=== PATIENT | female | born 1960 | race Caucasian/White ===

== ENCOUNTER → 2017-10-26 15:55 | Outpatient (CLI) | payer OTHER, SELFPAY ==
--- NOTE | 2017-10-26 15:58 | BI_ITS ---
MAMMOGRAPHY - BILATERAL SCREENING REASON FOR EXAM: Female, 57 years old. Routine annual screening examination. PERTINENT HISTORY: Sister with breast cancer. Aunt with breast cancer. TECHNIQUE: Digital bilateral breast jovanny (3D mammographic acquisition) in the CC and MLO projections. 2-D mediolateral oblique (MLO) and craniocaudad (CC) views of both breasts were obtained. CAD: Full Field Digital Mammography with Computer Added Detection was performed. COMPARISON: Comparison is made with prior study dated September 27, 2016 and September 19, 2016. FINDINGS: Breast Composition: There are scattered areas of fibroglandular density. There are no dominant masses or suspicious calcifications. No other significant abnormalities are identified. There has been no significant change since the prior study. BI/SCREENING MAMM (CAD), BILAT IMPRESSION: Stable bilateral screening mammogram. Yearly follow-up mammogram recommended. (A) ASSESSMENT CATEGORY: BIRADS Category 1: Negative. A letter regarding these results will be sent to the patient by the facility within 30 days. Approximately 10% of breast cancers are not detected by mammography. A normal mammogram should not delay biopsy of a clinically suspicious abnormality. [id number] Electronically Signed: Elliot Lopez MD at 8:44 EDT Tel [phone], Service support ,
== END ==
PROVIDERS: Family Provider Family Medicine; PCP Family Medicine; Visit Provider Obstetrics & Gynecology
DX: Z12.31 Encounter for screening mammogram for malignant neoplasm of breast (principal)
CPT/HCPCS: 77063; 77067

== ENCOUNTER 2018-08-23 08:43 | Day surgery (SDC) | payer OTHER, SELFPAY ==
[2018-08-13 07:30] VITALS: BMI 35.5
[2018-08-23] VITALS (9 sets, daily range): BP systolic 101–129; BP diastolic 68–86; PULSE 61–76; RESP 14–18; TEMP 36–37.3; O2SAT 96–100; BMI 35.4
[2018-08-23 09:23] LABS: Hematocrit 43.2 % (37-47); Hemoglobin 14.3 g/dl (12.0-15.0); Mean Corp Hgb Conc 33.1 g/gl (32-36); Mean Corpuscular Hgb 29.5 pg (27.0-32.0); Mean Corpuscular Volume 89.1 fL (81-99); Mean Platelet Vol. 9.6 fl (6.2-12.0); Platelet Count 216 K/mm3 (150-450); RBC Distribution Width CV 12.8 % (11.6-14.6); RBC Distribution Width SD 41.7 fl (35.1-43.9); Red Blood Count 4.85 M/mm3 (4.2-5.4); White Blood Count 5.1 K/mm3 (4.4-11.0)
[2018-08-23 09:24] LABS: Scan Indicated on CBC? Y/N NO
--- NOTE | 2018-08-23 09:29 | EKG12_ITS ---
Test Reason : PRE-OP Blood Pressure : / mmHG Vent. Rate : 075 BPM Atrial Rate : 075 BPM P-R Int : 134 ms QRS Dur : 088 ms QT Int : 368 ms P-R-T Axes : 053 041 042 degrees QTc Int : 410 ms Normal sinus rhythm Normal ECG When compared with ECG of 15-SEP-2010 03:27, No significant change was found Confirmed by LILI CEE, RADHA ([id number]), news copy editor MINI ONEILL ([id number]) on 08/29/2018 1:13:32 PM Referred By: Todd Garcia Confirmed By:RADHA PEARSON MD
[2018-08-23 09:31] LABS: Prothrombin Time (Protime)PT. 13.3 SECONDS (11.7-14.9)
[2018-08-23 09:32] LABS: Partial Thromboplast Time 27.5 Seconds (24.1-36.2)
[2018-08-23] MEDS: Cefazolin 2 GM in 0.9% Normal Saline 100 ML IV (10:31)
--- NOTE | 2018-08-23 11:00 | GALL_PTH ---
PATIENT: MANOJ TOMPKINS LOC: [facility] [place] U#:[id number] AGE/SX: 58/F ROOM: RE08/23/[address]: Dr. Todd Garcia MD : 1960 BED: DIS: 08/23/2018 SPEC #: [id number] RECD: 08/23/18 12:44 STATUS: ELINOR DAMARIS #: [id number] MELIA: 08/23/18 11:[address]: Todd Garcia DEPT: SURGICAL PATHOLOGY RECD BY: Darrin Borrego ENTERED: 08/23/18 13:17 SP TYPE: MIGUEL ANGEL HARRIS DR: Dr. Rohan North III, MD Tissues: Gallbladder, NOS Procedures: Surgery Specimen Level III HEADER OPERATION: Laparoscopic cholecystectomy PRE-OP DIAGNOSIS: Calculus of gallbladder with chronic cholecystitis without obstruction TISSUE SUBMITTED: Gallbladder MICROSCOPIC DIAGNOSIS Gallbladder, cholecystectomy: Moderate chronic follicular cholecystitis and cholelithiasis. A pericystic lymph node with reactive changes. SJ:estelle 08/26/18 MICROSCOPIC DESCRIPTION Slides are reviewed. GROSS DESCRIPTION Received is one container labeled with the patient's name and designated gallbladder. The specimen consists of a gallbladder measuring 8.5 cm in length and up to 3 cm in diameter. The external surface is pink-rai, smooth and glistening for the most part. Focally it is granular, hemorrhagic and contains cautery artifact. The gallbladder contains green-yellow mucoid bile and multiple multifaceted, brownish-black stones measuring in aggregate 3 x 3 x 1 cm and 0.7 to 1.5 cm in greatest dimension. The mucosa is bile-stained and without any mass lesions. The gallbladder wall measures up to 0.2 cm in thickness. Also present close to cystic duct is an ovoid piece of rai soft tissue, a possible lymph node, 0.6 cm in greatest dimension. Area Director Of [employer] sections from the gallbladder and the cystic duct are submitted in one cassette including entire possible lymph node. / KATHE:estelle 08/23/18 TC:3 CPT: 18126
[2018-08-23] MEDS: Bupivacaine 0.5% PF 10 ML VIAL (11:27)
--- NOTE | 2018-08-23 11:59 | NURSING ---
SLEEPING NOT AWAKENED.
--- NOTE | 2018-08-23 12:03 | DCINST_ITS ---
Discharge Diet: Light diet - advance as tolerated Discharge Activity: May Not Drive - for 2-3 days or while taking narcotic pain medications., - - Do not drive, work heavy equipment or sign legal documents for 24 hours. May shower in (days): 1 - with the bandage in place. Additional Activity Instructions:: Pain medication may cause nausea. You should typically eat light foods as you take your pain medications. Pain medication may also cause constipation. If this is a problem for you, please discuss with your doctor. Call your doctor if your incision/area has: Continuous Slow Oozing, Sudden Increased Bleeding, Increased Pain/ Swelling, Increased Redness, Foul Smelling Discharge Call your doctor if you observe: Fever of 101 or Higher Suture Line Care: Avoid Pulling/Pushing, Avoid Pinching/Bending Additional Dressing/Incision Instructions:: Leave operative bandaids on for 2 days. When you remove dressing, leave Steri-Strips on until your follow-up appointment, or until the Steri-Strips fall off on their own. Allergies/Adverse Reactions: Allergies codeine Adverse Reaction (Verified 08/16/18 15:17) Upset Stomach Medications to take at Discharge B-complex with vitamin C capsule 1 cap PO DAILY 08/13/18 calcium carbonate 600 mg calcium (1,500 mg) tablet 600 mg PO BID tab 08/13/18 copper gluconate 2 mg tablet 2 mg PO DAILY 08/13/18 fluticasone 50 mcg/actuation nasal spray,suspension 2 spray INTRANASAL DAILY PRN 08/13/18 magnesium 250 mg tablet 135 mg PO DAILY 08/13/18 melatonin 5 mg capsule 3 mg PO QHS cap 08/13/18 omega-3 fatty acids 1,250 mg capsule 1,250 mg PO DAILY PRN 08/13/18 omeprazole 40 mg capsule,delayed release 20 mg PO DAILY PRN 08/13/18 zinc 50 mg tablet 30 mg PO DAILY 08/13/18 Cholecalciferol (Vitamin D3) [Vitamin D3] 4,000 unit PO DAILY 08/16/18 Cranberry Fruit Extract [Cranberry] 168 mg PO DAILY 08/16/18 Ferrous Fumarate 60 mg PO DAILY 08/16/18 Loratadine [Claritin] 10 mg PO DAILY PRN 08/16/18 Multivitamin [Multiple Vitamins] 1 each PO BID 08/16/18 Polyethylene Glycol 3350 [Miralax] 17 gm PO DAILY PRN 08/16/18 Oxycodone HCl 5 mg PO 4X/DAY PRN PRN 7 Days #150 ml 08/23/18 The following prescriptions were given: Oxycodone HCl 5 mg PO 4X/DAY PRN PRN 7 Days #150 ml PRN Reason: Pain Primary Care Physician: Rohan North III, MD [Primary Care Provider] - Test Results: Test results from this visit will be discussed in further detail at your follow- up appointment, if applicable. Please Follow Up With: Todd Garcia MD - Please call [phone] to schedule an appointment. When: 7 days after your surgery.
--- NOTE | 2018-08-23 12:05 | PCM.OPRPT ---
Problem List (1) Calculus of gallbladder with chronic cholecystitis without obstruction Status: Chronic Report of Operation Date of Procedure: 08/23/18 Pre-Operative Diagnosis: Chronic cholecystitis with cholelithiasis Post-Operative Diagnosis: Same Surgery/Procedure Performed:: Laparoscopic cholecystectomy Type of Anesthesia:: General Anesthesiologist: Maurice Holman Estimated Blood Loss (mL): < 25 cc Description of Procedure: Patient was brought into the operating room. Placed in the supine position. Under excellent general endotracheal intubation the abdomen was sterilely prepped and draped in usual fashion. Local was injected infraumbilically. Dissection was carried down to the fascia. The fracture was grasped with a [place]. Varies needle was placed inside the abdomen. The abdomen was insufflated to 15 torr. A 10/12 trocar was placed without difficulty. Patient was placed in the head up and rotated to the left position. A subxiphoid #5 trocar was placed, inferior to this another #5 trocar was placed, laterally a #5 trocar was placed. All of these under direct visualization without injury to underlying structures. Fundus of the gallbladder was grasped retracted in a cephalad direction. Infundibulum was grasped retracted laterally I dissected out the cystic duct. I placed hemoclips proximally distally and ligated the duct. Identified the cystic artery. Place hemoclips proximally distally and ligated the artery. Deliver the gallbladder from the gallbladder bed with the use of electrocautery. I had some spillage of bile but no spillage of stones. Placed a specimen specimen bag and delivered through the umbilical port without difficulty. I irrigated the right upper quadrant retrieved all the bile that was lost. I used electrocautery on the liver bed to achieve good hemostasis. I removed the trochars under direct visualization. Good hemostasis was noted. Close the fascia the umbilical port with [id number] stitch of 0 Vicryl. Skin incisions were closed with septicum stitches of 4-0 Monocryl. Steri-Strips are applied sterile dressings were applied and the patient tolerated the procedure well.
== END 2018-08-23 16:46 | disposition home or self-care (01) ==
LOC: SDC 08:46 → AC 08:46
PROVIDERS: Anesthesiology; Family Provider Family Medicine; PCP Family Medicine; Referring Provider Surgery; Visit Provider Surgery
PROC: (CPT 47562; principal; 2018-08-23 10:40)
DX: K80.10 Calculus of gallbladder with chronic cholecystitis without obstruction (principal); K21.9 Gastro-esophageal reflux disease without esophagitis; M19.90 Unspecified osteoarthritis, unspecified site; D64.9 Anemia, unspecified; Z87.891 Personal history of nicotine dependence; Z98.84 Bariatric surgery status; Z79.899 Other long term (current) drug therapy
CPT/HCPCS: 00790; 47562; 36415; 85027; 85610; 85730; 88304; 93005; J7120; J2405

== ENCOUNTER → 2019-03-04 | Outpatient (CLI) | payer OTHER, SELFPAY ==
[2018-08-23 09:46] VITALS: BMI 35.4
--- NOTE | 2019-03-04 16:55 | BI_ITS ---
MAMMOGRAPHY - BILATERAL SCREENING 3-D TOMOSYNTHESIS REASON FOR EXAM: Female, 59 years old. Bilateral Screening 3-D tomosynthesis PERTINENT HISTORY: Sister and paternal aunt with breast cancer.. TECHNIQUE: 2-D mammograms and 3-D Tomosynthesis of the breast (s) were performed. CAD was performed. COMPARISON: 10/26/2017, 05/03/2017, 09/27/2016 FINDINGS: The breast composition is composed of scattered fibroglandular density. Scattered benign calcifications are seen. No dense spiculated masses or suspicious microcalcifications are identified. No architectural distortion is identified. There is no skin thickening or retraction. There has been no significant change since the prior study. BI/SCREEN MAMM (CAD) W/JACK BILAT IMPRESSION: No mammographic signs of malignancy. Routine yearly mammograms recommended. ASSESSMENT CATEGORY: BIRADS Category 2: Benign. A letter regarding these results will be sent to the patient by the facility within 30 days. FOLLOW UP RECOMMENDATION: Yearly follow up mammogram recommended. (A) Approximately 10% of breast cancers are not detected by mammography. A normal mammogram should not delay biopsy of a clinically suspicious abnormality. Electronically Signed: Elliot Roberto MD at 15:48 EDT Tel [phone], Service support ,
== END | disposition home or self-care (01) ==
PROVIDERS: Family Provider Family Medicine; PCP Family Medicine; Referring Provider Obstetrics & Gynecology; Visit Provider Obstetrics & Gynecology
DX: Z12.31 Encounter for screening mammogram for malignant neoplasm of breast (principal)
CPT/HCPCS: 77063; 77067

== ENCOUNTER → 2020-04-28 | Outpatient (CLI) | payer OTHER, SELFPAY ==
[2018-08-23 09:46] VITALS: BMI 35.4
--- NOTE | 2020-04-28 15:15 | BI_ITS ---
MAMMOGRAPHY - BILATERAL SCREENING REASON FOR EXAM: Female, 60 years old. Routine annual screening examination. PERTINENT HISTORY: Sister with breast cancer. Aunt with breast cancer. TECHNIQUE: Digital bilateral breast jack (3D mammographic acquisition) in the CC and MLO projections. 2-D mediolateral oblique (MLO) and craniocaudad (CC) views of both breasts were obtained. CAD: Full Field Digital Mammography with Computer Added Detection was performed. COMPARISON: Comparison is made with prior study date 03/04/2019 and 10/26/2017. FINDINGS: Breast Composition: There are scattered areas of fibroglandular density. There are no dominant masses or suspicious calcifications. No other significant abnormalities are identified. There has been no significant change since the prior study. BI/SCREEN MAMM (CAD) W/JACK BILAT IMPRESSION: Stable bilateral screening mammogram. Yearly follow-up mammogram recommended. (A) ASSESSMENT CATEGORY: BIRADS Category 1: Negative. A letter regarding these results will be sent to the patient by the facility within 30 days. Approximately 10% of breast cancers are not detected by mammography. A normal mammogram should not delay biopsy of a clinically suspicious abnormality. [id number] Electronically Signed: Elliot Lopez, at 8:06 EDT , Service support ,
== END | disposition home or self-care (01) ==
PROVIDERS: PCP Family Medicine; Referring Provider Student in an Organized Health Care Education/Training Program; Visit Provider Student in an Organized Health Care Education/Training Program
DX: Z12.31 Encounter for screening mammogram for malignant neoplasm of breast (principal)
CPT/HCPCS: 77063; 77067

== ENCOUNTER → 2021-04-29 07:35 | Outpatient (CLI) | payer OTHER, SELFPAY ==
--- NOTE | 2021-04-29 07:38 | BI_ITS ---
MAMMOGRAPHY - BILATERAL SCREENING REASON FOR EXAM: Female, 61 years old. Routine annual screening examination. PERTINENT HISTORY: Sister with breast cancer. Aunt with breast cancer. TECHNIQUE: Digital bilateral breast jack (3D mammographic acquisition) in the CC and MLO projections. 2-D mediolateral oblique (MLO) and craniocaudad (CC) views of both breasts were obtained. CAD: Full Field Digital Mammography with Computer Added Detection was performed. COMPARISON: Comparison is made with prior examination dated 04/28/2020 and 03/04/2019. FINDINGS: Breast Composition: There are scattered areas of fibroglandular density. There are no dominant masses or suspicious calcifications. No other significant abnormalities are identified. There has been no significant change since the prior study. BI/SCRN MAMM (CAD)W/JACK BILAT IMPRESSION: Stable bilateral screening mammogram. Yearly follow-up mammogram recommended. (A) ASSESSMENT CATEGORY: BIRADS Category 1: Negative. A letter regarding these results will be sent to the patient by the facility within 30 days. Approximately 10% of breast cancers are not detected by mammography. A normal mammogram should not delay biopsy of a clinically suspicious abnormality. [id number] Electronically Signed: Elliot Lopez MD at 8:49 EDT , Service support ,
== END ==
PROVIDERS: PCP Nurse Practitioner Primary Care; Referring Provider Student in an Organized Health Care Education/Training Program; Visit Provider Student in an Organized Health Care Education/Training Program
DX: Z12.31 Encounter for screening mammogram for malignant neoplasm of breast (principal)
CPT/HCPCS: 77063; 77067

== ENCOUNTER → 2022-05-01 | Outpatient (CLI) | payer OTHER, SELFPAY ==
--- NOTE | 2022-05-01 07:16 | BI_ITS ---
MAMMOGRAPHY - BILATERAL SCREENING REASON FOR EXAM: Female, 62 years old. Routine annual screening examination. PERTINENT HISTORY: Sister with breast cancer. Aunt with breast cancer. TECHNIQUE: Digital bilateral breast jack (3D mammographic acquisition) in the CC and MLO projections. 2-D mediolateral oblique (MLO) and craniocaudad (CC) views of both breasts were obtained. CAD: Full Field Digital Mammography with Computer Added Detection was performed. COMPARISON: Comparison is made with prior study dated 04/29/2021 and 04/28/2020. FINDINGS: Breast Composition: The breasts are almost entirely fatty. There are no dominant masses or suspicious calcifications. No other significant abnormalities are identified. There has been no significant change since the prior study. BI/SCRN MAMM (CAD)W/JACK BILAT IMPRESSION: Stable bilateral screening mammogram. Yearly follow-up mammogram recommended. (A) ASSESSMENT CATEGORY: BIRADS Category 1: Negative. A letter regarding these results will be sent to the patient by the facility within 30 days. Approximately 10% of breast cancers are not detected by mammography. A normal mammogram should not delay biopsy of a clinically suspicious abnormality. [id number] Electronically Signed: Elliot Lopez MD at 8:58 EDT ,
== END | disposition home or self-care (01) ==
LOC: OPBI 07:13
PROVIDERS: PCP Nurse Practitioner Primary Care; Visit Provider Student in an Organized Health Care Education/Training Program
DX: Z12.31 Encounter for screening mammogram for malignant neoplasm of breast (principal); Z80.3 Family history of malignant neoplasm of breast
CPT/HCPCS: 77063; 77067

== ENCOUNTER → 2022-08-07 | Outpatient (CLI) | payer OTHER, SELFPAY ==
[2022-08-07 12:13] LABS: Absolute Lymphocyte Count 1.27 X10^3/uL (0.83-4.51); Basophil# 0.02 X10^3/uL; Basophil% 0.4 % (0-1); Eosinophil# 0.07 X10^3/uL; Eosinophils% 1.5 % (0-5); Hematocrit 44.8 % (37-47); Hemoglobin 14.7 g/dL (12.0-15.0); Lymphocyte # 1.27 X10^3/ul (0.83-4.51); Lymphocyte % 26.3 % (19-41); Mean Corp Hgb Conc 32.8 g/dL (32-36); Mean Corpuscular Hgb 29.2 pg (27.0-32.0); Mean Corpuscular Volume 88.9 fL (81-99); Mean Platelet Vol. 10.2 fl (6.2-12.0); Monocyte% 8.3 % (0-10); NRBC Flagged by Analyzer 0 % (0-5); Neutrophil # 3.04 X10^3/uL (2.7-7.7); Neutrophil % 63.1 % (47-70); Platelet Count 249 K/mm3 (150-450); RBC Distribution Width CV 12.4 % (11.6-14.6); RBC Distribution Width SD 40.6 fl (35.1-43.9); Red Blood Count 5.04 M/mm3 (4.2-5.4); White Blood Count 4.8 K/mm3 (4.4-11.0)
[2022-08-07 12:40] LABS: AST(SGOT) 24 U/L (15-37); Alanine Aminotransfer ALT/SGPT 40 U/L (13-56); Albumin, Serum 3.8 g/dL (3.2-5.0); Alkaline Phosphatase 73 U/L (45-117); Anion Gap 6 (5-15); BUN 14 mg/dL (7-18); BUN/Creat Ratio 16.7 RATIO (10-20); Calcium,Total 9.7 mg/dL (8.5-10.1); Chloride 106 mmol/L (98-107); Cholesterol 196 mg/dL (200); Creatinine, Serum 0.84 mg/dL (0.55-1.02); EST Glomerular Filtration Rate 74 mL/min (>60); Est Glom Filt Rate - Afr Amer 89 mL/min (>60); Globulin 3.9 g/dL (2.2-4.2); Glucose 112 mg/dL (74-106); High Density Lipoprotein 72 mg/dL; Protein, Total 7.7 g/dL (6.4-8.2); Sodium Level 139 mmol/L (136-145); Triglycerides 155 mg/dL; Very Low Density Lipoprotein 31 mg/dL (5-40)
[2022-08-07 13:02] LABS: Hemoglobin A1c 5.7 % (3.8-5.6)
[2022-08-07 13:05] LABS: Vitamin B12 1087 pg/mL (211-911); Vitamin D,25 Hydroxy 43.1 ng/mL
== END | disposition home or self-care (01) ==
LOC: BIMLAB 08:46
PROVIDERS: PCP Internal Medicine; Referring Provider Internal Medicine; Visit Provider Internal Medicine
DX: Z00.00 Encounter for general adult medical examination without abnormal findings (principal); K91.2 Postsurgical malabsorption, not elsewhere classified
CPT/HCPCS: 36415; 80053; 80061; 82306; 82607; 83036; 85025

== ENCOUNTER → 2023-01-19 | Outpatient (CLI) | payer OTHER, SELFPAY ==
--- NOTE | 2023-01-19 09:04 | RAD_ITS ---
STUDY: X-RAY - CERVICAL SPINE REASON FOR EXAM: Female, 62 years old. Radiculopathy TECHNIQUE: 3 view(s) of the cervical spine were obtained. COMPARISON: None FINDINGS: Normal anterior atlantoaxial articulation. Normal odontoid process. Normal cervical lordosis. Normal vertebral bodies and endplates. Normal disc space heights. The soft tissue structures are unremarkable. There is no demonstrated fracture of the cervical spine. RAD/Cerv Spine 2 or 3 Views IMPRESSION: Normal x-ray examination of the visualized cervical spine. Electronically Signed: Darshan Bearden MD at 19:58 EDT ,
[2023-01-19 12:29] LABS: Absolute Lymphocyte Count 1.18 X10^3/uL (0.83-4.51); Absolute Neutrophil Count 5.3 X10^3/uL (2.0-7.7); Basophil# 0.03 X10^3/uL; Basophil% 0.4 % (0-1); Eosinophil# 0.04 X10^3/uL; Eosinophils% 0.6 % (0-5); Hematocrit 45.5 % (37-47); Hemoglobin 14.9 g/dL (12.0-15.0); Lymphocyte # 1.18 X10^3/ul (0.83-4.51); Lymphocyte % 16.7 % (19-41); Mean Corp Hgb Conc 32.7 g/dL (32-36); Mean Corpuscular Hgb 29.6 pg (27.0-32.0); Mean Corpuscular Volume 90.5 fL (81-99); Mean Platelet Vol. 10.3 fl (6.2-12.0); Monocyte# 0.47 X10^3/uL; Monocyte% 6.7 % (0-10); NRBC Flagged by Analyzer 0 % (0-5); Neutrophil # 5.31 X10^3/uL (2.7-7.7); Neutrophil % 75.2 % (47-70); Platelet Count 268 K/mm3 (150-450); RBC Distribution Width CV 12.5 % (11.6-14.6); RBC Distribution Width SD 41.2 fl (35.1-43.9); Red Blood Count 5.03 M/mm3 (4.2-5.4); White Blood Count 7.1 K/mm3 (4.4-11.0)
[2023-01-19 13:01] LABS: ALB/GLOB Ratio 1.1 RATIO (0.9-2.4); AST(SGOT) 17 U/L (15-37); Alanine Aminotransfer ALT/SGPT 28 U/L (13-56); Alkaline Phosphatase 67 U/L (45-117); Anion Gap 4 (5-15); BUN 20 mg/dL (7-18); BUN/Creat Ratio 26.7 RATIO (10-20); Calcium,Total 9.8 mg/dL (8.5-10.1); Chloride 105 mmol/L (98-107); Creatinine, Serum 0.75 mg/dL (0.55-1.02); EST Glomerular Filtration Rate 83 mL/min (>60); Est Glom Filt Rate - Afr Amer 101 mL/min (>60); Globulin 3.7 g/dL (2.2-4.2); Glucose 111 mg/dL (74-106); Potassium 4.4 mmol/L (3.5-5.1); Protein, Total 7.7 g/dL (6.4-8.2); Sodium Level 136 mmol/L (136-145); T4 Free Direct 1.06 ng/dL (0.76-1.46)
== END | disposition home or self-care (01) ==
PROVIDERS: PCP Internal Medicine; Referring Provider Internal Medicine; Visit Provider Internal Medicine
DX: R73.03 Prediabetes (principal); Z13.29 Encounter for screening for other suspected endocrine disorder; M54.10 Radiculopathy, site unspecified
CPT/HCPCS: 36415; 72040; 80053; 84439; 84443; 85025

== ENCOUNTER → 2023-03-29 | Outpatient (CLI) | payer OTHER, SELFPAY ==
--- NOTE | 2023-03-29 16:49 | RAD_ITS ---
STUDY: X-RAY - RIGHT SHOULDER REASON FOR EXAM: Female, 63 years old. Right Shoulder Pain TECHNIQUE: 4 view(s) of the shoulder. COMPARISON: None. FINDINGS: Mildly narrowed glenohumeral articulation. Normal acromioclavicular joint. Normal acromion. Normal humeral head and visualized proximal humerus. The soft tissue structures are unremarkable. Normal visualized pulmonary apex. RAD/Shoulder min 2 Views IMPRESSION: Mild degenerative change. No acute fracture or other significant bony pathology. Electronically Signed: David Poon MD at 17:58 EDT ,
== END | disposition home or self-care (01) ==
LOC: RAD 16:46
PROVIDERS: PCP Internal Medicine; Referring Provider Internal Medicine; Visit Provider Internal Medicine
DX: M25.511 Pain in right shoulder (principal)
CPT/HCPCS: 73030

== ENCOUNTER → 2023-05-02 | Outpatient (CLI) | payer OTHER, SELFPAY ==
--- NOTE | 2023-05-02 07:17 | BI_ITS ---
MAMMOGRAPHY - BILATERAL SCREENING REASON FOR EXAM: Female, 63 years old. Routine annual screening examination. PERTINENT HISTORY: Sister with breast cancer. Aunt with breast cancer. TECHNIQUE: Digital bilateral breast jack (3D mammographic acquisition) in the CC and MLO projections. 2-D mediolateral oblique (MLO) and craniocaudad (CC) views of both breasts were obtained. CAD: Full Field Digital Mammography with Computer Added Detection was performed. COMPARISON: Comparison is made with prior study May 01, 2022 and April 29, 2021. FINDINGS: Breast Composition: The breasts are almost entirely fatty. There are no dominant masses or suspicious calcifications. No other significant abnormalities are identified. There has been no significant change since the prior study. BI/SCRN MAMM (CAD)W/JACK BILAT IMPRESSION: Stable bilateral screening mammogram. Yearly follow-up mammogram recommended. (A) ASSESSMENT CATEGORY: BIRADS Category 1: Negative. A letter regarding these results will be sent to the patient by the facility within 30 days. Approximately 10% of breast cancers are not detected by mammography. A normal mammogram should not delay biopsy of a clinically suspicious abnormality. [id number] Electronically Signed: Elliot Lopez MD at 9:30 EDT ,
== END | disposition home or self-care (01) ==
LOC: OPBI 07:16
PROVIDERS: PCP Internal Medicine; Referring Provider Internal Medicine; Visit Provider Internal Medicine
DX: Z12.31 Encounter for screening mammogram for malignant neoplasm of breast (principal); Z80.3 Family history of malignant neoplasm of breast
CPT/HCPCS: 77063; 77067

== ENCOUNTER 2023-05-04 07:30 | Outpatient (RCR) | payer OTHER, SELFPAY ==
--- NOTE | 2023-04-05 17:05 | HP.PTEVAL ---
Patient's Visit Information Visit Information Visit Information: MANOJ TOMPKINS is a 63 year old F referred to Physical Therapy by Dr. Miah Montemayor MD with a diagnosis of R shoulder pain. Date of Evaluation: 04/05/23 Physical Therapist: Mike Hassan, PT, ATC Visit Plan Frequency: 2x /Week Duration: 4-6 Weeks Plan: R shoulder rot cuff strengthening, scap stab ex's, UBE, and HEP Subjective Subjective: Pt reports her R shoulder has been sore for 3-4 months now. Pt notes her pain had an insidious onset. Pt notes her pain is located on the anterior aspect of the R shoulder. Pt notes sleep difficulty at this time secondary to pain. Pt notes she is R hand dominant. Pt reports getting dressed and performing house hold chores increases her pain. Pt reports no prior Hx of this type of pain. Pt reports no R UE tingling or numbness at this time. Pt notes she had a recent x-ray which revealed OA. 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 0/10 pain while at rest, 7/10 pain at worst (at night time and brings me to tears) Pain R shoulder: Pain Intensity (Out of 10): 0 Pain Intensity Range: 7 Objective Objective: Neuro: B UE sensation to light touch WNL; B Reflexes 2+ Palpation: Slight TTP in L long head of bicep/anterior delt area; posterior joint line and supraspinatus; L lateral delt ROM: L shoulder flex= 165, abd= 170, ER= 25, IR= WNL ;R shoulder flex= 125, abd= 80, ER= 40, IR = Mod limited MMT: L shoulder flex= 15 #F, abd=16# F, ER= 16 #F, IR= 21 #F;R shoulder flex= 4 #F, abd= 12 #F, ER= 14 #F, IR= 14 #F Special tests: Pos kimball alton test; Pos speeds test; Pos empty can test Balance/Special Test Scores Quick DASH Score: 52.6899 Goals Goal 1:: Pt. to improve R shoulder strength x 5-10 #F to aid with house chores Goal Time Frame: 4-6 Weeks Goal 2:: Increase R shoulder flex and abd ROM x 30 degrees to aid with IADL's Goal Time Frame: 4-6 Weeks Goal 3:: Decrease R shoulder pain x 50% to aid with sleep Goal Time Frame: 4-6 Weeks Goal 4:: I with HEP Goal Time Frame: 4-6 Weeks Rehabilitation Potential Physical Therapy Diagnosis: Pt has R shoulder pain, weakness, and limited ROM secondary to R shoulder impingement syndrome Rehabilitation Potential: Good Anticipated Interventions Patient/Client Instruction: Educate patient on: Condition and Plan of Care For the Purpose of:: To improve self management Therapeutic Exercise to Include: Strength training, Flexibilty training, Active ROM and Scapular Strength/Stabilization For the Purpose of:: To decrease pain, To increase ROM and To improve muscle performance and motor function Cryotherapy (ice pack, ice massage): Yes For the Purpose of:: To decrease pain Text: Thank you for the opportunity to evaluate your patient. For Medicare and Medicare HMO plans, please review the plan of care and approve it. It will need to be FAXED BACK to us at [phone] for Medicare purposes. For Medicare only, by signing this I certify the plan of care. Please let me know if there are questions or concerns regarding this plan of care. Physician Signature: Date:
--- NOTE | 2023-05-04 12:33 | HP.PTDCSUM ---
Discharge Summary D/C summary: It has been my pleasure to treat MANOJ TOMPKINS referred by Dr. Miah Montemayor MD, with the diagnosis of R shoulder pain for a total of 7 visit(s). Discharge Date: Please see the following information for a summary of their discharge status. Subjective Subjective: Pt. reports no pain and was able to sleep through the night for the first time in weeks! There is no pain currently in her shoulder or her neck. Completing all of her ADLs and iADLs are able to be completed without pain for over a week. The pt. states she is 90% improved at this time and the remainder 10% of the pts. improvement is so that she can sleep throughout night for a week in a row. She is incredibly pleased with the progress she's made on this chronic pain issue she has had for over a year. Pain R shoulder: Pain Intensity (Out of 10): 0 Overall Improvement % Improvement: 90 Objective Objective/Function: Pts. new QuickDASH score = 2.2725 (Original 52.2725) Pts. R shoulder strength has improved x 5-10 #F which has met her goal. - R Shoulder Flexion: 26.2 #F (originally 4 #F) - R Shoulder Abd: 20.3 #F (originally 12 #F) - R Shoulder IR: 26.5 #F (originally 14 #F) - R Shoulder ER: 24.7 #F (originally 14#) Pts. R Shoulder flex and abd ROM has increased x 30 degrees which meets her current goal. - R Shoulder Abd: 180 Deg (originally 80 deg) Pts. reported pain is now reported as a 0/10 which meets her current goal. Pt. is I with HEP which meets her goal. Goals Goal 1:: Pt. to improve R shoulder strength x 5-10 #F to aid with house chores Goal Progress: Goal Met Goal 2:: Increase R shoulder flex and abd ROM x 30 degrees to aid with IADL's Goal Progress: Goal Met Goal 3:: Decrease R shoulder pain x 50% to aid with sleep Goal Progress: Goal Met Goal 4:: I with HEP Goal Progress: Goal Met Plan Plan: D/C pt. to HEP. D/C Information d/c sentence: If there are questions or concerns regarding this patient's physical therapy, please feel free to call me at [phone]. Thank you for the referral of this patient. Sincerely, Mike Hassan, PT, ATC Balance/Gait/Functional tests Balance/Special Test Scores Quick DASH Score: 2.2725 Improvement % Improvement: 90
== END 2023-05-04 19:00 | disposition home or self-care (01) ==
LOC: PT 07:30
PROVIDERS: PCP Internal Medicine; Referring Provider Internal Medicine; Visit Provider Internal Medicine
DX: M25.511 Pain in right shoulder (principal); M19.90 Unspecified osteoarthritis, unspecified site; G89.29 Other chronic pain
CPT/HCPCS: 97110; 97140; 97161; 97164; 97530

== ENCOUNTER → 2023-06-25 | Outpatient (CLI) | payer OTHER, SELFPAY ==
[2023-06-25 16:22] LABS: Absolute Lymphocyte Count 1.76 X10^3/uL (0.83-4.51); Absolute Neutrophil Count 4.3 X10^3/uL (2.0-7.7); Basophil# 0.03 X10^3/uL; Basophil% 0.4 % (0-1); Eosinophil# 0.14 X10^3/uL; Eosinophils% 2.1 % (0-5); Hematocrit 43.9 % (37-47); Hemoglobin 14.3 g/dL (12.0-15.0); Lymphocyte # 1.76 X10^3/ul (0.83-4.51); Mean Corp Hgb Conc 32.6 g/dL (32-36); Mean Corpuscular Hgb 29.2 pg (27.0-32.0); Mean Corpuscular Volume 89.8 fL (81-99); Mean Platelet Vol. 9.5 fl (6.2-12.0); Monocyte# 0.52 X10^3/uL; Monocyte% 7.7 % (0-10); NRBC Flagged by Analyzer 0 % (0-5); Neutrophil % 63.5 % (47-70); Platelet Count 264 K/mm3 (150-450); RBC Distribution Width CV 12.5 % (11.6-14.6); RBC Distribution Width SD 41.2 fl (35.1-43.9); Red Blood Count 4.89 M/mm3 (4.2-5.4); White Blood Count 6.8 K/mm3 (4.4-11.0)
[2023-06-25 16:45] LABS: AST(SGOT) 19 U/L (15-37); Alanine Aminotransfer ALT/SGPT 28 U/L (13-56); Albumin, Serum 3.8 g/dL (3.2-5.0); Alkaline Phosphatase 70 U/L (45-117); Anion Gap 4 (5-15); BUN 18 mg/dL (7-18); BUN/Creat Ratio 22.1 RATIO (10-20); Calcium,Total 10.2 mg/dL (8.5-10.1); Chloride 105 mmol/L (98-107); Cholesterol 187 mg/dL (200); Creatinine, Serum 0.81 mg/dL (0.55-1.02); EST Glomerular Filtration Rate 76 mL/min (>60); Est Glom Filt Rate - Afr Amer 92 mL/min (>60); Globulin 3.8 g/dL (2.2-4.2); Glucose 114 mg/dL (74-106); High Density Lipoprotein 72 mg/dL; Potassium 3.9 mmol/L (3.5-5.1); Protein, Total 7.6 g/dL (6.4-8.2); Sodium Level 138 mmol/L (136-145); Triglycerides 77 mg/dL; Very Low Density Lipoprotein 15 mg/dL (5-40)
== END | disposition home or self-care (01) ==
LOC: BIMLAB 15:43
PROVIDERS: PCP Internal Medicine; Referring Provider Internal Medicine; Visit Provider Internal Medicine
DX: Z00.00 Encounter for general adult medical examination without abnormal findings (principal)
CPT/HCPCS: 36415; 80053; 80061; 85025

== ENCOUNTER → 2023-07-31 | Outpatient (CLI) | payer OTHER, SELFPAY ==
--- NOTE | 2023-07-31 15:51 | BD_ITS ---
STUDY: DUAL ENERGY X-RAY ABSORPTIOMETRY / DXA REASON FOR EXAM: Female, 63 years old. Post menopausal TECHNIQUE: Bone Mineral Density (BMD) measurements of lumbar spine and bilateral hips were obtained. COMPARISON: None. FINDINGS: Lumbar Spine (L1-L4): g/cm2 (0.864) / T-score (-1.7) / Z-score (-0.1) Findings are suggestive of osteopenia with a moderate fracture risk. Left Femur Total: g/cm2 (0.792) / T-score (-1.2) / Z-score (-0.1) Left Femoral Neck: g/cm2 (0.589) / T-score (-2.3) / Z-score (-1.0) Right Femur Total: g/cm2 (0.813) / T-score (-1.1) / Z-score (0.0) Right Femoral Neck: g/cm2 (0.632) / T-score (-2.0) / Z-score (-0.6) BD/Dexa Bone Density Study IMPRESSION: The patient is considered osteopenic as outlined below according to World Luis Organization (WHO) criteria with a high fracture risk. Reference Information: The T-score is the number of standard deviations above or below the standard which is normal for young adults at their peak bone mineral density. The World Health Organization (WHO) interprets the T-scores as follows: Above -1 Normal bone density Between -1 and -2.5 Osteopenia Equal to / or below -2.5 Osteoporosis As a practical clinical guideline, osteopenia may be graded as follows: Mild -1 through -1.5 Moderate -1.6 through -2.0 Severe -2.1 through -2.4 The Z-score is the number of standard deviations above or below age-matched controls. A Z-score of less than -1.5 would be considered abnormal. References: 1. NIH Osteoporosis and Related Bone Diseases www osteo.org 2. International Society for Clinical Densitometry www iscd.org 3. National Osteoporosis Foundation www nof.org Electronically Signed: Elliot Lopez MD at 8:25 EST ,
--- OUTSIDE RECORDS SUMMARY | 2023-07-31 17:41 | XMS RPT_ITS | CCD ---
Author Name Unknown Address [address] [place] [address] Organization [facility] Care Team Providers Care Evp And Chief Operating Officer Name Role Phone Juan Luis Paul MD Primary Care Provider PODLOGAR, ORQUIDEA Referring Unavailable JUAN LUIS PAUL Primary Care UnavailJuan Luis Gtz MD Primary Care Provider JUAN LUIS PAUL Primary Care Unavailab le PODLOGAR, ORQUIDEA Referring Unavailable JUAN LUIS PAUL Primary Care Unavailab le PODLOGAR, ORQUIDEA Referring Unavailable PODLOGAR, ORQUIDEA Attending Unavailable JUAN LUIS PAUL Primary Care Unavailab le Allergies Allergy Classification Reported Allergen(s) Allergy Type Date of Onset Reaction(s) Facility (12 sources) Codeine; Translations: [CODEINE] Drug Allergy 05-20-2011 Vomiting [facility] (12 sources) Esomeprazole; Translations: [ESOMEPRAZOLE MAGNESIUM] Drug Allergy 07-21-2005 GI Upset [facility] Work Phone: (12 sources) metFORMIN; Translations: [METFORMIN HCL] [facility] ([facility] sources) Non-steroidal anti-inflammator y agent; Translations: [NSAIDS (NON-STEROIDAL ANTI-INFLAMMATOR Y DRUG)] Propensity to adverse reactions to drug 12-23-2013 [facility] (9 sources) Non-steroidal anti-inflammator y agent Propensity to adverse reactions to drug 12-23-2013 [facility] Medications Current Medications Medication Drug Class(es) Dates Sig (Normalized) Sig (Original) doxycycline hyclate 100 mg oral tablet (1 source) Tetracycline-clas s Drug Start: 10-17-2021 End: 10-27-2021 take 1 tablet by mouth twice daily doxycycline (VIBRA-TABS) 100 mg tablet Indications: URI, acute , Tenderness over frontal sinus Take 1 tablet by mouth twice daily for 10 days. 20 tablet 0 10/17/2021 10/27/2021 Active Completed/Discontinued Medications Medication Drug Class(es) Dates Sig (Normalized) Sig (Original) Ascorbate Calcium-Bioflavonoid (REGIS C WITH BIOFLAVONOIDS) 500-200 mg tab (10 sources) take 1 tablet by rina once daily Ascorbate Calcium-Bioflavonoid (REGIS C WITH BIOFLAVONOIDS) 500-200 mg tab Take 1 tablet by mouth once daily. 0 Active Problems Active Problems Problem Classification Problem Date Documented Date Episodic/Chronic Esophageal disorders (10 sources) Gastroesophageal reflux disease; Translations: [Gastro-esophageal reflux disease without esophagitis] 09-01-2019 Chronic Nutritional deficiencies (10 sources) Vitamin D deficiency; Translations: [Vitamin D deficiency, unspecified] Onset: 01-11-2010 01-11-2010 Chronic Osteoarthritis (20 sources) Arthritis of left knee; Translations: [Unilateral primary osteoarthritis, left knee] Onset: 10-01-2015 10-01-2015 Chronic Other nutritional; endocrine; and metabolic disorders (10 sources) Metabolic syndrome X; Translations: [Metabolic syndrome] Onset: 09-19-2006 09-19-2006 Chronic Other nutritional; endocrine; and metabolic disorders (8 sources) Obesity; Translations: [Other obesity due to excess calories] Onset: 09-19-2006 09-01-2019 Chronic Other nutritional; endocrine; and metabolic disorders (2 sources) Obesity caused by energy imbalance; Translations: [Other obesity due to excess calories] Onset: 09-19-2006 09-01-2019 Chronic Other screening for suspected conditions (not mental disorders or infectious disease) (3 sources) Ultrasound scan abnormal; Translations: [Abnormal findings on diagnostic imaging of other specified body structures] Onset: 07-27-2022 Chronic Other screening for suspected conditions (not mental disorders or infectious disease) (2 sources) Patient encounter status; Translations: [Encounter for screening mammogram for malignant neoplasm of breast] Episodic Other upper respiratory disease (1 source) Tenderness over frontal sinus; Translations: [Other specified disorders of nose and nasal sinuses] Episodic Other upper respiratory infections (1 source) Acute upper respiratory infection; Translations: [Acute upper respiratory infection, unspecified] Episodic Spondylosis; intervertebral disc disorders; other back problems (10 sources) Intervertebral disc disorder of lumbar region with myelopathy; Translations: [Intervertebral disc disorders with myelopathy, lumbar region] Onset: 04-24-2008 04-24-2008 Chronic Past or Other Problems Problem Classification Problem Date Documented Da te Episodic/Chronic Abdominal pain (3 sources) Unspecified abdominal pain; Translations: [Right flank pain] Onset: 07-11-2022 Episodic Diabetes mellitus without complication (10 sources) Impaired fasting glycemia; Translations: [Impaired fasting glucose] Onset: 06-29-2017 06-29-2017 Episodic Diseases of mouth; excluding dental (10 sources) Cheilitis; Translations: [Diseases of lips] Onset: 02-22-2017 02-22-2017 Episodic Other connective tissue disease (10 sources) Ganglion cyst; Translations: [Ganglion, unspecified site] Onset: 06-29-2017 06-29-2017 Episodic Other gastrointestinal disorders (10 sources) History of bypass of stomach; Translations: [Bariatric surgery status] Onset: 08-10-2014 08-10-2014 Episodic Results Test Name Value Interpretation Reference Range Facil ity Vital Signs Date Time Vital Sign Value Performing Clinician [facility] sarah 10-17-2021 08:10-0400 Body temperature 97.81 [degF] Orquidea Podlogar DIRECTOR OF COMMUNITY EDUCATION.FUR OPERATOR Work Phone: [facility] 10-17-2021 08:10-0400 Body weight 105.42 kg Orquidea Podlogar DIRECTOR OF COMMUNITY EDUCATION.FUR OPERATOR Work Phone: [facility] 10-17-2021 08:10-0400 Diastolic blood pressure 82 mm[Hg] Orquidea Podlogar DIRECTOR OF COMMUNITY EDUCATION.FUR OPERATOR Work Phone: [facility] 10-17-2021 08:10-0400 Heart rate 91 /min Orquidea Podlogar DIRECTOR OF COMMUNITY EDUCATION.FUR OPERATOR Work Phone: [facility] 10-17-2021 08:10-0400 Respiratory rate 18 /min Orquidea Podlogar DIRECTOR OF COMMUNITY EDUCATION.FUR OPERATOR Work Phone: [facility] 10-17-2021 08:10-0400 SaO2% (BldA) [Mass fraction] 98 % Orquidea Podlogar DIRECTOR OF COMMUNITY EDUCATION.FUR OPERATOR Work Phone: [facility] 10-17-2021 08:10-0400 Systolic blood pressure 136 mm[Hg] Orquidea Podlogar DIRECTOR OF COMMUNITY EDUCATION.FUR OPERATOR Work Phone: [facility] Encounters Encounter Date Encounter Type Care Provider Facility Start: 06-20-2023 ambulatory Juan Luis Paul MD Work Phone: [facility] [place] Start: 07-27-2022 Telephone encounter Anselmo Paul MD Work Phone: [facility] Procedures Date Procedure Procedure Detail Performing Clinician Start: 07-27-2022 Ct abdomen & pelvis w/o contrst 1/> body re Orquidea Podlogar DIRECTOR OF COMMUNITY EDUCATION.FUR OPERATOR Work Phone: Start: 07-12-2022 Us retroperitoneal r eal time w/image complete Orquidea Podlogar DIRECTOR OF COMMUNITY EDUCATION.FUR OPERATOR Work Phone: Start: 05-01-2022 Mammography Orquidea Podl ogar DIRECTOR OF COMMUNITY EDUCATION.FUR OPERATOR Work Phone: Start: 10-15-2021 Adult depression scr eening assessment Orquidea Podlogar DIRECTOR OF COMMUNITY EDUCATION.FUR OPERATOR Work Phone: Start: 05-20-2021 Lipid 1996 panel - S ashwin or Plasma Ct (I-Stat) Work Phone: Start: 04-29-2021 Mammography Orquidea Podl ogar DIRECTOR OF COMMUNITY EDUCATION.FUR OPERATOR Work Phone: Start: 09-04-2016 Colonoscopy Orquidea Podl ogar DIRECTOR OF COMMUNITY EDUCATION.FUR OPERATOR Work Phone: Plan of Treatment Date Care Activity Detail Author Start: 05-20-2029 Urine microalbumin profile [facility] Start: 09-04-2026 Colonoscopy COLONOSCOPY [facility] Start: 09-04-2026 COLORECTAL CANCER SCREENING COLORECTAL CANCER SCREENING [facility] Start: 05-20-2026 Lipid 1996 panel - Serum or Plasma Lipid Screening [facility] Start: 05-20-2026 LIPID SCREEN LIPID SCREEN [facility] Start: 07-11-2025 DIABETES SCREEN DIABETES SCREEN [facility] Start: 07-11-2025 Diabetes Screening Diabetes Screening [facility] Start: 05-20-2024 DIABETES SCREEN DIABETES SCREEN [facility] Start: 05-01-2023 Mammography [facility] Start: 03-16-2023 Covid-19 Vaccine ( season) Covid-19 Vaccine () [facility] Start: 03-16-2023 Influenza vaccination Influenza Vaccine (#1) [facility] Start: 10-15-2022 Adult depression screening assessment DEPRESSION SCREENING [facility] Start: 07-16-2022 DEPRESSION ASSESSMENT DEPRESSION ASSESSMENT [facility] Start: 04-29-2022 Mammography MAMMOGRAM [facility] Start: 07-16-2021 DEPRESSION ASSESSMENT DEPRESSION ASSESSMENT [facility] Start: 2021 RSV Vaccine (1 - 1-dose 60+ series) RSV Vaccine (1 - 1-dose 60+ series) [facility] Start: 06-20-2017 FECAL OCCULT BLOOD FECAL OCCULT BLOOD [facility] Start: 2011 SHINGRIX VACCINE (1 of 2) SHINGRIX VACCINE (1 of 2) [facility] Start: 2006 COLOGUARD (FIT-DNA) COLOGUARD (FIT-DNA) [facility] Start: [address] COLONOGRAPHY [facility] Start: 2006 SIGMOIDOSCOPY SIGMOIDOSCOPY [facility] End: 08-17-2023 Ct abdomen & pelvis w/o contrst 1/> body re CT UROGRAM WO/W IVCON Radiology Routine Abnormal ultrasound 1 Occurrences starting 07/18/2022 until 08/17/2023 [facility] Work Phone: Immunizations Immunization Date Immunization Notes Care Provider Fa gregoria 05-13-2022 COVID-19 booster vaccine, age 12+ yr, bivalent (PFIZER-BIONTECH) Juan Luis Paul MD Work Phone: [facility] 05-13-2022 influenza, injectabl e, quadrivalent, contains preservative Juan Luis Paul MD Work Phone: [facility] 05-13-2022 influenza virus vaccine, unspecified formulation Ct (I-Stat) Work Phone: [facility] 06-03-2021 COVID-19 vaccine, fu ll dose (MODERNA) Orquidea Main DIRECTOR OF COMMUNITY EDUCATION.FUR OPERATOR Work Phone: [facility] 09-09-2020 COVID-19 vaccine, fu ll dose (MODERNA) Orquidea Podlogar DIRECTOR OF COMMUNITY EDUCATION.FUR OPERATOR Work Phone: [facility] 08-12-2020 COVID-19 vaccine, fu ll dose (MODERNA) Orquidea Podlogar DIRECTOR OF COMMUNITY EDUCATION.FUR OPERATOR Work Phone: [facility] 05-20-2019 influenza, seasonal, injectable Orquidea Podlogar DIRECTOR OF COMMUNITY EDUCATION.FUR OPERATOR Work Phone: [facility] 05-20-2019 tetanus toxoid, reduced diphtheria toxoid, and acellular pertussis vaccine, adsorbed Orquidea Podlogar DIRECTOR OF COMMUNITY EDUCATION.FUR OPERATOR Work Phone: [facility] 04-29-2017 influenza, seasonal, injectable Orquidea Podlogar DIRECTOR OF COMMUNITY EDUCATION.FUR OPERATOR Work Phone: [facility] 04-25-2013 influenza virus vaccine, unspecified formulation Orquidea Podlogar DIRECTOR OF COMMUNITY EDUCATION.FUR OPERATOR Work Phone: [facility] 04-25-2010 influenza virus vaccine, unspecified formulation Orquidea Podlogar DIRECTOR OF COMMUNITY EDUCATION.[facility] Work Phone: [facility] Work Phone: 07-11-1999 diphtheria and tetan us toxoids, adsorbed for pediatric use Orquidea Podlogar DIRECTOR OF COMMUNITY EDUCATION.[facility] Work Phone: [facility] Work Phone: Payers Date Payer Category Payer Private Health Insurance [employer] A ETNA CHOICE POS II [id number] 2019-Present [phone] [address] [place] [address] POS [id number] 2019 Private Health Insurance [id number] 2019 Private Health Insurance [id number] Social History Date Type Detail Facility Start: 06-16-2016 End: 07-11-2022 Tobacco smoking status NHIS Ex-smoker [facility] End: 07-16-1986 History of tobacco use Current smoker [facility] Work Phone: Start: 10-17-2021 End: 07-27-2022 Alcohol intake Current drinker of alcohol (finding) [facility] Start: 05-14-2020 End: 07-11-2022 History SDOH Alcohol Frequency 3 [facility] Start: 05-14-2020 End: 07-11-2022 History SDOH Alcohol Std Drinks 1 [facility] Start: 08-15-2019 End: 07-11-2022 History SDOH Social Connections Get Together 2 [facility] Start: 08-15-2019 End: 07-11-2022 History SDOH Financial 5 [facility] Start: 05-10-2020 Education 16 [facility] Start: 1960 Sex Assigned At Female [facility] End: 07-16-1986 History of tobacco use Cigarette Smoker [facility] Work Phone: Start: 06-16-2016 End: 06-20-2020 Cigarettes smoked current (pack per day) - Reported 1 [facility] Start: 06-16-2016 End: 07-11-2022 Tobacco use and exposure Smokeless tobacco non-user [facility] Work Phone: Start: 05-14-2022 End: 07-11-2022 History SDOH Social Connections Spiritism 98 [facility] Start: 06-20-2020 End: 07-11-2022 Social connection and isolation panel [facility] How often do you att end mosque or christian services? Patient refused [facility] Do you belong to any clubs or organizations such as mosque groups, unions, fraternal or athletic groups, or school groups? No [facility] Are you now , , , , never or living with a partner? [facility] How often to you hav e a drink containing alcohol? 2-4 times a month [facility] How many standard dr inks containing alcohol do you have on a typical day? 1 or 2 [facility] How often do you hav e 6 or more drinks on 1 occasion? Never [facility] Do you feel stress - tense, restless, nervous, or anxious, or unable to sleep at night because your mind is troubled all the time - these days [OSQ] Only a little [facility] (I/We) worried wheth er (my/our) food would run out before (I/we) got money to buy more. Never true [facility] Start: 08-05-2019 Gender identity Identifies as female gender (finding) [facility] Start: 08-05-2019 Sexual orientation Heterosexual (finding) [facility] Clinical Notes 06-21-2016 to 06-20-2023 Telephone Encounter - Sheri Fam RN - 07/28/2022 8:56 AM ESTTelephone Encounter - Juan Luis Paul MD - 07/27/2022 5:18 PM Manoj Shelby RT(R) - 07/27/2022 8:40 AM EST Note Date & Type Note Facility 06-20-2023 Note Patient Outreach (IN [facility]) MANOJ TOMPKINS ([id number]) 1960 F Date Time Provider Department 06/20/23 JUAN LUIS PAUL During your visit today, we recorded the following information about you: Allergies As of Date: 06/20/2023 Noted Allergy Reaction CODEINE 05/20/2011 11 - Vomiting GLUCOPHAGE (METFORMIN HCL) 07/21/2005 8 - GI Upset NEXIUM (ESOMEPRAZOLE MAGNESIUM) 07/21/2005 8 - GI Upset NSAIDS (NON-STEROIDAL ANTI-INFLAM*12/23/2013 Comments: Gastric Bypass Date Reviewed: 07/27/2022 Reviewed by: Manoj De La Fuente RT(R) - Fully Assessed Visit Diagnosis:Encounter for screening mammogram for breast cancer [Z12.31] Order(s):RODRIGO SCREENING [[id number]] Order #: [id number] FUTURE Prescriptions as of 06/25/2023 - cyclobenzaprine (FLEXERIL) 10 mg tablet Take 1 tablet by mouth twice daily as needed for muscle spasm or pain. - lifitegrast (XIIDRA OPHTHALMIC) Use in eyes twice daily. Bilateral eyes - Ascorbate Calcium-Bioflavonoid (REGIS C WITH BIOFLAVONOIDS) 500-200 mg tab Take 1 tablet by mouth once daily. - cholecalciferol, vitamin D3, (VITAMIN D3 ORAL) Take 5,000 Units by mouth once daily. Dissolving tablet - CALCIUM CITRATE ORAL Take 500 mg by mouth once daily. - MELATONIN ORAL Take 3 mg by mouth at bedtime as needed (sleep). - TURMERIC ORAL Take by mouth. - loratadine (CLARITIN ORAL) Take 1 tablet by mouth as needed. - OTC NUTRITIONAL SUPPLEMENT 1 tablet once daily. Celebrate ferrous fumarate 60 mg with vitamin C 60 mg, formulated for gastric bypass patients - Cyanocobalamin 1,000 mcg subl Dissolve under the tongue. 4x/week - fluticasone (FLONASE) 50 mcg/actuation nasal spray 1 [place] once daily. - multivitamin (MULTIPLE VITAMIN) ORAL Tab Take one(1) tablet two(2) times daily. Meds Comments as of 06/16/2016: Problem List As Of Date 06/20/2023 Noted Resolved Lumbago [M54.50] 07/24/2005 09/30/2015 Disorders of bursae and tendons in shoulder reg*07/24/2005 09/30/2015 ESOPHAGEAL REFLUX [K21.9] Calcaneal spur [M77.30] 05/18/2006 09/30/2015 DYSMETABOLIC SYNDROME X [E88.810] 09/19/2006 Class 2 obesity due to excess calories without *09/19/2006 LUMB DISC DIS W MYELOPAT [M51.06] 04/24/2008 Vitamin D Deficiency [E55.9] 01/11/2010 Well adult exam [Z00.00] 05/13/2012 05/13/2012 Fracture of distal fibula [S82.839A] 06/15/2014 08/05/2015 History of gastric bypass [Z98.84] 08/10/2014 Arthritis of left knee [M17.12] 10/01/2015 Iron deficiency anemia [D50.9] 06/21/2016 02/22/2017 Cheilitis [K13.0] 02/22/2017 Degenerative arthritis of finger, right [M19.04*06/29/2017 Impaired fasting glucose [R73.01] 06/29/2017 Ganglion cyst [M67.40] 06/29/2017 Encounter Status:Closed by EUSEBIA ORTEGAUSER on 06/25/23 [facility] 07-28-2022 Miscellaneous Notes Pt called and is notified of providers message and instructions. Pt voices understanding. Sheri Fam RN She reported her urinary symptoms at her OV with Orquidea and UA was negative for infection. She may take tylenol up to 1,000 mg TID for pain and I will call in a muscle relaxer to see if this helps. I would encourage her to use ice/heat to the area 15-20 minutes off and on throughout the day as well. She should not use the flexeril before driving or going to work because it can make you drowsy and we do not want her to get into an accident or fall asleep at work. . Pt states she is only able to take Tylenol as she has gastric bypass. She said the Tens unit did not help with this pain, just the lower back pain. She reports now she has some distention an hour after eating that she didn't have before. She states she has some frequency/urgency with urination, Bms go between constipation to loose/crampy, and the fatigue is worse. Pt was scheduled to see provider on Sunday at 220. Offered her an appointment tomorrow, but she wasn't able to come in. What has she tried OTC for pain thus far? Orquidea reported a TENS unit helped with pain at her last OV, but I dont see any medications reported. Reviewed results and recommendations with patient. Patient voiced understanding but questioning the constant pain she is experiencing in the rib cage area. She stated she isn't able to sleep due to the constant pain. She says the pain isn't debilitating enough for an ER visit just trying to help reduce the pain. She stated she understands the exercise would help fatty liver disease but at this point the pain doesn't allow her to exercise without increasing her pain. She just looking for some help as she feels other than the exercise she is doing everything she should to help with ongoing issue. Advised her would let her PCP know. ----- Message from Juan Luis Paul MD sent at 07/27/2022 11:46 AM EST ----- CT scan shows nothing abnormal with kidneys. Does note some fatty liver and liver cysts which appear benign. Recommend healthy diet and exercise to promote weight loss to help with fatty liver disease. Will monitor liver function at future OV. documented in this encounter [facility] 07-27-2022 Note HNO ID: [id number] Author: RT Melanie(R) Service: ? Author Type: Ocean Biologist Type: Progress Notes Filed: 07/27/2022 8:59 AM Note Text: Radiology Service Progress Note DATE OF SERVICE: July 27, 2022 TIME: 8:59 AM PATIENT IDENTITY VERIFICATION COMPLETED USING TWO (2) STANDARD IDENTIFIERS: Name and Date of confirmed by patient verbally. FALL SCREENING: Has the patient had 2 falls in the last year or 1 fall with injury or currently using an Ambulatory Assistive Device (Walker, Cane, Wheelchair, Crutches, etc.)? No PATIENT GENDER DATA: Female. status: : No status: NO. PATIENT RELEVANT IMPLANT DATA REVIEWED: Yes ALLERGIES: Reviewed and unchanged CONTRAST ALLERGY: NO. EXAM: CT -CONTRAST INDUCED NEPHROPATHY RISK FACTORS: Patient age > 60 years CREATININE: Creatinine Date Value Ref Range Status 07/11/2022 0.68 0.58 - 0.96 mg/dL Final 05/20/2021 0.74 0.58 - 0.96 mg/dL Final 08/25/2019 0.79 0.58 - 0.96 mg/dL Final Estimated Glomerular Filtration Rate Date Value Ref Range Status 07/11/2022 99 >=60 mL/min/1.73m? Final Comment: Estimated Glomerular Filtration Rate (eGFR) is calculated using the 2020 CKD-EPI creatinine equation. This equation utilizes serum creatinine, sex, and age as parameters. The creatinine assay has traceable calibration to isotope dilution-mass spectrometry. Refer to KDIGO guidelines for clinical interpretation. In patients with unstable renal function, e.g. those with acute kidney injury, the eGFR may not accurately reflect actual GFR. eGFR- Date Value Ref Range Status 05/20/2021 >60 Final P.O.C.T. RESULTS: POC done: Yes, See Lab Tab July 27, 2022 TREATMENT: N/A PERIPHERAL IV DATA: Ambulatory: A peripheral IV was started in the Left antecubital site with a Angio cath: 20 gauge. RADIOLOGY DEPARTMENT: CT; Exam(s) Completed: split bolus urogram SIGNATURE: RT Breanne(R) PATIENT NAME: Manoj Tompkins DATE: July 27, 2022 TIME: 8:59 AM [facility] 07-27-2022 History of Presen t illness Narrative Radiology Service Progress Note DATE OF SERVICE: July 27, 2022 TIME: 8:59 AM PATIENT IDENTITY VERIFICATION COMPLETED USING TWO (2) STANDARD IDENTIFIERS: Name and Date of confirmed by patient verbally. FALL SCREENING: Has the patient had 2 falls in the last year or 1 fall with injury or currently using an Ambulatory Assistive Device (Walker, Cane, Wheelchair, Crutches, etc.)? No PATIENT GENDER DATA: Female. status: : No status: NO. PATIENT RELEVANT IMPLANT DATA REVIEWED: Yes ALLERGIES: Reviewed and unchanged CONTRAST ALLERGY: NO. EXAM: CT -CONTRAST INDUCED NEPHROPATHY RISK FACTORS: Patient age > 60 years CREATININE: Creatinine Date Value Ref Range Status 07/11/2022 0.68 0.58 - 0.96 mg/dL Final 05/20/2021 0.74 0.58 - 0.96 mg/dL Final 08/25/2019 0.79 0.58 - 0.96 mg/dL Final Estimated Glomerular Filtration Rate Date Value Ref Range Status 07/11/2022 99 >=60 mL/min/1.73m Final Comment: Estimated Glomerular Filtration Rate (eGFR) is calculated using the 2020 CKD-EPI creatinine equation. This equation utilizes serum creatinine, sex, and age as parameters. The creatinine assay has traceable calibration to isotope dilution-mass spectrometry. Refer to KDIGO guidelines for clinical interpretation. In patients with unstable renal function, e.g. those with acute kidney injury, the eGFR may not accurately reflect actual GFR. eGFR- Date Value Ref Range Status 05/20/2021 >60 Final P.O.C.T. RESULTS: POC done: Yes, See Lab Tab July 27, 2022 TREATMENT: N/A PERIPHERAL IV DATA: Ambulatory: A peripheral IV was started in the Left antecubital site with a Angio cath: 20 gauge. RADIOLOGY DEPARTMENT: CT; Exam(s) Completed: split bolus urogram SIGNATURE: RT Breanne(R) PATIENT NAME: Manoj Tompkins DATE: July 27, 2022 TIME: 8:59 AM documented in this encounter [facility] 07-18-2022 Miscellaneous Notes Phoned patient and given provider's message below with verbalized understanding. Transferred to [facility]. Please call patient and let her know her ultrasound showed slight pyelectasis- this is where urine gathers in the center of the kidney- no hydronephrosis which is swelling of the kidney. Recommend CT urogram. Orders in place, please assist in scheduling. Orquidea Main APRN.JAY documented in this encounter [facility] 07-12-2022 Miscellaneous Notes Pt notified of lab results & voiced understanding. Chelsey Roca LPN Left message to call office. 07/12/2022 12:46 PM. Chelsey Roca LPN Please call patient and let her know her blood work is within normal ranges. Orquidea Main APRN.JAY documented in this encounter [facility] 07-12-2022 Note HNO ID: [id number] Author: RT Ekta(R) Service: ? Author Type: Technologist Type: Progress Notes Filed: 07/12/2022 10:32 AM Note Text: Radiology Service Progress Note PATIENT NAME: Manoj Tompkins DATE OF SERVICE: July 12, 2022 TIME: 10:27 AM PATIENT IDENTITY VERIFICATION COMPLETED USING TWO (2) IDENTIFIERS: Name and Date of confirmed by patient verbally. FALL SCREENING: Has the patient had 2 falls in the last year or 1 fall with injury or currently using an Ambulatory Assistive Device (Walker, Cane, Wheelchair, Crutches, etc.)? No PATIENT GENDER DATA: Female. status: : No status: NO. PATIENT RELEVANT IMPLANT DATA REVIEWED: Not Applicable RADIOLOGY DEPARTMENT: Ultrasound PERIPHERAL IV DATA: Not applicable SIGNED BY: RT Ekta(R) July 12, 2022 10:27 AM [facility] 07-12-2022 History of Presen t illness Narrative Radiology Service Progress Note PATIENT NAME: Manoj Tompkins DATE OF SERVICE: July 12, 2022 TIME: 10:27 AM PATIENT IDENTITY VERIFICATION COMPLETED USING TWO (2) IDENTIFIERS: Name and Date of confirmed by patient verbally. FALL SCREENING: Has the patient had 2 falls in the last year or 1 fall with injury or currently using an Ambulatory Assistive Device (Walker, Cane, Wheelchair, Crutches, etc.)? No PATIENT GENDER DATA: Female. status: : No status: NO. PATIENT RELEVANT IMPLANT DATA REVIEWED: Not Applicable RADIOLOGY DEPARTMENT: Ultrasound PERIPHERAL IV DATA: Not applicable SIGNED BY: RT Ekta(R) July 12, 2022 10:27 AM documented in this encounter [facility] 07-11-2022 Note HNO ID: [id number] Author: Orquidea Main APRN.FUR OPERATOR Service: ? Author Type: Nurse Practitioner Type: Progress Notes Filed: 07/11/2022 3:26 PM Note Text: 07/11/2022 Patient presents with: Pain: Right flank pain UTI: Increased frequency SUBJECTIVE: This is a 62 year old that is here today for Above Complaints. ONSET: Sunday LOCATION: right flank pain DURATION: constant CHARACTERISTICS: intense last evening AGGRAVATING FEATURES: nothing ALLEVIATING FEATURES: used TENS unit and RADIATION: none Did a urine dipstick at home which had findings suggestive of urinary tract infection. Admits to some nausea with pain last night. Feels distended in her abdomen Admits to urinary frequency and urgency- however she reports urgency is not new She is concerned because this is not her typical back pain Denies hx of kidney stones, fevers, chills, abdominal pain, vomiting, diarrhea, constipation, dysuria or hematuria Component Latest Ref Rng AND Units 07/11/2022 GLUCOSE UA (POCT) Negative mg/dL Negative BILIRUBIN UA (POCT) Negative Negative KETONE UA (POCT) Negative mg/dL Negative SPECIFIC GRAVITY UA (POCT) 1.005 - 1.030 1.010 HEMOGLOBIN/BLOOD UA (POCT) Negative Negative PH UA (POCT) 4.5 - 8.0 7.0 PROTEIN UA (POCT) Negative mg/dL Negative UROBILINOGEN UA (POCT) Normal E.U./dL 0.2 NITRITE UA (POCT) Negative Negative LEUKOCYTES UA (POCT) Negative Negative COLOR UA (POCT) Yellow CLARITY UA (POCT) Clear PAST MEDICAL HISTORY Diagnosis Date Abdominal pain, right lower quadrant Calculus of gallbladder with chronic cholecystitis without obstruction 07/2018 Degenerative arthritis of finger, right 06/29/2017 Esophageal reflux Gastroesophageal reflux History of gastric bypass 08/10/2014 Impaired fasting glucose 06/29/2017 Iron deficiency anemia 06/21/2016 ALLERGIES Codeine, Glucophage [Metformin Hcl], Nexium [Esomeprazole Magnesium], and Nsaids (Non-Steroidal Anti-Inflammatory Drug) MEDICATIONS Current Outpatient Medications Medication Sig lifitegrast (XIIDRA OPHTHALMIC) Use in eyes twice daily. Bilateral eyes Ascorbate Calcium-Bioflavonoid (REGIS C WITH BIOFLAVONOIDS) 500-200 mg tab Take 1 tablet by mouth once daily. cholecalciferol, vitamin D3, (VITAMIN D3 ORAL) Take 5,000 Units by mouth once daily. Dissolving tablet CALCIUM CITRATE ORAL Take 500 mg by mouth once daily. MELATONIN ORAL Take 3 mg by mouth at bedtime as needed (sleep). TURMERIC ORAL Take by mouth. loratadine (CLARITIN ORAL) Take 1 tablet by mouth as needed. OTC NUTRITIONAL SUPPLEMENT 1 tablet once daily. Celebrate ferrous fumarate 60 mg with vitamin C 60 mg, formulated for gastric bypass patients Cyanocobalamin 1,000 mcg subl Dissolve under the tongue. 4x/week fluticasone (FLONASE) 50 mcg/actuation nasal spray 1 [place] once daily. multivitamin (MULTIPLE VITAMIN) ORAL Tab Take one(1) tablet two(2) times daily. naproxen (NAPROSYN) 250 mg tablet Take 250 mg by mouth as needed (pain). No current facility-administered medications for this visit. Medications and allergies reviewed by this provider. SOCIAL HISTORY Social History Tobacco Use Smoking status: Former Packs/day: 1.00 Years: 10.00 Pack years: 10.00 Types: Cigarettes Quit date: 07/16/1986 Years since quittin.0 Smokeless tobacco: Never Vaping Use Vaping Use: Never used Substance Use Topics Alcohol use: Yes Comment: RARE Drug use: No REVIEW OF SYSTEMS All other reviewed and negative other than HPI. OBJECTIVE: BP 122/82 Pulse 74 Temp 36.7 ?C (98 ?F) Resp 16 SpO2 96% . Vital signs reviewed by this provider. APPEARANCE Well appearing, alert, in no acute distress, well-hydrated, well nourished. EYES PERRLA, conjunctiva and sclera normal. HEART RRR with normal S1 and S2, no murmurs, no gallops, no JVD appreciated LUNG clear to auscultation ABDOMEN bowel sounds normoactive, no bruits, soft, non-tender, non-distended BACK: Reports some discomfort with some movement. No CVA tenderness SKIN Skin color, texture, turgor normal, no suspicious rashes or lesions to exposed skin SHINGRIX VACCINE(1 of 2) Never done DEPRESSION ASSESSMENT Never done MAMMOGRAM due on 05/01/2023 DIABETES SCREEN due on 05/20/2024 LIPID SCREEN due on 05/20/2026 COLORECTAL CANCER SCREENING due on 09/04/2026 DTAP,TDAP,TD(3 - Td or Tdap) due on 05/20/2029 INFLUENZA Completed COVID-19 VACCINE Completed PAP TESTING Discontinued HPV TESTING Discontinued HEPATITIS C SCREENING Discontinued HIV SCREENING Discontinued ASSESSMENT/PLAN: 1. Right flank pain - ICD9: 789.09, ICD10: R10.9 - no red flag symptoms or exam findings - red flag symptoms discussed, verbalizes understanding - US KIDNEY/BLADDER - COMP METABOLIC PANEL - CBC + DIFF - OTC pain relievers as directed on packaging and may use heat or ice to area Patient became very emotional while discussing plan. When asked why she says you giggled at (more content not included)... [facility] 10-17-2021 History of Presen t illness Narrative 10/17/2021 Patient presents with: Sinus Problem: congestion x4 days, fever x48 hours SUBJECTIVE: This is a 61 year old that is here today for Above Complaints. For the last four days has had fatigue, headaches, ear pressure, sinus pain/pressure, sore throat, dry cough and lost of taste/smell. Reports she had fever of up to 104 over the weekend. No fever the last 24 hours. Admits to hx of sinus infections, sinus surgery, and seasonal allergies. She has been using her Flonase, Claritin, doing sinus rinses,tyleonl and sudafed. Reports she has copelted four at home COVID-19 tests which were all negative. Denies muscle aches, SOB, dyspnea, wheezing or nausea or vomiting PAST MEDICAL HISTORY Diagnosis Date Abdominal pain, right lower quadrant Calculus of gallbladder with chronic cholecystitis without obstruction 07/2018 Degenerative arthritis of finger, right 06/29/2017 Esophageal reflux Gastroesophageal reflux History of gastric bypass 08/10/2014 Impaired fasting glucose 06/29/2017 Iron deficiency anemia 06/21/2016 ALLERGIES Codeine, Glucophage [Metformin Hcl], Nexium [Esomeprazole Magnesium], and Nsaids (Non-Steroidal Anti-Inflammatory Drug) MEDICATIONS Current Outpatient Medications Medication Sig lifitegrast (XIIDRA OPHTHALMIC) Use in eyes twice daily. Bilateral eyes Ascorbate Calcium-Bioflavonoid (REGIS C WITH BIOFLAVONOIDS) 500-200 mg tab Take 1 tablet by mouth once daily. cholecalciferol, vitamin D3, (VITAMIN D3 ORAL) Take 5,000 Units by mouth once daily. Dissolving tablet CALCIUM CITRATE ORAL Take 500 mg by mouth once daily. MELATONIN ORAL Take 3 mg by mouth at bedtime as needed (sleep). TURMERIC ORAL Take by mouth. loratadine (CLARITIN ORAL) Take 1 tablet by mouth as needed. OTC NUTRITIONAL SUPPLEMENT 1 tablet once daily. Celebrate ferrous fumarate 60 mg with vitamin C 60 mg, formulated for gastric bypass patients Cyanocobalamin (VITAMIN B-12) 1,000 mcg subl Dissolve under the tongue. 4x/week fluticasone (FLONASE) 50 mcg/actuation nasal spray 1 [place] once daily. multivitamin (MULTIPLE VITAMIN) ORAL Tab Take one(1) tablet two(2) times daily. naproxen (NAPROSYN) 250 mg tablet Take 250 mg by mouth as needed (pain). No current facility-administered medications for this visit. Medications and allergies reviewed by this provider. SOCIAL HISTORY Social History Tobacco Use Smoking status: Former Smoker Packs/day: 1.00 Years: 10.00 Pack years: 10.00 Quit date: 07/16/1986 Years since quittin.2 Smokeless tobacco: Never Used Vaping Use Vaping Use: Never used Substance Use Topics Alcohol use: Yes Comment: RARE Drug use: No REVIEW OF SYSTEMS All other reviewed and negative other than HPI. OBJECTIVE: BP 136/82 Pulse 91 Temp 36.6 C (97.8 F) Resp 18 Wt 105.4 kg (232 lb 6.4 oz) SpO2 98% BMI 39.28 kg/m . Vital signs reviewed by this provider. APPEARANCE Well appearing, alert, in no acute distress, well-hydrated, well nourished. EYES conjunctiva and sclera normal. EARS External ears normal, canals clear NOSE/SINUS positive findings: sinus tenderness frontal bilateral NECK Supple, no adenopathy HEART RRR with normal S1 and S2, no murmurs, no gallops, no JVD appreciated LUNG clear to auscultation. No wheezes, rhonchi, or rales SKIN Skin color, texture, turgor normal, no suspicious rashes or lesions to exposed skin SHINGRIX VACCINE(1 of 2) Never done MAMMOGRAM due on 04/29/2022 DEPRESSION SCREENING due on 10/15/2022 DIABETES SCREEN due on 05/20/2024 LIPID SCREEN due on 05/20/2026 COLORECTAL CANCER SCREENING due on 09/04/2026 DTAP,TDAP,TD(3 - Td or Tdap) due on 05/20/2029 INFLUENZA Completed COVID-19 VACCINE Completed MENINGOCOCCAL CONJUGATE Aged Out PAP TESTING Discontinued HPV TESTING Discontinued HEPATITIS C SCREENING Discontinued HIV SCREENING Discontinued ASSESSMENT/PLAN: 1. URI, acute - ICD9: 465.9, ICD10: J06.9 (primary diagnosis) - Discussed viral etiology and rationale for treatment. - declines PCR COVID-19 test - Symptomatic treatment with prn analgesia - Supportive care with fluids and rest - The patient may also use OTC cough and cold meds as needed, warm salt water gargles, throat lozenges and/or OTC throat spray as needed and nasal saline gtts and suction prn. - Follow up in 3-5 days if symptoms persist or sooner if worsening of symptoms - DOXYCYCLINE HYCLATE 100 MG TABLET 2. Tenderness over frontal sinus - ICD9: 478.19, ICD10: J34.89 - Will begin treatment with Doxycycline - The patient should also be given OTC cough and cold meds as needed, warm salt water gargles, throat lozenges and/or OTC throat spray as needed and nasal saline gtts and suction prn for the first 5-7 days of treatment. - Supportive care with plenty of fluids, rest, and analgesia prn. - Follow up in 3-5 days if symptoms persist or worsen. - DOXYCYCLINE HYCLATE 100 MG TABLET Orquidea Main APRN.CNP Prescription instructions reviewed with patient as applicable. Patient advised if symptoms do not improve or if symptoms worsen sooner, to contact their primary care physician. Potential red flag symptoms discussed with the patient. Reviewed appropriate action plan to take if red flag symptoms occur. Patient agreeable to treatment plan. documented in this encounter [facility] documented as of this encounter (statuses as of 10/17/2021) [facility] History of Past illness Narrative* Problem Noted Date Resolved Date Iron deficiency anemia 06/21/2016 7 Fracture of distal fibula 06/15/20142015 Well adult exam 05/13/2012 05/13/2012 Calcaneal spur 05/18/2006 09/30/2015 Lumbago 07/24/2005 09/30/2015 Disorders of bursae and tend ons in shoulder region, unspecified 07/24/2005 09/30/2015 documented as of this encounter (statuses as of 06/12/2022) [facility] History of Past illness Narrative* Problem Noted Date Resolved Date Iron deficiency anemia 06/21/2016 7 Fracture of distal fibula 06/15/20142015 Well adult exam 05/13/2012 05/13/2012 Calcaneal spur 05/18/2006 09/30/2015 Lumbago 07/24/2005 09/30/2015 Disorders of bursae and tend ons in shoulder region, unspecified 07/24/2005 09/30/2015 documented as of this encounter (statuses as of 06/12/2022) [facility] History of Past illness Narrative* Problem Noted Date Resolved Date Iron deficiency anemia 06/21/2016 7 Fracture of distal fibula 06/15/20142015 Well adult exam 05/13/2012 05/13/2012 Calcaneal spur 05/18/2006 09/30/2015 Lumbago 07/24/2005 09/30/2015 Disorders of bursae and tend ons in shoulder region, unspecified 07/24/2005 09/30/2015 documented as of this encounter (statuses as of 07/19/2022) [facility] History of Past illness Narrative* Problem Noted Date Resolved Date Iron deficiency anemia 06/21/2016 7 Fracture of distal fibula 06/15/20142015 Well adult exam 05/13/2012 05/13/2012 Calcaneal spur 05/18/2006 09/30/2015 Lumbago 07/24/2005 09/30/2015 Disorders of bursae and tend ons in shoulder region, unspecified 07/24/2005 09/30/2015 documented as of this encounter (statuses as of 07/19/2022) [facility] History of Past illness Narrative* Problem Noted Date Resolved Date Iron deficiency anemia 06/21/2016 7 Fracture of distal fibula 06/15/20142015 Well adult exam 05/13/2012 05/13/2012 Calcaneal spur 05/18/2006 09/30/2015 Lumbago 07/24/2005 09/30/2015 Disorders of bursae and tend ons in shoulder region, unspecified 07/24/2005 09/30/2015 documented as of this encounter (statuses as of 07/20/2022) [facility] History of Past illness Narrative* Problem Noted Date Resolved Date Iron deficiency anemia 06/21/2016 7 Fracture of distal fibula 06/15/20142015 Well adult exam 05/13/2012 05/13/2012 Calcaneal spur 05/18/2006 09/30/2015 Lumbago 07/24/2005 09/30/2015 Disorders of bursae and tend ons in shoulder region, unspecified 07/24/2005 09/30/2015 documented as of this encounter (statuses as of 07/21/2022) [facility] History of Past illness Narrative* Problem Noted Date Resolved Date Iron deficiency anemia 06/21/2016 7 Fracture of distal fibula 06/15/20142015 Well adult exam 05/13/2012 05/13/2012 Calcaneal spur 05/18/2006 09/30/2015 Lumbago 07/24/2005 09/30/2015 Disorders of bursae and tend ons in shoulder region, unspecified 07/24/2005 09/30/2015 documented as of this encounter (statuses as of 07/28/2022) [facility] History of Past illness Narrative* Problem Noted Date Diagnosed Date Resolved Date Iron deficiency anemia 06/21/201602/22 Fracture of distal fibula 06/15/2014 Well adult exam 05/13/2012 05/13/2012 Calcaneal spur 05/18/2006 09/30/2015 Lumbago 07/24/2005 09/30/2015 Disorders of bursae and tend ons in shoulder region, unspecified 07/24/2005 09/30/2015 documented as of this encounter (statuses as of 05/20/2023) [facility] History of Past illness Narrative* Problem Noted Date Diagnosed Date Resolved Date Iron deficiency anemia 06/21/201602/22 Fracture of distal fibula 06/15/2014 Well adult exam 05/13/2012 05/13/2012 Calcaneal spur 05/18/2006 09/30/2015 Lumbago 07/24/2005 09/30/2015 Disorders of bursae and tend ons in shoulder region, unspecified 07/24/2005 09/30/2015 documented as of this encounter (statuses as of 06/25/2023) [facility] note* Diagnosis URI, acute- Primary Acute upper respiratory infections of unspecified site Tenderness over frontal sinus documented in this encounter [facility] note* Diagnosis Encounter for screening mammogram for breast cancer [facility] Diagnosis Right flank pain Abdominal pain, unspecified site [facility] Diagnosis Abnormal ultrasound- Primary Other nonspecific (abnormal) findings on radiological and other examinations of body structure [facility] Diagnosis Abnormal ultrasound Other nonspecific (abnormal) findings on radiological and other examinations of body structure [facility]* Diagnosis Encounter for screening mammogram for breast cancer documented in this encounter [facility] for referral (narrative)* Diagnostic Procedure Only (Routine) - Pending Review Specialty Diagnoses / Procedures Referred By Abel livingston Referred To Contact BR IMAGING Diagnoses Encounter for screening mammogram for breast cancer Procedures RODRIGO SCREENING SCREENING MAMMOGRAPHY BI 2-VIEW BREAST INC Juan Luis Alberto MD [address] [place] [address] Br Imaging [facility] [place] [address] Referral ID Status Reason Start Date Expiration Date Visits Requested Visits Authorized [id number] Pending Review Auto-Generat ed Referral 2 07/07/2023 1 1 [facility] for referral (narrative)* Diagnostic Procedure Only (Routine) - Closed Specialty Diagnoses / Procedures Referred By Lisaac t Referred To Contact US IMAGING Diagnoses Right flank pain Procedures US KIDNEY/BLADDER US RETROPERITONEAL REAL TIME W/IMAGE COMPLETE CryslogOrquidea galindo APRN.FUR OPERATOR [address] [place] [address] Us Imaging Referral ID Status Reason Start Date Expiration Date V isits Requested Visits Authorized [id number] Closed Auto-Generate d Referral 07/11/2022 08/10/2023 1 1 [facility] for referral (narrative)* Diagnostic Procedure Only (Routine) - Pending Review Specialty Diagnoses / Procedures Referred By Abel livingston Referred To Contact BR IMAGING Diagnoses Encounter for screening mammogram for breast cancer Procedures RODRIGO SCREENING SCREENING MAMMOGRAPHY BI 2-VIEW BREAST INC CAD Juan Luis Paul MD [address] [place] [address] Br Imaging [address] [place] [address] Referral ID Status Reason Start Date Expiration Date Visits Requested Visits Authorized [id number] Pending Review Auto-Generat ed Referral 06/20/2023 07/19/2024 1 1 [facility] for visit Narrative* Diagnostic Procedure Only (Routine) - Closed Specialty Diagnoses / Procedures Referred By Contnorman t Referred To Contact US IMAGING Diagnoses Right flank pain Procedures US KIDNEY/BLADDER US RETROPERITONEAL REAL TIME W/IMAGE COMPLETE PodlogOrquidea galindo APRN.FUR OPERATOR [address] [place] [address] Us Imaging Referral ID Status Reason Start Date Expiration Date V isits Requested Visits Authorized [id number] Closed Auto-Generate d Referral 07/11/2022 08/10/2023 1 1 [facility] Summary Purpose Family History No Family History Records FoundNo Family History Records FoundNo Family History Records Found Advance Directives No Advanced Directives Records FoundDocuments on File Type Date Recorded 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 Advance Directive(s) 09/05/2019 8:10 AM Advance Directive(s) 09/04/2016 10:28 AM Advance Directive(s) 06/30/2016 1:22 PM Reason for Referral Specialty Diagnoses / Procedures Referred By Contac t Referred To Contact CT IMAGING Diagnoses Abnormal ultrasound Procedures CT UROGRAM WO/W IVCON CT ABD & PELVIS W/O CONTRST 1+ BODY REGNS Podlogmateo, Orquidea, AYDE.FUR OPERATOR [address] [place] [address] Ct Imaging Referral ID Status Reason Start Date Expiration Date Visits Requested Visits Authorized [id number] Authorized Auto-Generat ed Referral 07/18/2022 08/17/2023 1 1 Specialty Diagnoses / Procedures Referred By Abel t Referred To Contact CT IMAGING Diagnoses Abnormal ultrasound Procedures CT UROGRAM WO/W IVCON CT ABD & PELVIS W/O CONTRST 1+ BODY REGNS Podyoselyn, Orquidea, DIRECTOR OF COMMUNITY EDUCATION.FUR OPERATOR [address] [place] [address] [place] [address] Referral ID Status Reason Start Date Expiration Date V isits Requested Visits Authorized [id number] Closed Auto-Generate d Referral 07/18/2022 08/17/2023 1 1 Additional Source Comments INFORMATION SOURCE (unrecogn ized section and content) DATE CREATED AUTHOR AUTHOR'S ORGANIZ ATION 07/14/2022 [facility] DATE CREATED AUTHOR AUTHOR'S ORGANIZ ATION 06/26/2023 [facility] Source Comments (unrecognize d section and content) In the event this informatio n is protected by the Federal Confidentiality of Alcohol and Drug Abuse Patient Records regulations: The Federal rules restrict any use of the information to criminally investigate or prosecute any alcohol or drug abuse patient.[facility] the event this information is protected by the Federal Confidentiality of Alcohol and Drug Abuse Patient Records regulations: The Federal rules restrict any use of the information to criminally investigate or prosecute any alcohol or drug abuse patient.[facility] the event this information is protected by the Federal Confidentiality of Alcohol and Drug Abuse Patient Records regulations: The Federal rules restrict any use of the information to criminally investigate or prosecute any alcohol or drug abuse patient.[facility] the event this information is protected by the Federal Confidentiality of Alcohol and Drug Abuse Patient Records regulations: The Federal rules restrict any use of the information to criminally investigate or prosecute any alcohol or drug abuse patient.[facility] the event this information is protected by the Federal Confidentiality of Alcohol and Drug Abuse Patient Records regulations: The Federal rules restrict any use of the information to criminally investigate or prosecute any alcohol or drug abuse patient.[facility] the event this information is protected by the Federal Confidentiality of Alcohol and Drug Abuse Patient Records regulations: The Federal rules restrict any use of the information to criminally investigate or prosecute any alcohol or drug abuse patient.[facility] the event this information is protected by the Federal Confidentiality of Alcohol and Drug Abuse Patient Records regulations: The Federal rules restrict any use of the information to criminally investigate or prosecute any alcohol or drug abuse patient.[facility] the event this information is protected by the Federal Confidentiality of Alcohol and Drug Abuse Patient Records regulations: The Federal rules restrict any use of the information to criminally investigate or prosecute any alcohol or drug abuse patient.[facility] the event this information is protected by the Federal Confidentiality of Alcohol and Drug Abuse Patient Records regulations: The Federal rules restrict any use of the information to criminally investigate or prosecute any alcohol or drug abuse patient.[facility] the event this information is protected by the Federal Confidentiality of Alcohol and Drug Abuse Patient Records regulations: The Federal rules restrict any use of the information to criminally investigate or prosecute any alcohol or drug abuse patient.[facility] Reason for Visit (unrecogniz ed section and content) Reason Comments Results Reason Comments Results Reason Comments Radiology CT Specialty Diagnoses / Procedures Referred By Abel t Referred To Contact CT IMAGING Diagnoses Abnormal ultrasound Procedures CT UROGRAM WO/W IVCON CT ABD & PELVIS W/O CONTRST 1+ BODY REGNS PodlogarOrquidea, DIRECTOR OF COMMUNITY EDUCATION.FUR OPERATOR [address] [place] [address] [place] [address] Referral ID Status Reason Start Date Expiration Date V isits Requested Visits Authorized [id number] Closed Auto-Generate d Referral 07/18/2022 08/17/2023 1 1 Care Teams (unrecognized sec tion and content) Evp And Chief Operating Officer Relationship Specialty Start Date End Date Juan Luis Paul MD [address] [place], [place] [address] PCP - General Family Medicine 05/18/21 Evp And Chief Operating Officer Relationship Specialty Start Date End Date Juan Luis Paul MD [address] [place], [place] [id number] PCP - General Family Medicine 05/18/21 Evp And Chief Operating Officer Relationship Specialty Start Date End Date Juan Luis Paul MD [address] [place], [place] [id number] PCP - General Family Medicine 05/18/21 Evp And Chief Operating Officer Relationship Specialty Start Date End Date Juan Luis Paul MD [address] [place] [address] PCP - General Family Medicine 05/18/21 Evp And Chief Operating Officer Relationship Specialty Start Date End Date Juan Luis Paul MD [address] [place] [address] PCP - General Family Medicine 05/18/21 Evp And Chief Operating Officer Relationship Specialty Start Date End Date Juan Luis Paul MD [address] [place] [address] PCP - General Family Medicine 05/18/21 Evp And Chief Operating Officer Relationship Specialty Start Date End Date Juan Luis Paul MD [address] [place] [address] PCP - General Family [facility] 05/18/21 Evp And Chief Operating Officer Relationship Specialty Start Date End Date Juan Luis Paul MD [address] [place] [address] PCP - General Family Medicine 05/18/21 Evp And Chief Operating Officer Relationship Specialty Start Date End Date Juan Luis Paul MD [address] [place] [address] PCP - General Family Medicine 05/18/21 FOR RECORDS PERTAINING TO PATIENTS WHO ARE OR HAVE BEEN ENROLLED IN A CHEMICAL DEPENDENCY/SUBSTANCEABUSE PROGRAM, SOME INFORMATION MAY BE OMITTED. This clinical summary was aggregated from multiple sources. Caution should be exercised in using it in the provision of clinical care. This summary normalizes information from multiple sources, and as a consequence, information in this document may materially change the coding, format and clinical context of patient data. In addition, data may be omitted in some cases. CLINICAL DECISIONS SHOULD BE BASED ON THE PRIMARY CLINICAL RECORDS. [employer]. provides no warranty or guarantee of the accuracy or completeness of information in this document.
== END | disposition home or self-care (01) ==
PROVIDERS: PCP Internal Medicine; Referring Provider Internal Medicine; Visit Provider Internal Medicine
DX: Z78.0 Asymptomatic menopausal state (principal)
CPT/HCPCS: 77080

== ENCOUNTER → 2023-08-22 | Outpatient (CLI) | payer OTHER, SELFPAY ==
[2023-08-22 13:26] LABS: Vitamin D,25 Hydroxy 54.6 ng/mL
[2023-08-22 13:29] LABS: Anion Gap 2 (5-15); BUN 24 mg/dL (7-18); BUN/Creat Ratio 34.9 RATIO (10-20); Chloride 102 mmol/L (98-107); Creatinine, Serum 0.69 mg/dL (0.55-1.02); EST Glomerular Filtration Rate 92 mL/min (>60); Est Glom Filt Rate - Afr Amer 111 mL/min (>60); Glucose 108 mg/dL (74-106); Potassium 3.9 mmol/L (3.5-5.1); Sodium Level 133 mmol/L (136-145)
== END | disposition home or self-care (01) ==
LOC: BIMLAB 11:29
PROVIDERS: PCP Internal Medicine; Visit Provider Internal Medicine
DX: M85.80 Other specified disorders of bone density and structure, unspecified site (principal)
CPT/HCPCS: 36415; 80048; 82306

== ENCOUNTER → 2023-09-14 | Outpatient (CLI) | payer OTHER, SELFPAY | END | disposition home or self-care (01) | LOC: BIMLAB 15:17 | PROVIDERS: PCP Internal Medicine; Visit Provider Internal Medicine | DX: M85.80 Other specified disorders of bone density and structure, unspecified site (principal) | CPT/HCPCS: 36415; 83970 ==

== ENCOUNTER → 2023-09-21 | Outpatient (CLI) | payer OTHER, SELFPAY ==
[2023-09-21 18:15] LABS: (24 HR) Urine Calcium 497.2 mg/24 HR (42.0-353.0); 24HR UR TOTAL VOLUME 4250 ml; Calcium Urine pH Range 2; Urine Calcium (Random) 11.7 (Not Estab.)
== END | disposition home or self-care (01) ==
PROVIDERS: PCP Internal Medicine; Referring Provider Internal Medicine; Visit Provider Internal Medicine
DX: E21.3 Hyperparathyroidism, unspecified (principal)
CPT/HCPCS: 81050; 82340

== ENCOUNTER → 2023-09-24 | Outpatient (CLI) | payer OTHER, SELFPAY ==
--- NOTE | 2023-09-24 15:11 | US_ITS ---
STUDY: THYROID ULTRASOUND REASON FOR EXAM: Female, 63 years old. Hyperparathyroidism TECHNIQUE: Ultrasound evaluation of the thyroid was performed with real-time and static bates-scale imaging. COMPARISON: None. FINDINGS: RIGHT LOBE: The right lobe of the thyroid gland is enlarged and measures 5.5 cm x 1.8 cm x 1.8 cm. There is a heterogeneous echotexture. Multiple complex nodules are seen in the right lobe. The largest measures 1.5 cm x 1.3 cm x 1.1 cm. This is in the lower pole. LEFT LOBE: The left lobe of the thyroid gland is enlarged and measures 5.8 cm x 1.5 cm x 1.5 cm. There is a heterogeneous echotexture. Multiple solid and cystic nodules are seen. The largest measures 7 mm x 6 mm x 4 mm. ISTHMUS: The isthmus measures 2.3 mm. There is a 2.1 cm x 1.4 cm x 1.1 cm solid nodule in the right-sided the isthmus. The regional lymph nodes are normal. US/Thyroid IMPRESSION: Enlargement of both lobes of the thyroid gland. Multiple bilateral nodules worse on the right side. Correlation with a nuclear medicine uptake and thyroid scan recommended. Electronically Signed: Elliot Lopez MD at 13:18 EDT ,
== END | disposition home or self-care (01) ==
LOC: US 15:09
PROVIDERS: PCP Internal Medicine; Referring Provider Internal Medicine; Visit Provider Internal Medicine
DX: E21.3 Hyperparathyroidism, unspecified (principal)
CPT/HCPCS: 76536

== ENCOUNTER → 2023-10-02 | Outpatient (CLI) | payer OTHER, SELFPAY ==
[2023-10-02 15:37] LABS: Vitamin D,25 Hydroxy 54.9 ng/mL
[2023-10-02 16:20] LABS: PTHIN 101.5 pg/mL (18.4-80.1)
[2023-10-02 16:37] LABS: Free T3 2.7 pg/mL (2.18-3.98); T4 Free Direct 1.04 ng/dL (0.76-1.46); Thyroid Stim Hormone (TSH) 0.69 uIU/mL (0.358-3.74)
== END | disposition home or self-care (01) ==
LOC: PAVLAB 14:48
PROVIDERS: PCP Internal Medicine; Referring Provider Surgery; Visit Provider Surgery
DX: E21.3 Hyperparathyroidism, unspecified (principal)
CPT/HCPCS: 36415; 82306; 82310; 83970; 84439; 84443; 84481

== ENCOUNTER → 2023-10-23 | Outpatient (CLI) | payer OTHER, SELFPAY ==
--- NOTE | 2023-10-23 09:47 | NM_ITS ---
CLINICAL: 63-year-old female with history of suspected parathyroid adenoma. 99m Tc SESTAMIBI DUAL PHASE PLANAR and SPECT-CT PARATHYROID SCINTIGRAPHY COMPARISON: Thyroid ultrasound report 09/24/2023 FINDINGS: Following the intravenous administration of 27.0 mCi of 99m Tc sestamibi, planar image acquisitions of the anterior neck at 15 minutes and 3.0 hours post radiopharmaceutical provision and SPECT reconstructions obtained at 3.0 hours reveal: 1. Immediate static blood pool acquisitions demonstrate uniform distribution of the radiopharmaceutical both lobes of a on-U-shaped thyroid gland. 2. Delayed planar images depict incomplete washout of the radiotracer from the right-left thyroid bed. Emission computed tomographic reconstructions of the anterior neck reveal confirmation of the planar projection findings. NM/Parathyroid SPECT w/ CONCUR CT IMPRESSION: 1. NEGATIVE 99m Tc SESTAMIBI PLANAR-SPECT PARATHYROID IMAGING DUAL PHASE EXAMINATION. 2. There is no definitive scintigraphic evidence of parathyroid adenoma on the present evaluation. 3. Incomplete-delayed washout of the radiopharmaceutical from the entire functioning thyroid colloid may be secondary to multinodular goiter, chronic lymphocytic thyroiditis. (Lilly, Radiographics 19: 601, 1999). Electronically Signed: Jamal Aquino DO at 10:11 EDT ,
== END | disposition home or self-care (01) ==
LOC: NM 09:47
PROVIDERS: PCP Internal Medicine; Referring Provider Surgery; Visit Provider Surgery
DX: E21.3 Hyperparathyroidism, unspecified (principal); E04.1 Nontoxic single thyroid nodule
CPT/HCPCS: 78072; A9500

== ENCOUNTER → 2023-10-24 | Outpatient (CLI) | payer OTHER, SELFPAY ==
--- NOTE | 2023-10-24 14:00 | FLU_PTH ---
PATIENT: MANOJ TOMPKINS LOC: [facility] U#:[id number] AGE/SX: 63/F ROOM: RE10/24/[address]: Dr. Thai Lockwood MD : 1960 BED: DIS: 10/24/2023 SPEC #: [id number] RECD: 10/24/23 15:35 STATUS: ELINOR DAMARIS #: [id number] MELIA: 10/24/23 14:[address]: Thai Lockwood DEPT: CYTOLOGY RECD BY: Ofelia Matson ENTERED: 10/25/23 11:59 SP TYPE: Fluid OTHR DR: Dr. Miah Montemayor MD Tissues: A - Thyroid gland, NOS B - Thyroid gland, NOS Procedures: Special Stain Group II Surgery Specimen Level IV Cytospin Fluid Cytology Other HEADER OPERATION: Fine needle aspiration of thyroid nodule PRE-OP DIAGNOSIS: Multinodular Goiter TISSUE SUBMITTED: A- Right inferior thyroid nodule fluid, B- Right inferior thyroid nodule slides x4 DIAGNOSIS CYTOLOGY A. Fine needle aspiration right inferior thyroid nodule (cytospin and cellblock): Negative for malignant cells. See comment. B. Fine needle aspiration right inferior thyroid nodule (smears): Atypia of undetermined significance (Sisters Category III). See comment. Jose 10/26/23 COMMENT A. Specimen contains rare follicular cells and chronic inflammatory cells. B. Per recommendations and a clinician-approved plan (a call was made to the referring doctor about the recommendation), genomic testing (Afirma) has been submitted. Results will be reported as an addendum and faxed to clinician. Smears show mostly cytomorphologic features consistent with colloid nodule however, there are focal scattered atypical follicular cells present. Clinical correlation is suggested. The Sisters System for thyroid diagnostic categorization was used in the evaluation of this case. CYTOLOGY STUDY Slides are reviewed. CYTOLOGY GROSS A. Received is 30 ml of red cloudy fluid labeled with the patient's name and and designated per the requisition as Right inferior thyroid nodule. Submitted for cytology preparation including cell block. B. Received are 4 smears labeled with the patient's name and designated per the requisition as Right inferior thyroid nodule. Submitted for staining. Mr 10/25/23 TC: CPT:[id number] ADDENDUM ADDENDUM ADDENDUM ADDENDUM ADDENDUM ADDENDUM ADDENDUM 11/07/2023 08:41 ADDENDUM 11/07/2023 08:41 ADDENDUM 11/07/2023 08:41 ADDENDUM 11/07/2023 08:41 ADDENDUM 11/07/2023 08:41 AFIRMA RESULTS REPORT RESULTS INTERPRETATION: The result of this 1.5 cm Sisters III nodule A is Afirma GSC suspicious, which suggests a risk of cancer of approximately 50%. Please see complete report in e-chart or EMR
== END | disposition home or self-care (01) ==
LOC: LABSPEC 15:39
PROVIDERS: PCP Internal Medicine; Referring Provider Surgery; Visit Provider Surgery
DX: E04.2 Nontoxic multinodular goiter (principal)
CPT/HCPCS: 88108; 88161; 88305; 88313

== ENCOUNTER → 2023-10-31 | Outpatient (CLI) | payer OTHER, SELFPAY | END | disposition home or self-care (01) | LOC: LABSPEC 11:26 | PROVIDERS: PCP Internal Medicine; Visit Provider Physician Assistant | DX: R10.9 Unspecified abdominal pain (principal) | CPT/HCPCS: 87086 ==

== ENCOUNTER → 2023-12-27 | Outpatient (CLI) | payer OTHER, SELFPAY ==
[2023-12-27 16:47] LABS: Hematocrit 43.3 % (37-47); Hemoglobin 14.2 g/dL (12.0-15.0); Mean Corp Hgb Conc 32.8 g/dL (32-36); Mean Corpuscular Hgb 29.2 pg (27.0-32.0); Mean Corpuscular Volume 88.9 fL (81-99); Mean Platelet Vol. 9.6 fl (6.2-12.0); Platelet Count 269 K/mm3 (150-450); RBC Distribution Width CV 12.3 % (11.6-14.6); RBC Distribution Width SD 40.3 fl (35.1-43.9); Red Blood Count 4.87 M/mm3 (4.2-5.4); White Blood Count 5.7 K/mm3 (4.4-11.0)
[2023-12-27 16:57] LABS: Anion Gap 3 (5-15); BUN 20 mg/dL (7-18); BUN/Creat Ratio 26.2 RATIO (10-20); Calcium,Total 10.3 mg/dL (8.5-10.1); Chloride 103 mmol/L (98-107); Creatinine, Serum 0.76 mg/dL (0.55-1.02); EST Glomerular Filtration Rate 81 mL/min (>60); Est Glom Filt Rate - Afr Amer 98 mL/min (>60); Glucose 113 mg/dL (74-106); Sodium Level 135 mmol/L (136-145)
== END | disposition home or self-care (01) ==
LOC: BIMLAB 16:02
PROVIDERS: PCP Internal Medicine; Referring Provider Anesthesiology; Visit Provider Anesthesiology
DX: Z01.818 Encounter for other preprocedural examination (principal)
CPT/HCPCS: 36415; 80048; 85027

== ENCOUNTER 2024-02-01 05:49 | Day surgery (SDC) | payer OTHER, SELFPAY ==
[2024-02-01] VITALS (11 sets, daily range): BP systolic 108–123; BP diastolic 66–87; PULSE 71–110; RESP 16–20; TEMP 36.4–37.1; O2SAT 93–100; BMI 34.7
--- NOTE | 2024-02-01 | IMM_PTH ---
PATIENT: MANOJ TOMPKINS LOC: [facility] [place] U#:[id number] AGE/SX: 63/F ROOM: RE02/01/[address]: Dr. Thai Lockwood MD : 1960 BED: DIS: 02/01/2024 SPEC #: [id number] RECD: 02/07/24 10:40 STATUS: ELINOR REQ #: [id number] MELIA: 02/01/24 00:[address]: Thai Lockwood DEPT: IMMUNOHISTOCHEMISTRY RECD BY: Jeremiah Clifford ENTERED: 02/07/24 10:41 SP TYPE: IMMUNO OTHR DR: Dr. Miah Montemayor MD Tissues: E - Thyroid gland, NOS Procedures: HBME (initial) CD56 (add) CK19 (add) GAL-3 (add) PHYSICIAN & INSTITUTION [place] [id number] SPECIMEN INFORMATION: Tissue Source: E- Right thyroid lobe Clinical Info: Multinodular thyroid goiter, hyperparathyroidism Specimen Number: [id number] CPT code: 39404,00643q4 METHODOLOGY: Deparaffinized sections of prefer/formalin-fixed tissue or PAP/DQ stained slides are incubated with monoclonal/polyclonal antibodies/oligonucleotide probes. Localization is made via biotin free immunoperoxidase method. Appropriate controls are performed and reacted as expected. Results on target cell population are indicated in the following table: RESULTS: ANTIBODY / CLONE RESULT Block E 12 HBME1 (HBME-1) positive, rare cells CK19 (A53-B/A2.26) positive GAL3 (9C4) positive CD56 (123C3.D5) positive These tests were developed and their performance characteristics determined by [facility]. They may not have been cleared or approved by the U.S. Food and Drug Administration. The FDA has determined that such clearance or approval is not necessary. The above immunohistochemical/dualISH markers are ordered and reviewed by the Pathologist. INTERPRETATION: E. Right thyroid lobe, thyroidectomy: Consistent with nodular goiter. Case has been reviewed in consultation with Dr. Norman who concurs with the above diagnosis. IDC:[id number] ARCHULETA/ 02/08/2024
--- NOTE | 2024-02-01 06:33 | PCM.PRE.AN2 ---
ASA Classification* ASA Classification ASA Classification: 2 Assessment & Plan Anesthesia* Anesthesia Assessment Anesthesia Assessment: Discussed sedation and/or anesthesia options, risks, benefits, and alternatives with patient/parents/legal guardian/POA. Questions invited. The patient/parents/legal guardian/POA seems to understand and agrees to proceed with anesthesia plan. Reviewed the physical assessment, medical history, allergy history and patient home medications list prior to surgery/procedure/anesthetic and documented any changes. Performed airway and anesthesia risk assessments. Anesthesia Type Anesthesia Type: General Anesthesia Focused Assessment* Airway Assessment Mouth opens: >3 cm Mallampati Score: II Focused Labs Anesthesia Preop lab: CBC WBC 5.7 K/mm3 (4.4-11.0) 12/27/23 16:03 RBC 4.87 M/mm3 (4.2-5.4) 12/27/23 16:03 Hgb 14.2 g/dL (12.0-15.0) 12/27/23 16:03 Hct 43.3 % (37-47) 12/27/23 16:03 Plt Count 269 K/mm3 (150-450) 12/27/23 16:03 CHEMISTRY Potassium 4.0 mmol/L (3.5-5.1) 12/27/23 16:03 Sodium 135 mmol/L (136-145) L 12/27/23 16:03 BUN 20 mg/dL (7-18) H 12/27/23 16:03 Creatinine 0.76 mg/dL (0.55-1.02) 12/27/23 16:03 Glucose 113 mg/dL (74-106) H 12/27/23 16:03 TSH 0.69 uIU/mL (0.358-3.74) 10/02/23 14:48 COAG PT 13.3 SECONDS (11.7-14.9) 08/23/18 09:10 Pre-Assessment Diagnosis/Proposed Procedure Planned Operative Procedure(s): RIGHT THYROID LOBECTOMY AND PARATHYROIDECTOMY WITH 4 GLAND EXPLORATION AND INTRAOPERATIVE NERVE MONITORING Anesthesia History Anesthesia History - counter former: Anesthesia History - counter former Hx Hospitalization No 12/27/23 11:11 Any Problems With Anesthesia Yes: SLOW TO AWAKEN/NAUSEA 12/27/23 11:11 SEVERE Cholinesterase deficiency No 12/27/23 11:11 You/Your Family Experience No 12/27/23 11:11 fever (hyperthermia) with Relationship Recent Exposure to Contagious No 08/23/18 09:46 Disease Does patient have nerve No 12/27/23 11:11 stimulator Patient instructed to have device shut off --Does patient have Pacemaker or ICD? When Was Last Pacemaker Check QUESTION #4 FULL TEXT: You/Your Family Experience fever (hyperthermia) with Anesthesia Last Oral Intake Last Oral intake: Last Oral Intake NPO since Meds taken in AM with sips of water? Meds patient instructed to take am of surgery PONV PONV - counter former: PONV - counter former Female Yes 12/27/23 11:11 HX of Motion Sickness Yes 12/27/23 11:11 HX of N/V After Surgery Yes 12/27/23 11:11 Non-Smoker Yes 12/27/23 11:11 Duration of Surgery greater Yes 12/27/23 11:11 than 60 minutes Number of Risk Factors 5 12/27/23 11:11 PONV Score Severe Risk 12/27/23 11:11 Height & Weight Height & Weight: Anesthesia: Height & Weight Height 5 ft 6 in 01/03/24 11:14 Respiratory Assessment Respiratory Assessment - counter former: Respiratory Tract Infection Hx - counter former Hx Respiratory Tract Infection No 12/27/23 11:11 STOP Sleep Apnea STOP Sleep Apnea - counter former: STOP Sleep Apnea - counter former Hx Hypertension Yes: NO MEDS SINCE 200612/27/23 11:11 Hx Sleep Apnea No 12/27/23 11:11 CPAP BIPAP Do you snore loudly (louder No 12/27/23 11:11 than talking or can be heard Do you often feel tired/ Yes 12/27/23 11:11 fatigued/ sleepy during daytime? Has anyone observed you stop No 12/27/23 11:11 breathing during sleep? STOP Results Positive 12/27/23 11:11 QUESTION #5 FULL TEXT : Do you snore loudly (louder than talking or can be heard through closed doors)? 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 Specify any problems Hx of Preganancy in last 3 No 12/27/23 11:11 Months Nurse Filling Out Transfusion DSCHRIBER 12/27/23 11:11 & Questions: Date: 12/27/23 12/27/23 11:11 Time: 11:14 12/27/23 11:11 Patient unable to answer at this time (ie. confused, unrespo /Reproduction History /Reproductive History - counter former: /Reproductive Hx- counter former Hx Now No 12/27/23 11:11 Gestational Age (in weeks): EDC: Hx Hx Para Hx Section SAB No 12/27/23 11:11 Active Medications Active Medications: Current Medications Generic Name Dose Route Start Last Admin Trade Name Freq PRN Reason Stop Dose Admin Lactated Ringer's 1,000 mls @ 15 mls/hr 02/01/24 06:15 IV .Q48H PERCY PFSH Medical History (Updated 01/03/24 @ 14:[address] Arik Cheng MD) Obesity Prediabetes Preoperative evaluation to rule out surgical contraindication Wears glasses Post-menopausal Diabetes Bladder disease Fatty liver Migraine headache Vertigo Dietary restriction Difficulty swallowing Former smoker Leg cramps History of pain when walking History of edema History of stress test History of echocardiogram Cardiology follow-up encounter History of palpitations Hyperparathyroidism Osteopenia with high risk of fracture Insomnia Right shoulder pain Anxiety Chronic fatigue syndrome with fibromyalgia Screening for thyroid disorder Borderline type 2 diabetes mellitus Radiculopathy Encounter to establish care Postsurgical malabsorption Preventative health care High cholesterol Hypertension Tinnitus Arthritis Anemia GERD (gastroesophageal reflux disease) Back pain Osteoarthritis Home Medications ?Medication ?Instructions ?Recorded ?Last Taken ?Type ferrous fumarate 89 mg (29 mg 60 mg PO .COMPLEX SUPPLEMENT 08/16/18 01/31/24 History iron) tablet acetaminophen 500 mg tablet 500 mg PO Q6H PRN pain 08/07/22 01/31/24 History cholecalciferol (vitamin D3) 125 125 mcg PO DAILY SUPPLEMENT 08/07/22 01/31/24 History mcg (5,000 unit) capsule essential oils 1 mg inhalation DAILY SUPPLEMENT 08/07/22 02/01/24 History christiane C 1,000 mg PO DAILY SUPPLEMENT 08/07/22 01/31/24 History multivitamin 1 tab PO DAILY SUPPLEMENT 08/07/22 01/31/24 History COLLAGEN COMPLEX 533 mg PO BID SUPPLEMENT 12/27/23 Unknown History FIBER WELL 2 tab PO DAILY SUPPLEMENT 12/27/23 01/30/24 History VITAMIN MK 7 200 mcg PO DAILY SUPPLEMENT 12/27/23 01/31/24 History WOLFBERRY 1 oz PO DAILY SUPPLEMENT 12/27/23 Unknown History calcium citrate 315 mg-vitamin D3 1 tab PO DAILY SUPPLEMENT 12/27/23 01/31/24 History 5 mcg (200 unit) tablet (Calcium Citrate + D) duloxetine 30 mg capsule,delayed 30 mg PO QHS FIBROMYALGIA 12/27/23 01/31/24 History release levocetirizine 5 mg tablet (Xyzal) 2.5 mg PO DAILY ALLERGY 12/27/23 01/31/24 History magnesium 200 mg tablet 75 mg PO DAILY SUPPLEMENT 12/27/23 01/31/24 History turmeric 400 mg capsule 1,000 mg PO DAILY SUPPLEMENT 12/27/23 Unknown History vitamin B12 1,000 mcg-folic acid 1 maximus sublingual .COMPLEX 12/27/23 01/30/24 History 400 mcg sublingual lozenge SUPPLEMENT trazodone 50 mg tablet 50 mg PO QHS PRN PRN for sleep #90 01/07/24 Unknown Rx tabs Allergy/AdvReac Type Severity Reaction Status Date / Time NSAIDS (Non-Steroidal Allergy Mild Nausea Verified 01/03/24 11:16 Anti-Inflamma codeine AdvReac Upset Verified 01/03/24 11:16 Stomach Family History Mother Diabetes Hypertension Anesthesia complication High cholesterol TIA (transient ischemic attack) Father Hypertension Diabetes Alcoholism DVT (deep venous thrombosis) High cholesterol Kidney disease Sister Breast cancer Anxiety Asthma Depression Seizures Brother Cancer skin Anxiety Asthma Depression Other Arthritis Surgical History History of removal of skin mole History of removal of cyst History of gastric bypass History of laparoscopic cholecystectomy (~08/2018) History of arthroscopic knee surgery History of nasal septoplasty History of hysterectomy History of appendectomy History of section History of colonoscopy (~2015) History of esophagogastroduodenoscopy (EGD) (~2015) Social History Smoking Status: Former smoker Tobacco: How many years used: 12 alcohol intake: current alcohol intake frequency: holidays/special occasions only Alcohol type: wine and hard liquor substance use type: does not use what type of physical activity do you participate in: walking frequency: 1-2 times per week Review of Systems (Anesthesia) ROS Narrative System reviewed and no additional complaints, except as documented.
[2024-02-01] MEDS: Lactated Ringers 1,000 ML 15 ML IV (06:48)
--- NOTE | 2024-02-01 07:16 | PCM.HP.BLA ---
History and Physical Date of Admission: 02/01/24 Date of Service: 11/20/23 MR#: [id number] Acct: [id number] Name: MANOJ TOMPKINS Rep #: [id number] : 1960 Provider: Dr. Thai Lockwood MD Age/Sex: 63/F Location: [facility] Status: Signed Intake Vital Signs 10/30/2410:10 11/19/2408:21 Height 5 ft 6 in 5 ft 6 in Weight: 217 lb 6 oz 218 lb BMI 35.1 35.2 BP 124/62 H 123/83 H Blood Pressure Location Lt brachial Rt brachial Position Sitting Sitting Respiration 16 17 Pulse 85 80 Pulse Source Monitor Monitor Temp 97.5 F L 98.3 F Temp Source Temporal Temporal Pulse Oximetry (%) 97 98 Oxygen Delivery Method room air room air Intake Visit Reasons: DISCUSS SURGERY Chief Complaint: discuss surgery Is patient in pain?: No Allergies NSAIDS (Non-Steroidal Anti-Inflamma Allergy (Mild, Verified 11/20/23 09:22) Nauseacodeine Adverse Reaction (Verified 11/20/23 09:22) Upset Stomach Medications fluticasone propionate 50 mcg/actuation nasal spray,suspension 2 spray intranasal DAILY PRN Nasal Congestion 08/13/18 [History Confirmed 11/20/23] ferrous fumarate 89 mg (29 mg iron) tablet 60 mg PO DAILY 08/16/18 [History Confirmed 11/20/23] Allergy and Moisturizing Eye drops EACH EYE 08/07/22 [History Confirmed 11/20/23] Vitamin B12 with folic acid PO 08/07/22 [History Confirmed 11/20/23] acetaminophen 500 mg tablet 500 mg PO Q6H PRN 08/07/22 [History Confirmed 11/20/23] calcium carbonate (Calcium 500) 500 mg PO DAILY 08/07/22 [History Confirmed 11/20/23] cetirizine 10 mg capsule (Allergy Relief (cetirizine)) 10 mg PO DAILY PRN 08/07/22 [History Confirmed 11/20/23] cholecalciferol (vitamin D3) 125 mcg (5,000 unit) capsule 125 mcg PO DAILY 08/07/22 [History Confirmed 11/20/23] cyclobenzaprine 10 mg tablet 10 mg PO BID PRN 08/07/22 [History Confirmed 11/20/23] essential oils inhalation 08/07/22 [History Confirmed 11/20/23] christiane C PO 08/07/22 [History Confirmed 11/20/23] magnesium triple calm comound PO 08/07/22 [History Confirmed 11/20/23] melatonin 5 mg capsule mg PO 08/07/22 [History Confirmed 11/20/23] multivitamin 1 tab PO DAILY 08/07/22 [History Confirmed 11/20/23] omeprazole 20 mg capsule,delayed release 20 mg PO DAILY 08/07/22 [History Confirmed 11/20/23] turmeric 100 mg-klaus 150 mg-olive 50 mg-oreg 150 mg-capryl capsule cap PO 08/07/22 [History Confirmed 11/20/23] denosumab 60 mg/mL subcutaneous syringe (Prolia) 60 mg subcut Q5QCKNTM #1 mL 08/22/23 [Rx Confirmed 11/20/23] duloxetine 30 mg capsule,delayed release 30 mg PO BID 3 months #180 caps 09/26/23 [Rx Confirmed 11/20/23] PFSH Medical History Anemia Anxiety Arthritis Asthma Back pain Borderline type 2 diabetes mellitus Cholelithiasis Chronic fatigue syndrome with fibromyalgia Encounter to establish care GERD (gastroesophageal reflux disease) High cholesterol High triglycerides History of gallstones History of gastric ulcer Hyperparathyroidism Hypertension IBS (irritable bowel syndrome) Insomnia Osteoarthritis Osteopenia with high risk of fracture Postsurgical malabsorption Pre-diabetes Preventative health care Radiculopathy Right shoulder pain Screening for thyroid disorder Tinnitus Surgical History History of appendectomy History of arthroscopic knee surgery History of section History of colonoscopy (~2015) History of esophagogastroduodenoscopy (EGD) (~2015) History of gastric bypass History of hysterectomy History of laparoscopic cholecystectomy (~08/2018) History of nasal septoplasty History of removal of cyst History of removal of skin mole Family History Mother Diabetes Hypertension Anesthesia complication High cholesterol TIA (transient ischemic attack)Father Hypertension Diabetes Alcoholism DVT (deep venous thrombosis) High cholesterol Kidney diseaseSister Breast cancer Anxiety Asthma Depression SeizuresBrother Cancer skin Anxiety Asthma DepressionOther Arthritis Social History Smoking Status: Former smoker alcohol intake: current alcohol intake frequency: holidays/special occasions only Alcohol type: wine and hard liquor substance use type: does not use what type of physical activity do you participate in: walking frequency: 1-2 times per week HPI HPI HPI: Patient is a 63-year-old female who presents for hyperparathyroidism. They are referred from Dr Montemayor. Patient's last visit was 10/24/2023. She presents today after reports of her thyroid biopsy showed a [place] result for cytopathology and suspicious on next generation [employer] sequencing. She presents today's visit with her . She shares her only significant health updates are some constipation and some back pain. Below is recapitulated from patient's prior visit for ease of review: She presents today confirming that she underwent sestamibi imaging and has spent more time on her social media forum convincing her that her recent symptoms are attributable to hyperparathyroidism. Lastly, she confirms that she is prepared for a biopsy today of her thyroid and shares that her anxiety from her last visit is significantly less today. She shares that she went through with screening bone mineral density testing recently and was found to have osteopenia. Given her history as a gastric bypass patient she was recommended Prolia. However, patient states that there was a delay in receiving approval for this medication and in the interim she discussed her results with another physician and was given a recommendation to consider checking her parathyroid hormone. When this was done it was elevated and she has since joined a support group where she is trying to become more informed about this diagnosis. She shares she is convinced that she has the disease diagnosis but readily admits that she knows it is generally only confirmed when all labs are obtained at the same time. As above, patient has a history of osteopenia. Patient has no history of pathologic fractures, but she does have a history of a leg fracture 6 to 7 years ago while tripping on a curb. Patient has an indeterminate history of kidney stones as she shares she had some flank discomfort and underwent ultrasound imaging in 2021 that reportedly was abnormal, therefore, CT imaging was obtained reflexively but this was negative. Her provider interpreted this to mean that she had passed a stone by that point. Patient has a history of chipped teeth but qualifies this to state that they occurred as a child and related to an accident. Patient has no history of brittle fingernails. Patient has a history of GERD. Patient also has a history of hypertension. 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 Additionally she states that she has experienced some pretty rough constipation and some significant fatigue of late and can ask this in part to poor sleep quality. This she attributes to shoulder pain and she sleeps, as a rule, on her side. Given the overlap with possible thyroid pathology we discussed with patient that she has had some recent intentional weight loss following a weight gain due to some life stressors. She also describes some new sweating after showering each night in general heat and cold intolerance. Regarding possible compressive symptoms she notes some difficulty swallowing but no choking and describes a frequent dry cough. Patient has no history of prior radiation exposure. Patient has no family history of other endocrinopathies Patient does not have a diet high in dairy. Patient's current labs are calcium: 10.0 mg/dL (08/22/2023) range of 9.7-10.2 since 2022, Vitamin D: 54.6 ng/mL (08/22/2023), PTH: 92 pg/mL (09/14/2023) [singular value], 24-hour urinary calcium: 497.2 (09/21/2023) Current medications include: Calcium carbonate 500 mg and vitamin D3. Imaging has been done thyroid ultrasound on 09/24/2023 and showed a right thyroid lobe measuring 5.5 x 1.8 x 1.8 cm. Radiology noted multiple complex nodules and stated the largest measured 1.5 x 1.3 x 1.1 cm in the lower pole. The left thyroid lobe measured 5.8 x 1.5 x 1.5 cm. The largest nodule in this lobe measured 0.7 x 0.6 x 0.4 cm. Additionally, radiology measures the general width of the isthmus to be 2.3 mm, however, they note there is a 2.1 x 1.4 x 1.1 cm solid nodule of the right isthmus. No parathyroid candidates are delineated. Patient had DEXA imaging on 07/31/2023 which showed a T-score of -2.3 in the left femoral neck consistent with osteopenia. Patient has not had recent renal imaging. ROS General General: Yes weight change (loss ) and fatigue HEENT HEENT: Yes difficulty swallowing and swollen glands; No eye injury, eye surgery or hoarseness Endo Endocrine: Yes diabetes mellitus; No thyroid disease, thyroid cancer, Hair loss, heat intolerance or cold intolerance Skin Skin: No rash or changing moles Musc Musculoskeletal: Yes back problems and arthritis; No rheumatoid arthritis, gout or joint pain Cardio Cardiovascular: No murmur, pacemaker, heart disease, atrial fibrillation, high blood pressure, heart attack, heart stent, palpitations, shortness of breat with exertion or chest pain Psych Psychiatric: Yes depression and anxiety; No hearing voices Resp Respiratory: Yes shortness of breath and Yes cough Gastro Gastrointestinal: No abdominal pain, Yes nausea or vomiting, Yes diarrhea, Yes constipation, No blood in stool, Yes acid reflux, Yes hemorrhoids, No ulcers, No gallbladder problem and No black,tarry stools Den Hematologic: No blood thinners, No blood disorders, No bleeding, No anemia and No blood clots Neuro Neurologic: Yes numbness and Yes tingling Exam Const General: cooperative, healthy appearing and comfortable Neck Other: Stable Assessment and Plan Assessment and Plan (1) Multiple thyroid nodules: Status: Acute Comment: This is a euthyroid patient with multinodular goiter. Radiology notes a number of nodules greater than 1 cm along patient's right side. These are described in greater depth in my exam section of this note. Salient takeaways from this investigation include the observations that her right isthmic nodule is spongiform in appearance and thus represents a TI-RADS 1 lesion. This is favorable since this is patient's largest nodule. Additionally, I found a discrepancy with our measurements and those obtained on the official ultrasound but did conclude that the patient has a right inferior pole nodule that measures 1.7 cm in greatest dimension and would qualify as a TI-RADS 4 lesion. Therefore according to ACR criteria this should receive a biopsy. I would like to plan for a biopsy of this area and potentially patient's isthmic nodule (simply owing to its size) at a follow-up visit. Patient appears receptive of these plans. The procedure was briefly described and we will plan for a separate visit. Update 10/24/2023: Patient's right inferior pole TI-RADS 4 nodule was biopsied via ultrasound guided FNA technique during today's visit. Please see procedures section of this note for full details. Post procedure wound care instructions were provided. Patient also given timelines for reporting of results. Update 11/20/2023: Patient's biopsied thyroid nodule returned with a firm result of suspicious. The implications of this result were reviewed with the patient and her in detail. I suggested that she would be a candidate for either a right thyroid lobectomy with isthmusectomy versus total thyroidectomy. I described the reasons for proceeding with the former being a potential to avoid lifelong medication and some of the surgical risk, however, I described that this was counterbalanced by the reasons for total thyroidectomy which would include elimination of any compressive concerns from her enlarged left thyroid lobe as well. At this point patient and her have inclinations to proceed with right thyroid lobectomy and isthmusectomy. The relevant risks of this procedure were described in detail to include, specifically, a discussion around rest to the recurrent laryngeal nerve and parathyroid glands. Plan: ? Tentatively plan for right thyroid lobectomy with isthmusectomy and intraoperative nerve monitoring (2) Hyperparathyroidism: Status: Acute Comment: This is a 63-year-old female who presents for what appears to be a largely asymptomatic, incidental diagnosis of primary hyperparathyroidism that began with notice of decreased bone mineral density between screening DEXA's from 2008 to her most recent exam. There is a subjective history of some left flank pain but this was never substantiated as nephrolithiasis with imaging. Additionally, patient describes constipation, GERD, difficulty concentrating, and pain in her shoulder joints but also gives the indication that many of these are chronic in nature. As I review patient's biochemical workup, I agree that it would be best to have all of these labs drawn alongside of 1 another, but my interpretation does suggest this represents primary hyperparathyroidism. I have considered possible secondary hyperparathyroidism due to malabsorption and her history of bariatric surgery as well as possible FHH, but have excluded these diagnoses based on her clear ability to absorb calcium and her urinary calcium of almost 500. I held a lengthy conversation with Mrs. Tompkins today regarding the diagnosis of hyperparathyroidism and then its localization. I shared 1 component of this localization process is to obtain a thyroid ultrasound. This has been done, but unfortunately radiology did not note any parathyroid candidates. I conducted an in-depth exam myself at bedside with our bedside ultrasound exam today. I find a possible parathyroid candidate in the left inferior position. At this point I would like to proceed with sestamibi to see if we can achieve concordance. Lastly, I shared with Mrs. Tompkins the importance of understanding anything concurrent thyroid pathology if we proceed for a parathyroid operation. She expresses an understanding and more on this as detailed below. Update 10/24/2023: Unfortunately at this point patient's workup is nonlocalizing. I have shared the potential causes for this likely vocalization with patient?including the potential for 4 gland hyperplasia. Additionally, I shared with her that it has become my practice to pursue parathyroid disease that is localizing in the interest of minimizing operative time and using our resources efficiently. To this end, I have offered we could consider 4D CT imaging if patient is interested in pursuing the workup further. I was careful not to dismiss her concerns around this being a valid diagnosis and Mrs. Tompkins insisted that she felt like she was heard in our consultation and does not wish to pursue further workup of this diagnosis as she is concerned of her bone loss. Lastly, I also recommended a consultation with endocrinology for their perspective on this diagnosis. Mrs. Tompkins was receptive of this recommendation as well. Update 11/20/2023: I reviewed patient's workup for diagnosis of primary hyperparathyroidism and what it means in light of her above thyroid information. 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 I discussed that without localization the operative approach would include first identifying the 2 glands on the right and determining if there was any discrepancy of size to suggest underlying adenoma. If none was found then we would plan to proceed to the left side and ultimately consider a subtotal parathyroidectomy if clinical suspicion guided that conclusion only after identification of all 4 parathyroid glands. I additionally described the process of intraoperative PTH monitoring to guide this decision making. Patient was given the opportunity ask any questions about the procedure and confirmed that we had addressed many of the questions she arrived to today's visit wanting to ask. Plan: ? Endocrinology has been briefed on patient's workup to date and we have sought earlier consultation with endocrinology in order to facilitate sooner turnaround time for the OR. Tentatively planning for right thyroid lobectomy with isthmusectomy and 4 gland exploration for hyperparathyroidism. Given the potential for postoperative hypocalcemia I have informed patient that I would plan for an observational stay postoperatively. Interval history reviewed an there have been no changes. Patient confirms usual state of health. Prior operative date had to be rescheduled due to unavailable PTH assay but patient is glad to be underway today. Procedure and postprocedure expectations are reviewed and patient offers just a few questions about returning to work which were answered. Unsure disposition until we can better understand the cause behind patient's hyperparathyroid state (single vs multigland). Will look for baseline peripheral PTH and then proceed to OR for R thyroid lobectomy as well as parathyroidectomy.
[2024-02-01] MEDS: Cefazolin 2 GM in 0.9% Normal Saline (100mL Bag) 100 ML IV (08:05)
[2024-02-01 09:36] LABS: PTHIN 117.8 pg/mL (18.4-80.1)
[2024-02-01 09:46] LABS: PTHIN > 10000.0 pg/mL (18.4-80.1)
--- NOTE | 2024-02-01 11:22 | PARA_PTH ---
PATIENT: MANOJ TOMPKINS LOC: [facility] [place] U#:[id number] AGE/SX: 63/F ROOM: RE02/01/[address]: Dr. Thai Lockwood MD : 1960 BED: DIS: 02/01/2024 SPEC #: [id number] RECD: 02/01/24 11:38 STATUS: ELINOR DAMARIS #: [id number] MELIA: 02/01/24 11:[address]: Thai Lockwood DEPT: SURGICAL PATHOLOGY RECD BY: Jeremiah Clifford ENTERED: 02/01/24 11:38 SP TYPE: PARATHY OTHR DR: Dr. Miah Montemayor MD Tissues: A - Parathyroid B - Parathyroid C - Parathyroid D - Parathyroid E - Thyroid gland, NOS Procedures: Frozen Section (charge) Frozen Section Add'l ([facility]) Surgery Specimen Level IV Surgery Specimen Level V HEADER OPERATION: Thyroidectomy lobectomy and parathyroidectomy PRE-OP DIAGNOSIS: Multinodular thyroid goiter, hyperparathyroidism TISSUE SUBMITTED: A- Left parathyroid, B- Left thyroid lobe -stitch street right superior, C- Rule out left inferior parathyroid- frozen, D- Left inferior parathyroid tissue-frozen, E- Right thyroid lobe- stitch marking right superior (permanent) FROZEN SECTION DIAGNOSIS A. Left perithyroidal tissue, biopsy: Fragment of thyroid tissue. B. Superior left parathyroid tissue, biopsy: Fibrofatty tissue. C. Left inferior perithyroidal tissue, biopsy: Lymph node tissue present. D. Left inferior parathyroid gland, biopsy: Hyperplastic parathyroid tissue. / 02/01/2024 MICROSCOPIC DIAGNOSIS A. Rule out left parathyroid, biopsy: A fragment of thyroid tissue. B. Superior left parathyroid tissue, biopsy: A fragment of fibroadipose tissue. C. Rule out left inferior parathyroid tissue, biopsy: A fragment of benign lymph node tissue. D. Left inferior parathyroid gland, biopsy: Hyperplastic parathyroid gland tissue (0.333gm). E. Right thyroid lobe, lobectomy and isthmectomy: Multinodular goiter. A benign perithyroidal lymph node. Unremarkable parathyroid tissue. See comment. / 02/07/2024 COMMENT Immunohistochemistry ([id number]) supports the above diagnosis. Please also make reference to previous specimen [id number], Fine needle aspiration, right inferior thyroid nodule (smears) with diagnosis of atypia of undetermined significance. Case has been reviewed in consultation with Dr. Norman who concurs with the above diagnosis. IDC:AM MICROSCOPIC DESCRIPTION Slides are reviewed. GROSS DESCRIPTION A. Received fresh for frozen section diagnosis labeled with the patient's name is a specimen designated Left parathyroid. The specimen consists of piece of rai-pink soft tissue weighing 0.001gm and measuring 0.2 x 0.2 x 0.2cm. The entire specimen is submitted in one cassette for frozen section diagnosis. [facility] 02/01/2024 B. Received fresh for frozen section diagnosis labeled with the patient's name is a specimen designated Left thyroid lobe. The specimen consists of a piece of rai-pink soft tissue weighing 0.001gm and measuring 0.1 x 0.1 x 0.1cm. The entire specimen is submitted in one cassette for frozen section diagnosis. [facility] 02/01/2024 C. Received fresh for frozen section diagnosis labeled with the patient's name is a specimen designated Left inferior perithyroidal tissue. The specimen consists of weighing 0.18gm and measuring 0.5 x 0.5 x 0.1cm. The entire specimen is submitted in one cassette for frozen section diagnosis. [facility] 02/01/2024 D. Received fresh for frozen section diagnosis labeled with the patient's name is a specimen designated Left inferior parathyroid. The specimen consists of a piece of rai-pink soft tissue weighing 0.333gm and measuring 2.5 x 1.0 x 0.5cm. The entire specimen is submitted in one cassette for frozen section diagnosis. [facility] 02/01/2024 E. Received in fixative is one container labeled with the patient's name and designated Right thyroid lobe. The specimen consists of thyroid lobectomy and isthmectomy weighing 14.0gm. Right thyroid lobe measures 6.5 x 3.0 x 1.5cm and isthmus measures 2.0 x 1.5 x 1.0cm. The specimen is inked as follows: anterior surface-black, posterior surface- blue, and isthmic resection margin- yellow. Sections of the right lobe reveal three nodules. Two smaller nodules present in the upper and middle portion of the thyroid lobe and measure 0.9cm and 1.0 in greatest dimension. The largest nodule present in the inferior portion of the thyroid lobe and measures 2.0 x 1.5 x 1.0cm. Section of the isthmus reveal pink red nodule measuring 1.0 cm in greatest dimension. The entire specimen is submitted in fourteen cassettes as follows: 1 and 2- isthmus, 2-14- right thyroid lobe (cassette 2 contains most superior portion and cassette 14 contains most inferior portion). KATHE/ 02/06/2024 suture is inferior, it is confirmed by Dr. Lockwood personally. TC:5 CPT:30662 [id number]
[2024-02-01 12:44] LABS: PTHIN 13.2 pg/mL (18.4-80.1)
[2024-02-01] MEDS: Bupivacaine 0.25% 30 ML Vial (12:58)
--- NOTE | 2024-02-01 13:04 | EX.PCM.DISCH ---
Discharge Instructions Diet Discharge Diet: No restrictions (However recommend a liquid to soft diet initially postoperatively) Activity Discharge Activity: May Not Drive (While it remains difficult to check blind spots quickly) May shower in (days): 2 Ice area for (Minutes): 20 Lifting Restrictions: No lifting greater than 15 pounds for 2 weeks after surgery Dressing / Incision Call your doctor if your incision/area has: Continuous Slow Oozing, Sudden Increased Bleeding, Increased Pain/ Swelling, Increased Redness and Swelling at the incision site Call your doctor if you observe: Numbness or Tingling Remove Dressing in: 2 days (Please leave Steri-Strips intact until they fall off spontaneously or are taken off at your follow-up visit) Cleanse incision/area with: Soap & Water Follow Up Care Please Follow Up With: Thai Lockwood MD When: 7-10 days postop Test Results: Test results from this visit will be discussed in further detail at your follow-up appointment, if applicable. Discharge Plan Admission Primary Reason for Your Visit: Suspicious thyroid nodule and hyperparathyroidism Attending Provider: Thai Lockwood Primary Care Provider: Miah Montemayor Instructions Print Language: Anguill[place] Discharge Orders/Prescriptions Prescriptions: New calcium carbonate-vitamin D3 [Calcium 500 With D] 500 mg-10 mcg (400 unit) tablet 1 tab PO TID 14 Days Qty: 42 0RF calcitriol 0.5 mcg capsule 0.5 mcg PO DAILY 14 Days Qty: 14 0RF Continued essential oils 1 mg inhalation DAILY acetaminophen 500 mg tablet 500 mg PO Q6H PRN (Reason: pain) cholecalciferol (vitamin D3) 125 mcg (5,000 unit) capsule 125 mcg PO DAILY christiane C 1,000 mg PO DAILY multivitamin Tablet 1 tab PO DAILY ferrous fumarate 89 MG tablet 60 mg PO .COMPLEX Rx Instructions: 60 mg orally TuThSa vitamin E94-muiro acid 1,000-400 mcg lozenge 1 maximus sublingual .COMPLEX Rx Instructions: 1 maximus sublingually SuMoWeFr; magnesium 200 mg tablet 75 mg PO DAILY levocetirizine [Xyzal] 5 mg tablet 2.5 mg PO DAILY VITAMIN MK 7 200 mcg PO DAILY COLLAGEN COMPLEX 533 mg PO BID FIBER WELL 2 tab PO DAILY WOLFBERRY 1 oz PO DAILY duloxetine 30 mg capsule,delayed release(DR/EC) 30 mg PO QHS trazodone 50 mg tablet 50 mg PO QHS PRN (Reason: PRN for sleep) Qty: 90 1RF Held turmeric 400 mg capsule 1,000 mg PO DAILY Hold Instructions: Resume on 02/03/24. calcium citrate-vitamin D3 [Calcium Citrate + D] 315 mg-5 mcg (200 unit) tablet 1 tab PO DAILY Hold Instructions: Resume on 02/03/24. Other Ambulatory Orders: 12 Lead EKG (Routine) Timeframe: 20240108 Facility: [facility] - Location: Cardiovascular Services Ordered By: Dr. Maurice Holman Referrals / Follow Up: Miah Montemayor MD [Primary Care Provider] - Disposition Disposition (needs filled in before D/C Order can be placed): Home, Self Care
--- NOTE | 2024-02-01 13:06 | PCM.OPRPT ---
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 Right thyroid lobectomy with intraoperative nerve monitoring 2. Parathyroidectomy with 4 gland exploration and intraoperative PTH monitoring Description of Surgical Findings:: ? Initial underfilling of the internal jugular veins indicating depleted intravascular volume and dehydration ? Multinodular thyroid with several intrathyroidal cysts ? Probable grossly?identified parathyroid of the superior and inferior positions on the right that were morphologically normal ? Intact recurrent laryngeal nerve both by visual inspection and functionally with the Nims nerve monitor ? Inadvertent tear of the left thyroid gland between the mid polar and inferior pole regions but retained vascular perfusion from superiorly and inferiorly, respectively ? Enlarged parathyroid extending directly adjacent to the patient's esophagus at the left inferior position Surgeon: Thai Lockwood telegraph repeater mechanic: Robin Mcnamara telegraph repeater mechanic: Bronson North Type of Anesthesia: General/Supplemental Anesthesiologist: Imtiaz Lynn Specimen's removed: 1. Right thyroid lobe (stitch street right superior pole) 2. Rule out left parathyroid (frozen section indicates thyroid tissue) 3. Rule out left superior parathyroid (frozen section indicates fibrofatty tissue) 4. Rule out left inferior parathyroid (frozen section identifies lymph node) 5. Left inferior parathyroid (frozen section confirms 300 mg hyperplastic parathyroid) Drains: None Estimated Blood Loss (mL): 25 Description of Procedure: After appropriate identification in the preoperative holding area, the patient was brought to the operating room where she was positioned supine on the operating room table. Induction of general endotracheal anesthetic was begun and a NIMS tube was placed under glidescope view to confirm coaptation with the vocal cords anteriorly. Tube was then secured and the patient was positioned with a shoulder roll so that her head was in extension but supported. The Nims electrodes were placed and connected to the monitor. We had initial inappropriate resistance showing on the electrode check so the tube was reexamined with the glidescope and then re-taped in the proper position. Following this adjustment we had appropriate resistance showing on the monitor and tapping at the level of the cricoid produced a graphical representation of the impulse on the monitor. Patient's neck was then prepped and draped in usual sterile fashion and a formal timeout was conducted from those present. The lowest skin fold to the sternal notch was selected for incision site (this resided approximately 2 fingerbreadths cephalad to the notch). An incision was extended for 2 cm on either side of midline. Electrocautery was used to deepen this incision through the level of the platysma. Subplatysmal flaps were raised with the use of electrocautery and blunt dissection. Prior to opening the strap muscles, and to facilitate the parathyroid portion of the procedure, I proceeded with obtaining blood draws from the bilateral internal jugular veins. To facilitate this activity I used a combination of blunt dissection and limited LigaSure application to separate the sternohyoid and sternothyroid muscles expose the jugular veins bilaterally. This process was notably more difficult than normal secondary to presumed decreased intravascular volume was related to dehydration. However, specimens were sent for PTH and returned as greater than 10,000 on the left and 117.8 on the right. As we awaited these results we continue with the thyroid resection. The strap muscles were then divided along the medial raphe bringing us down to the level of the thyroid. Capsular attachments to the thyroid were divided with the use of LigaSure or bluntly swept away. Retractors were placed regarding visualization of the right superior pole of the thyroid. The vessels of the superior pole were sequentially ligated with the use of the LigaSure device. As we moved towards the thyroid gland away from the pole vessels, we looked for the superior parathyroid gland but could not definitively identify it. We then moved inferiorly and divided those polar vessels with LigaSure. The inferior parathyroid gland was grossly visualized and preserved with this division. With the poles freed, the thyroid was mobilized medially. I bluntly the remaining strap muscle fibers from the thyroid capsule and using blunt dissection parallel to the presumed course of the recurrent laryngeal nerve, exposed the tracheoesophageal groove. Here I encountered a positive signal for the left recurrent laryngeal nerve and was shortly thereafter able to visualize the nerve. The nerve positively identified, I relieved the attachments of the thyroid gland to the underlying trachea with the use of LigaSure. As we again approached the nerve insertion of the cricothyroid membrane, I elected to leave a minuscule amount of thyroid tissue intact as a thyroid remnant using 4-0 silk ligatures. The recurrent laryngeal nerve signal was checked prior to the division of any thyroid tissue. Once this dissection was completed near the nerve I examined the cephalad portion of the incision but did not find evidence of a pyramidal lobe. Once I had assured clearance from the nerve, the remaining thyroid tissue was removed from the anterior surface of the trachea with electrocautery to include the entirety of the thyroid isthmus. The specimen was divided with the LigaSure device for hemostasis just prior to the formation of the left thyroid lobe. It was oriented with a marking stitch through the right superior pole and passed off the field for permanent section after we examined it for any inadvertent inclusion of parathyroid tissue. Pressure was applied to the surgical cavity and there was some slight oozing along the anterior surface of the trachea well away from the recurrent laryngeal nerve where selective electrocautery was applied. Closer to the nerve there was some additional oozing and Surgicel hemostatic agent was placed while pressure was applied. With this portion of the procedure complete and believing I had identified at least 1 normal?appearing parathyroid gland I elected to proceed with dissection to the contralateral aspect of the neck given my preoperative ultrasound findings of a suspicious lesion on that side as well as our lateralizing internal jugular PTH draws that started the case. I used blunt dissection to free the sternothyroid muscle from the thyroid capsule of the left thyroid lobe deeply. This muscle appeared rather densely adherent to the lateral aspect of the lobe and resulted in increased difficulty these 2 structures as well as some inadvertent capsular tears of the thyroid lobe. The middle thyroid vein was divided as I continued to separate the strap muscle attachments to the capsule. This facilitated upward mobilization of the left thyroid lobe and I was able to clearly expose the tracheoesophageal groove. To clearly identify the esophagus I requested anesthesia place a orogastric tube, shallowly, just through the esophageal portion. After they obliged, I was able to easily palpate the esophagus and continue exploration. During the course of this dissection I sent frozen section specimens to try to identify parathyroid tissue in both a left 'rule out parathyroid' specimen and a 'rule out left superior parathyroid' specimen. Unfortunately both of the specimens returned as soft tissue other than parathyroid. Due to some of the inflammation with the capsule it was initially challenging to keep oriented with respect to the vascular pedicles and I requested the assistance of my partner Dr. North to the room. He presented shortly thereafter and together we were able to more acutely developed the dissection around the inferior poleof the remaining left thyroid lobe. A frozen section was sent of a possible parathyroid candidate from adjacent the left inferior pole, however, this was ultimately concluded by pathology to represent lymph node tissue. Yet with this anatomy better delineated we were able to identify a rai structure coursing directly parallel to the esophagus and deeply towards the presumed location of the thyroid thymic ligament. Further, this structure was clearly separate from both of these neighboring structures. Careful blunt dissection was employed to free the structure from its surrounding soft tissue attachments it was then circumferentially freed so that it remained suspended by its vascular pole only. At this point a medium titanium clip was placed across the pole and the gland was sharply amputated free. This specimen was passed off the field for frozen section confirmation. (Later, pathology telephoned the room to notify us that indeed this represented a large parathyroid gland weighing 300 mg). As we awaited this result, I irrigated the surgical cavity with sterile water examined for hemostasis. Finding this largely intact, I also returned to the right neck where I applied selective electrocautery to obtain hemostasis (after confirming the location of the recurrent laryngeal nerve). Left internal jugular ex vivo blood draws were made with a 22-gauge needle and syringe at roughly 10 and 15 minutes. These PTH values would ultimately return 19 and 13.2, respectively. Both cavities were inspected while these labs were performed and we believed grossly we had identified candidates for a healthy, normal?appearing left superior parathyroid, right superior parathyroid, and right inferior parathyroid. With the PTH results downtrending I was satisfied with this result and the case was terminated after hemostasis was once again confirmed in the surgical bed. I performed closure of the neck in layers. The strap muscles were run with a 3-0 Vicryl suture to reapproximate the raphe, but a gap was left in the inferior most portion of the strap muscles. Then the platysmal layer was reapproximated with interrupted 3-0 Vicryl. Additional local anesthetic was instilled. The skin was closed using a running 4-0 Monocryl in a subcuticular fashion. During closure, pressure was applied to the left neck where it appeared patient had a small hematoma develop from our repeated access of the left internal jugular vein. After his pressure was removed the neck tissue remained soft and there did not appear to be any further evidence of bleeding. Steri-Strips and Telfa OpSite was applied as a dressing. Patient was then awoken from general anesthetic and taken to PACU for ongoing recovery. Complications None
--- NOTE | 2024-02-01 13:22 | PCM.POST.ANE ---
Anesthesia: Postop Eval I Current Vital Signs Temperature: 97.9 F Pulse Rate: 110 Blood Pressure: 111/72 Respiratory Rate: 20 Pulse Ox: 94 Assessment Airway patent: Yes Spontaneous unlabored respirations: Yes nausea: No Vomiting: No Anesthesia Complication: No Fluid Hydration Crystalloid volume administer (ml): 2,500 Total IV fluid infused: 2,500 Progress Note Anesthesia document: Postop Eval 1 completed: Yes
[2024-02-01 14:01] LABS: Bedside Glucose 169 mg/dL (74-106)
[2024-02-01 14:07] LABS: PTHIN 9.2 pg/mL (18.4-80.1)
--- NOTE | 2024-02-01 16:22 | POSTOPAN2_ITS ---
Anesthesia Postop Eval I Sum Postop Eval Completion status Anesthesia document: Postop Eval 1 completed: Yes Anesthesia Postop Eval I Summary Anesthesia Postop Eval I Summary: Anesthesia Postop Eval I: Assessment Summary Airway patent Yes 02/01/24 13:22 EMULSION [email or web address].[email or web address] Spontaneous unlabored Yes 02/01/24 13:22 EMULSION OPERATOR.CSIR respirations Mental status nausea No 02/01/24 13:22 EMULSION OPERATOR.CSIR Vomiting No 02/01/24 13:22 EMULSION OPERATOR.CSIR Anesthesia Postop Eval I: Fluid Summary Crystalloid volume administer 2,500 02/01/24 13:22 EMULSION OPERATOR.CSIR (ml) Colloids volume administered ( ml) Blood Product volume administered (ml) Total IV fluid infused 2,500 02/01/24 13:22 EMULSION OPERATOR.CSIR Anesthesia Postop Eval I: Summary Notes Anesthesia Complication No 02/01/24 13:22 EMULSION OPERATOR.CSIR Anesthesia Complication Comment: Post-operative progress note Anesthesia: Postop Eval II Evaluation Mental status: Awake and Calm Pain Level: 1 nausea: No Vomiting: No Complications Anesthesia Complication: No
--- NOTE | 2024-02-01 16:22 | PCM.POSTANE2 ---
Anesthesia Postop Eval I Sum Postop Eval Completion status Anesthesia document: Postop Eval 1 completed: Yes Anesthesia Postop Eval I Summary Anesthesia Postop Eval I Summary: Anesthesia Postop Eval I: Assessment Summary Airway patent Yes 02/01/24 13:22 DOG HANDLER OR TRAINER.CSIR Spontaneous unlabored Yes 02/01/24 13:22 DOG HANDLER OR TRAINER.CSIR respirations Mental status nausea No 02/01/24 13:22 DOG HANDLER OR TRAINER.CSIR Vomiting No 02/01/24 13:22 DOG HANDLER OR TRAINER.CSIR Anesthesia Postop Eval I: Fluid Summary Crystalloid volume administer 2,500 02/01/24 13:22 DOG HANDLER OR TRAINER.CSIR (ml) Colloids volume administered ( ml) Blood Product volume administered (ml) Total IV fluid infused 2,500 02/01/24 13:22 DOG HANDLER OR TRAINER.CSIR Anesthesia Postop Eval I: Summary Notes Anesthesia Complication No 02/01/24 13:22 DOG HANDLER OR TRAINER.CSIR Anesthesia Complication Comment: Post-operative progress note Anesthesia: Postop Eval II Evaluation Mental status: Awake and Calm Pain Level: 1 nausea: No Vomiting: No Complications Anesthesia Complication: No
== END 2024-02-01 16:12 | disposition home or self-care (01) ==
LOC: SDC 05:49 → AC 05:50 → MS3 13:05
PROVIDERS: PCP Internal Medicine; Referring Provider Surgery; Visit Provider Surgery
PROC: (CPT 60210; principal; 2024-02-01 07:15)
DX: E04.2 Nontoxic multinodular goiter (principal); E21.0 Primary hyperparathyroidism; M85.80 Other specified disorders of bone density and structure, unspecified site; D35.1 Benign neoplasm of parathyroid gland; K21.9 Gastro-esophageal reflux disease without esophagitis; J45.909 Unspecified asthma, uncomplicated; R73.03 Prediabetes; Z79.899 Other long term (current) drug therapy; Z87.891 Personal history of nicotine dependence
CPT/HCPCS: 60210; 60500; 00320; 82962; 83970; 88305; 88307; 88331; 88332; 88341; 88342; A4648; J7120; J2405

== ENCOUNTER → 2024-02-07 | Outpatient (CLI) | payer OTHER, SELFPAY | END | disposition home or self-care (01) | LOC: LAB 07:32 | PROVIDERS: PCP Internal Medicine; Visit Provider Physician Assistant | DX: E21.3 Hyperparathyroidism, unspecified (principal) ==

== ENCOUNTER → 2024-02-07 | Outpatient (CLI) | payer OTHER, SELFPAY ==
[2024-02-07 09:09] LABS: Calcium,Total 8.7 mg/dL (8.5-10.1)
[2024-02-07 09:18] LABS: PTHIN 33.3 pg/mL (18.4-80.1)
== END | disposition home or self-care (01) ==
PROVIDERS: PCP Internal Medicine; Referring Provider Surgery; Visit Provider Surgery
DX: Z98.890 Other specified postprocedural states (principal); Z90.89 Acquired absence of other organs
CPT/HCPCS: 36415; 82310; 83970

== ENCOUNTER → 2024-02-22 | Outpatient (CLI) | payer OTHER, SELFPAY | END | disposition home or self-care (01) | LOC: LAB 07:40 | PROVIDERS: PCP Internal Medicine; Referring Provider Surgery; Visit Provider Surgery | DX: Z98.890 Other specified postprocedural states (principal); Z90.89 Acquired absence of other organs | CPT/HCPCS: 36415; 82310; 83970 ==

== ENCOUNTER → 2024-03-04 | Outpatient (CLI) | payer OTHER, SELFPAY ==
--- NOTE | 2024-03-04 15:24 | US_ITS ---
STUDY: THYROID ULTRASOUND REASON FOR EXAM: Female, 64 years old. Status post partial thyroidectomy TECHNIQUE: Ultrasound evaluation of the thyroid was performed with real-time and static bates-scale imaging. COMPARISON: 09/24/2023 FINDINGS: RIGHT LOBE: Status post right lobectomy.. LEFT LOBE: The left lobe of the thyroid gland measures 4.9 x 2.1 x 1.8 cm. There is a heterogeneous echotexture. Nodule 1: New 20 x 12 x 12 mm solid hyperechoic wider than tall ill-defined margin nodule with no echogenic foci (TR 3) in the mid left lobe and follow-up ultrasound is recommended in 1 year. Nodule 2: New 8 x 8 x 6 mm solid hyperechoic wire than tall ill-defined margin nodule and no echogenic foci (TR 3) in the mid left lobe consistent with an adenoma. ISTHMUS: The isthmus measures 5 mm thick. . The regional lymph nodes are normal. US/Thyroid IMPRESSION: Thyroiditis of the remaining left lobe of the thyroid gland with new nodules. Follow-up ultrasound is recommended one year. Electronically Signed: Jamal Bansal MD at 8:26 EDT ,
== END | disposition home or self-care (01) ==
LOC: US 15:22
PROVIDERS: PCP Internal Medicine; Referring Provider Surgery; Visit Provider Surgery
DX: E89.0 Postprocedural hypothyroidism (principal)
CPT/HCPCS: 76536

== ENCOUNTER → 2024-03-05 | Outpatient (CLI) | payer OTHER, SELFPAY ==
[2024-03-05 10:27] LABS: PTHIN 56.9 pg/mL (18.4-80.1)
[2024-03-05 10:43] LABS: Calcium,Total 8.9 mg/dL (8.5-10.1); Free T3 2.6 pg/mL (2.18-3.98); T4 Free Direct 0.73 ng/dL (0.76-1.46)
== END | disposition home or self-care (01) ==
LOC: MTLAB 07:16
PROVIDERS: PCP Internal Medicine; Referring Provider Surgery; Visit Provider Surgery
DX: E89.0 Postprocedural hypothyroidism (principal); Z98.890 Other specified postprocedural states; Z90.89 Acquired absence of other organs
CPT/HCPCS: 36415; 82310; 83970; 84439; 84443; 84481

== ENCOUNTER → 2024-04-10 | Outpatient (CLI) | payer OTHER, SELFPAY ==
[2024-04-10 10:47] LABS: PTHIN 70.1 pg/mL (18.4-80.1)
[2024-04-10 11:02] LABS: Calcium,Total 8.8 mg/dL (8.5-10.1); Free T3 2.6 pg/mL (2.18-3.98); T4 Total, Thyroxin 6.8 ug/dL (4.8-13.9)
== END | disposition home or self-care (01) ==
PROVIDERS: PCP Internal Medicine; Referring Provider Surgery; Visit Provider Surgery
DX: E89.0 Postprocedural hypothyroidism (principal)
CPT/HCPCS: 36415; 82310; 83970; 84436; 84443; 84481

== ENCOUNTER → 2024-05-06 | Outpatient (CLI) | payer OTHER, SELFPAY ==
--- NOTE | 2024-05-06 07:18 | BI_ITS ---
MAMMOGRAPHY - BILATERAL SCREENING REASON FOR EXAM: Female, 64 years old. Routine annual screening examination. PERTINENT HISTORY: Sister with breast cancer. Aunt with breast cancer. TECHNIQUE: Digital bilateral breast jack (3D mammographic acquisition) in the CC and MLO projections. 2-D mediolateral oblique (MLO) and craniocaudad (CC) views of both breasts were obtained. CAD: Full Field Digital Mammography with Computer Added Detection was performed. COMPARISON: Comparison is made with prior study dated May 02, 2023 and May 01, 2022. FINDINGS: Breast Composition: There are scattered areas of fibroglandular density. There are no dominant masses or suspicious calcifications. No other significant abnormalities are identified. There has been no significant change since the prior study. BI/SCRN MAMM (CAD)W/JACK BILAT IMPRESSION: Stable bilateral screening mammogram. Yearly follow-up mammogram recommended. (A) ASSESSMENT CATEGORY: BIRADS Category 1: Negative. A letter regarding these results will be sent to the patient by the facility within 30 days. Approximately 10% of breast cancers are not detected by mammography. A normal mammogram should not delay biopsy of a clinically suspicious abnormality. [id number] Electronically Signed: Elliot Lopez MD at 8:50 EDT ,
--- OUTSIDE RECORDS SUMMARY | 2024-05-06 07:19 | XMS RPT_ITS | CCD ---
Author Organization [facility] Care Team Providers Care Hotel Superintendent Name Role Phone Juan Luis Holloway MD Primary Care Provider CRYSLOGADILENE BOLTON Referring Unavailable JUAN LUIS HOLLOWAY Primary Care UnavailJuan Luis Gtz MD Primary Care Provider Juan Luis Holloway MD Primary Care Provider Juan Luis Holloway MD Primary Care Provider JUAN LUIS HOLLOWAY Primary Care Unavailab RG Phillips Referring Unavailable JUAN LUIS HOLLOWAY Primary Care Unavailab [place] Allergies Allergy Classification Reported Allergen(s) Allergy Type Date of Onset Reaction(s) Facility (14 sources) Codeine; Translations: [CODEINE] Drug Allergy 05-20-2011 Vomiting [facility] (14 sources) Esomeprazole; Translations: [ESOMEPRAZOLE MAGNESIUM] Drug Allergy 07-21-2005 GI Upset [facility] Work Phone: (14 sources) metFORMIN; Translations: [METFORMIN HCL] Drug Allergy 07-21-2005 GI Upset [facility] Work Phone: (3 sources) Non-steroidal anti-inflammator y agent; Translations: [NSAIDS (NON-STEROIDAL ANTI-INFLAMMATOR Y DRUG)] Propensity to adverse reactions to drug 12-23-2013 [facility] (11 sources) Non-steroidal anti-inflammator y agent Propensity to adverse reactions to drug 12-23-2013 [facility] Medications Current Medications Medication Drug Class(es) Dates Sig (Normalized) Sig (Original) Ascorbate Calcium-Bioflavonoid (REGIS C WITH BIOFLAVONOIDS) 500-200 mg tab (12 sources) take 1 tablet by mouth once daily Ascorbate Calcium-Bioflavonoi d (REGIS C WITH BIOFLAVONOIDS) 500-200 mg tab Take 1 tablet by mouth once daily. 0 Active Comment on above: Take 1 tablet by rina th once daily. calcium citrate 500 mg oral tablet (12 sources) take 500 mg by mouth once daily CALCIUM CITRATE ORAL Take 500 mg by mouth once daily. 0 Active Comment on above: Take 500 mg by mouth once daily. cholecalciferol, vitamin D3, (VITAMIN D3 ORAL) (12 sources) take 1 tablet by mouth once daily cholecalciferol, vitamin D3, (VITAMIN D3 ORAL) Take 5,000 Units by mouth once daily. Dissolving tablet 0 Active Comment on above: Take 5,000 Units by mouth once daily. Dissolving tablet cyclobenzaprine hydrochloride 10 mg oral tablet (4 sources) Muscle Relaxant Start: 07-27-2022 take 1 tablet by mouth every twelve hours as needed cyclobenzaprine (FLEXERIL) 10 mg tablet Take 1 tablet by mouth twice daily as needed for muscle spasm or pain. 60 tablet 0 07/27/2022 Active Comment on above: Take 1 tablet by rina th twice daily as needed for muscle spasm or pain. doxycycline hyclate 100 mg oral tablet (1 source) Tetracycline-class Drug Start: 10-17-2021 End: 10-27-2021 take 1 tablet by mouth twice daily doxycycline (VIBRA-TABS) 100 mg tablet Indications: URI, acute , Tenderness over frontal sinus Take 1 tablet by mouth twice daily for 10 days. 20 tablet 0 10/17/2021 10/27/2021 Active Comment on above: Take 1 tablet by rina th twice daily for 10 days. fluticasone propionate 0.05 mg/actuat metered dose nasal spray (12 sources) Corticosteroid Start: 06-15-2014 fluticasone (FLONASE) 50 mcg/actuation nasal spray 1 [place] once daily. 0 06/15/2014 Active Comment on above: 1 [place] once daily. lifitegrast (12 sources) Lymphocyte Function-Associated Antigen-1 Antagonist lifitegrast (XIIDRA OPHTHALMIC) Use in eyes twice daily. Bilateral eyes 0 Active Comment on above: Use in eyes twice da bony. Bilateral eyes Loratadine (12 sources) loratadine (CLARITIN ORAL) Take 1 tablet by mouth as needed. 0 Active Comment on above: Take 1 tablet by rina th as needed. melatonin 3 mg oral tablet (12 sources) take 3 mg by mouth every twenty-four hours as needed MELATONIN ORAL Take 3 mg by mouth at bedtime as needed (sleep). 0 Active Comment on above: Take 3 mg by mouth a t bedtime as needed (sleep). multivitamin (MULTIPLE VITAMIN) ORAL Tab (12 sources) Start: 04-11-2007 take 1 tablet by mouth once daily multivitamin (MULTIPLE VITAMIN) ORAL Tab Take one(1) tablet two(2) times daily. 0 04/11/2007 Active Comment on above: Take one(1) tablet t wo(2) times daily. OTC NUTRITIONAL SUPPLEMENT (12 sources) OTC NUTRITIONAL SUPPLEMENT 1 tablet once daily. Celebrate ferrous fumarate 60 mg with vitamin C 60 mg, formulated for gastric bypass patients 0 Active Comment on above: 1 tablet once daily. Celebrate ferrous fumarate 60 mg with vitamin C 60 mg, formulated for gastric bypass patients Turmeric extract (12 sources) TURMERIC ORAL Ta ke by mouth. 0 Active Comment on above: Take by mouth. vitamin b12 1 mg sublingual tablet (12 sources) Vitamin B12 Cyanocobalamin 1,000 mcg subl Dissolve under the tongue. 4x/week 0 Active Comment on above: Dissolve under the t ongue. 4x/week Completed/Discontinued Medications Medication Drug Class(es) Dates Sig (Normalized) Sig (Original) iv contrast (will be provided with radiology test) (1 source) Start: 07-18-2022 End: 07-19-2022 iv contrast (will be provided with radiology test) CT Urogram WO/W Inject, intravenously, once for 1 dose.No IV access, insert saline lock prior to the beginning of sedation, infusion, injection of imaging exam. Discontinue saline lock post exam. If Pt. has a central line or IVAD, may access for administration according to line specific nursing protocol. Once exam is complete flush line and de-access according to line specific nursing protocol in the CT contrast administration guidelines link. 1 Each 0 07/18/2022 07/19/2022 Comment on above: CT Urogram WO/W Inject, intravenously, o nce for 1 dose.No IV access, insert saline lock prior to the beginning of sedation, infusion, injection of imaging exam. Discontinue saline lock post exam. If Pt. has a central line or IVAD, may access for administration according to line specific nursing protocol. Once exam is complete flush line and de-access according to line specific nursing protocol in the CT contrast administration guidelines link. naproxen 250 mg oral tablet (3 sources) Nonsteroidal Anti-inflammatory Drug naproxen (NAPROSYN) 250 mg tablet Take 250 mg by mouth as needed (pain). 0 Active Comment on above: Take 250 mg by mouth as needed (pain). 1000 ml sodium chloride 9 mg/ml injection (1 source) Start: 07-18-2022 End: 07-18-2022 inject 1 dose intravenously once 0.9 % sodium chloride (NACL 0.9%) infusion Inject 75 mL/hr intravenously one time only for 1 dose. Administer at rate defined per CT contrast administration specifications. To be provided with radiology test. 1 Each 0 07/18/2022 07/18/2022 Comment on above: Inject 75 mL/hr intravenously one time o nly for 1 dose. Administer at rate defined per CT contrast administration specifications. To be provided with radiology test. Problems Active Problems Problem Classification Problem Date Documented Date Episodic/Chronic Abdominal pain (2 sources) Unspecified abdominal pain; Translations: [Right flank pain] Onset: 07-12-2022 Episodic Esophageal disorders (12 sources) Gastroesophageal reflux disease; Translations: [Gastro-esophageal reflux disease without esophagitis] 09-01-2019 Chronic Nutritional deficiencies (12 sources) Vitamin D deficiency; Translations: [Vitamin D deficiency, unspecified] Onset: 01-11-2010 01-11-2010 Chronic Osteoarthritis (20 sources) Arthritis of left knee; Translations: [Unilateral primary osteoarthritis, left knee] Onset: 10-01-2015 10-01-2015 Chronic Other endocrine disorders (1 source) Hyperparathyroidism, unspecified; Translations: [Hyperparathyroidism, unspecified (HCC)] Onset: 11-06-2023 Chronic Other nutritional; endocrine; and metabolic disorders (12 sources) Metabolic syndrome X; Translations: [Metabolic syndrome] Onset: 09-19-2006 09-19-2006 Chronic Other nutritional; endocrine; and metabolic disorders (8 sources) Obesity; Translations: [Other obesity due to excess calories] Onset: 09-19-2006 09-01-2019 Chronic Other nutritional; endocrine; and metabolic disorders (4 sources) Obesity caused by energy imbalance; Translations: [Other obesity due to excess calories] Onset: 09-19-2006 09-01-2019 Chronic Other screening for suspected conditions (not mental disorders or infectious disease) (2 sources) Ultrasound scan abnormal; Translations: [Abnormal findings on diagnostic imaging of other specified body structures] Chronic Other screening for suspected conditions (not [...] Spondylosis; intervertebral disc disorders; other back problems (12 sources) Intervertebral disc disorder of lumbar region with myelopathy; Translations: [Intervertebral disc disorders with myelopathy, lumbar region] Onset: 04-24-2008 04-24-2008 Chronic Past or Other Problems Problem Classification Problem Date Documented Da te Episodic/Chronic Deficiency and other anemia (2 sources) Iron deficiency anemia; Translations: [Iron deficiency anemia, unspecified] Onset: 06-21-2016 Resolved: 02-22-2017 02-22-2017 Episodic Diabetes mellitus without complication (12 sources) Impaired fasting glycemia; Translations: [Impaired fasting glucose] Onset: 06-29-2017 06-29-2017 Episodic Diseases of mouth; excluding dental (12 sources) Cheilitis; Translations: [Diseases of lips] Onset: 02-22-2017 02-22-2017 Episodic Fracture of lower limb (2 sources) Fracture of distal end of fibula; Translations: [Other fracture of upper and lower end of unspecified fibula, initial encounter for closed fracture] Onset: 06-15-2014 Resolved: 08-05-2015 08-05-2015 Episodic Other connective tissue disease (12 sources) Ganglion cyst; Translations: [Ganglion, unspecified site] Onset: 06-29-2017 06-29-2017 Episodic Other connective tissue disease (2 sources) Soft tissue lesion of shoulder region; Translations: [Bursopathy, unspecified] Onset: 07-24-2005 Resolved: 09-30-2015 09-30-2015 Episodic Other connective tissue disease (2 sources) Calcaneal spur; Translations: [Calcaneal spur, unspecified foot] Onset: 05-18-2006 Resolved: 09-30-2015 09-30-2015 Episodic Other gastrointestinal disorders (12 sources) History of bypass of stomach; Translations: [Bariatric surgery status] Onset: 08-10-2014 08-10-2014 Episodic Spondylosis; intervertebral disc disorders; other back problems (2 sources) Low back pain; Translations: [Lumbago] Onset: 07-24-2005 Resolved: 09-30-2015 09-30-2015 Episodic Results Test Name Value Interpretation Reference Range Facility [facility] 11-15-2023 CNPN Telephone (FAMPWS) MANOJ TOMPKINS ([id number]) 1960 F Date Time Provider Department 11/15/23 JUAN LUIS HOLLOWAY [facility] During your visit today, we recorded the following information about you: Juan Luis Holloway MD 11/15/2023 4:54 PM Signed Patient with critical access hospitaln neck CT which showed: 1. 2 hypodense lesions noted within the thyroid gland. Recommend ultrasound to more completely evaluate. Looks like this was ordered by Dr. Lockwood. Have they ordered an ultrasound to follow up on this? Patient's last OV with us was more than 1 year ago. Recommend annual physical in the next couple of months. Chelsey Winston LPN 11/16/2023 9:54 AM Signed Phoned patient and reviewed message. She stated the US has been ordered and dr Lockwood and Sim are following her. Asked patient if Dr Montemayor is her PCP and she stated Yes, she is my new PCP. MEME Newton Christopher B, MD 11/16/2023 10:09 AM Signed Reviewed. Removed myself as her PCP. Allergies As of Date: 11/15/2023 Noted Allergy Reaction CODEINE 05/20/2011 11 - Vomiting GLUCOPHAGE (METFORMIN HCL) 07/21/2005 8 - GI Upset NEXIUM (ESOMEPRAZOLE MAGNESIUM) 07/21/2005 8 - GI Upset NSAIDS (NON-STEROIDAL ANTI-INFLAM*12/23/2013 Comments: Gastric Bypass Date Reviewed: 11/05/2023 Reviewed by: Manoj De La Fuente, RT(R) - Fully Assessed Reason for Visit: Results [95] Prescriptions as of 01/10/2024 - cyclobenzaprine (FLEXERIL) 10 mg tablet Take [...] fluticasone (FLONASE) 50 mcg/actuation nasal spray 1 [place] once daily. - multivitamin (MULTIPLE VITAMIN) ORAL Tab Take one(1) tablet two(2) times daily. Meds Comments as of 06/16/2016: Problem List As Of Date 11/15/2023 Noted Resolved Lumbago [M54.50] 07/24/2005 09/30/2015 Disorders [...] Ganglion cyst [M67.40] 06/29/2017 Encounter Status:Closed by JUAN LUIS HOLLOWAY on 01/10/24 Normal [facility] CREATININE BLDon 11-06-2023 Creatinine [Mass/Vol] 0.63 mg/dL Normal 0.58-0.96 [facility] Comment on above: Order Comment: Charbel brady Type: BLOOD SPECIMEN Ordering Facility: External Submitter Address: , , Performed By: #### C RET1 #### [id number] [address] [place] [address] OF [facility] Creatinine and Glomerular filtration rate.predicted panel (S/P/Bld) 100 mL/min/1.73m??? Normal >=60 [facility] Comment on above: Order Comment: Charbel brady Type: BLOOD SPECIMEN Ordering Facility: External Submitter Address: , , Result Comment: Aury mated Glomerular Filtration Rate (eGFR) is calculated using the 2020 CKD-EPI creatinine equation. This equation utilizes serum creatinine, sex, and age as parameters. The creatinine assay has traceable calibration to isotope dilution-mass spectrometry. Refer to KDIGO guidelines for clinical interpretation. In patients with unstable renal function, e.g. those with acute kidney injury, the eGFR may not accurately reflect actual GFR. Performed By: #### C RET1 #### [facility] [id number] [address] [place] [address] [place] [address] [place] [address] NECK SOFT TISSUE W IVCONo n 11-06-2023 CT NECK SOFT TISSUE W IVCON * * *Final Report* * * DATE OF EXAM: Nov 06 2023 3:31PM [facility] 0013 - CT NECK SOFT TISSUE W IVCON / PROCEDURE REASON: neck w * * * * Physician Interpretation * * * * CT NECK SOFT TISSUE W IVCON History: Parathyroid issue. Comparison: None Technique: A series of contiguous helical scans were performed from the skull base to the aortic arch with intravenous contrast. Contrast: Omnipaque 300. Contrast Dose: 100 cc Route of Administration: IV CT Radiation dose: Integrated Dose-length product (DLP) for this visit = 784 mGy*cm. CT Dose Reduction Employed: Automated exposure control(AEC) and iterative recon RESULT: Postoperative change: None apparent. Suprahyoid Neck: Nasopharynx and oropharynx appear normal. Parapharyngeal tissue planes are preserved. Oral cavity and floor of mouth appear normal within constraints of artifact from dental amalgam. Parotid and submandibular spaces are normal. Specimen Accessioner spaces appear normal. Infrahyoid Neck: Hypopharynx, larynx, and imaged infraglottic trachea appear normal. Imaged upper esophagus is unremarkable. There are 2 hypodense lesions in the thyroid gland, one measuring 1.3 cm in the inferior right thyroid and a second measuring 15 mm in the right isthmus. Lymph Nodes: No cervical lymphadenopathy by size criteria. Carotid Space: No masses. Patent extracranial carotid systems and internal jugular veins bilaterally. Orbits, Face and Skull Base: Orbital soft tissue planes are preserved. Paranasal sinuses are clear. Mastoid air cells and middle ear cavities are clear. No evidence of an osteolytic or osteoblastic process in the skull base. Imaged intracranial contents: No abnormal intracranial enhancement, mass effect, or hydrocephalus. Cervical spine and remaining osseous structures: No discrete osteolytic or osteoblastic process. Mild spondylotic changes in the visualized spine. There is slight retrolisthesis of C6 on C7 with a posterior osteophytic ridge. Lung apices: Imaged lung apices are clear of focal consolidation or mass. Other: Not applicable. IMPRESSION: 1. 2 hypodense lesions noted within the thyroid gland. Recommend ultrasound to more completely evaluate. 2. No other focal neck lesion identified. Acuity: Actionable Findings: Endocrine (thyroid) Routing Code: EMI_1 Recommendation: US THYROID/PARATHYROID TimeFrame: Additional evaluation as described in the impression --END OF FINDING-- Lead Fabricator: ALEN Transcribe Date/Time: Nov 06 2023 7:38P Dictated by : BHAVIK RAMOS MD This examination was interpreted and the report reviewed and electronically signed by: BHAVIK RAMOS MD on Nov 06 2023 7:42PM EST [id number] ACTIONABLE Invalid Interpretation Code [facility] CT Neck W contrast IVOrdered By: [facility] Provider on 11-06-2023 Interpretation and review of laboratory results Abnormal [facility] Radiology Result ACTIONABLE Abnormal [facility] Comment on above: This report contains an incidental or actionable finding. This finding may be a new finding separate from the reason your provider ordered the imaging test or it may be an already known finding that needs additional or continued follow-up. Because of this incidental or actionable finding, you may need another test (imaging or a different type of test). Please contact your provider for the next steps. [facility] CT Neck W contrast Christal 10-15 IMPRESSION: 1. 2 hypodense lesions noted within the thyroid gland. Recommend ultrasound to more completely evaluate. 2. No other focal neck lesion identified. Acuity: Actionable Findings: Endocrine (thyroid) Routing Code: EMI_1 Recommendation: US THYROID/PARATHYROID TimeFrame: Additional evaluation as described in the impression --END OF FINDING-- Lead Fabricator: ALEN Transcribe Date/Time: Nov 06 2023 7:38P Dictated by : BHAVIK RAMOS MD This examination was interpreted and the report reviewed and electronically signed by: BHAVIK RAMOS MD on Nov 06 2023 7:42PM [facility] DIVISION OF RADIOLOGY * * *Final Report* * * DATE OF EXAM: Nov 06 2023 3:31PM [facility] 0013 - CT NECK SOFT TISSUE W IVCON / PROCEDURE REASON: neck w * * * * Physician Interpretation * * * * CT NECK SOFT TISSUE W IVCON History: Parathyroid issue. Comparison: None Technique: A series of contiguous helical scans were performed from the skull base to the aortic arch with intravenous contrast. Contrast: Omnipaque 300. Contrast Dose: 100 cc Route of Administration: IV CT Radiation dose: Integrated Dose-length product (DLP) for this visit = 784 mGy*cm. CT Dose Reduction Employed: Automated exposure control(AEC) and iterative recon RESULT: Postoperative change: None apparent. Suprahyoid Neck: Nasopharynx and oropharynx appear normal. Parapharyngeal tissue planes are preserved. Oral cavity and floor of mouth appear normal within constraints of artifact from dental amalgam. Parotid and submandibular spaces are normal. Specimen Accessioner spaces appear normal. Infrahyoid Neck: Hypopharynx, larynx, and imaged infraglottic trachea appear normal. Imaged upper esophagus is unremarkable. There are 2 hypodense lesions in the thyroid gland, one measuring 1.3 cm in the inferior right thyroid and a second measuring 15 mm in the right isthmus. Lymph Nodes: No cervical lymphadenopathy by size criteria. Carotid Space: No masses. Patent extracranial carotid systems and internal jugular veins bilaterally. Orbits, Face and Skull Base: Orbital soft tissue planes are preserved. Paranasal sinuses are clear. Mastoid air cells and middle ear cavities are clear. No evidence of an osteolytic or osteoblastic process in the skull base. Imaged intracranial contents: No abnormal intracranial enhancement, mass effect, or hydrocephalus. Cervical spine and remaining osseous structures: No discrete osteolytic or osteoblastic process. Mild spondylotic changes in the visualized spine. There is slight retrolisthesis of C6 on C7 with a posterior osteophytic ridge. Lung apices: Imaged lung apices are clear of focal consolidation or mass. Other: Not applicable. DIVISION OF RADIOLOGY Provider, [facility] - 11/06/2023 * * *Final Report* * * DATE OF EXAM: Nov 06 2023 3:31PM [facility] 0013 - CT NECK SOFT TISSUE W IVCON / PROCEDURE REASON: neck w * * * * Physician Interpretation * * * * CT NECK SOFT TISSUE W IVCON History: Parathyroid issue. Comparison: None Technique: A series of contiguous helical scans were performed from the skull base to the aortic arch with intravenous contrast. Contrast: Omnipaque 300. Contrast Dose: 100 cc Route of Administration: IV CT Radiation dose: Integrated Dose-length product (DLP) for this visit = 784 mGy*cm. CT Dose Reduction Employed: Automated exposure control(AEC) and iterative recon RESULT: Postoperative change: None apparent. Suprahyoid Neck: Nasopharynx and oropharynx appear normal. Parapharyngeal tissue planes are preserved. Oral cavity and floor of mouth appear normal within constraints of artifact from dental amalgam. Parotid and submandibular spaces are normal. Specimen Accessioner spaces appear normal. Infrahyoid Neck: Hypopharynx, larynx, and imaged infraglottic trachea appear normal. Imaged upper esophagus is unremarkable. There are 2 hypodense lesions in the thyroid gland, one measuring 1.3 cm in the inferior right thyroid and a second measuring 15 mm in the right isthmus. Lymph Nodes: No cervical lymphadenopathy by size criteria. Carotid Space: No masses. Patent extracranial carotid systems and internal jugular veins bilaterally. Orbits, Face and Skull Base: Orbital soft tissue planes are preserved. Paranasal sinuses are clear. Mastoid air cells and middle ear cavities are clear. No evidence of an osteolytic or osteoblastic process in the skull base. Imaged intracranial contents: No abnormal intracranial enhancement, mass effect, or hydrocephalus. Cervical spine and remaining osseous structures: No discrete osteolytic or osteoblastic process. Mild spondylotic changes in the visualized spine. There is slight retrolisthesis of C6 on C7 with a posterior osteophytic ridge. Lung apices: Imaged lung apices are clear of focal consolidation or mass. Other: Not applicable. IMPRESSION IMPRESSION: 1. 2 hypodense lesions noted within the thyroid gland. Recommend ultrasound to more completely evaluate. 2. No other focal neck lesion identified. Acuity: Actionable Findings: Endocrine (thyroid) Routing Code: EMI_1 Recommendation: US THYROID/PARATHYROID TimeFrame: Additional evaluation as described in the impression --END OF FINDING-- Lead Fabricator: PSCWillie Transcribe Date/Time: Nov 06 2023 7:38P Dictated by : BHAVIK RAMOS MD This examination was interpreted and the report reviewed and electronically signed by: BHAVIK RAMOS MD on Nov 06 2023 7:42PM EST [facility] Radiology Study observation (narrative) [facility] CT UROGRAM WO/W IVCONon 07-16 [facility] US KIDNEY/BLADDERon 07-12-20 US KIDNEY/BLADDER * * *Final Report* * * DATE OF EXAM: Jul 12 2022 9:22AM LDU 1055 - US KIDNEY/BLADDER / PROCEDURE REASON: Right flank pain * * * * Physician Interpretation * * * * EXAMINATION: RENAL ULTRASOUND CLINICAL HISTORY: Chronic low back pain and right flank pain TECHNIQUE: Sonography of the kidneys and urinary bladder was performed. Images were obtained and stored in a permanent archive. MQ: UR_1 COMPARISON: None RESULT: Right Kidney: -Renal length: 11.6 cm -Parenchyma: Normal parenchymal echogenicity. Normal parenchymal thickness. -Collecting system: Slight pyelectasis. -Calculus: No echogenic, shadowing calculus. -Lesion: None. Left Kidney: -Renal length: 11.9 cm -Parenchyma: Normal parenchymal echogenicity. Normal parenchymal thickness. -Collecting system: No hydronephrosis. -Calculus: No echogenic, shadowing calculus. -Lesion: None. Bladder: Normal sonographic appearance. Prevoid volume is 335 cc. Postvoid volume is 23 cc. IMPRESSION: 1. Slight right-sided renal pyelectasis. Etiology is uncertain. No overt hydronephrosis is seen. If there is clinical concern for a distal obstruction, consider CT urogram. Lead Fabricator: PSCWillie Transcribe Date/Time: Jul 14 2022 11:07A Dictated by : DACIA WOOD MD This examination was interpreted and the report reviewed and electronically signed by: DACIA WOOD MD on Jul 14 2022 11:09AM EST [id number] Normal [facility] ANES Franc[place] 09-05-2019 ANES POST HNO ID: [id number] Author: Oscar Dumont Service: Anesthesiology Author Type: Anesthesiologist Type: Anesthesia PostOp Filed: 09/05/2019 11:55 AM Note Text: POST ANESTHESIA EVALUATION NOTE SERVICE DATE: 09/05/2019 SERVICE TIME: : 1960 Vitals: 09/05/19 0834 09/05/19 1027 Temp: 37.2 ?C (99 ?F) 36.3 ?C (97.3 ?F) 09/05/19 1100 09/05/19 1115 09/05/19 1130 09/05/19 1145 BP: 118/69 108/68 110/67 105/62 09/05/19 1100 09/05/19 1115 09/05/19 1130 09/05/19 1145 Pulse: (!) 57 (!) 58 (!) 57 (!) 58 09/05/19 1100 09/05/19 1115 09/05/19 1130 09/05/19 1145 Resp: 17 15 15 15 09/05/19 1100 09/05/19 1115 09/05/19 1130 09/05/19 1145 SpO2: 100% 94% 94% 94% Validated Vital Signs: Yes POST ANES STATUS: No apparent anesthetic complications. The patient is appropriately hydrated with stable respiratory and cardiovascular status. Patient has safe and adequate airway control. The patient has appropriate pain relief and no significant post operative nausea or vomiting. The patient has achieved baseline mental status. Intra-Operative Events: No Significant Anesthesia Events Further assessment by Anesthesia Service: None Other Remarks: SIGNATURE: Oscar Dumont MD PATIENT NAME: Manoj Tompkins DATE: September 05, 2019 TIME: 11:55 AM PAGER/CONTACT #: [phone] [facility] ANES PREOPon 09-05-2019 ANES PREOP HNO ID: [id number] Author: Robyn Hope Service: Anesthesiology Author Type: Anesthesiologist Type: Anesthesia PreOp Filed: 09/05/2019 8:41 AM Note Text: ANESTHESIOLOGY DAY OF SURGERY NOTE SERVICE DATE: 09/05/2019 SERVICE TIME: 8:33 AM : 1960 Procedure(s) (LRB): EXCISION GANGLION FINGER (Right) Surgeon(s): Juan Jose Wright Estimated body mass index is 36.64 kg/m? as calculated from the following: Height as of 09/01/19: 167.6 cm (5' 6 ). Weight as of 09/01/19: 103 kg (227 lb). Most recent hematocrit and potassium results: Hematocrit 43.2 08/23/2018 Potassium 4.1 08/25/2019 ANES DOS/PREOP NOTE: Vitals: There were no vitals filed for this visit. ACTIVE PROBLEM LIST Esophageal Reflux Dysmetabolic Syndrome X Class 2 Obesity Due to Excess Calories Without Serious Comorbidity With Body Mass Index (Bmi) of 36.0 to 36.9 in Adult Intervertebral Lumbar Disc Disorder With Myelopathy, Lumbar Region Vitamin D Deficiency History of Gastric Bypass Arthritis of Left Knee Cheilitis Degenerative Arthritis of Finger, Right Impaired Fasting Glucose Ganglion Cyst PAST MEDICAL HISTORY Diagnosis Date - Abdominal pain, right lower quadrant - Calculus of gallbladder with chronic cholecystitis without obstruction 07/2018 - Degenerative arthritis of finger, right 06/29/2017 - Esophageal reflux Gastroesophageal reflux - History of gastric bypass 08/10/2014 - Impaired fasting glucose 06/29/2017 - Iron deficiency anemia 06/21/2016 PAST SURGICAL HISTORY Procedure Laterality Date - APPENDECTOMY 09/01/07 lap delisa/ Dr. Garcia - DELIVERY ONLY , low cervical - COLONOSCOP W/ OR W/O [facility] SPEC 08/22/07 - COLONOSCOP W/ OR W/O [facility] SPEC N/A 09/04/2016 - EGD W/O [facility] SPECIMEN W/BX 03/13/07 - EGD W/O OR W/BRUSH/WASH 11/25/2009 [facility] EGD H-pylori negative - EGD W/O OR W/BRUSH/WASH N/A 09/04/2016 - ENDOSC BALLOON SINUPLASTY 07/15/2013 Dr. Monalisa Clark - KNEE SCOPE,MENISECTOMY,MED OR LAT Left 06/30/2016 - LAPAROSCOP GASTRIC BYPASS 2006 - LAPAROSCOPIC CHOLEYCYSTECTOMY 08/2018 Cholecystectomy, lap - LIGATE FALLOPIAN TUBE Tubal ligation - TOTAL ABDOM HYSTERECTOMY Hysterectomy, TJ FAMILY HISTORY Problem Relation Age of Onset - Diabetes Maternal Grandfather - Stroke Maternal Grandmother - Diabetes Father - Heart Father - Hypertension Father - Diabetes Mother - Asthma Brother - Allergies Brother 1/2 BROTHER - Allergies Sister - Breast Cancer Sister 1/2 SISTER Social History: Social History Tobacco Use - Smoking status: Former Smoker Packs/day: 1.00 Years: 10.00 Pack years: 10.00 Last attempt to quit: 07/16/1986 Years since quittin.1 - Smokeless tobacco: Never Used Substance Use Topics - Alcohol use: Yes Frequency: 2-4 times a month Drinks per session: 1 or 2 Binge frequency: Never Comment: RARE - Drug use: No No current facility-administered medications on file prior to encounter. Current Outpatient Medications on File Prior to Encounter Medication Sig - naproxen (NAPROSYN) 250 mg tablet Take 250 mg by mouth twice daily with meals. - loratadine (CLARITIN ORAL) Take 1 tablet by mouth as needed. - OTC NUTRITIONAL SUPPLEMENT 1 tablet once daily. Celebrate ferrous fumarate 60 mg with vitamin C 60 mg, formulated for gastric bypass patients - Cyanocobalamin (VITAMIN B-12) 1,000 mcg subl Dissolve under the tongue. 4x/week - fluticasone (FLONASE) 50 mcg/actuation nasal spray 1 [place] once daily. - multivitamin (MULTIPLE VITAMIN) ORAL Tab Take one(1) tablet two(2) times daily. Current Facility-Administered Medications Medication Dose Route Frequency Provider Last Rate Last Dose - lidocaine 10 mg/mL (1 %) 1-2 mg injection (XYLOCAINE) 0.1-0.2 mL INTRADERMAL PRN [facility] ([facility]) [facility] - lactated ringers infusion 5-30 mL/hr INTRAVENOUS CONTINUOUS [facility] (Pa) [facility] - ceFAZolin iv piggyback 2 g in D5W (iso-osmotic) 100 mL (ANCEF) 2 g INTRAVENOUS Pre-Op Once [facility] ([facility]) [facility] Allergies: ALLERGIES Allergen Reactions - Codeine Vomiting - Glucophage [Metform* GI Upset - Nexium [Esomeprazol* GI Upset - Nsaids (Non-Steroid* Gastric Bypass DOS EXAM: Adequate NPO Status: Yes Anesthetic Risks, Benefits, Alternatives, Personnel and Consent Discussed: Yes Patient agrees to proceed: Yes Previous Anesthesia: Nausea and/or vomiting Airway Assessment: MP 1; Neck ROM: Full ROM without neurologic symptoms; Airway Evaluation: No significant abnormalities Symptoms of Sleep Apnea: BMI > 35 and Age over 50 (59 year old) Dentition: Teeth intact Additional Physical Exam: Lungs: Patient health status unchanged since recent history and physical. See history and physical for exam findings. Cardiac: Patient health status unchanged since recent history and physical. See history and physical for exam findings. Additional Pertinent Findings: N/A Blood Products: Not anticipated for this procedure Anesthetic Plan: MAC with general as back up Anesthetic Monitoring: Standard ASA Monitors Pain Management Plan: Parenteral or Oral ASA Class: 2 Other Medical Problems: None Chronic Beta Farooq medication administered within 24 hours: N/A I have interviewed and examined the patient. I have reviewed the medical record and/or the pre-anesthesia evaluation, pertinent labs, and test results. Significant changes in the patient's condition since the History and Physical, not otherwise documented in primary service progress notes: No This contains updated information obtained within 48 hours of Surgery/Procedure. SIGNATURE: Robyn Hope MD PATIENT NAME: Manoj Tompkins DATE: September 05, 2019 TIME: 8:33 AM CSN: [id number] [facility] NURSING PROGon 09-05-2019 NURSING PROG HNO ID: [id number] Author: Rowena PulidoRn) SHAWANDA Goff Service: Nursing Author Type: Registered Nurse Type: Nursing Progress Note Filed: 09/05/2019 2:46 PM Note Text: 1305 Reglan 10mg IV given slowly IVP. New bag of LR up and infusing. Pt c/o nausea-no active vomiting. Spouse @ bedside 1330 Pt resting quietly. No c/o nausea 1400 Pt resting quietly 1430 Pt discharge home in satisfactory conditoin [facility] NURSING PROG HNO ID: [id number] Author: Marycarmen PulidoRn) Chula RN Service: Nursing Author Type: Registered Nurse Type: Nursing Progress Note Filed: 09/05/2019 12:33 PM Note Text: Nursing Progress Note Patient Name: Manoj Tompkins Patient Location: [facility] __ pt ready for OR, call light in reach, called to bedside, will take bag of valuables. This note was completed by: Marycarmen Quiros, RN [id number] to bedside, pt c/o feeling nauseated after sitting up on the cart. IV Zofran given at 1208 for nausea. 1223 D/C instructions given to pt and , slight nausea still. Will continue to monitor. [facility] OPERATIVE NOon 09-05-2019 OPERATIVE NO HNO ID: [id number] Author: Juan Jose Wright Service: Orthopaedic Surgery Author Type: Physician Type: Operative Report Filed: 09/09/2019 7:29 AM Note Text: OPERATIVE/PROCEDURE REPORT LOG ID: [id number] SURGERY/PROCEDURE DATE: 09/05/2019 INCISION/PROCEDURE START TIME: 10:03 AM INCISION CLOSE/PROCEDURE END TIME: 10:19 AM SURGEON(S)/PROCEDURALI ST(S) AND NEONATAL INTENSIVE CARE NURSE(S): Surgeon(s) and Role: * Juan Jose Wright - Primary Physician Intellectual Property Manager: Todd Seals (Pa)) Emily SURGERY/PROCEDURE(S): Excision of a digital mucous cyst, right small finger. This is a pleasant, 59-year-old female who presented with an area of swelling, soft tissue mass formation right small finger. After reviewing the risks, benefits, alternatives and potential complications involving both operative and nonoperative care, the patient wished to pursue surgical excision. On 07/25/2019, the patient was clearly identified in the preoperative area and marked accordingly on the right, small finger by myself. Patient was taken to the operative suite and placed in a supine position with an arm board on the right. All other bony landmarks were appropriately padded in standard fashion. Anesthesia assumed care of the head and neck for the remainder of the case. A well-padded upper brachium tourniquet was applied with cotton padding and set at 250 mmHg but not yet inflated. The right upper extremity was then sterilely prepped and draped in standard fashion. An appropriate time out was conducted and all in the room were in agreement, signed consent form was on the chart. 1% lidocaine with 1-200,000 epinephrine was provided for 3 cc on the dorsum of the digit. An L shaped incision was made over the DIP extensor surface extending on the lateral portion of the digit on its ulnar side. Full-thickness skin flap was developed and I worked my way centrally and slowly, attempting to not buttonhole the skin of the ganglion cyst. I freed up the dermis and worked my way from underneath the skin flap. The cyst was easily identified and decompressed, I was able to trace the cyst distally and decompressed and fully remove it, using bipolar electrocautery at its origin. There was a small rent in the lateral joint capsule and the lateral spur was removed with a small bone rongeur. I flushed the wound and the joint with normal saline. Skin closure was completed with a series of 4-0 nylon sutures in interrupted and horizontal mattress fashion. No specimen was needed to be sent as it was clearly a ganglion cyst. Xeroform gauze, sterile 4 x 4 and a light Sherie wrap and Coban was used for final bandage. There were no complications during the procedure. Patient was safely awoken and transferred to the postanesthetic care unit in stable condition. PRE-OP/PRE-PROCEDURE DIAGNOSIS: Right, small finger, digital mucous cyst. POST-OP/POST-PROCEDURE DIAGNOSIS: same ESTIMATED BLOOD LOSS: 0 ml SPECIMENS: none sent IMPLANTABLE DEVICES: None DRAINS: None COMPLICATIONS: None PARTICIPATION IN SURGERY/PROCEDURE: I/primary surgeon/proceduralist performed the entire procedure. SIGNATURE: Juan Jose Wright MD PATIENT NAME: Manoj Tompkins DATE: September 09, 2019 TIME: 7:24 AM PAGER/CONTACT #: [facility] PT EDon 09-05-2019 PT ED HNO ID: [id number] Author: Marycarmen PulidoRn) SHAWANDA Quiros Service: Nursing Author Type: Registered Nurse Type: Patient Education Filed: 09/05/2019 12:34 PM Note Text: POST OP LEARNING RESPONSE INSTRUCTION PROVIDED TO: Patient and family member METHOD OF INSTRUCTION: Written instruction - handouts Verbal instruction PATIENT / FAMILY RESPONSE: Verbalizes understanding of: INFECTION MANAGEMENT-Signs and symptoms of an infection and importance of contacting the physician MEDICATION PRESCRIBED-Accurate knowledge of prescribed medication prior to discharge PAIN MANAGEMENT-Effective strategies to manage pain in addition to pain medication PHYSICAL RESTRICTIONS-Physical restrictions and recommendations after discharge from the hospital POST-OPERATIVE INSTRUCTIONS-Correct actions to take to reduce postoperative complications SYMPTOM MANAGEMENT-Correct actions to take to manage symptoms associated with his/her disease/illness WORSENING CONDITION-Signs and symptoms of a worsening condition that warrant a call to the physician WOUND CARE-Correct procedure to perform wound care FOLLOW-UP PLAN: Patient instructed to call with any further issues Contact information given. SUPPLEMENTAL MATERIAL: None REFERRAL (RECOMMENDATION): None Electronically Signed By: Marycarmen Quiros RN In Department: [facility] SURGERY [facility] PT ED HNO ID: [id number] Author: Marycarmen PulidoRn) SHAWANDA Quiros Service: Nursing Author Type: Registered Nurse Type: Patient Education Filed: 09/05/2019 8:22 AM Note Text: PRE OP LEARNING ASSESSMENT PROCEDURE/SURGERY: SURGERY: R finger Ganglion cyst excision READINESS TO LEARN COGNITIVE ABILITY: Alert and oriented MOTIVATION TO LEARN: Interested FAMILY SUPPORT: High - Very involved in pt care PATIENT LEARNS BEST BY: Written Instruction - Hand-outs Verbal Instruction FACTORS AFFECTING LEARNING: None PHYSICAL LIMITATIONS AFFECTING LEARNING: None Electronically Signed By: Marycarmen Quiros RN In Department: [facility] SURGERY [facility] NURSING PROGon 09-01-2019 NURSING PROG HNO ID: [id number] Author: Bronson PulidoRn) SHAWANDA Wilkins Service: ? Author Type: Registered Nurse Type: Nursing Progress Note Filed: 09/01/2019 12:24 PM Note Text: PACC Nurse Progress Note History AND Physical: PACC Visit Date: 09/01/2019 Original HANDP Date: 09/01/2019 ED visit Date: N/A Outside HANDP Scanned Date: N/A Labs Within Last 6 Months: BMP/CMP: Date 08/25/2019 Glucose 120 Iron+TIBC 05/20/19 TIBC 396 B12 05/20/19 WNL Folate 05/20/19 WNL Imaging Within Last 12 Months: N/A Cardiac Testing: N/A Last Menstrual Period: LMP Date: None recorded Postmenopausal >1yr: Yes, S/P Hysterectomy: Yes BMI Percentile (PEDS): N/A Risk Assessment: N/A Anesthesia Review: Postop nausea/vomiting Narrative: N/A Pre-op Considerations: Postop nausea/vomiting h/o gastric bypass GERD Chart Check: COMPLETED Bronson Wilkins RN September 01, 2019 12:21 PM Normal [facility] HOSPon 08-25-2019 HOSP Patient:Noa Tompkins MRN: Height:5' 6 (1.676 m) Weight:227 lb (102.967 kg) Outpatient Medications as of 09/05/19: naproxen (NAPROSYN) 250 mg tablet ergocalciferol, vitamin D2, 2,000 unit tab CALCIUM CITRATE ORAL MELATONIN ORAL TURMERIC ORAL loratadine (CLARITIN ORAL) OTC NUTRITIONAL SUPPLEMENT Cyanocobalamin (VITAMIN B-12) 1,000 mcg subl fluticasone (FLONASE) 50 mcg/actuation nasal spray multivitamin (MULTIPLE VITAMIN) ORAL Tab Admission/Clinic Administered Medications as of 09/05/19: lidocaine 10 mg/mL (1 %) 1-2 mg injection (XYLOCAINE) lactated ringers infusion ceFAZolin iv piggyback 2 g in D5W (iso-osmotic) 100 mL (ANCEF) Problem List: Esophageal reflux [K21.9] Dysmetabolic syndrome X [E88.81] Class 2 obesity due to excess calories without serious comorbidity with body mass index (BMI) of 36.0 to 36.9 in adult [E66.09, Z68.36] Intervertebral lumbar disc disorder with myelopathy, lumbar region [M51.06] Vitamin D deficiency [E55.9] History of gastric bypass [Z98.84] Arthritis of left knee [M17.12] Cheilitis [K13.0] Degenerative arthritis of finger, right [M19.041] Impaired fasting glucose [R73.01] Ganglion cyst [M67.40] Allergies: Codeine Glucophage [Metformin Hcl] Nexium [Esomeprazole Magnesium] Nsaids (Non-Steroidal Anti-Inflammatory Drug) Date Verified: 09/05/19 Lab Values Lab Value Units Date High Low POTA* 4.1 mmol/L 08/25/2019 5.1 3.7 Progress Notes ([facility]): Maria Eugenia Arceo Juan Luis 08/25/2019 4:49 PM Signed Patient scheduled for right small finger, excision of digital ganglion cyst on 09/05/2019. Surgical request completed. Surgery confirmation letter and post op appointments mailed to patient. Lizbet Feng [facility] [place] 08/26/2019 8:21 AM Signed Noted in [place]. Joan Zimmerman Ma 08/27/2019 9:12 AM Signed Surgery has been scheduled as requested. Progress Notes ([facility]): Maria Eugenia Arceo Juan Luis 08/25/2019 12:23 PM Signed Patient presents with: Right Little Finger - Established Patient Ganglion Cyst: Last seen 08/10/16 S/p Left knee arthroscopic AMB ROOMING INTAKE FLOWSHEET DATA Risk Screening Do you have concerns about personal safety or safety in the home?: No Pain Pain Level: 8 Pain Location: Abdomen(Right 5th finger) Description: Sharp Duration Amount of Time: 1 Duration Units: Years Frequency: Intermittent Patient states about a year ago she had a wart on the side of her right 5th finger that has moved into her fingernail bed. Her nail is deformed. Patient states the area becomes inflamed and drains. Patient has never seen it drained. Taking no med's for the pain. Patient is right hand dominant. 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 Patient has a picture on her phone when it was inflamed. Referred by Dr. Rhoan North. Juan Jose Wright MD 08/25/2019 12:23 PM Signed Juan Jose Wright MD Department of Orthopaedics Orthopaedics [address] [facility] [address] Dept: [phone] Dept August 25, 2019 CHIEF COMPLAINT: Established Patient of the Right Little Finger and Ganglion Cyst (Last seen 08/10/16 S/p Left knee arthroscopic) Ms. Manoj Tompkins is a 59 year old female Patient presents with some troubles with the right small finger. 8 out of 10 sharp pain especially when she bumps into it. She has a nail deformity and it has become inflamed and drains on occasion. She's not taking any medications for this problem. She is right-hand dominant. 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 ASSESSMENT: M67.441 Ganglion, finger joint of right hand PLAN: We discussed multiple treatment options including both operative and nonoperative. The risks, benefits, alternatives implant competitions involving both were discussed and she would like to pursue surgical intervention. She would like to have the procedure done under Mac anesthetic. Her stands that there is a possibility that her nail changes may not improve. She also understands that there is a possibility for the problem to persist Despite surgical attempts. Ms. Manoj Tompkins was advised as to contrast therapies and/or to take analgesics/anti-inflam matories as needed and all contraindications were reviewed. OBJECTIVE: Ms. Manoj Tompkins is a pleasant 59 year old in no apparent distress. Gen:There were no vitals taken for this visit. nl development, obese, no deformities ENT: Normocephalic, normal hearing, moist mucosa CV: Pulses:Radial= 2+ and symmetric, capillary refill < 2 secs, no peripheral edema/varicosities Skin: no rash, bruising or lesions. Good turgor. Psych: cooperative and appropriate, alert and oriented x 3, good mood and affect. Musculoskeletal: Slightly off center, distal mucous cyst. Central nail ridge, no split. Mild pinkness, no signs of infection no current drainage Imaging: deferred Supporting Subjective Information Below: Past Surgical History: PAST SURGICAL HISTORY Procedure Laterality Date - APPENDECTOMY 09/01/07 jessica hercules/ Dr. Garcia - DELIVERY ONLY , low cervical - COLONOSCOP W/ OR W/O [facility] SPEC 08/22/07 - COLONOSCOP W/ OR W/O [facility] SPEC N/A 09/04/2016 - EGD W/O [facility] SPECIMEN W/BX 03/13/07 - EGD W/O OR W/BRUSH/WASH 11/25/2009 [facility] EGD H-pylori negative - EGD W/O OR W/BRUSH/WASH N/A 09/04/2016 - ENDOSC BALLOON SINUPLASTY 07/15/2013 Dr. Monalisa Clark - KNEE SCOPE,MENISECTOMY,MED OR LAT Left 06/30/2016 - LAPAROSCOP GASTRIC BYPASS 2006 - LAPAROSCOPIC CHOLEYCYSTECTOMY 08/2018 Cholecystectomy, lap - LIGATE FALLOPIAN TUBE Tubal ligation - TOTAL ABDOM HYSTERECTOMY Hysterectomy, TJ Medications: Current Outpatient Medications Medication Sig - loratadine (CLARITIN ORAL) Take 1 tablet by mouth as needed. - OTC NUTRITIONAL SUPPLEMENT 1 tablet once daily. Celebrate ferrous fumarate 60 mg with vitamin C 60 mg, formulated for gastric bypass patients - CALCIUM CARBONATE/VITAMIN D3 (VITAMIN D-3 ORAL) Take 1,000 Int'l Units by mouth once daily. - Cyanocobalamin (VITAMIN B-12) 1,000 mcg subl Dissolve under the tongue. 4x/week - fluticasone (FLONASE) 50 mcg/actuation nasal spray 1 [place] once daily. - multivitamin (MULTIPLE VITAMIN) ORAL Tab Take one(1) tablet two(2) times daily. - cholecalciferol (VITAMIN D3) 5,000 unit tab Take 1 tablet by mouth once daily. (Patient not taking: Reported on 08/25/2019 ) - cetirizine (ZYRTEC) 10 mg tablet Take 10 mg by mouth as needed. No current facility-administered medications for this visit. Allergies: Codeine; Glucophage [Metformin Hcl]; Nexium [Esomeprazole Magnesium]; Nsaids (Non-Steroidal Anti-Inflammatory Drug) ROS: General (negative for fatigue, malaise, weight loss/gain) HEENT (negative for headache, earache, recent vision changes, sinus pain, sore throat) Respiratory (no recent shortness of breath, hemoptysis) CV (negative for chest tightness, palpitations) Musculoskeletal (see HPI) Psych (no depression, anxiety) This note was partially generated using Job36 voice recognition system, and there may be some incorrect words, spellings, and punctuation that were not noted in checking the note before saving. Juan Jose Wright MD [facility] Vital Signs Date Time Vital Sign Value Performing Clinician [facility] sarah 10-17-2021 08:10-0400 Body temperature 97.81 [degF] Adileen Main MERCHANDISE MANAGER.JAY Work Phone: [facility] 10-17-2021 08:10-0400 Body weight 105.42 kg Adilene Main MERCHANDISE MANAGER.JAY Work Phone: [facility] 10-17-2021 08:10-0400 Diastolic blood pressure 82 mm[Hg] Adilene Podlogar MERCHANDISE MANAGER.LOOM FIXER Work Phone: [facility] 10-17-2021 08:10-0400 Heart rate 91 /min Adilene Podlogar MERCHANDISE MANAGER.LOOM FIXER Work Phone: [facility] 10-17-2021 08:10-0400 Respiratory rate 18 /min Adilene Podlogar MERCHANDISE MANAGER.LOOM FIXER Work Phone: [facility] 10-17-2021 08:10-0400 SaO2% (BldA) [Mass fraction] 98 % Adilene Podlogar MERCHANDISE MANAGER.LOOM FIXER Work Phone: [facility] 10-17-2021 08:10-0400 Systolic blood pressure 136 mm[Hg] Adilene Podlogar MERCHANDISE MANAGER.LOOM FIXER Work Phone: [facility] Encounters Encounter Date Encounter Type Care Provider Facility Start: 11-15-2023 Telephone encounter Anselmo Holloway MD Work Phone: [facility] [place] Comment on above: Results Start: 11-06-2023 End: 11-06-2023 ambulatory JUAN LUIS HOLLOWAY Facility:[facility] Start: 11-06-2023 End: 11-06-2023 [facility] Work Phone: [facility] Start: 06-20-2023 ambulatory Juan Luis Holloway MD Work Phone: [facility] [place] Start: 07-27-2022 Telephone encounter Anselmo Holloway MD Work Phone: [facility] [place] Comment on above: Results Start: 07-27-2022 End: 07-27-2022 Subsequent hospital visit by physician [facility] ([facility]) Work Phone: [facility] Comment on above: Abnormal ultrasound [R93.89] Start: 07-18-2022 Telephone encounter Adilene you MERCHANDISE MANAGER.LOOM FIXER Work Phone: [facility] [place] Comment on above: Results Start: 07-12-2022 Telephone encounter Adilene Podl ogar MERCHANDISE MANAGER.LOOM FIXER Work Phone: [facility] [place] Comment on above: Results Start: 07-12-2022 ambulatory ADILENE PODLOGAR Facility :[facility] Start: 07-12-2022 End: 07-12-2022 Subsequent hospital visit by physician [facility] Comment on above: Right flank pain [R1 0.9] Start: 06-10-2022 ambulatory Adilene Podlogar MERCHANDISE MANAGER.JAY Work Phone: [facility] [place] Comment on above: update chart Start: 06-07-2022 ambulatory Juan Luis Holloway MD Work Phone: [facility] [place] Start: 10-17-2021 End: 10-17-2021 Patient encounter procedure Adilene Podlogar MERCHANDISE MANAGER.JAY Work Phone: [facility] [place] Comment on above: URI, acute (Primary Dx); Tenderness over frontal sinus Start: 05-13-2012 End: 05-13-[address] (I-Stat) Work Phone: [facility] Work Phone: Procedures Date Procedure Procedure Detail Performing Clinician Start: 11-06-2023 Ct soft tissue neck w/contrast material [facility] Provider Start: 07-27-2022 Ct abdomen & pelvis w/o contrst 1/> body re Adilene Podlogar MERCHANDISE MANAGER.LOOM FIXER Work Phone: Start: 07-12-2022 Us retroperitoneal r eal time w/image complete Adilene Podlogar MERCHANDISE MANAGER.LOOM FIXER Work Phone: Start: 05-01-2022 Mammography Adilene Podl ogar MERCHANDISE MANAGER.LOOM FIXER Work Phone: Start: 10-15-2021 Adult depression scr eening assessment Adilene Podlogar MERCHANDISE MANAGER.LOOM FIXER Work Phone: Start: 05-20-2021 Lipid 1996 panel - S ashwin or Plasma Ct (I-Stat) Work Phone: Start: 04-29-2021 Mammography Aidlene Podl ogar MERCHANDISE MANAGER.LOOM FIXER Work Phone: Start: 09-04-2016 Colonoscopy Adilene you APRN.CNP Work Phone: Plan of Treatment Date Care Activity Detail Author Start: 05-20-2029 Urine microalbumin profile [facility] Start: 09-04-2026 Colonoscopy COLONOSCOPY [facility] Start: 09-04-2026 COLORECTAL CANCER SCREENING COLORECTAL CANCER SCREENING [facility] Start: 09-04-2026 Screening for malign ant neoplasm of colon [facility] Start: 05-20-2026 Lipid 1996 panel - S ashwin or Plasma Lipid Screening [facility] Start: 05-20-2026 Lipid panel Lipid Screening [facility] Start: 05-20-2026 LIPID SCREEN LIPID SCREEN [facility] Start: 07-11-2025 DIABETES SCREEN DIABETES SCREEN [facility] Start: 07-11-2025 Diabetes Screening Diabetes Screenin g [facility] Start: 05-20-2024 DIABETES SCREEN DIABETES SCREEN [facility] Start: 09-13-2023 Shingrix Vaccine (2 of 2) Shingrix Vaccine (2 of 2) [facility] Start: 07-16-2023 Behavioral Health Screening Behavioral Health Screening [facility] Start: 05-01-2023 Mammography [facility] Start: 05-01-2023 Screening for malign ant neoplasm of breast Mammogram Screening [facility] Start: 03-16-2023 Covid-19 Vaccine ( season) Covid-19 Vaccine ( season) [facility] Start: 03-16-2023 Influenza vaccination Influenza Vacc ine (#1) [facility] Start: 10-15-2022 Adult depression screening assessment DEPRESSION SCREENING [facility] Start: 07-16-2022 [facility] Start: 04-29-2022 Mammography MAMMOGRAM [facility] Start: 07-16-2021 [facility]MENT [facility] Start: 2021 RSV Vaccine (1 - 1-d ose 60+ series) RSV Vaccine (1 - 1-dose 60+ series) [facility] Start: 06-20-2017 FECAL OCCULT BLOOD FECAL OCCULT BLOO D [facility] Start: 06-20-2017 Screening for malign ant neoplasm of colon Fecal Occult Blood [facility] Start: 2011 SHINGRIX VACCINE (1 of 2) SHINGRIX VACCINE (1 of 2) [facility] Start: 2006 COLOGUARD (FIT-DNA) COLOGUARD (FIT-D NA) [facility] Start: [address] COLONOGRAPHY [facility] Start: 2006 Screening for malign ant neoplasm of colon [facility] Start: 2006 SIGMOIDOSCOPY SIGMOIDOSCOPY [facility] End: 08-17-2023 Ct abdomen & pelvis w/o contrst 1/> body re CT UROGRAM WO/W IVCON Radiology Routine Abnormal ultrasound 1 Occurrences starting 07/18/2022 until 08/17/2023 [facility] Work Phone: Comment on above: 1 Occurrences starti ng 07/18/2022 until 08/17/2023 End: 07-19-2024 RODRIGO SCREENING RODRIGO SCREENING Radiology Routine Encounter for screening mammogram for breast cancer 1 Occurrences starting 06/20/2023 until 07/19/2024 [facility] Work Phone: Comment on above: 1 Occurrences starti ng 06/20/2023 until 07/19/2024 End: 07-07-2023 Screening mammography bi 2-view breast inc cad RODRIGO SCREENING Radiology Routine Encounter for screening mammogram for breast cancer 1 Occurrences starting 06/07/2022 until 07/07/2023 [facility] Work Phone: Comment on above: 1 Occurrences starti ng 06/07/2022 until 07/07/2023 [facility] Immunizations Immunization Date Immunization Notes Care Provider [facility] 05-13-2022 COVID-19 booster vaccine, age 12+ yr, bivalent (PFIZER-BIONTECH) Juan Luis Holloway MD Work Phone: [facility] 05-13-2022 influenza, injectabl e, quadrivalent, contains preservative Juan Luis Holloway MD Work Phone: [facility] 05-13-2022 influenza virus vaccine, unspecified formulation Ct (I-Stat) Work Phone: [facility] 06-03-2021 COVID-19 vaccine, fu ll dose (MODERNA) Adilene Spanglerlogmateo MERCHANDISE MANAGER.LOOM FIXER Work Phone: [facility] 09-09-2020 COVID-19 vaccine, fu ll dose (MODERNA) Adilene Podlogar MERCHANDISE MANAGER.LOOM FIXER Work Phone: [facility] 08-12-2020 COVID-19 vaccine, fu ll dose (MODERNA) Adilene Podlogar MERCHANDISE MANAGER.LOOM FIXER Work Phone: [facility] 05-20-2019 influenza, seasonal, injectable Adilene Podlogar MERCHANDISE MANAGER.LOOM FIXER Work Phone: [facility] 05-20-2019 tetanus toxoid, reduced diphtheria toxoid, and acellular pertussis vaccine, adsorbed Adilene Podlogar MERCHANDISE MANAGER.[facility] Work Phone: [facility] 04-29-2017 influenza, seasonal, injectable Adilene Podlogar MERCHANDISE MANAGER.[facility] Work Phone: [facility] 04-25-2013 influenza virus vaccine, unspecified formulation Adilene Podlogar MERCHANDISE MANAGER.[facility] Work Phone: [facility] 04-25-2010 influenza virus vaccine, unspecified formulation Adilene Podlogar MERCHANDISE MANAGER.[facility] Work Phone: [facility] Work Phone: 07-11-1999 diphtheria and tetan us toxoids, adsorbed for pediatric use Adilene Podlogar MERCHANDISE MANAGER.[facility] Work Phone: [facility] Work Phone: Payers Date Payer Category Payer Private Health Insurance [employer] A ETNA CHOICE POS II [id number] 2019-Present [phone] [address] [place] [address] POS [id number] 2019 Private Health Insurance [id number] 2019 Private Health Insurance [id number] Social History Date Type Detail Facility Start: 06-16-2016 End: 07-11-2022 Tobacco smoking status NHIS Ex-smoker [facility] End: 07-16-1986 History of tobacco use Current smoker [facility] Work Phone: Start: 10-17-2021 End: 07-27-2022 Alcohol intake Current drinker of alcohol (finding) [facility] Start: 05-14-2020 End: 07-11-2022 History SDOH Alcohol Frequency 3 [facility] Start: 05-14-2020 End: 07-11-2022 History SDOH Alcohol Std Drinks 1 [facility] Start: 08-15-2019 End: 07-11-2022 History SDOH Social Connections Get Together 2 [facility] Start: 08-15-2019 End: 07-11-2022 History SDOH Financial 5 [facility] Start: 05-10-2020 Education 16 [facility] Start: 1960 Sex Assigned At Female [facility] End: 07-16-1986 History of tobacco use Cigarette Smoker [facility] Work Phone: Start: 06-16-2016 End: 06-20-2020 Cigarettes smoked current (pack per day) - Reported 1 [facility] Start: 06-16-2016 End: 07-11-2022 Tobacco use and exposure Smokeless tobacco non-user [facility] Work Phone: Start: 05-14-2022 End: 07-11-2022 History SDOH Social Connections [facility] 98 [facility] Start: 06-20-2020 End: 07-11-2022 Social connection and isolation panel [facility] How often do you att end muslim or bahai services? Patient refused [facility] Do you belong to any clubs or organizations such as muslim groups, unions, fraternal or athletic groups, or school groups? No [facility] Are you now , , , , never or living with a partner? [facility] How often to you hav e a drink containing alcohol? 2-4 times a month [facility] How many standard dr inks containing alcohol do you have on a typical day? 1 or 2 [facility] How often do you hav e 6 or more drinks on 1 occasion? Never [facility] Do you feel stress - tense, restless, nervous, or anxious, or unable to sleep at night because your mind is troubled all the time - these days [OSQ] Only a little [facility] (I/We) worried wheth er (my/our) food would run out before (I/we) got money to buy more. Never true [facility] Start: 08-05-2019 Gender identity Identifies as female gender (finding) [facility] Start: 08-05-2019 Sexual orientation Heterosexual (finding) [facility] Clinical Notes 06-21-2016 to 11-16-2023 Telephone Encounter - Juan Luis Holloway MD - 11/16/2023 10:09 AM EDTTelephone Encounter - Juan Luis Holloway MD - 11/16/2023 10:09 AM EDTRT Ekta(R) - 07/12/2022 9:00 AM EST Note Date & Type Note Facility 11-16-2023 Telephone encounter Note Reviewed. Removed myself as her PCP. [facility] 11-16-2023 Miscellaneous Notes Reviewed. Removed myself as her PCP. Phoned patient and reviewed message. She stated the US has been ordered and dr Lockwood and Sim are following her. Asked patient if Dr Montemayor is her PCP and she stated Yes, she is my new PCP. Chelsey Winston LPN Patient with recetn neck CT which showed: 1. 2 hypodense lesions noted within the thyroid gland. Recommend ultrasound to more completely evaluate. Looks like this was ordered by Dr. Lockwood. Have they ordered an ultrasound to follow up on this? Patient's last OV with us was more than 1 year ago. Recommend annual physical in the next couple of months. documented in this encounter [facility] 11-16-2023 Telephone encounter Note Phoned patient and reviewed message. She stated the US has been ordered and dr Lockwood and Sim are following her. Asked patient if Dr Montemayor is her PCP and she stated Yes, she is my new PCP. Chelsey Winston LPN [facility] 11-15-2023 Telephone encounter Note Patient with recetn neck CT which showed: 1. 2 hypodense lesions noted within the thyroid gland. Recommend ultrasound to more completely evaluate. Looks like this was ordered by Dr. Lockwood. Have they ordered an ultrasound to follow up on this? Patient's last OV with us was more than 1 year ago. Recommend annual physical in the next couple of months. [facility] 11-06-2023 History of Presen t illness Narrative Radiology Service Progress Note DATE OF SERVICE: November 06, 2023 TIME: 4:00 PM PATIENT IDENTITY VERIFICATION COMPLETED USING TWO (2) STANDARD IDENTIFIERS: Name and Date of confirmed by patient verbally. FALL SCREENING: Has the patient had 2 falls in the last year or 1 fall with injury or currently using an Ambulatory Assistive Device (Walker, Cane, Wheelchair, Crutches, etc.)? No PATIENT GENDER DATA: Female. status: : No status: NO. PATIENT RELEVANT IMPLANT DATA REVIEWED: Yes PATIENT PRESENTS WITH AN IMPLANTABLE OR ATTACHED KEELER POLYGRAPH OPERATOR: No ALLERGIES: Reviewed and unchanged CONTRAST ALLERGY: NO. EXAM: CT -CONTRAST INDUCED NEPHROPATHY RISK FACTORS: Patient age > 60 years CREATININE: Creatinine Date Value Ref Range Status 11/06/2023 0.63 0.58 - 0.96 mg/dL Final 07/11/2022 0.68 0.58 - 0.96 mg/dL Final 05/20/2021 0.74 0.58 - 0.96 mg/dL Final Estimated Glomerular Filtration Rate Date Value Ref Range Status 11/06/2023 100 >=60 mL/min/1.73m Final Comment: Estimated Glomerular Filtration [...] RESULTS: POC done: Yes, See Lab Tab November 06, 2023 TREATMENT: N/A PERIPHERAL IV DATA: Ambulatory: A peripheral IV was started in the Left antecubital site with a Angio cath: 22 gauge. RADIOLOGY DEPARTMENT: CT; Exam(s) Completed: Neck SIGNATURE: DAVID Raymundo) PATIENT NAME: Manoj Tompkins DATE: November 06, 2023 TIME: 4:00 PM documented in this encounter [facility] 11-06-2023 Note HNO ID: [id number] Author: MANOJ DE LA FUENTE RT(R) Service: ? Author Type: Photonic Laboratory Technician Type: Progress Notes Filed: 11/06/2023 16:00 Note Text: Radiology Service Progress Note DATE OF SERVICE: November 06, 2023 TIME: 4:00 PM PATIENT IDENTITY VERIFICATION COMPLETED USING TWO (2) STANDARD IDENTIFIERS: Name and Date of confirmed by patient verbally. FALL SCREENING: Has the patient had 2 falls in the last year or 1 fall with injury or currently using an Ambulatory Assistive Device (Walker, Cane, Wheelchair, Crutches, etc.)? No PATIENT GENDER DATA: Female. status: : No status: NO. PATIENT RELEVANT IMPLANT DATA REVIEWED: Yes PATIENT PRESENTS WITH AN IMPLANTABLE OR ATTACHED KEELER POLYGRAPH OPERATOR: No ALLERGIES: Reviewed and unchanged CONTRAST ALLERGY: NO. EXAM: CT -CONTRAST INDUCED NEPHROPATHY RISK FACTORS: Patient age > 60 years CREATININE: Creatinine Date Value Ref Range Status 11/06/2023 0.63 0.58 - 0.96 mg/dL Final 07/11/2022 0.68 0.58 - 0.96 mg/dL Final 05/20/2021 0.74 0.58 - 0.96 mg/dL Final Estimated Glomerular Filtration Rate Date Value Ref Range Status 11/06/2023 100 >=60 mL/min/1.73m? Final Comment: Estimated Glomerular Filtration [...] RESULTS: POC done: Yes, See Lab Tab November 06, 2023 TREATMENT: N/A PERIPHERAL IV DATA: Ambulatory: A peripheral IV was started in the Left antecubital site with a Angio cath: 22 gauge. RADIOLOGY DEPARTMENT: CT; Exam(s) Completed: Neck SIGNATURE: RT Breanne(R) PATIENT NAME: Manojelina Tompkins DATE: November 06, 2023 TIME: 4:00 PM [facility] 06-20-2023 Note Patient Outreach (IN TMMN) MANOJ TOMPKINS ([id number]) 1960 F Date Time Provider Department 06/20/23 JUAN LUIS HOLLOWAY During your visit today, we recorded the following information about you: Allergies As of Date: 06/20/2023 Noted Allergy Reaction CODEINE 05/20/2011 11 - Vomiting GLUCOPHAGE (METFORMIN HCL) 07/21/2005 8 - GI Upset NEXIUM (ESOMEPRAZOLE MAGNESIUM) 07/21/2005 8 - GI Upset NSAIDS (NON-STEROIDAL ANTI-INFLAM*12/23/2013 Comments: Gastric Bypass Date Reviewed: 07/27/2022 Reviewed by: Manoj De La Fuente, RT(R) - Fully Assessed Visit Diagnosis:Encounter for screening mammogram for breast cancer [Z12.31] Order(s):[facility] SCREENING [[id number]] Order #: [id number] FUTURE Prescriptions as of 06/25/2023 - cyclobenzaprine [...] fluticasone (FLONASE) 50 mcg/actuation nasal spray 1 [place] once daily. - multivitamin (MULTIPLE VITAMIN) ORAL [...] Ganglion cyst [M67.40] 06/29/2017 Encounter Status:Closed by Laser [facility], PRODUSER on 06/25/23 [facility] 07-28-2022 Miscellaneous Notes Pt called and is notified of providers message and instructions. Pt voices understanding. Sheri Fam RN She reported her urinary symptoms at her OV with Adilene and UA was negative for infection. She [...] she tried OTC for pain thus far? Adilene reported a TENS unit helped with pain [...] PCP know. ----- Message from Juan Luis Holloway MD sent at 07/27/2022 11:46 AM EST ----- CT scan shows nothing abnormal with kidneys. Does note some fatty liver and liver cysts which appear benign. Recommend healthy diet and exercise to promote weight loss to help with fatty liver disease. Will monitor liver function at future OV. documented in this encounter [facility] 07-27-2022 History of Presen t illness [...] TIME: 8:59 AM documented in this encounter [facility] 07-18-2022 Miscellaneous Notes Phoned patient and given provider's message below with verbalized understanding. Transferred to [facility]. Please call patient and let her know her ultrasound showed slight pyelectasis- this is where urine gathers in the center of the kidney- no hydronephrosis which is swelling of the kidney. Recommend CT urogram. Orders in place, please assist in scheduling. Adilene Main APRN.JAY documented in this encounter [facility] 07-12-2022 Miscellaneous Notes Pt notified of lab results & voiced understanding. Chelsey Roca LPN Left message to call office. 07/12/2022 12:46 PM. Chelsey Roca LPN Please call patient and let her know her blood work is within normal ranges. Adilene Main APRN.CNP documented in this encounter [facility] 07-12-2022 Note HNO ID: [id number] Author: RT Ekta(R) Service: ? Author Type: [...] RT Ekta(R) July 12, 2022 10:27 AM [facility] 07-12-2022 History of Presen t illness Narrative [...] 2022 10:27 AM documented in this encounter [facility] 10-17-2021 History of Presen t illness [...] fluticasone (FLONASE) 50 mcg/actuation nasal spray 1 [place] once daily. multivitamin (MULTIPLE VITAMIN) ORAL Tab [...] worsen. - DOXYCYCLINE HYCLATE 100 MG TABLET Adilene Main APRN.JAY Prescription instructions reviewed with patient as applicable. Patient advised if symptoms do not improve or if symptoms worsen sooner, to contact their primary care physician. Potential red flag symptoms discussed with the patient. Reviewed appropriate action plan to take if red flag symptoms occur. Patient agreeable to treatment plan. documented in this encounter [facility] 06-21-2016 History of Past i llness Narrative Problem Noted Date Resolved Date Iron deficiency anemia 06/21/2016 7 Fracture of distal fibula 06/15/20142015 Well adult exam 05/13/2012 05/13/2012 Calcaneal spur 05/18/2006 09/30/2015 Lumbago 07/24/2005 09/30/2015 Disorders of bursae and tend ons in shoulder region, unspecified 07/24/2005 09/30/2015 documented as of this encounter (statuses as of 10/17/2021) [facility] History of Past illness Narrative* Problem Noted Date Resolved Date Iron deficiency anemia 06/21/2016 7 Fracture of distal fibula 06/15/20142015 Well adult exam 05/13/2012 05/13/2012 Calcaneal spur 05/18/2006 09/30/2015 Lumbago 07/24/2005 09/30/2015 Disorders of bursae and tend ons in shoulder region, unspecified 07/24/2005 09/30/2015 documented as of this encounter (statuses as of 06/12/2022) [facility] History of Past illness Narrative* Problem Noted Date Resolved Date Iron deficiency anemia 06/21/2016 7 Fracture of distal fibula 06/15/20142015 Well adult exam 05/13/2012 05/13/2012 Calcaneal spur 05/18/2006 09/30/2015 Lumbago 07/24/2005 09/30/2015 Disorders of bursae and tend ons in shoulder region, unspecified 07/24/2005 09/30/2015 documented as of this encounter (statuses as of 06/12/2022) [facility] History of Past illness Narrative* Problem Noted Date Resolved Date Iron deficiency anemia 06/21/2016 7 Fracture of distal fibula 06/15/20142015 Well adult exam 05/13/2012 05/13/2012 Calcaneal spur 05/18/2006 09/30/2015 Lumbago 07/24/2005 09/30/2015 Disorders of bursae and tend ons in shoulder region, unspecified 07/24/2005 09/30/2015 documented as of this encounter (statuses as of 07/19/2022) [facility] History of Past illness Narrative* Problem Noted Date Resolved Date Iron deficiency anemia 06/21/2016 7 Fracture of distal fibula 06/15/20142015 Well adult exam 05/13/2012 05/13/2012 Calcaneal spur 05/18/2006 09/30/2015 Lumbago 07/24/2005 09/30/2015 Disorders of bursae and tend ons in shoulder region, unspecified 07/24/2005 09/30/2015 documented as of this encounter (statuses as of 07/19/2022) [facility] History of Past illness Narrative* Problem Noted Date Resolved Date Iron deficiency anemia 06/21/2016 7 Fracture of distal fibula 06/15/20142015 Well adult exam 05/13/2012 05/13/2012 Calcaneal spur 05/18/2006 09/30/2015 Lumbago 07/24/2005 09/30/2015 Disorders of bursae and tend ons in shoulder region, unspecified 07/24/2005 09/30/2015 documented as of this encounter (statuses as of 07/20/2022) [facility] History of Past illness Narrative* Problem Noted Date Resolved Date Iron deficiency anemia 06/21/2016 7 Fracture of distal fibula 06/15/20142015 Well adult exam 05/13/2012 05/13/2012 Calcaneal spur 05/18/2006 09/30/2015 Lumbago 07/24/2005 09/30/2015 Disorders of bursae and tend ons in shoulder region, unspecified 07/24/2005 09/30/2015 documented as of this encounter (statuses as of 07/21/2022) [facility] History of Past illness Narrative* Problem Noted Date Resolved Date Iron deficiency anemia 06/21/2016 7 Fracture of distal fibula 06/15/20142015 Well adult exam 05/13/2012 05/13/2012 Calcaneal spur 05/18/2006 09/30/2015 Lumbago 07/24/2005 09/30/2015 Disorders of bursae and tend ons in shoulder region, unspecified 07/24/2005 09/30/2015 documented as of this encounter (statuses as of 07/28/2022) [facility] History of Past illness Narrative* Problem Noted Date Diagnosed Date Resolved Date Iron deficiency anemia 06/21/201602/22 Fracture of distal fibula 06/15/2014 Well adult exam 05/13/2012 05/13/2012 Calcaneal spur 05/18/2006 09/30/2015 Lumbago 07/24/2005 09/30/2015 Disorders of bursae and tend ons in shoulder region, unspecified 07/24/2005 09/30/2015 documented as of this encounter (statuses as of 05/20/2023) [facility] History of Past illness Narrative* Problem Noted Date Diagnosed Date Resolved Date Iron deficiency anemia 06/21/201602/22 Fracture of distal fibula 06/15/2014 Well adult exam 05/13/2012 05/13/2012 Calcaneal spur 05/18/2006 09/30/2015 Lumbago 07/24/2005 09/30/2015 Disorders of bursae and tend ons in shoulder region, unspecified 07/24/2005 09/30/2015 documented as of this encounter (statuses as of 06/25/2023) [facility] Diagnosis URI, acute- Primary Acute upper respiratory infections of unspecified site Tenderness over frontal sinus [facility] Diagnosis Encounter for screening mammogram for breast cancer [facility] Diagnosis Right flank pain Abdominal pain, unspecified site [facility] Diagnosis Abnormal ultrasound- Primary Other nonspecific (abnormal) findings on radiological and other examinations of body structure [facility] Diagnosis Abnormal ultrasound Other nonspecific (abnormal) findings on radiological and other examinations of body structure [facility] Diagnosis Encounter for screening mammogram for breast cancer documented in this encounter [facility] for referral (narrative)* Diagnostic Procedure Only (Routine) - Pending Review Specialty Diagnoses / Procedures Referred By Abel t Referred To Contact [facility] Diagnoses Encounter for screening mammogram for breast cancer Procedures RODRIGO SCREENING SCREENING MAMMOGRAPHY BI 2-VIEW BREAST INC Juan Luis Alberto MD [address] [place] [address] [facility] [address] [place] [address] Referral ID Status Reason Start Date Expiration Date Visits Requested Visits Authorized [id number] Pending Review Auto-Generat ed Referral 07/07/2023 1 1 [facility] for referral (narrative)* Diagnostic Procedure Only (Routine) - Closed Specialty Diagnoses / Procedures Referred By Contac t Referred To Contact [facility] Diagnoses Right flank pain Procedures US KIDNEY/BLADDER US RETROPERITONEAL REAL TIME W/IMAGE COMPLETE CryslogAdilene bolton APRN.LOOM FIXER [address] [place] [address] [facility] Referral ID Status Reason Start Date Expiration Date V isits Requested Visits Authorized [id number] Closed Auto-Generate d Referral 07/11/2022 08/10/2023 1 1 [facility] for referral (narrative)* Diagnostic Procedure Only (Routine) - Pending Review Specialty Diagnoses / Procedures Referred By Contac t Referred To Contact [facility] Diagnoses Encounter for screening mammogram for breast cancer Procedures RODRIGO SCREENING SCREENING MAMMOGRAPHY BI [employer] Juan Luis Holloway MD [address] [place] [address] Br Imaging [address] [place] [address] Referral ID Status Reason Start Date Expiration Date Visits Requested Visits Authorized [id number] Pending Review Auto-Generat ed Referral 06/20/2023 07/19/2024 1 1 [facility] for visit Narrative* Diagnostic Procedure Only (Routine) - Closed Specialty Diagnoses / Procedures Referred By Contac t Referred To Contact US IMAGING Diagnoses Right flank pain Procedures US KIDNEY/BLADDER US RETROPERITONEAL REAL TIME W/IMAGE COMPLETE CryslogAdilene bolton APRN.LOOM FIXER [address] [place] [address] Us Imaging Referral ID Status Reason Start Date Expiration Date V isits Requested Visits Authorized [id number] Closed Auto-Generate d Referral 07/11/2022 08/10/2023 1 1 [facility] Summary Purpose Family History No Family History Records FoundNo Family History Records FoundNo Family History Records Found Advance Directives No Advanced Directives Records FoundDocuments on File Type Date Recorded 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 Advance Directive(s) 09/05/2019 8:10 AM Advance Directive(s) 09/04/2016 10:28 AM Advance Directive(s) 06/30/2016 1:22 PM Reason for Referral Specialty Diagnoses / Procedures Referred By Contac t Referred To Contact CT IMAGING Diagnoses Abnormal ultrasound Procedures CT UROGRAM WO/W IVCON CT ABD & PELVIS W/O CONTRST 1+ BODY REGNS PodlogAdilene bolton, AYDE.LOOM FIXER [address] [place] [address] Ct Imaging Referral ID Status Reason Start Date Expiration Date Visits Requested Visits Authorized [id number] Authorized Auto-Generat ed Referral 07/18/2022 08/17/2023 1 1 Specialty Diagnoses / Procedures Referred By Contac t Referred To Contact CT IMAGING Diagnoses Abnormal ultrasound Procedures CT UROGRAM WO/W IVCON CT ABD & PELVIS W/O CONTRST 1+ BODY REGNS Podlogmateo, Adilene, MERCHANDISE MANAGER.LOOM FIXER [address] [place] [address] [place] [address] Referral ID Status Reason Start Date Expiration Date V isits Requested Visits Authorized [id number] Closed Auto-Generate d Referral 07/18/2022 08/17/2023 1 1 Additional Source Comments INFORMATION SOURCE (unrecogn ized section and content) DATE CREATED AUTHOR 09/09/2019 [facility] DATE CREATED AUTHOR AUTHOR'S ORGANIZ ATION 07/14/2022 [facility] DATE CREATED AUTHOR AUTHOR'S ORGANIZ ATION 01/11/2024 [facility] Source Comments (unrecognize d section and content) In the event this informatio n is protected by the Federal Confidentiality of Alcohol and Drug Abuse Patient Records regulations: The Federal rules restrict any use of the information to criminally investigate or prosecute any alcohol or drug abuse patient.[facility] the event this information is protected by the Federal Confidentiality of Alcohol and Drug Abuse Patient Records regulations: The Federal rules restrict any use of the information to criminally investigate or prosecute any alcohol or drug abuse patient.[facility] the event this information is protected by the Federal Confidentiality of Alcohol and Drug Abuse Patient Records regulations: The Federal rules restrict any use of the information to criminally investigate or prosecute any alcohol or drug abuse patient.[facility] the event this information is protected by the Federal Confidentiality of Alcohol and Drug Abuse Patient Records regulations: The Federal rules restrict any use of the information to criminally investigate or prosecute any alcohol or drug abuse patient.[facility] the event this information is protected by the Federal Confidentiality of Alcohol and Drug Abuse Patient Records regulations: The Federal rules restrict any use of the information to criminally investigate or prosecute any alcohol or drug abuse patient.[facility] the event this information is protected by the Federal Confidentiality of Alcohol and Drug Abuse Patient Records regulations: The Federal rules restrict any use of the information to criminally investigate or prosecute any alcohol or drug abuse patient.[facility] the event this information is protected by the Federal Confidentiality of Alcohol and Drug Abuse Patient Records regulations: The Federal rules restrict any use of the information to criminally investigate or prosecute any alcohol or drug abuse patient.[facility] the event this information is protected by the Federal Confidentiality of Alcohol and Drug Abuse Patient Records regulations: The Federal rules restrict any use of the information to criminally investigate or prosecute any alcohol or drug abuse patient.[facility] the event this information is protected by the Federal Confidentiality of Alcohol and Drug Abuse Patient Records regulations: The Federal rules restrict any use of the information to criminally investigate or prosecute any alcohol or drug abuse patient.[facility] the event this information is protected by the Federal Confidentiality of Alcohol and Drug Abuse Patient Records regulations: The Federal rules restrict any use of the information to criminally investigate or prosecute any alcohol or drug abuse patient.[facility] the event this information is protected by the Federal Confidentiality of Alcohol and Drug Abuse Patient Records regulations: The Federal rules restrict any use of the information to criminally investigate or prosecute any alcohol or drug abuse patient.[facility] the event this information is protected by the Federal Confidentiality of Alcohol and Drug Abuse Patient Records regulations: The Federal rules restrict any use of the information to criminally investigate or prosecute any alcohol or drug abuse patient.[facility] Reason for Visit (unrecogniz ed section and content) Reason Comments Sinus Problem congestion x4 days, fever x48 hours Reason Comments Results Reason Comments Results Reason Comments Radiology CT Specialty Diagnoses / Procedures Referred By Contac t Referred To Contact CT IMAGING Diagnoses Abnormal ultrasound Procedures CT UROGRAM WO/W IVCON CT ABD & PELVIS W/O CONTRST 1+ BODY REGNS PodlogAdilene bolton APRN.LOOM FIXER [address] [place] [address] [place] [address] Referral ID Status Reason Start Date Expiration Date V isits Requested Visits Authorized [id number] Closed Auto-Generate d Referral 07/18/2022 08/17/2023 [address] Care Teams (unrecognized sec tion and content) Hotel Superintendent Relationship Specialty Start Date End Date Juan Luis Holloway MD [address] [place] [address] PCP - General Family Practice 05/18/21 Hotel Superintendent Relationship Specialty Start Date End Date Juan Luis Holloway MD [address] [place] [address] PCP - General Family Medicine 05/18/21 Hotel Superintendent Relationship Specialty Start Date End Date Juan Luis Holloway MD [address] [place] [address] PCP - General Family Medicine 05/18/21 Hotel Superintendent Relationship Specialty Start Date End Date Juan Luis Holloway MD [address] [place] [address] PCP - General Family Medicine 05/18/21 Hotel Superintendent Relationship Specialty Start Date End Date Juan Luis Holloway MD [address] [place] [address] PCP - General Family Medicine 05/18/21 Hotel Superintendent Relationship Specialty Start Date End Date Juan Luis Holloway MD [address] [place] [address] PCP - General Family Medicine 05/18/21 Hotel Superintendent Relationship Specialty Start Date End Date Juan Luis Holloway MD [address] [place] [address] PCP - General Family Medicine 05/18/21 Hotel Superintendent Relationship Specialty Start Date End Date Juan Luis Holloway MD [address] [place] [address] PCP - General Family [facility] 05/18/21 Hotel Superintendent Relationship Specialty Start Date End Date Juan Luis Holloway MD [address] [place] [address] PCP - [facility] 05/18/21 Hotel Superintendent Relationship Specialty Start Date End Date Juan Luis Holloway MD [address] [place] [address] PCP - [facility] 05/18/21 Hotel Superintendent Relationship Specialty Start Date End Date Juan Luis Holloway MD [address] [place] [address] PCP - [facility] 05/18/21 Hotel Superintendent Relationship Specialty Start Date End Date Juan Luis Holloway MD [address] [place] [address] PCP - General [facility] 05/18/21 11/15/23 FOR RECORDS PERTAINING TO PATIENTS WHO ARE [...] BE BASED ON THE PRIMARY CLINICAL RECORDS. [facility] [employer] provides no warranty or guarantee of the accuracy or completeness of information in this document.
== END | disposition home or self-care (01) ==
LOC: OPBI 07:16
PROVIDERS: PCP Internal Medicine; Referring Provider Obstetrics & Gynecology; Visit Provider Obstetrics & Gynecology
DX: Z12.31 Encounter for screening mammogram for malignant neoplasm of breast (principal)
CPT/HCPCS: 77063; 77067

== ENCOUNTER → 2024-05-23 | Outpatient (CLI) | payer OTHER, SELFPAY ==
[2024-05-23 08:39] LABS: PTHIN 70.6 pg/mL (18.4-80.1)
[2024-05-23 08:51] LABS: Anion Gap 3 (5-15); BUN 18 mg/dL (7-18); BUN/Creat Ratio 22.6 RATIO (10-20); Calcium,Total 8.8 mg/dL (8.5-10.1); Chloride 107 mmol/L (98-107); EST Glomerular Filtration Rate 77 mL/min (>60); Est Glom Filt Rate - Afr Amer 94 mL/min (>60); Glucose 125 mg/dL (74-106); Sodium Level 140 mmol/L (136-145)
[2024-05-23 09:01] LABS: Vitamin D,25 Hydroxy 56.2 ng/mL
== END | disposition home or self-care (01) ==
LOC: LAB 07:17
PROVIDERS: PCP Internal Medicine; Referring Provider Internal Medicine; Visit Provider Internal Medicine
DX: E89.0 Postprocedural hypothyroidism (principal); Z98.890 Other specified postprocedural states; Z90.89 Acquired absence of other organs; E21.3 Hyperparathyroidism, unspecified; E89.2 Postprocedural hypoparathyroidism
CPT/HCPCS: 36415; 80048; 82306; 83970; 84443

== ENCOUNTER → 2024-08-08 | Outpatient (CLI) | payer OTHER, SELFPAY ==
[2024-08-08 07:37] LABS: Absolute Neutrophil Count 3.6 X10^3/uL (2.0-7.7); Basophil# 0.03 X10^3/uL; Basophil% 0.5 % (0-1); Eosinophil# 0.12 X10^3/uL; Eosinophils% 2.1 % (0-5); Hematocrit 42.6 % (37-47); Hemoglobin 14.2 g/dL (12.0-15.0); Mean Corp Hgb Conc 33.3 g/dL (32-36); Mean Corpuscular Hgb 29.6 pg (27.0-32.0); Mean Corpuscular Volume 88.9 fL (81-99); Mean Platelet Vol. 9.6 fl (6.2-12.0); Monocyte# 0.43 X10^3/uL; Monocyte% 7.7 % (0-10); NRBC Flagged by Analyzer 0 % (0-5); Neutrophil # 3.59 X10^3/uL (2.7-7.7); Neutrophil % 64.2 % (47-70); Platelet Count 269 K/mm3 (150-450); RBC Distribution Width CV 12.5 % (11.6-14.6); Red Blood Count 4.79 M/mm3 (4.2-5.4); White Blood Count 5.6 K/mm3 (4.4-11.0)
[2024-08-08 08:10] LABS: PTHIN 87.2 pg/mL (18.4-80.1)
[2024-08-08 08:36] LABS: AST(SGOT) 18 U/L (15-37); Alanine Aminotransfer ALT/SGPT 28 U/L (13-56); Albumin, Serum 3.7 g/dL (3.2-5.0); Alkaline Phosphatase 54 U/L (45-117); Anion Gap 5 (5-15); BUN 22 mg/dL (7-18); BUN/Creat Ratio 25.9 RATIO (10-20); Calcium,Total 8.6 mg/dL (8.5-10.1); Chloride 104 mmol/L (98-107); Cholesterol 204 mg/dL (200); Creatinine, Serum 0.85 mg/dL (0.55-1.02); EST Glomerular Filtration Rate 72 mL/min (>60); Est Glom Filt Rate - Afr Amer 87 mL/min (>60); Globulin 3.6 g/dL (2.2-4.2); Glucose 134 mg/dL (74-106); High Density Lipoprotein 77 mg/dL; Potassium 3.7 mmol/L (3.5-5.1); Protein, Total 7.3 g/dL (6.4-8.2); Sodium Level 137 mmol/L (136-145); T4 Free Direct 0.89 ng/dL (0.76-1.46); Triglycerides 107 mg/dL; Very Low Density Lipoprotein 21 mg/dL (5-40)
== END | disposition home or self-care (01) ==
LOC: LAB 06:56
PROVIDERS: PCP Internal Medicine; Referring Provider Internal Medicine; Visit Provider Internal Medicine
DX: E89.0 Postprocedural hypothyroidism (principal); R73.03 Prediabetes; E89.2 Postprocedural hypoparathyroidism
CPT/HCPCS: 36415; 80053; 80061; 83970; 84439; 84443; 85025

== ENCOUNTER → 2024-08-09 | Outpatient (CLI) | payer OTHER, SELFPAY ==
[2024-08-11 09:19] LABS: Vitamin D,25 Hydroxy 62.4 ng/mL
== END | disposition home or self-care (01) ==
LOC: LAB 09:25
PROVIDERS: PCP Internal Medicine; Referring Provider Internal Medicine; Visit Provider Internal Medicine
DX: E21.3 Hyperparathyroidism, unspecified (principal)
CPT/HCPCS: 36415; 82306

== ENCOUNTER → 2024-09-01 | Outpatient (CLI) | payer OTHER, SELFPAY ==
--- NOTE | 2024-09-01 12:20 | US_ITS ---
PROCEDURE: THYROID REASON FOR EXAM: Follow-up right thyroidectomy TECHNIQUE: Thyroid ultrasound COMPARISON: None. FINDINGS: Status post right thyroidectomy Right fossa: Heterogeneous tissue measuring 1.3 x 0.9 x 0.9 cm Left thyroid: 4.1 x 1.9 x 0.8 cm and is heterogeneous in echotexture Background Echotexture: Normal Thyroid Nodules: None US/Thyroid IMPRESSION: 1. Heterogeneous tissue noted in the right thyroid bed status post right thyro idectomy. Reading Location: [facility]
== END | disposition home or self-care (01) ==
LOC: US 12:20
PROVIDERS: PCP Internal Medicine; Referring Provider Surgery; Visit Provider Surgery
DX: E89.0 Postprocedural hypothyroidism (principal)
CPT/HCPCS: 76536

== ENCOUNTER → 2024-11-13 | Outpatient (CLI) | payer OTHER, SELFPAY ==
--- NOTE | 2024-11-13 07:15 | RAD_ITS ---
PROCEDURE: CHEST PA AND LATERAL 11/13/2024 REASON FOR EXAM: CHRONIC COUGH TECHNIQUE: Frontal and lateral views of the chest. COMPARISON: None FINDINGS: Heart size and mediastinal configuration are within normal limits. There is no focal infiltrate or consolidation. There is no pneumothorax or effusion. There is no acute bony abnormality. Surgical clips are noted in the left upper abdomen. Aortic calcifications are noted. RAD/Chest PA and Lateral IMPRESSION: No acute process is identified in the chest. Reading Location: [facility]
== END | disposition home or self-care (01) ==
LOC: RAD 07:15
PROVIDERS: PCP Internal Medicine; Referring Provider Internal Medicine; Visit Provider Internal Medicine
DX: R05.3 Chronic cough (principal)
CPT/HCPCS: 71046

== ENCOUNTER → 2024-11-14 | Outpatient (CLI) | payer OTHER, SELFPAY | END | disposition home or self-care (01) | PROVIDERS: PCP Internal Medicine; Referring Provider Internal Medicine; Visit Provider Internal Medicine | DX: R05.3 Chronic cough (principal) | CPT/HCPCS: 94060; 94726; 94729 ==

== ENCOUNTER 2024-11-19 16:00 | Outpatient (RCR) | payer OTHER, SELFPAY ==
--- NOTE | 2024-09-25 16:24 | HP.PTEVAL ---
Patient's Visit Information Visit Information Visit Information: MANOJ TOMPKINS is a 64 year old F referred to Physical Therapy by Dr. William Hunter MD with a diagnosis of CERVICAL DDD. Date of Evaluation: 09/02/24 Physical Therapist: Kishore Aldridge DPT Visit Plan Frequency: 2x /Week Duration: 6 Weeks Plan: 1) cervical retraction in supine, progressing to distraction with retraction 2) seated retraction, pec stretching 3) deep cervical strengthening and postural strengthening 4) mobilization to cervical spine and thoracic spine PAs. May use US if needed to calm symptoms. Subjective Subjective: Pt. is here today for her initial evaluation with diagnosis of of cervical DDD. Pt. reports overall doing okay, but is having pain at the lower aspect of her spine. Pt. reports increased symptoms with looking up. Pt. reports increased pain with sleeping and with general activities. Pt. is able to complete most activities still. She had come to PT previously and had some success with some cervical retraction. Pt. did fall and has been having some neck pain since. Pt. does have some numbness in B hands and tingling as well. Pain does extend to shoulder blades at times. Pt. is hopeful to reduce symptoms in order to get back to all recreational activities without limitations. Pain Cervical spine: Pain Intensity (Out of 10): 3 Pain Intensity Range: 1 and 6 B shoulder blades: Pain Intensity (Out of 10): 3 Pain Intensity Range: 1 and 6 Objective Objective: POSTURE: Pt. had slight FH posture, but not severe. Pt. is able to self correct with VCing. PALPATION: Pt. has tenderness with PAs throughotu cervical spine and B UT. As well as at upper thoracic spine. NEURO: Pt. has slight reduction in B hand sensation and normal DTR. ROM: CERVICAL SPINE: flexion min loss mild increase NW, exte min loss mild increase NW, rotaiton min loss NE B, SB min loss bilat NE. Pt. has nromal B shoulder ROM. MMT: Pt. has normal strength throughout BUEs. Slight postural weakness with scapular retraction and deep cervical flexors. Pt. did have some relief with cervical retraction and with PT over pressure. Pt. to add in supine version to HEP. Balance/Special Test Scores Oswestry Neck Score: 14 Goals Goal 1:: LTG: Pt. to be I with HEP. Goal Time Frame: 4-6 Weeks Goal 2:: STG: PT. to have full ROM without increase in symptoms. Goal Time Frame: 2-4 Weeks Goal 3:: LTG: Pt. to have normal posture throughout PT session. Goal Time Frame: 4-6 Weeks Goal 4:: STG: Pt. to sleep throughout the night without increase in symptoms. Goal Time Frame: 4-6 Weeks Rehabilitation Potential Physical Therapy Diagnosis: Pt. has signs and symptoms consistent with cervical DDD. Pt. has marked limited ROM and some postural weakness. Pt. would benefit from PT to address the above limitations progressing back all recreational activities. Rehabilitation Potential: Good Anticipated Interventions Patient/Client Instruction: Educate patient on: Condition, Plan of Care, Risk Factors and Benefits of Fitness Program For the Purpose of:: To foster healthy habits, To improve decision making, To facilitate caregiver knowledge, To improve self management, To prevent re-injury and To improve ability to perform tasks related to life management Therapeutic Exercise to Include: Strength training, Postural training, Flexibilty training, Passive ROM, Active ROM, Gabriela Exercises and Scapular Strength/Stabilization For the Purpose of:: To decrease pain, To increase ROM, To improve nutrient delivery to tissue, To increase oxygenation perfusion, To improve muscle performance and motor function, To improve ability to perform ADL's and To increase tolerance to activity/condition/position Manual Therapy Techniques to Include: Mobilization For the Purpose of:: To decrease pain, To decrease swelling/inflammation, To increase ROM, To improve nutrient delivery to tissue and To increase oxygenation perfusion Ultrasound (thermal/non thermal): Yes For the Purpose of:: To decrease pain, To increase ROM and To improve nutrient delivery to tissue Text: Thank you for the opportunity to evaluate your patient. For Medicare and Medicare HMO plans, please review the plan of care and approve it. It will need to be FAXED BACK to us at [phone] for Medicare purposes. For Medicare only, by signing this I certify the plan of care. Please let me know if there are questions or concerns regarding this plan of care. Physician Signature: Date:
--- NOTE | 2024-11-19 18:10 | HP.PTDCSUM ---
Discharge Summary D/C summary: It has been my pleasure to treat MANOJ TOMPKINS referred by Dr. William Hunter MD, with the diagnosis of CERVICAL DDD for a total of 6 visit(s). Discharge Date: 11/19/24 Please see the following information for a summary of their discharge status. Subjective Subjective: Pt. reports having good relief after being off work for a few days. Now that she has returned she is noticing increased symptoms again. Pt. reports having 2/10 pain today. Pt. reports being 70% better overall. Pain Cervical spine: Pain Intensity (Out of 10): 2 B shoulder blades: Pain Intensity (Out of 10): 2 Overall Improvement % Improvement: 70 Objective Objective/Function: ROM: Cervical spine: flexion nil loss Ne, ext min loss tightness, rotaiton min loss bilat NE, SB min loss tigthness noted. POSTURE: Pt. has slight FH posture. Pt. is able improve with VC/TCing. Pt. is able to sleep throughout the night without increase in symptoms. Pt. has good strength throughout BUEs. Pt. is to work on exercises on her own at this point in time. pt. will be DC from PT at this point in time. Goals Goal 1:: LTG: Pt. to be I with HEP. Goal Progress: Goal Met Goal 2:: STG: PT. to have full ROM without increase in symptoms. Goal Progress: Goal Met Goal 3:: LTG: Pt. to have normal posture throughout PT session. Goal Progress: Goal Met Goal 4:: STG: Pt. to sleep throughout the night without increase in symptoms. Goal Progress: Goal Met Plan Plan: Pt. to be DC from PT to work on her HEP progressing extension exercises as tolerated. D/C Information d/c sentence: If there are questions or concerns regarding this patient's physical therapy, please feel free to call me at [phone]. Thank you for the referral of this patient. Sincerely, Kishore Schofield Sipos, DPT Balance/Gait/Functional tests Balance/Special Test Scores Oswestry Neck Score: 15 Improvement % Improvement: 70
== END 2024-11-19 19:00 | disposition home or self-care (01) ==
LOC: PT 16:00
PROVIDERS: PCP Internal Medicine; Referring Provider Orthopaedic Surgery Orthopaedic Surgery of the Spine; Visit Provider Orthopaedic Surgery Orthopaedic Surgery of the Spine
DX: M50.30 Other cervical disc degeneration, unspecified cervical region (principal)
CPT/HCPCS: 97110; 97140; 97161; 97530

== ENCOUNTER → 2025-01-29 | Outpatient (CLI) | payer OTHER, SELFPAY ==
--- NOTE | 2025-01-29 16:51 | RAD_ITS ---
EXAM: XR Left Toes, 2 or More Views CLINICAL INDICATION: LEFT 5TH TOE PAIN TECHNIQUE: Frontal, lateral and oblique views of the toes of the left foot. COMPARISON: No relevant prior studies available. FINDINGS: BONES/JOINTS: Mild degenerative changes of the proximal phalangeal joints. No acute fracture. No dislocation. SOFT TISSUES: Soft tissue swelling. No radiopaque foreign body. RAD/Toe(s) Min 2 Views IMPRESSION: Soft tissue swelling. Reading Location: [facility]
== END | disposition home or self-care (01) ==
LOC: RAD 16:48
PROVIDERS: PCP Internal Medicine; Referring Provider Internal Medicine; Visit Provider Internal Medicine
DX: M79.675 Pain in left toe(s) (principal)
CPT/HCPCS: 73660

== ENCOUNTER → 2025-05-01 | Outpatient (CLI) | payer OTHER, SELFPAY ==
--- OUTSIDE RECORDS SUMMARY | 2025-05-01 07:15 | XMS RPT_ITS | CCD ---
Author Organization [facility] Care Team Providers Care Lab Rep Name Role Phone Juan Luis Holloway MD Primary Care Provider PODLOGARADILENE Referring Unavailable JUAN LUIS HOLLOWAY Primary Care Unavailab Juan Luis Menon MD Primary Care Provider Dr. Miah Montemayor Attending Provider [phone] Dr. Miah Montemayor Primary Care Provider [phone] Sim, Dr. Dooley Attending Provider [phone] Dr. Miah Montemayor Referring Provider [phone] ANDREEA Guillermo Attending Provider Unavailable Dr. Miah Montemayor Primary Care Provider [phone]) Sim, Dr. Dooley Attending Provider [phone] Dr. Miah Montemayor Referring Provider [phone] Dr. Miah Montemayor Primary Care Provider 1(33 0) Dr. Miah Montemayor Attending Provider [phone])2 Dr. Miah Montemayor Referring Provider [phone])2 Dr. Rg Lockwood Attending Provider [phone] Dr. Miah Montemayor Primary Care Provider [phone] [phone]) Dr. Miah Montemayor Attending Provider [phone])2 Dr. Miah Montemayor Referring Provider [phone])2 DURGA Musa Attending Provider [phone] Jewel CEE, Juan Luis Tapia Primary Care Provider Jewel CEE, Juan Luis Tapia Primary Care Provider JUAN LUIS HOLLOWAY Primary Care Unavailab RG Phillips Referring Unavailable JUAN LUIS HOLLOWAY Primary Care Unavailab Linares, Dr. Dooley Primary Care Provider Sim, Dr. Dooley Attending Provider [phone] Sim, Dr. Dooley Referring Provider [phone] Sim CEE, Dr. Dooley Primary Care Provider Sim CEE, Dr. Dooley Attending Provider [phone] Sim CEE, Dr. Dooley Referring Provider [phone] Dale CEE, Dr. Thomas Attending Provider Ashia CEE, Dr. Anthony Attending Provider Dr. Rg Lockwood MD Attending Provider Mandie CEE, Dr. Andre Referring Provider Dale CEE, Dr. Thomas Referring Provider Sim CEE, Dr. Dooley Primary Care Provider Sim CEE, Dr. Dooley Referring Provider Dr. Rg Lockwood MD Attending Provider Sim CEE, Dr. Dooley Attending Provider [phone] Dr. Chet Krueger DO Attending Provider Dale CEE, Dr. Thomas Attending Provider Sim CEE, Dr. Dooley Primary Care Provider Sim CEE, Dr. Dooley Referring Provider [phone] Miah Montemayor Attending Unavailable Sim, Efewongoralia Primary Care Unavailable Miah Montemayor Attending Unavailable Oleghe, Efewongbe Primary Care Unavailable Oleghe, Efewongbe Referring Unavailable Oleghe, Efewongbe Referring Unavailable Chet Krueger Attending Unavailable Oleghe, Efewongbe Primary Care Unavailable Oleghe, Efewongbe Attending Unavailable Oleghe, Efewongbe Referring Unavailable Oleghe, Efewongbe Primary Care Unavailable Oleghe, Efewongbe Referring Unavailable Oleghe, Efewongbe Attending Unavailable Oleghe, Efewongbe Primary Care Unavailable Oleghe, Efewongbe Referring Unavailable Oleghe, Efewongbe Primary Care Unavailable Rg Lockwood Attending Unavailable Oleghe, Efewongbe Attending Unavailable Oleghe, Efewongbe Primary Care Unavailable Oleghe, Efewongbe Referring Unavailable Oleghe, Efewongbe Primary Care Unavailable Raj nAg Attending Unavailable Oleghe, Efewongbe Attending Unavailable Oleghe, Efewongbe Referring Unavailable Oleghe, Efewongbe Primary Care Unavailable Oleghe, Efewongbe Attending Unavailable Oleghe, Efewongbe Referring Unavailable Oleghe, Efewongbe Primary Care Unavailable Hunter, William Referring Unavailable Hunter, William Attending Unavailable Oleghe, Efewongbe Primary Care Unavailable Rg Lockwood Referring Unavailable Oleghe, Efewongbe Primary Care Unavailable Rg Lockwood Attending Unavailable Oleghe, Efewongbe Referring Unavailable Hunter, William Attending Unavailable Oleghe, Efewongbe Primary Care Unavailable Oleghe, Efewongbe Attending Unavailable Oleghe, Efewongbe Referring Unavailable Oleghe, Efewongbe Primary Care Unavailable Oleghe, Efewongbe Attending Unavailable Oleghe, Efewongbe Primary Care Unavailable Oleghe, Efewongbe Referring Unavailable Oleghe, Efewongbe Referring Unavailable Oleghe, Efewongbe Attending Unavailable Oleghe, Efewongbe Primary Care Unavailable Oleghe, Efewongbe Primary Care Unavailable Aniya Turner Referring Unavailable Aniya Turner Attending Unavailable Allergies Allergy Classification Reported Allergen(s) Allergy Type Date of Onset Reaction(s) Facility (20 sources) Codeine; Translations: [CODEINE] Drug Allergy 1 Vomiting [facility] (14 sources) Esomeprazole; Translations: [ESOMEPRAZOLE MAGNESIUM] Drug Allergy 6 GI Upset [facility] Work Phone: (14 sources) metFORMIN; Translations: [METFORMIN HCL] Drug Allergy 6 GI Upset [facility] Work Phone: (3 sources) Non-steroidal anti-inflammatory agent; Translations: [NSAIDS (NON-STEROIDAL ANTI-INFLAMMATORY DRUG)] Propensity to adverse reactions to drug 4 [facility] (11 sources) Non-steroidal anti-inflammatory agent Propensity to adverse reactions to drug 4 [facility] (18 sources) Nonsteroidal Anti-inflammatory Compounds Allergy to substance 3 Nausea [facility] (1 source) Codeine Drug Allergy 5 [facility] (1 source) NSAIDs Drug allergy (disorder) 5 [facility] Medications Current Medications Medication Drug Class(es) Dates Sig (Normalized) Sig (Original) acetaminophen 500 mg oral tablet (18 sources) Start: 08-07-2022 take 1 tablet by mouth every six hours as needed for pain Acetaminophen 500 mg tablet Active 500 mg PO EVERY 6 HOURS as needed for pain August 07, 2022 1:00am Ascorbate Calcium-Bioflavonoid (CHRISTIANE C WITH BIOFLAVONOIDS) 500-200 mg tab (12 sources) take 1 tablet by mouth once daily Ascorbate Calcium-Bioflavonoi d (CHRISTIANE C WITH BIOFLAVONOIDS) 500-200 mg tab Take 1 tablet by mouth once daily. 0 Active Comment on above: Take 1 tablet by rina once daily. Budesonide-Formotero l (9 sources) Corticosteroid, beta2-Adrenergic Agonist Start: 12-23-2024 Budesonide-Formoter ol (Symbicort) 80-4.5 mcg/actuation HFA aerosol inhaler Active 2 NMA INHALATION TWICE A DAY 30.6 90 3 December 23, 2024 11:16am Start: 12-22-2024 End: 12-23-2024 Budesonide-Formoterol (Symbi santhosh) 80-4.5 mcg/actuation HFA aerosol inhaler Discontinued 2 NMA INHALATION TWICE A DAY 10.2 3 December 22, 2024 2:16pm December 23, 2024 11:17am Start: 12-22-2024 End: 12-22-2024 Budesonide-Formoterol (Symbi santhosh) 80-4.5 mcg/actuation HFA aerosol inhaler Discontinued 2 NMA INHALATION TWICE A DAY 10.2 0 December 22, 2024 2:15pm December 22, 2024 2:16pm Start: 11-17-2024 End: 12-22-2024 Budesonide-Formoterol (Symbi santhosh) 80-4.5 mcg/actuation HFA aerosol inhaler Discontinued 1 NMA INHALATION TWICE A DAY 10.2 0 November 17, 2024 12:00am December 22, 2024 2:16pm Start: 11-17-2024 Budesonide-For moterol (Symbicort) 80-4.5 mcg/actuation HFA aerosol inhaler Active 1 NMA INHALATION TWICE A DAY 10.2 November 17, 2024 12:00am calcium citrate 500 mg oral tablet (12 sources) take 500 mg by mouth once daily CALCIUM CITRATE ORAL Take 500 mg by mouth once daily. 0 Active Comment on above: Take 500 mg by mouth once daily. Calcium Citrate-Vitamin D3 500 mg-12.5 mcg (500 unit) tablet,chewable (3 sources) Start: 03-26-20 Calcium Citrate-Vitamin D3 500 mg-12.5 mcg (500 unit) tablet,chewable Active {tbl} PO March 26, 2024 12:00am cholecalciferol 0.125 mg oral capsule (20 sources) Vitamin D Start: 08-07-19 take 1 capsule by mouth once daily Cholecalciferol (Vitamin D3) 125 mcg (5,000 unit) capsule Active 125 ug PO DAILY August 07, 2022 1:00am SUPPLEMENT Start: 08-16-2018 End: 08-07-2022 take 2 tablets by mouth once daily Cholecalciferol (Vitamin D3) 2,000 UNIT tablet Discontinued 4000 U PO DAILY August 16, 2018 1:00am August 07, 2022 9:01am Start: 08-16-2018 End: 08-07-2022 take 4000 [IU] by mouth once daily Cholecalciferol (Vitamin D3) Discontinued 4000 UNIT PO DAILY August 16, 2018 1:00am August 07, 2022 9:01am cholecalciferol, vitamin D3, (VITAMIN D3 ORAL) (12 sources) take 1 tablet by mouth once daily cholecalciferol, vitamin D3, (VITAMIN D3 ORAL) Take 5,000 Units by mouth once daily. Dissolving tablet 0 Active Comment on above: Take 5,000 Units by mouth once daily. Dissolving tablet COLLAGEN COMPLEX (3 sources) Start: take 533 mg by mouth twice daily COLLAGEN COMPLEX Active 533 mg PO TWICE A DAY December 27, 2023 12:00am SUPPLEMENT Start: 12-27-2023 take 533 mg by mouth twice jeremy ly COLLAGEN COMPLEX Active 533 mg PO TWICE A DAY December 27, 2023 12:00am doxycycline hyclate 100 mg oral tablet (1 source) Tetracycline-class Drug Start: 10-17-2021 End: 10-27-2021 take 1 tablet by mouth twice daily doxycycline (VIBRA-TABS) 100 mg tablet Indications: URI, acute , Tenderness over frontal sinus Take 1 tablet by mouth twice daily for 10 days. 20 tablet 0 10/17/2021 10/27/2021 Active Comment on above: Take 1 tablet by [facility] twice daily for 10 days. DULoxetine 30 mg delayed release oral capsule (20 sources) Serotonin and Norepinephrine Reuptake Inhibitor Start: 01-19-2023 End: 01-30-2025 take 1 capsule by mouth at bedtime Duloxetine 30 mg capsule,delayed release(DR/EC) Active 30 mg PO AT BEDTIME 90 1 January 30, 2025 8:20am FIBROMYALGIA christiane C (18 sources) Start: 08-07-2022 take 1000 mg by mouth once daily christiane C Active 1000 mg PO DAILY August 07, 2022 1:00am SUPPLEMENT Start: 08-07-2022 take 1000 mg by mouth once jeremy ly christiane C Active 1000 mg PO DAILY August 07, 2022 1:00am Start: 08-07-2022 christiane C Active PO August 07, 2022 1:00am Start: 08-07-2022 christiane C Active PO August 07, 2022 12:00am ferrous fumarate 89 mg oral tablet (19 sources) Start: 08-16-2018 Ferrous Fumara te 89 MG tablet Active 60 mg PO .COMPLEX August 16, 2018 1:00am SUPPLEMENT 60 mg orally TuThSa Start: 08-16-2018 take 60 mg by mouth once daily Ferrous Fumarate Active 60 MG PO DAILY August 16, 2018 1:00am FIBER WELL (6 sources) Start: 03-26-2024 FIBER WELL Act michael 2 {tbl} PO DAILY as needed for SUPPLEMENT March 26, 2024 3:52pm Start: 12-27-2023 End: 03-26-2024 FIBER WELL Discontinued 2 {t bl} PO DAILY December 27, 2023 12:00am March 26, 2024 3:53pm SUPPLEMENT Start: 12-27-2023 End: 03-26-2024 FIBER WELL Discontinued 2 {t bl} PO DAILY December 27, 2023 12:00am March 26, 2024 3:53pm folic acid 0.4 mg / vitamin b12 1 mg sublingual tablet (3 sources) Vitamin B12 Start: 12-27-2023 Vitamin G90-Kpjii Acid 1,000-400 mcg lozenge Active 1 NMA SL .COMPLEX December 27, 2023 12:00am SUPPLEMENT 1 maximus sublingually SuMoWeFr; levocetirizine dihydrochloride 5 mg oral tablet (6 sources) Histamine-1 Receptor Antagonist Start: 12-27-2023 End: 03-26-2024 take 1 tablet by mouth once daily as needed Levocetirizine (Xyzal) 5 mg tablet Active 2.5 mg PO DAILY as needed for ALLERGY March 26, 2024 3:52pm lifitegrast (12 sources) Lymphocyte Function-Associa ngoc Antigen-1 Antagonist lifitegrast (XIIDRA OPHTHALMIC) Use in eyes twice daily. Bilateral eyes 0 Active Comment on above: Use in eyes twice da bony. Bilateral eyes Magnesium (20 sources) Start: 12-27-2023 Magnesium 200 mg tablet Active 75 mg PO DAILY December 27, 2023 12:00am SUPPLEMENT Start: 12-27-2023 Magnesium 200 mg tablet Active 75 mg PO DAILY December 27, 2023 12:00am Start: 08-13-2018 End: 08-07-2022 Magnesium 250 mg tablet Disc ontinued 135 mg PO DAILY August 13, 2018 1:00am August 07, 2022 9:04am Start: 08-13-2018 End: 08-07-2022 take 135 mg by mouth once daily Magnesium Discontinued 135 MG PO DAILY August 13, 2018 1:00am August 07, 2022 9:04am Start: 08-13-2018 End: 01-23-2023 take 135 mg by mouth once daily Magnesium Discontinued 135 MG PO DAILY August 13, 2018 12:00am August 07, 2022 8:04am Start: 08-13-2018 take 135 mg by mouth once daily Magnesium Active 135 MG PO DAILY August 13, 2018 1:00am melatonin 5 mg oral tablet (20 sources) Start: 03-26-2024 take 1 tablet by mouth at bedtime as needed Melatonin 5 mg tablet Active 5 mg PO BEDTIME as needed March 26, 2024 12:00am Start: 08-07-2022 End: 02-01-2024 take 1 capsule by mouth at bedtime as needed for sleep Melatonin 5 mg capsule Discontinued 5 mg PO AT BEDTIME NEEDED as needed for sleep August 07, 2022 1:00am February 01, 2024 6:27am Start: 08-07-2022 Melatonin Acti ve MG PO August 07, 2022 1:00am Start: 08-13-2018 End: 08-07-2022 take 3 mg by mouth at bedtime Melatonin 5 mg capsule Discontinued 3 mg PO AT BEDTIME 0 August 13, 2018 1:00am August 07, 2022 9:05am Start: 08-13-2018 End: 08-07-2022 take 3 mg by mouth at bedtime Melatonin Discontinued 3 MG PO AT BEDTIME August 13, 2018 1:00am August 07, 2022 9:05am take 3 mg by mouth e very twenty-four hours as needed MELATONIN ORAL Take 3 mg by mouth at bedtime as needed (sleep). 0 Active Comment on above: Take 3 mg by mouth a t bedtime as needed (sleep). metFORMIN hydrochloride 500 mg oral tablet (2 sources) Biguanide Start: 025 take 1 tablet by mouth twice daily at mealtime Metformin 500 mg tablet Active 500 mg PO 2 times per day with meals 60 3 January 29, 2025 12:00am metroNIDAZOLE (3 sources) Nitroimidazole Antimicrobial Start: Metronidazole 0.75 % cream Active 1 NMA TOPICAL TWICE A DAY July 30, 2024 1:00am multivitamin (MULTIPLE VITAMIN) ORAL Tab (12 sources) Start: 007 take 1 tablet by mouth once daily multivitamin (MULTIPLE VITAMIN) ORAL Tab Take one(1) tablet two(2) times daily. 0 04/11/2007 Active Comment on above: Take one(1) tablet t wo(2) times daily. Multivitamin preparation (20 sources) Start: take 1 tablet by mouth once daily Multivitamin Active 1 TABLET PO DAILY August 07, 2022 1:00am Start: 08-07-2022 take 1 tablet by rina th once daily Multivitamin Active 1 TABLET PO DAILY August 07, 2022 12:00am Start: 08-16-2018 End: 08-07-2022 Multivitamin Discontinued 1 EACH PO TWICE A DAY August 16, 2018 1:00am August 07, 2022 9:09am Start: 08-16-2018 End: 08-07-2022 Multivitamin Discontinued 1 EACH PO TWICE A DAY August 16, 2018 12:00am August 07, 2022 8:09am Start: 08-16-2018 Multivitamin A ctive 1 EACH PO TWICE A DAY August 16, 2018 1:00am Multivitamin tablet (3 sources) Start: 08-07-2022 Multivitamin t ablet Active 1 {tbl} PO DAILY August 07, 2022 1:00am SUPPLEMENT Start: 08-07-2022 Multivitamin t ablet Active 1 {tbl} PO DAILY August 07, 2022 1:00am OTC NUTRITIONAL SUPPLEMENT (12 sources) OTC NUTRITIONAL SUPPLEMENT 1 tablet once daily. "Celebrate" ferrous fumarate 60 mg with vitamin C 60 mg, formulated for gastric bypass patients 0 Active Comment on above: 1 tablet once daily. "Celebrate" ferrous fumarate 60 mg with vitamin C 60 mg, formulated for gastric bypass patients Myafeyb-Lcqg-Foqqg-Oreg- Capryl (6 sources) Start: 08-07-2022 Tlfetcv-Mqdj-Whqhp-Oreg -Capryl Active CAP PO August 07, 2022 1:00am Start: 08-07-2022 Oyftvdd-Jkga-N cavo-Jtbd-Hxecis Active CAP PO August 07, 2022 12:00am Aolxsngv-Gfpl-Oiwja-Oreg-Cap ry (9 sources) Start: 08-07-2022 Yhrcudov-Jkyx-Mdrov-Oreg-Cap ry Active CAP PO August 07, 2022 1:00am Start: 08-07-2022 Turmeric-Ging- Bvirb-Cmnb-Grdsc Active CAP PO August 07, 2022 12:00am vitamin b12 1 mg sublingual tablet (12 sources) Vitamin B12 Cyanocobalamin 1 ,000 mcg subl Dissolve under the tongue. 4x/week 0 Active Comment on above: Dissolve under the t ongue. 4x/week VITAMIN MK 7 (3 sources) Start: 12-27-2023 VITAMIN MK 7 Active 200 ug PO DAILY December 27, 2023 12:00am SUPPLEMENT Start: 12-27-2023 VITAMIN MK 7 A ctive 200 ug PO DAILY December 27, 2023 12:00am Completed/Discontinued Medications Medication Drug Class(es) Dates Sig (Normalized) Sig (Original) acetaminophen 325 mg / HYDROcodone bitartrate 5 mg oral tablet (19 sources) Opioid Agonist Start: 05-28-2014 End: 08-13-2018 Hydrocodone-Acetami nophen 1 TABLET tablet Discontinued 1 - 2 {tbl} PO EVERY 4 HOURS NEEDED as needed for Pain May 28, 2014 1:00am August 13, 2018 8:32am Start: 05-28-2014 End: 08-13-2018 take 1 tablet by mouth every four hours as needed Hydrocodone-Acetaminophen Discontinued 1 - 2 TABLET PO EVERY 4 HOURS NEEDED May 28, 2014 1:00am August 13, 2018 8:32am Allergy and Moisturizing Eye drops (18 sources) Start: 08-07-2022 End: 12-27-2023 Allergy and Moisturizing Eye drops Discontinued EACH EYE August 07, 2022 1:00am December 27, 2023 11:03am Start: 08-07-2022 Allergy and Mo isturizing Eye drops Active EACH EYE August 07, 2022 1:00am Start: 08-07-2022 Allergy and Mo isturizing Eye drops Active EACH EYE August 07, 2022 12:00am B-Complex With Vitamin C (16 sources) Start: 08-13-2018 End: 08-07-2022 take 1 capsule by mouth once daily B-Complex With Vitamin C Discontinued 1 CAP PO DAILY August 13, 2018 1:00am August 07, 2022 9:09am Start: 08-13-2018 End: 08-07-2022 take 1 capsule by mouth once daily B-Complex With Vitamin C Discontinued 1 CAP PO DAILY August 13, 2018 12:00am August 07, 2022 8:09am Start: 08-13-2018 take 1 capsule by mo [facility] once daily B-Complex With Vitamin C Active 1 CAP PO DAILY August 13, 2018 1:00am B-Complex With Vitamin C capsule (3 sources) Start: 08-13-2018 End: 08-07-2022 B-Complex With Vitamin C capsule Discontinued 1 NMA PO DAILY August 13, 2018 1:00am August 07, 2022 9:09am calcitriol 0.0005 mg oral capsule (3 sources) Vitamin D3 Analog Start: 02-01-2024 End: 03-26-2024 take 1 capsule by mouth once daily Calcitriol 0.5 mcg capsule Discontinued 0.5 ug PO DAILY 14 14 0 February 01, 2024 12:00am March 26, 2024 3:49pm 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 calcium carbonate 1250 mg chewable tablet (20 sources) Start: 08-07-2022 End: 12-27-2023 take 1 tablet by mouth once daily Calcium Carbonate (Calcium 500) 500 mg calcium (1,250 mg) tablet,chewable Discontinued 500 mg PO DAILY August 07, 2022 1:00am December 27, 2023 11:02am Start: 08-13-2018 End: 08-07-2022 take 1 tablet by mouth twice daily Calcium Carbonate (Calcium 600) 600 mg calcium (1,500 mg) tablet Discontinued 600 mg PO TWICE A DAY August 13, 2018 1:00am August 07, 2022 9:01am calcium carbonate 1250 mg / cholecalciferol 0.01 mg oral tablet (3 sources) Vitamin D Start: 02-01-2024 End: 03-26-2024 Calcium Carbonate-Vitamin D3 (Calcium 500 With D) 500 mg-10 mcg (400 unit) tablet Discontinued 1 {tbl} PO THREE TIMES A DAY 42 14 0 February 01, 2024 12:00am March 26, 2024 3:50pm calcium citrate 1500 mg / cholecalciferol 200 unt oral tablet (3 sources) Vitamin D Start: 12-27-2023 End: 07-30-2024 Calcium Citrate-Vitamin D3 (Calcium Citrate + D) 315 mg-5 mcg (200 unit) tablet Discontinued 1 {tbl} PO DAILY December 27, 2023 12:00am July 30, 2024 4:30pm SUPPLEMENT On Hold: Resume on 02/03/24. cetirizine hydrochloride 10 mg oral capsule (18 sources) Histamine-1 Receptor Antagonist Start: 08-07-2022 End: 12-27-2023 take 1 capsule by mouth once daily as needed Cetirizine (Allergy Relief (Cetirizine)) 10 mg capsule Discontinued 10 mg PO DAILY as needed August 07, 2022 1:00am December 27, 2023 11:01am copper gluconate 2 mg oral tablet (19 sources) Start: 08-13-2018 End: 08-07-2022 take 1 tablet by mouth once daily Copper Gluconate 2 mg tablet Discontinued 2 mg PO DAILY August 13, 2018 1:00am August 07, 2022 9:09am Cranberry Extract (19 sources) Non-Standardize d Food Allergenic Extract, Non-Standardize d Plant Allergenic Extract Start: 08-16-2018 End: 08-07-2022 take 1 capsule by mouth once daily Cranberry Extract 200 MG capsule Discontinued 168 mg PO DAILY August 16, 2018 1:00am August 07, 2022 9:09am Start: 08-16-2018 End: 08-07-2022 take 168 mg by mouth once daily Cranberry Extract Discontinued 168 MG PO DAILY August 16, 2018 1:00am August 07, 2022 9:09am Start: 08-16-2018 End: 08-07-2022 take 168 mg by mouth once daily Cranberry Extract Discontinued 168 MG PO DAILY August 16, 2018 12:00am August 07, 2022 8:09am Start: 08-16-2018 take 168 mg by mouth once daily Cranberry Extract Active 168 MG PO DAILY August 16, 2018 1:00am cyclobenzaprine hydrochloride 10 mg oral tablet (20 sources) Muscle Relaxant Start: 07-27-2022 End: 12-27-2023 take 1 tablet by mouth twice daily as needed Cyclobenzaprine 10 mg tablet Discontinued 10 mg PO TWICE A DAY as needed August 07, 2022 1:00am December 27, 2023 11:01am Comment on above: Take 1 tablet by rina twice daily as needed for muscle spasm or pain. 1 ml denosumab 60 mg/ml prefilled syringe (11 sources) RANK Ligand Inhibitor Start: 08-22-2023 End: 12-27-2023 Denosumab (Prolia) 60 mg/mL syringe Discontinued 60 mg SC every 6 months 1 August 22, 2023 1:00am December 27, 2023 11:01am essential oils (18 sources) Start: 08-07-2022 End: 07-30-2024 take 1 mg by inhalation once daily essential oils Discontinued 1 mg INHALATION DAILY August 07, 2022 1:00am July 30, 2024 4:32pm SUPPLEMENT Start: 08-07-2022 End: 07-30-2024 take 1 mg by inhalation once daily essential oils Discontinued 1 mg INHALATION DAILY August 07, 2022 1:00am July 30, 2024 4:32pm Start: 08-07-2022 essential oils Active INHALATION August 07, 2022 1:00am Start: 08-07-2022 essential oils Active INHALATION August 07, 2022 12:00am fluticasone propionate 0.05 mg/actuat metered dose nasal spray (20 sources) Corticosteroid Start: 08-13-2018 End: 02-01-2024 Fluticasone Propionate 50 mcg/actuation spray,suspension Discontinued 2 NMA INTRANASAL DAILY as needed for Nasal Congestion August 13, 2018 8:31am February 01, 2024 6:27am Start: 05-28-2014 End: 08-13-2018 Fluticasone Propionate 1 SPR AY spray,suspension Discontinued 2 NMA NASAL DAILY May 28, 2014 1:00am August 13, 2018 8:34am Start: 05-28-2014 End: 08-13-2018 Fluticasone Propionate Activ e 2 SPRAY INTRANASAL DAILY August 13, 2018 7:31am Comment on above: 1 [place] once daily. iv contrast (will be provided with radiology test) (1 source) Start: 07-18-19 End: 07-19-19 iv contrast (will be provided with radiology [...] 07/19/2022 Comment on above: CT Urogram WO/W Inje ct, intravenously, once for 1 dose.No IV access, [...] in the CT contrast administration guidelines link. levothyroxine sodium 0.025 mg oral tablet (20 sources) l-Thyroxine Start: 04-11-20 End: 11-01-19 take 1 tablet by mouth once daily Levothyroxine 25 mcg tablet Discontinued 25 ug PO daily 90 1 October 31, 2024 8:24am October 31, 2024 8:26am Start: 04-01-2024 End: 04-08-2024 take 1 tablet by mouth once daily Levothyroxine 25 mcg tablet Discontinued 25 ug PO daily 7 7 0 April 01, 2024 12:00am April 07, 2024 12:00am April 08, 2024 12:04am Start: 03-05-2024 End: 04-01-2024 take 1 capsule by mouth once daily Levothyroxine 25 mcg capsule Discontinued 25 ug PO DAILY 7 7 0 April 01, 2024 2:05pm April 07, 2024 12:00am April 01, 2024 3:33pm loratadine 10 mg oral tablet (20 sources) Start: 08-16-2018 End: 08-07-2022 take 1 tablet by mouth once daily as needed Loratadine 10 MG tablet Discontinued 10 mg PO DAILY as needed for Allergies August 16, 2018 1:00am August 07, 2022 9:09am loratadine (CLAR ITIN ORAL) Take 1 tablet by mouth as needed. 0 Active Comment on above: Take 1 tablet by rina th as needed. magnesium triple calm comound (18 sources) Start: 08-07-2022 End: 12-27-2023 magnesium triple calm comound Discontinued PO August 07, 2022 1:00am December 27, 2023 10:58am Start: 08-07-2022 magnesium trip le calm comound Active PO August 07, 2022 1:00am Start: 08-07-2022 magnesium trip le calm comound Active PO August 07, 2022 12:00am Multivitamin 1 EACH tablet (3 sources) Start: 08-16-2018 End: 08-07-2022 Multivitamin 1 EACH tablet Discontinued 1 NMA PO TWICE A DAY August 16, 2018 1:00am August 07, 2022 9:09am naproxen 250 mg oral tablet (3 sources) Nonsteroidal Anti-inflammatory Drug naproxen (NAPROSYN) 250 mg tablet Take 250 mg by mouth as needed (pain). 0 Active Comment on above: Take 250 mg by mouth as needed (pain). Vidal-3 Fatty Acids (19 sources) Start: 08-13-2018 End: 08-07-2022 take 1 capsule by mouth once daily as needed Vidal-3 Fatty Acids 1,250 mg capsule Discontinued 1250 mg PO DAILY as needed for Supplement Plugger Man August 13, 2018 1:00am August 07, 2022 9:10am Start: 08-13-2018 End: 08-07-2022 take 1 capsule by mouth once daily omega-3 fatty acids 1,250 mg capsule Discontinued 1250 MG PO DAILY August 13, 2018 1:00am August 07, 2022 9:10am Start: 08-13-2018 End: 08-07-2022 take 1 capsule by mouth once daily omega-3 fatty acids 1,250 mg capsule Discontinued 1250 MG PO DAILY August 13, 2018 12:00am August 07, 2022 8:10am Start: 08-13-2018 take 1 capsule by [facility] once daily omega-3 fatty acids 1,250 mg capsule Active 1250 MG PO DAILY August 13, 2018 1:00am omeprazole 20 mg delayed release oral capsule (20 sources) Proton Pump Inhibitor Start: 08-07-2022 End: 12-27-2023 take 1 capsule by mouth once daily Omeprazole 20 mg capsule,delayed release(DR/EC) Discontinued 20 mg PO DAILY August 07, 2022 1:00am December 27, 2023 10:58am Start: 08-13-2018 End: 08-07-2022 Omeprazole 40 mg capsule,del ayed release(DR/EC) Discontinued 20 mg PO DAILY as needed for Indigestion August 13, 2018 8:32am August 07, 2022 9:05am Start: 08-13-2018 End: 08-07-2022 take 20 mg by mouth once daily Omeprazole Discontinued 20 MG PO DAILY August 13, 2018 8:32am August 07, 2022 9:05am Start: 05-28-2014 End: 08-13-2018 take 1 capsule by mouth once daily Omeprazole 40 MG capsule Discontinued 40 mg PO DAILY May 28, 2014 1:00am August 13, 2018 8:34am oxyCODONE hydrochloride 1 mg/ml oral solution (19 sources) Opioid Agonist Start: 08-23-2018 End: 08-28-2018 take 5 mg by mouth four times daily as needed for pain Oxycodone 5 MG/5 ML solution Discontinued 5 mg PO 4 TIMES DAILY NEEDED as needed for Pain 150 7 0 August 23, 2018 11:46am August 29, 2018 1:00am August 28, 2018 2:47pm Calculus of gallbladder with chronic cholecystitis without obstruction polyethylene glycol 3350 92516 mg powder for oral solution (19 sources) Osmotic Laxative Start: 08-16-2018 End: 08-07-2022 take 17 g by mouth once daily as needed for constipation Polyethylene Glycol 3350 17 GM packet Discontinued 17 g PO DAILY as needed for Constipation August 16, 2018 1:00am August 07, 2022 9:10am 1000 ml sodium chloride 9 mg/ml injection (1 source) Start: 07-18-2022 End: 07-18-2022 inject 1 dose intravenously once 0.9 % sodium chloride (NACL 0.9%) infusion Inject 75 mL/hr intravenously one time only for 1 dose. Administer at rate defined per CT contrast administration specifications. To be provided with radiology test. 1 Each 0 07/18/2022 07/18/2022 Comment on above: Inject 75 mL/hr intr avenously one time only for 1 dose. Administer at rate defined per CT contrast administration specifications. To be provided with radiology test. traZODone hydrochloride 50 mg oral tablet (20 sources) Serotonin Reuptake Inhibitor Start: 12-27-2023 End: 06-26-2024 take 1 tablet by mouth at bedtime as needed for sleep Trazodone 50 mg tablet Discontinued 50 mg PO AT BEDTIME as needed for PRN for sleep 90 1 January 07, 2024 12:53pm June 26, 2024 2:44pm Start: 03-29-2023 End: 06-25-2023 take 1 tablet by mouth at bedtime as needed Trazodone 50 mg tablet Discontinued 50 mg PO AT BEDTIME as needed for insomnia 30 May 28, 2023 4:00pm June 25, 2023 4:07pm Turmeric extract (15 sources) Start: 12-27-2023 End: 03-26-2024 take 1 capsule by mouth once daily Turmeric 400 mg capsule Discontinued 1000 mg PO DAILY December 27, 2023 12:00am March 26, 2024 3:52pm SUPPLEMENT On Hold: Resume on 02/03/24. Start: 12-27-2023 End: 03-26-2024 take 1 capsule by mouth once daily Turmeric 400 mg capsule Discontinued 1000 mg PO DAILY December 27, 2023 12:00am March 26, 2024 3:52pm On Hold: Resume on 02/03/24. TURMERIC ORAL Ta ke by mouth. 0 Active Comment on above: Take by mouth. Tttcuxhd-Hugn-Gnfmq-Oreg -Capry 100 mg-150 mg- 50 mg-150 mg capsule (3 sources) Start: 08-07-2022 End: 12-27-2023 Wsmvlzpj-Tzvx-Zzgpu-Oreg-Cap ry 100 mg-150 mg- 50 mg-150 mg capsule Discontinued NMA PO August 07, 2022 1:00am December 27, 2023 10:57am Vitamin B12 with folic acid (18 sources) Start: 08-07-2022 End: 12-27-2023 Vitamin B12 with folic acid Discontinued PO August 07, 2022 1:00am December 27, 2023 10:56am Start: 08-07-2022 Vitamin B12 wi th folic acid Active PO August 07, 2022 1:00am Start: 08-07-2022 Vitamin B12 wi th folic acid Active PO August 07, 2022 12:00am WOLFBERRY (3 sources) Start: 12-27-2023 End: 07-30-2024 WOLFBERRY Discontinued 1 [fo z_us] PO DAILY December 27, 2023 12:00am July 30, 2024 4:33pm SUPPLEMENT Start: 12-27-2023 End: 01-15-2025 WOLFBERRY Discontinued 1 [fo z_us] PO DAILY December 27, 2023 12:00am July 30, 2024 4:33pm Zinc (19 sources) Start: 08-13-2018 End: 08-07-2022 Zinc 50 mg tablet Discontinu ed 30 mg PO DAILY August 13, 2018 1:00am August 07, 2022 9:10am Start: 08-13-2018 End: 08-07-2022 take 30 mg by mouth once daily Zinc Discontinued 30 MG PO DAILY August 13, 2018 1:00am August 07, 2022 9:10am Start: 08-13-2018 End: 08-07-2022 take 30 mg by mouth once daily Zinc Discontinued 30 MG PO DAILY August 13, 2018 12:00am August 07, 2022 8:10am Start: 08-13-2018 take 30 mg by mouth once daily Zinc Active 30 MG PO DAILY August 13, 2018 1:00am Problems Active Problems Problem Classification Problem Date Documented Date Episodic/Chronic Abdominal pain (8 sources) Unspecified abdominal pain; Translations: [Right flank pain] Onset: 2 Episodic Administrative/socia l admission (4 sources) Persons encountering health services in other specified circumstances; Translations: [Other reasons for seeking consultation] 08-07-2022 Episodic Anxiety disorders (20 sources) Anxiety; Translations: [Anxiety disorder, unspecified] 01-19-2023 Chronic Biliary tract disease (19 sources) Cholelithiasis AND cholecystitis without obstruction; Translations: [Calculus of gallbladder with chronic cholecystitis without obstruction] 08-23-2018 Episodic Complications of surgical procedures or medical care (20 sources) Post-surgical malabsorption; Translations: [Postsurgical malabsorption, not elsewhere classified] Onset: 5 08-07-2022 Chronic Comment on above: Patient's status pos t right thyroid lobectomy with some postoperative hypothyroidism. Empiric supplementation was begun with 25 mcg levothyroxine each a.m. and patient's 5-week thyroid function testing show her labs to all be now within normal limits. Moreover, she confirms excellent energy level. Therefore, I recommend continuing this dose of levothyroxine and will transition management to her PCP. It is recalled that patient had evidence of a new left-sided thyroid nodule that was not seen on her index preoperative imaging and we will plan to follow this up with a repeat thyroid ultrasound. Appears now resolved Diabetes mellitus without complication (20 sources) Impaired fasting glycemia; Translations: [Impaired fasting glucose] Onset: 7 06-29-2017 Episodic Esophageal disorders (12 sources) Gastroesophageal reflux disease; Translations: [Gastro-esophageal reflux disease without esophagitis] 09-01-2019 Chronic Malaise and fatigue (20 sources) Chronic fatigue syndrome; Translations: [Chronic fatigue syndrome with fibromyalgia] 01-19-2023 Chronic Nutritional deficiencies (12 sources) Vitamin D deficiency; Translations: [Vitamin D deficiency, unspecified] Onset: 0 01-11-2010 Chronic Osteoarthritis (20 sources) Arthritis of left knee; Translations: [Unilateral primary osteoarthritis, left knee] Onset: 6 10-01-2015 Chronic Other acquired deformities (4 sources) Retrolisthesis; Translations: [Spondylolisthesis, site unspecified] 03-26-2024 Episodic Other bone disease and musculoskeletal deformities (12 sources) Osteopenia with high fracture risk; Translations: [Other specified disorders of bone density and structure, unspecified site] 08-22-2023 Episodic Other bone disease and musculoskeletal deformities (9 sources) Other specified disorders of bone density and structure, unspecified site; Translations: [Disorder of bone and cartilage, unspecified] Onset: 5 08-22-2023 Episodic Other connective tissue disease (3 sources) Pain in toe; Translations: [Pain in left toe(s)] 01-29-2025 Episodic Other connective tissue disease (1 source) Pain in left toe(s); Translations: [Pain in left toe(s)] Onset: 5 Episodic Other endocrine disorders (10 sources) Hyperparathyroidism; Translations: [Hyperparathyroidism, unspecified] 09-18-2023 Chronic Comment on above: Per Dr. Lockwood "This is a 63-year-old female who presents for what appears to be a largely asymptomatic, incidental diagnosis of primary hyperparathyroidism that began with notice of decreased bone mineral density between screening DEXA's from 2008 to her most recent exam. There is a subjective history of some left flank pain but this was never substantiated as nephrolithiasis with imaging. Additionally, patient describes constipation, GERD, difficulty concentrating, and pain in her shoulder joints but also gives the indication that many of these are chronic in nature. As I review patient's biochemical workup, I agree that it would be best to have all of these labs drawn alongside of 1 another, but my interpretation does suggest this represents primary hyperparathyroidism. I have considered possible secondary hyperparathyroidism due to malabsorption and her history of bariatric surgery as well as possible FHH, but have excluded these diagnoses based on her clear ability to absorb calcium and her urinary calcium of almost 500. I held a lengthy conversation with Mrs. Tompkins today regarding the diagnosis of hyperparathyroidism and then its localization. I shared 1 component of this localization process is to obtain a thyroid ultrasound. This has been done, but unfortunately radiology did not note any parathyroid candidates. I conducted an in-depth exam myself at bedside with our bedside ultrasound exam today. I find a possible parathyroid candidate in the left inferior position. At this point I would like to proceed with sestamibi to see if we can achieve concordance. Lastly, I shared with Mrs. Tompkins the importance of understanding anything concurrent thyroid pathology if we proceed for a parathyroid operation. She expresses an understanding and more on this as detailed below.Update 10/24/2023: Unfortunately at this point patient's workup is nonlocalizing. I have shared the potential causes for this likely vocalization with patient including the potential for 4 gland hyperplasia. Additionally, I shared with her that it has become my practice to pursue parathyroid disease that is localizing in the interest of minimizing operative time and using our resources efficiently. To this end, I have offered we could consider 4D CT imaging if patient is interested in pursuing the workup further. I was careful not to dismiss her concerns around this being a valid diagnosis and Mrs. Tompkins insisted that she felt like she was heard in our consultation and does not wish to pursue further workup of this diagnosis as she is concerned of her bone loss. Lastly, I also recommended a consultation with endocrinology for their perspective on this diagnosis. Mrs. Tompkins was receptive of this recommendation as well.Update 11/20/2023: I reviewed patient's workup for diagnosis of primary hyperparathyroidism and what it means in light of her above thyroid information. 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 I discussed that without localization the operative approach would include first identifying the 2 glands on the right and determining if there was any discrepancy of size to suggest underlying adenoma. If none was found then we would plan to proceed to the left side and ultimately consider a subtotal parathyroidectomy if clinical suspicion guided that conclusion only after identification of all 4 parathyroid glands. I additionally described the process of intraoperative PTH monitoring to guide this decision making. Patient was given the opportunity ask any questions about the procedure and confirmed that we had addressed many of the questions she arrived to today's visit wanting to ask." Other endocrine disorders (9 sources) Hyperparathyroidism, unspecified; Translations: [Hyperparathyroidism, unspecified] Onset: 4 10-02-2023 Chronic Other lower respiratory disease (3 sources) Cough; Translations: [Cough] 03-26-2024 Episodic Other lower respiratory disease (8 sources) Chronic cough; Translations: [Chronic cough] Onset: 5 10-30-2024 Episodic Other non-traumatic joint disorders (20 sources) Pain in right shoulder; Translations: [Right shoulder pain] 03-29-2023 Episodic Other nutritional; endocrine; and metabolic disorders (12 sources) Metabolic syndrome X; Translations: [Metabolic syndrome] Onset: 7 09-19-2006 Chronic Other nutritional; endocrine; and metabolic disorders (12 sources) Obesity; Translations: [Other obesity due to excess calories] Onset: 7 09-01-2019 Chronic Other nutritional; endocrine; and metabolic disorders (4 sources) Obesity caused by energy imbalance; Translations: [Other obesity due to excess calories] Onset: 7 09-01-2019 Chronic Other nutritional; endocrine; and metabolic disorders (1 source) Morbid (severe) obesity due to excess calories; Translations: [Morbid (severe) obesity due to excess calories] Onset: 5 Chronic Other nutritional; endocrine; and metabolic disorders (1 source) Body mass index (BMI) 35.0-35.9, adult; Translations: [Body mass index [BMI] 35.0-35.9, adult] Onset: 5 Chronic Other screening for suspected conditions (not mental disorders or infectious disease) (2 sources) Ultrasound scan abnormal; Translations: [Abnormal findings on diagnostic imaging of other specified body structures] Chronic Other screening for suspected conditions (not mental disorders or infectious disease) (20 sources) Patient encounter status; Translations: [Encounter for screening mammogram for malignant neoplasm of breast] Onset: 11-13-202 4 Episodic Other upper respiratory disease (18 sources) Seasonal allergy; Translations: [Other seasonal allergic rhinitis] 08-07-2022 Chronic Other upper respiratory disease (1 source) Tenderness over frontal sinus; Translations: [Other specified disorders of nose and nasal sinuses] Episodic Other upper respiratory infections (1 source) Acute upper respiratory infection; Translations: [Acute upper respiratory infection, unspecified] Episodic Residual codes; unclassified (20 sources) Insomnia; Translations: [Insomnia, unspecified] 03-29-2023 Episodic Residual codes; unclassified (3 sources) History of parathyroidectomy; Translations: [Other specified postprocedural states] 04-12-2024 Episodic Comment on above: Patient is doing wel l status post parathyroidectomy. Her calcium remains in range and normal with normal PTH. Recommend discontinuing 1 tab of calcium and then continuing the supplementation at that point somewhat indefinitely given her history of gastric bypass. She is reminded of the symptoms of hypocalcemia and we would plan to recheck her calcium and PTH if she were to experience paresthesias. Spondylosis; intervertebral disc disorders; other back problems (18 sources) Intervertebral disc disorder of lumbar region with myelopathy; Translations: [Intervertebral disc disorders with myelopathy, lumbar region] Onset: 8 04-24-2008 Chronic Thyroid disorders (20 sources) Thyroid nodule; Translations: [Nontoxic single thyroid nodule] 10-02-2023 Chronic Comment on above: Patient is 64-year-o ld female with history of 2 thyroid nodules as per thyroid ultrasound obtained 03/04/2024 but repeat thyroid ultrasound performed 6 months later was reported by radiology as showing no thyroid nodularity but did comment on a "heterogeneous" echotexture. Given this discrepancy and the short duration between these exams I sought to perform my own, independent exam. This was performed during today's visit. I do identify a 1.1 cm maximal dimension hypoechoic area superiorly on the left as well as a 1.4 cm hyperechoic area in the mid polar region. These are less discrete than I typically encounter for true thyroid nodules. Given patient's operative course with partial fracture of this lobe it is my suspicion that her "nodularity" noted on her February 2024 exam was actually due to physical fissuring of the lobe before it had time to heal since it remain vascularized on its vascular poles. From that ultrasound until her ultrasound last month, I suspect that the operative trauma was given a chance to heal. Thus, while the findings today could represent thyroid nodules they could alternatively represent scar tissue from this healing process. The more superior hypoechoic area would be rated a TI-RADS 4 and the more mid polar region would be a TI-RADS 3 rating if we do consider them nodules. Neither would meet size threshold for consideration of biopsy. Thus, it is my recommendation that we continue surveillance of these areas. I recommend repeat thyroid ultrasound in 12 months.Simply commenting on patient's initial questions on her laboratories I shared that she has reason for secondary hyperparathyroidism given her history of bypass surgery and I believe this is a probable cause for her elevated PTH. Secondly, I encouraged her to continue her efforts to keep her prediabetes send check and monitor her renal function. This is a euthyroid patient with multinodular goiter. Radiology notes a number of nodules greater than 1 cm along patient's right side. These are described in greater depth in my "exam" section of this note. Salient takeaways from this investigation include the observations that her right isthmic nodule is "spongiform" in appearance and thus represents a TI-RADS 1 lesion. This is favorable since this is patient's largest nodule. Additionally, I found a discrepancy with our measurements and those obtained on the official ultrasound but did conclude that the patient has a right inferior pole nodule that measures 1.7 cm in greatest dimension and would qualify as a TI-RADS 4 lesion. Therefore according to ACR criteria this should receive a biopsy. I would like to plan for a biopsy of this area and potentially patient's isthmic nodule (simply owing to its size) at a follow-up visit. Patient appears receptive of these plans. The procedure was briefly described and we will plan for a separate visit.Update 10/24/2023: Patient's right inferior pole TI-RADS 4 nodule was biopsied via ultrasound guided FNA technique during today's visit. Please see "procedures" section of this note for full details. Post procedure wound care instructions were provided. Patient also given timelines for reporting of results.Update 11/20/2023: Patient's biopsied thyroid nodule returned with a firm result of "suspicious". The implications of this result were reviewed with the patient and her in detail. I suggested that she would be a candidate for either a right thyroid lobectomy with isthmusectomy versus total thyroidectomy. I described the reasons for proceeding with the former being a potential to avoid lifelong medication and some of the surgical risk, however, I described that this was counterbalanced by the reasons for total thyroidectomy which would include elimination of any compressive concerns from her enlarged left thyroid lobe as well. At this point patient and her have inclinations to proceed with right thyroid lobectomy and isthmusectomy. The relevant risks of this procedure were described in detail to include, specifically, a discussion around rest to the recurrent laryngeal nerve and parathyroid glands. Unclassified (4 sources) Retrolisthesis of vertebrae; Translations: [M43.10 - Spondylolisthesis, site unspecified] Varicose veins of lower extremity (3 sources) Venous varices; Translations: [Asymptomatic varicose veins of unspecified lower extremity] 03-26-2024 Episodic Past or Other Problems Problem Classification Problem Date Documented Da te Episodic/Chronic Deficiency and other anemia (2 sources) Iron deficiency anemia; Translations: [Iron deficiency anemia, unspecified] Onset: 06-21-2016 Resolved: 02-22-2017 02-22-2017 Episodic Diseases of mouth; excluding dental (12 sources) Cheilitis; Translations: [Diseases of lips] Onset: 02-22-2017 02-22-2017 Episodic Fracture of lower limb (2 sources) Fracture of distal end of fibula; Translations: [Other fracture of upper and lower end of unspecified fibula, initial encounter for closed fracture] Onset: 06-15-2014 Resolved: 08-05-2015 08-05-2015 Episodic Other acquired deformities (1 source) Spondylolisthesis, site unspecified; Translations: [Spondylolisthesis , site unspecified] Onset: 08-15-2024 Episodic Other connective tissue disease (12 sources) [...] [Bariatric surgery status] Onset: 08-10-2014 08-10-2014 Episodic Residual codes; unclassified (12 sources) Insomnia, unspecified; Translations: [Insomnia, unspecified] Onset: 08-15-2024 03-29-2023 Episodic Spondylosis; intervertebral disc disorders; other back problems (20 sources) Nerve root disorder; Translations: [Radiculopathy, site unspecified] Onset: 07-24-2005 Resolved: 09-30-2015 01-19-2023 Episodic Results Test Name Value Interpretation Reference Range Facility Internal Medicine Office Vis iton 01-29-2025 Internal Medicine Office Visit [facility] [address] [place] [address] [place] [address] OFFICE VISIT Date of Service: 01/29/25 MR#: [id number] Acct: [id number] Name: JANEE TOMPKINS Rep #: [id number] : 1960 Provider: Dr. Miah grove MD Age/Sex: 64/F [place] [facility] Status: Signed Intake Vital Signs 10/30/24 14:57 01/29/25 15:35 Height 5 ft 6 in 5 ft 6 in Weight: 223 lb BMI 35.9 BP 112/80 Blood Pressure Location Lt brachial Position Sitting Respiration 16 Pulse 74 Pulse Source Monitor Temp 97.4 F L Temp Source Temporal Pulse Oximetry (%) 96 Intake Visit Reasons: 3 M FU Chief Complaint: Follow-up Public Health Director Required: No Accompanied by: Self Is patient in pain?: No Allergies NSAIDS (Non-Steroidal Anti-Inflamma Allergy (Mild, Verified 01/29/25 15:37) Nausea codeine Adverse Reaction (Verified 01/29/25 15:37) Upset Stomach Medications ???Medication ???Instructions ???Recorded ???Confirmed ???Type ferrous fumarate 89 mg (29 mg 60 mg PO .COMPLEX SUPPLEMENT 08/1601/29/25 History iron) tablet acetaminophen 500 mg tablet 500 mg PO Q6H PRN pain 08/07/22 History cholecalciferol (vitamin D3) 125 125 mcg PO DAILY SUPPLEMENT 01/29/25 History mcg (5,000 unit) capsule christiane C 1,000 mg PO DAILY SUPPLEMENT 08/0701/29/25 History multivitamin 1 tab PO DAILY SUPPLEMENT 08/07/22 01/29/25 History COLLAGEN COMPLEX 533 mg PO BID SUPPLEMENT 12/27/23 01/29/25 History VITAMIN MK 7 200 mcg PO DAILY SUPPLEMENT 01/29/25 History magnesium 200 mg tablet 75 mg PO DAILY SUPPLEMENT 12/27/23 01/29/25 History vitamin B12 1,000 mcg-folic acid 1 maximus sublingual .COMPLEX 12/27/23 01/29/25 History 400 mcg sublingual lozenge SUPPLEMENT FIBER WELL 2 tab PO DAILY PRN SUPPLEMENT 03/1601/29/25 History calcium 500 mg (as citrate)-vit D3 tab PO 03/26/24 01/29/25 History 12.5 mcg (500 unit) chewable tablet levocetirizine 5 mg tablet (Xyzal) 2.5 mg PO DAILY PRN ALLERGY 03/1601/29/25 History melatonin 5 mg tablet 5 mg PO HS PRN 03/26/24 01/29/25 H istory duloxetine 30 mg capsule,delayed 30 mg PO QHS FIBROMYALGIA #90 caps 04/17/24 01/29/25 Rx release trazodone 50 mg tablet 50 mg PO QHS PRN PRN for sleep #90 06/26/24 01/29/25 Rx tabs metronidazole 0.75 % topical cream 1 applic topical BID 07/30/24 History levothyroxine 25 mcg tablet 25 mcg PO QDAY #90 tabs 10/31/24 0 01/29/25 Rx budesonide-formoterol HFA 80 2 puff inhalation BID 3 months 05/0901/29/25 Rx mcg-4.5 mcg/actuation aerosol #30.6 grams inhaler (Symbicort) metformin 500 mg tablet 500 mg PO BIDWMEAL #60 tabs 01/29/25 Rx Nurse's Note: F/U [facility] Medical History (Updated 01/29/25 @ 16:[address] Miah Montemayor MD) Toe pain, left Chronic cough Post-surgical hypothyroidism Cough Varicose veins without complication Retrolisthesis of vertebrae Obesity Prediabetes Preoperative evaluation to rule out surgical contraindication Wears glasses Post-menopausal Diabetes Bladder disease Fatty liver Migraine headache Vertigo Dietary restriction Difficulty swallowing Former smoker Leg cramps History of pain when walking History of edema History of stress test History of echocardiogram Cardiology follow-up encounter History of palpitations Hyperparathyroidism Osteopenia with high risk of fracture Insomnia Right shoulder pain Anxiety Chronic fatigue syndrome with fibromyalgia Screening for thyroid disorder Borderline type 2 diabetes mellitus Radiculopathy Encounter to establish care Postsurgical malabsorption Preventative health care High cholesterol Hypertension Tinnitus Arthritis Anemia GERD (gastroesophageal reflux disease) Back pain Osteoarthritis Surgical History S/P parathyroidectomy History of removal of skin mole History of removal of cyst History of gastric bypass History of laparoscopic cholecystectomy ( 08/2018) History of arthroscopic knee surgery History of nasal septoplasty History of hysterectomy History of appendectomy History of section History of colonoscopy ( 2015) History of esophagogastroduodenoscopy (EGD) ( 2015) Family History Mother Diabetes Hypertension Anesthesia complication High cholesterol TIA (transient ischemic attack) Father Hypertension Diabetes Alcoholism DVT (deep venous thrombosis) High cholesterol Kidney disease Sister Breast cancer Anxiety Asthma Depression Seizures Brother Cancer skin Anxiety Asthma Depression Other Arthritis Social History Smoking Status: Former smoker (more content not included)... Normal [facility] Toe(s) Min 2 Viewson 025 Toe(s) Min 2 Views [facility] Imaging Services [address] [place] [address] Toe(s) Min 2 Views MR#: [id number] Acct: [id number] Name: JANEE TOMPKINS VALENTE Rep #: [id number] : 1960 F 64 From: Abner Euceda MD PCP: Dr. Miah Montemayor MD Status: REG CLI Study: Toe(s) Min 2 Views Date of Exam: 01/29/25 Exam# [id number] Ordering Dr: Miah Montemayor MD EXAM: XR Left Toes, 2 or More Views CLINICAL INDICATION: LEFT 5TH TOE PAIN TECHNIQUE: Frontal, lateral and oblique views of the toes of the left foot. COMPARISON: No relevant prior studies available. FINDINGS: BONES/JOINTS: Mild degenerative changes of the proximal phalangeal joints. No acute fracture. No dislocation. SOFT TISSUES: Soft tissue swelling. No radiopaque foreign body. RAD/Toe(s) Min 2 Views IMPRESSION: Soft tissue swelling. Reading Location: [facility] CC: Dr. Miah Montemayor MD Party Coordinator: Signed Normal [facility] PT D/C Summary (1)on 025 PT D/C Summary (1) [facility] Physical Therapy [facility] [address] [place] [address] / REHABILITATION SERVICES DISCHARGE SUMMARY MR#: [id number] Acct: [id number] Name: JANEE TOMPKINS Rep #: [id number] : 1960 64 From: Kishore Aldridge DPT Referring Dr.: Dr. William Hunter MD Status: REG RCR Insurance: [facility] SELF PAY INSURANCE Discharge Summary D/C summary: It has been my pleasure to treat JANEE TOMPKINS referred by Dr. William Hunter MD, with the diagnosis of CERVICAL DDD for a total of 6 visit(s). Discharge Date: 11/19/24 Please see the following information for a summary of their discharge status. Subjective Subjective: Pt. reports having good relief after being off work for a few days. Now that she has returned she is noticing increased symptoms again. Pt. reports having 2/10 pain today. Pt. reports being 70% better overall. Pain Cervical spine: Pain Intensity (Out of 10): 2 B shoulder blades: Pain Intensity (Out of 10): 2 Overall Improvement % Improvement: 70 Objective Objective/Function: ROM: Cervical spine: flexion nil loss Ne, ext min loss tightness, rotaiton min loss bilat NE, SB min loss tigthness noted. POSTURE: Pt. has slight FH posture. Pt. is able improve with VC/TCing. Pt. is able to sleep throughout the night without increase in symptoms. Pt. has good strength throughout BUEs. Pt. is to work on exercises on her own at this point in time. pt. will be DC from PT at this point in time. Goals Goal 1:: LTG: Pt. to be I with HEP. Goal Progress: Goal Met Goal 2:: STG: PT. to have full ROM without increase in symptoms. Goal Progress: Goal Met Goal 3:: LTG: Pt. to have normal posture throughout PT session. Goal Progress: Goal Met Goal 4:: STG: Pt. to sleep throughout the night without increase in symptoms. Goal Progress: Goal Met Plan Plan: Pt. to be DC from PT to work on her HEP progressing extension exercises as tolerated. D/C Information d/c sentence: If there are questions or concerns regarding this patient's physical therapy, please feel free to call me at [phone]. Thank you for the referral of this patient. Sincerely, Kishore Aldridge, DPT Balance/Gait/Functional tests Balance/Special Test Scores Oswestry Neck Score: 15 Improvement % Improvement: 70 11/19/24 1810 CC: Dr. William Hunter MD; Dr. Miah Montemayor MD CLS Signed Normal [facility] Chest PA and Lateralon 11-13 Chest PA and Lateral [facility] Imaging Services [address] [place] [id number] Chest PA and Lateral MR#: [id number] Acct: [id number] Name: JANEE TOMPKINS Rep #: [id number] : 1960 F 64 From: Conor Krause MD PCP: Dr. Miah Montemayor MD Status: REG CLI Study: Chest PA and Lateral Date of Exam: 11/13/24 Exam# [id number] Ordering Dr: Miah Montemayor MD PROCEDURE: CHEST PA AND LATERAL 11/13/2024 REASON FOR EXAM: CHRONIC COUGH TECHNIQUE: Frontal and lateral views of the chest. COMPARISON: None FINDINGS: Heart size and mediastinal configuration are within normal limits. There is no focal infiltrate or consolidation. There is no pneumothorax or effusion. There is no acute bony abnormality. Surgical clips are noted in the left upper abdomen. Aortic calcifications are noted. RAD/Chest PA and Lateral IMPRESSION: No acute process is identified in the chest. Reading Location: [facility] CC: Dr. Miah Montemayor MD Party Coordinator: Signed Normal [facility] Internal Medicine Office Vis iton 10-30-2024 Internal Medicine Office Visit [facility] [address] [place] [address] [place] [address] OFFICE VISIT Date of Service: 10/30/24 MR#: [id number] Acct: [id number] Name: JANEE TOMPKINS Rep #: [id number] : 1960 Provider: Dr. Miah grove MD Age/Sex: 64/F Location: [facility] Status: Signed Intake Vital Signs 07/30/24 15:35 09/03/24 11:41 10/30/24 14:57 Height 5 ft 6 in 5 ft 6 in 5 ft 6 in Weight: 219 lb 6 oz BMI 35.4 BP 116/76 Blood Pressure Location Rt brachial Position Sitting Pulse 78 Pulse Source Monitor Temp 96.2 F L Temp Source Temporal Pulse Oximetry (%) 99 Oxygen Delivery Method room air Intake Visit Reasons: 3 M FU Chief Complaint: Follow-up chronic conditions. 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 Required: No Accompanied by: Self Is patient in pain?: No Allergies NSAIDS (Non-Steroidal Anti-Inflamma Allergy (Mild, Verified 10/30/24 14:56) Nausea codeine Adverse Reaction (Verified 10/30/24 14:56) Upset Stomach Medications ???Medication ???Instructions ???Recorded ???Confirmed ???Type ferrous fumarate 89 mg (29 mg 60 mg PO .COMPLEX SUPPLEMENT 08/1610/30/24 History iron) tablet acetaminophen 500 mg tablet 500 mg PO Q6H PRN pain 08/07/22 History cholecalciferol (vitamin D3) 125 125 mcg PO DAILY SUPPLEMENT 10/30/24 History mcg (5,000 unit) capsule christiane C 1,000 mg PO DAILY SUPPLEMENT 08/0710/30/24 History multivitamin 1 tab PO DAILY SUPPLEMENT 08/07/22 10/30/24 History COLLAGEN COMPLEX 533 mg PO BID SUPPLEMENT 12/27/23 10/30/24 History VITAMIN MK 7 200 mcg PO DAILY SUPPLEMENT 10/30/24 History magnesium 200 mg tablet 75 mg PO DAILY SUPPLEMENT 12/27/23 10/30/24 History vitamin B12 1,000 mcg-folic acid 1 maximus sublingual .COMPLEX 12/27/23 10/30/24 History 400 mcg sublingual lozenge SUPPLEMENT FIBER WELL 2 tab PO DAILY PRN SUPPLEMENT 03/1610/30/24 History calcium 500 mg (as citrate)-vit D3 tab PO 03/26/24 10/30/24 History 12.5 mcg (500 unit) chewable tablet levocetirizine 5 mg tablet (Xyzal) 2.5 mg PO DAILY PRN ALLERGY 03/1610/30/24 History melatonin 5 mg tablet 5 mg PO HS PRN 03/26/24 10/30/24 H istory duloxetine 30 mg capsule,delayed 30 mg PO QHS FIBROMYALGIA #90 caps 04/17/24 10/30/24 Rx release levothyroxine 25 mcg tablet 25 mcg PO QDAY #90 tabs 04/17/24 0 10/30/24 Rx trazodone 50 mg tablet 50 mg PO QHS PRN PRN for sleep #90 06/26/24 10/30/24 Rx tabs metronidazole 0.75 % topical cream 1 applic topical BID 07/30/24 History Have you fallen in the past year?: No PFSH Medical History (Updated 10/30/24 @ 16:[address] Miah Montemayor MD) Chronic cough Post-surgical hypothyroidism Cough Varicose veins without complication Retrolisthesis of vertebrae Obesity Prediabetes Preoperative evaluation to rule out surgical contraindication Wears glasses Post-menopausal Diabetes Bladder disease Fatty liver Migraine headache Vertigo Dietary restriction Difficulty swallowing Former smoker Leg cramps History of pain when walking History of edema History of stress test History of echocardiogram Cardiology follow-up encounter History of palpitations Hyperparathyroidism Osteopenia with high risk of fracture Insomnia Right shoulder pain Anxiety Chronic fatigue syndrome with fibromyalgia Screening for thyroid disorder Borderline type 2 diabetes mellitus Radiculopathy Encounter to establish care Postsurgical malabsorption Preventative health care High cholesterol Hypertension Tinnitus Arthritis Anemia GERD (gastroesophageal reflux disease) Back pain Osteoarthritis Surgical History S/P parathyroidectomy History of removal of skin mole History of removal of cyst History of gastric bypass History of laparoscopic cholecystectomy ( 08/2018) History of arthroscopic knee surgery History of nasal septoplasty History of hysterectomy History of appendectomy History of section History of colonoscopy ( 2015) History of esophagogastroduodenoscopy (EGD) ( 2016) Family History Mother Diabetes Hypertension Anesthesia complication High cholesterol TIA (transient ischemic attack) Father Hypertension Diabetes Alcoholism DVT (deep venous thrombosis) High cholesterol Kidney disease Sister Breast cancer Anxiety Asthma Depression Seizures Brother Cancer skin Anxiety Asthma Depression Other Arthritis Social History Smoking Status: Former smoker Tobacco: How many years used: 12 alcohol intake: never substance use type: does not use what type of physical activity do you participat (more content not included)... Normal [facility] Laboratory - Hematology and Cell countsOrdered By: Miah Montemayor on 10-30-2024 HbA1c (Bld) [Mass fraction] 5.8 % 4.2-6.3 [facility] Surgery Visit Reporton 10-02 Surgery Visit Report [facility] [address] [place] [address] OFFICE VISIT Date of Service: 10/02/24 MR#: [id number] Acct: [id number] Name: JANEE TOMPKINS Rep #: [id number] : 1960 Provider: Dr. Rg briggs MD Age/Sex: 64/F Location: [facility] Status: Signed Intake Vital Signs 08/26/24 07:36 09/03/24 11:41 Height 5 ft 6 in 5 ft 6 in Weight: 227 lb BMI 36.6 Intake Visit Reasons: EST THYROID US BX Chief Complaint: thyroid us Is patient in pain?: No Allergies NSAIDS (Non-Steroidal Anti-Inflamma Allergy (Mild, Verified 10/02/24 13:53) Nausea codeine Adverse Reaction (Verified 10/02/24 13:53) Upset Stomach Medications ???Medication ???Instructions ???Recorded ???Confirmed ???Type ferrous fumarate 89 mg (29 mg 60 mg PO .COMPLEX SUPPLEMENT 08/1610/02/24 History iron) tablet acetaminophen 500 mg tablet 500 mg PO Q6H PRN pain 08/07/22 History cholecalciferol (vitamin D3) 125 125 mcg PO DAILY SUPPLEMENT 10/02/24 History mcg (5,000 unit) capsule christiane C 1,000 mg PO DAILY SUPPLEMENT 08/0710/02/24 History multivitamin 1 tab PO DAILY SUPPLEMENT 08/07/22 10/02/24 History COLLAGEN COMPLEX 533 mg PO BID SUPPLEMENT 12/27/23 10/02/24 History VITAMIN MK 7 200 mcg PO DAILY SUPPLEMENT 10/02/24 History magnesium 200 mg tablet 75 mg PO DAILY SUPPLEMENT 12/27/23 10/02/24 History vitamin B12 1,000 mcg-folic acid 1 maximus sublingual .COMPLEX 12/27/23 10/02/24 History 400 mcg sublingual lozenge SUPPLEMENT FIBER WELL 2 tab PO DAILY PRN SUPPLEMENT 03/1610/02/24 History calcium 500 mg (as citrate)-vit D3 tab PO 03/26/24 10/02/24 History 12.5 mcg (500 unit) chewable tablet levocetirizine 5 mg tablet (Xyzal) 2.5 mg PO DAILY PRN ALLERGY 03/1610/02/24 History melatonin 5 mg tablet 5 mg PO HS PRN 03/26/24 10/02/24 H istory duloxetine 30 mg capsule,delayed 30 mg PO QHS FIBROMYALGIA #90 caps 04/17/24 10/02/24 Rx release levothyroxine 25 mcg tablet 25 mcg PO QDAY #90 tabs 04/17/24 0 10/02/24 Rx trazodone 50 mg tablet 50 mg PO QHS PRN PRN for sleep #90 06/26/24 10/02/24 Rx tabs metronidazole 0.75 % topical cream 1 applic topical BID 07/30/24 History PFSH Medical History Post-surgical hypothyroidism Cough Varicose veins without complication Retrolisthesis of vertebrae Obesity Prediabetes Preoperative evaluation to rule out surgical contraindication Wears glasses Post-menopausal Diabetes Bladder disease Fatty liver Migraine headache Vertigo Dietary restriction Difficulty swallowing Former smoker Leg cramps History of pain when walking History of edema History of stress test History of echocardiogram Cardiology follow-up encounter History of palpitations Hyperparathyroidism Osteopenia with high risk of fracture Insomnia Right shoulder pain Anxiety Chronic fatigue syndrome with fibromyalgia Screening for thyroid disorder Borderline type 2 diabetes mellitus Radiculopathy Encounter to establish care Postsurgical malabsorption Preventative health care High cholesterol Hypertension Tinnitus Arthritis Anemia GERD (gastroesophageal reflux disease) Back pain Osteoarthritis Surgical History S/P parathyroidectomy History of removal of skin mole History of removal of cyst History of gastric bypass History of laparoscopic cholecystectomy ( 08/2018) History of arthroscopic knee surgery History of nasal septoplasty History of hysterectomy History of appendectomy History of section History of colonoscopy ( 2015) History of esophagogastroduodenoscopy (EGD) ( 2015) Family History Mother Diabetes Hypertension Anesthesia complication High cholesterol TIA (transient ischemic attack) Father Hypertension Diabetes Alcoholism DVT (deep venous thrombosis) High cholesterol Kidney disease Sister Breast cancer Anxiety Asthma Depression Seizures Brother Cancer skin Anxiety Asthma Depression Other Arthritis Social History Smoking Status: Former smoker Tobacco: How many years used: 12 alcohol intake: never substance use type: does not use what type of physical activity do you participate in: walking frequency: 1-2 times per week HPI HPI HPI: Patient is 64-year-old female who is known to me for history of right thyroid lobectomy as well as left parathyroidectomy on 02/01/2024. Her last visit was 04/12/2024. She has completed an interval thyroid ultrasound and follows up to discuss those (more content not included)... Normal [facility] Inital Evaluation (1) - PTon 09-25-2024 Inital Evaluation (1) - PT [facility] Physical Therapy [facility] [place] [address] / REHABILITATION SERVICES INITIAL EVALUATION MR#: [id number] Acct: [id number] Name: JANEE TOMPKINS Rep #: [id number] : 1960 64 From: Kishore Aldridge DPT Referring Dr.: Dr. William Hunter MD Status: REG RCR Insurance: [facility] SELF PAY INSURANCE Patient's Visit Information Visit Information Visit Information: JANEE TOMPKINS is a 64 year old F referred to Physical Therapy by Dr. William Hunter MD with a diagnosis of CERVICAL DDD. Date of Evaluation: 09/02/24 Physical Therapist: Kishore Aldridge, DPT Visit Plan Frequency: 2x /Week Duration: 6 Weeks Plan: 1) cervical retraction in supine, progressing to distraction with retraction 2) seated retraction, pec stretching 3) deep cervical strengthening and postural strengthening 4) mobilization to cervical spine and thoracic spine PAs. May use US if needed to calm symptoms. Subjective Subjective: Pt. is here today for her initial evaluation with diagnosis of of cervical DDD. Pt. reports overall doing okay, but is having pain at the lower aspect of her spine. Pt. reports increased symptoms with looking up. Pt. reports increased pain with sleeping and with general activities. Pt. is able to complete most activities still. She had come to PT previously and had some success with some cervical retraction. Pt. did fall and has been having some neck pain since. Pt. does have some numbness in B hands and tingling as well. Pain does extend to shoulder blades at times. Pt. is hopeful to reduce symptoms in order to get back to all recreational activities without limitations. Pain Cervical spine: Pain Intensity (Out of 10): 3 Pain Intensity Range: 1 and 6 B shoulder blades: Pain Intensity (Out of 10): 3 Pain Intensity Range: 1 and 6 Objective Objective: POSTURE: Pt. had slight FH posture, but not severe. Pt. is able to self correct with VCing. PALPATION: Pt. has tenderness with PAs throughotu cervical spine and B UT. As well as at upper thoracic spine. NEURO: Pt. has slight reduction in B hand sensation and normal DTR. ROM: CERVICAL SPINE: flexion min loss mild increase NW, exte min loss mild increase NW, rotaiton min loss NE B, SB min loss bilat NE. Pt. has nromal B shoulder ROM. MMT: Pt. has normal strength throughout BUEs. Slight postural weakness with scapular retraction and deep cervical flexors. Pt. did have some relief with cervical retraction and with PT over pressure. Pt. to add in supine version to HEP. Balance/Special Test Scores Oswestry Neck Score: 14 Goals Goal 1:: LTG: Pt. to be I with HEP. Goal Time Frame: 4-6 Weeks Goal 2:: STG: PT. to have full ROM without increase in symptoms. Goal Time Frame: 2-4 Weeks Goal 3:: LTG: Pt. to have normal posture throughout PT session. Goal Time Frame: 4-6 Weeks Goal 4:: STG: Pt. to sleep throughout the night without increase in symptoms. Goal Time Frame: 4-6 Weeks Rehabilitation Potential Physical Therapy Diagnosis: Pt. has signs and symptoms consistent with cervical DDD. Pt. has marked limited ROM and some postural weakness. Pt. would benefit from PT to address the above limitations progressing back all recreational activities. Rehabilitation Potential: Good Anticipated Interventions Patient/Client Instruction: Educate patient on: Condition, Plan of Care, Risk Factors and Benefits of Fitness Program For the Purpose of:: To foster healthy habits, To improve decision making, To facilitate caregiver knowledge, To improve self management, To prevent re-injury and To improve ability to perform tasks related to life management Therapeutic Exercise to Include: Strength training, Postural training, Flexibilty training, Passive ROM, Active ROM, Gabriela Exercises and Scapular Strength/Stabilization For the Purpose of:: To decrease pain, To increase ROM, To improve nutrient delivery to tissue, To increase oxygenation perfusion, To improve muscle performance and motor function, To improve ability to perform ADL's and To increase tolerance to activity/condition/position Manual Therapy Techniques to Include: Mobilization For the Purpose of:: To decrease pain, To decrease swelling/inflammation, To increase ROM, To improve nutrient delivery to tissue and To increase oxygenation perfusion Ultrasound (thermal/non thermal): Yes For the Purpose of:: To decrease pain, To increase ROM and To improve nutrient delivery to tissue Text: Thank you for the opportunity to evaluate your patient. For Medicare and Medicare HMO plans, please review the plan of care and approve it. It will need to be FAXED BACK to us at [phone] for Medicare purposes. For Medicare only, by signing this I certify the plan of care. Please let me know if there are questions or concerns regarding this pl (more content not included)... Normal [facility] Thyroidon 09-01-2024 Thyroid [facility] Imaging Services [address] [place], [place] [address] Thyroid MR#: [id number] Acct: [id number] Name: JANEE TOMPKINS Rep #: [id number] : 1960 F 64 From: David Mclaughlin MD PCP: Dr. Miah Montemayor MD Status: REG CLI Study: Thyroid Date of Exam: 09/01/24 Exam# [id number] Ordering Dr: Rg Lockwood MD PROCEDURE: THYROID REASON FOR EXAM: Follow-up right thyroidectomy TECHNIQUE: Thyroid ultrasound COMPARISON: None. FINDINGS: Status post right thyroidectomy Right fossa: Heterogeneous tissue measuring 1.3 x 0.9 x 0.9 cm Left thyroid: 4.1 x 1.9 x 0.8 cm and is heterogeneous in echotexture Background Echotexture: Normal Thyroid Nodules: None US/Thyroid IMPRESSION: 1. Heterogeneous tissue noted in the right thyroid bed status post right thyroidectomy. Reading Location: [facility] CC: Dr. Miah Montemayor MD; Dr. Rg Lockwood MD Party Coordinator: Signed Normal [facility] Cerv Spine 4 or 5 Viewson Cerv Spine 4 or 5 Views [facility] Imaging Services [address] [place], [place] [address] Cerv Spine 4 or 5 Views MR#: [id number] Acct: [id number] Name: JANEE TOMPKINS Rep #: [id number] : 1960 F 64 From: Grant Pinto PCP: Dr. Miah Montemayor MD Status: DEP AMB Study: Cerv Spine 4 or 5 Views Date of Exam: 08/26/24 Exam# [id number] Ordering Dr: Dorita Sanabria PROCEDURE: CERV SPINE 4 OR 5 VIEWS REASON FOR EXAM: Pain. TECHNIQUE: Four view cervical spine series including lateral flexion and extension views. COMPARISON: Cervical spine study of 01/19/2023. RAD/Cerv Spine 4 or 5 Views IMPRESSION: Left lower neck surgical clips are seen [id number] degenerative changes of the mid to lower cervical spine are seen, with moderate disc space narrowing from C4 through C7, perhaps greatest at C5-C6 and C6-C7 levels. No fracture, subluxation, or prevertebral soft tissue swelling is noted. No dynamic instability is seen on lateral flexion and extension views. Reading Location: [address] CC: DURGA Acuna; Dr. Miah Montemayor MD Party Coordinator: Signed Normal [facility] Orthopedic Visit Reporton Orthopedic Visit Report [facility] [address] [place] [address] [address] [place] [address] OFFICE VISIT Date of Service: 08/26/24 MR#: [id number] Acct: [id number] Name: JANEE TOMPKINS Rep #: [id number] : 1960 Provider: Dr. William Hunter MD Age/Sex: 64/F Location: [facility] Status: Signed Intake Vital Signs 07/30/24 15:35 08/26/24 07:36 Height 5 ft 6 in 5 ft 6 in Weight: 227 lb 227 lb BMI 36.6 36.6 BP 116/84 H Blood Pressure Location Rt brachial Position Sitting Respiration 18 Pulse 87 Pulse Source Monitor Temp 97.4 F L Temp Source Temporal Pulse Oximetry (%) 98 Oxygen Delivery Method room air Intake Visit Reasons: CERVICAL SPINE Is patient in pain?: Yes Allergies NSAIDS (Non-Steroidal Anti-Inflamma Allergy (Mild, Verified 08/26/24 07:43) Nausea codeine Adverse Reaction (Verified 08/26/24 07:43) Upset Stomach Medications ???Medication ???Instructions ???Recorded ???Confirmed ???Type ferrous fumarate 89 mg (29 mg 60 mg PO .COMPLEX SUPPLEMENT 08/1608/26/24 History iron) tablet acetaminophen 500 mg tablet 500 mg PO Q6H PRN pain 08/07/22 History cholecalciferol (vitamin D3) 125 125 mcg PO DAILY SUPPLEMENT 08/26/24 History mcg (5,000 unit) capsule christiane C 1,000 mg PO DAILY SUPPLEMENT 08/0708/26/24 History multivitamin 1 tab PO DAILY SUPPLEMENT 08/07/22 08/26/24 History COLLAGEN COMPLEX 533 mg PO BID SUPPLEMENT 12/27/23 08/26/24 History VITAMIN MK 7 200 mcg PO DAILY SUPPLEMENT 08/26/24 History magnesium 200 mg tablet 75 mg PO DAILY SUPPLEMENT 12/27/23 08/26/24 History vitamin B12 1,000 mcg-folic acid 1 maximus sublingual .COMPLEX 12/27/23 08/26/24 History 400 mcg sublingual lozenge SUPPLEMENT FIBER WELL 2 tab PO DAILY PRN SUPPLEMENT 03/1608/26/24 History calcium 500 mg (as citrate)-vit D3 tab PO 03/26/24 08/26/24 History 12.5 mcg (500 unit) chewable tablet levocetirizine 5 mg tablet (Xyzal) 2.5 mg PO DAILY PRN ALLERGY 03/1608/26/24 History melatonin 5 mg tablet 5 mg PO HS PRN 03/26/24 08/26/24 H istory duloxetine 30 mg capsule,delayed 30 mg PO QHS FIBROMYALGIA #90 caps 04/17/24 08/26/24 Rx release levothyroxine 25 mcg tablet 25 mcg PO QDAY #90 tabs 04/17/24 0 08/26/24 Rx trazodone 50 mg tablet 50 mg PO QHS PRN PRN for sleep #90 06/26/24 08/26/24 Rx tabs metronidazole 0.75 % topical cream 1 applic topical BID 07/30/24 History PFSH Medical History Post-surgical hypothyroidism Cough Varicose veins without complication Retrolisthesis of vertebrae Obesity Prediabetes Preoperative evaluation to rule out surgical contraindication Wears glasses Post-menopausal Diabetes Bladder disease Fatty liver Migraine headache Vertigo Dietary restriction Difficulty swallowing Former smoker Leg cramps History of pain when walking History of edema History of stress test History of echocardiogram Cardiology follow-up encounter History of palpitations Hyperparathyroidism Osteopenia with high risk of fracture Insomnia Right shoulder pain Anxiety Chronic fatigue syndrome with fibromyalgia Screening for thyroid disorder Borderline type 2 diabetes mellitus Radiculopathy Encounter to establish care Postsurgical malabsorption Preventative health care High cholesterol Hypertension Tinnitus Arthritis Anemia GERD (gastroesophageal reflux disease) Back pain Osteoarthritis Surgical History S/P parathyroidectomy History of removal of skin mole History of removal of cyst History of gastric bypass History of laparoscopic cholecystectomy ( 08/2018) History of arthroscopic knee surgery History of nasal septoplasty History of hysterectomy History of appendectomy History of section History of colonoscopy ( 2016) History of esophagogastroduodenoscopy (EGD) ( 2016) Family History Mother Diabetes Hypertension Anesthesia complication High cholesterol TIA (transient ischemic attack) Father Hypertension Diabetes Alcoholism DVT (deep venous thrombosis) High cholesterol Kidney disease Sister Breast cancer Anxiety Asthma Depression Seizures Brother Cancer skin Anxiety Asthma Depression Other Arthritis Social History Smoking Status: Former smoker Tobacco: How many years used: 12 alcohol intake: never substance use type: does not use what type of physical activity do you participate in: walking frequency: 1-2 times per week HPI CERVICAL SPINE Details: This documentation accurately reflects the servi (more content not included)... Normal [facility] Vitamin D,25 Hydroxyon 08-11 Vitamin D 25-OH 62.4 ng/mL Normal [facility] Comment on above: Result Comment: Rose Mary min D 25(OH) Status Range Deficiency <20 ng/mL (50nmol/L) Insufficiency 20 - 30 ng/mL (50 - 75 nmol/L) Sufficiency 30 - 100 ng/mL (75 - 250 nmol/L) Toxicity >100 ng/mL (>250 nmol/L) Performed By: #### L 506.1000 ####[facility] [address] [place], [place], [id number] Absolute lymphocyte countOrd ered By: Miah Montemayor on 08-08-2024 Lymphocytes Auto (Unsp spec) [#/Vol] 1.40 10*3/uL 0.83-4.51 [facility] Absolute neutrophil countOrd ered By: Miah Montemayor on 08-08-2024 Neutrophils (Bld) [#/Vol] 3.6 10*3/uL 2.0-7.7 [facility] Albumin to globulin ratioOrd ered By: Miah Montemayor on 08-08-2024 Albumin/Globulin [Mass ratio] 1.0 {ratio} 0.9-2.4 [facility] Automated lymphocyte count a s percentage of total leukocytesOrdered By: Miah Montemayor on 08-08-2024 Lymphocytes/100 WBC Auto (Unsp spec) 25.0 % [facility] Basophil percentageOrdered B y: Tabithaoralia Fregosoryan on 08-08-2024 Basophils/100 WBC (Bld) 0.5 % 0-1 [facility] Bilirubin, totalOrdered By: Nicolechinarielleoralia Fregosoryan on 08-08-2024 Bilirubin [Mass/Vol] 0.60 mg/dL 0.20-1.00 [facility] Comment on above: For patients on eltr ombopag therapy, use of Dimension [place] TBIL is not recommended. Blood urea nitrogen (BUN)/cr eatinine ratioOrdered By: Miah Montemayor on 08-08-2024 Urea nitrogen/Creatinine [Mass ratio] 25.9 mg/mg High 10- [facility] CBC W/Diff, Automatedon 07-17 Absolute Lymph 1.40 X10 3/uL Normal 0.83-4.51 [facility] Comment on above: Performed By: #### L 501.9520, L100.0100, L500.4100, L506.0400, L509.1000, L500.4050 #### [facility] [address] [place], [address] Absolute Neut 3.6 X10 3/uL Normal 2.0-7.7 [facility] Comment on above: Performed By: #### L 501.9520, L100.0100, L500.4100, L506.0400, L509.1000, L500.4050 #### [facility] [address] [place], [address] Basophils/100 WBC (Bld) 0.5 % Normal 0-1 [facility] Comment on above: Performed By: #### L 501.9520, L100.0100, L500.4100, L506.0400, L509.1000, L500.4050 #### [facility] [address] [place], [address] Eosinophils/100 WBC (Bld) 2.1 % Normal 0-5 [facility] Comment on above: Performed By: #### L 501.9520, L100.0100, L500.4100, L506.0400, L509.1000, L500.4050 #### [facility] [address] [place], [address] Erythrocyte distribution width (RBC) [Ratio] 12.5 % Normal 11.6-14.6 [facility] Comment on above: Performed By: #### L 501.9520, L100.0100, L500.4100, L506.0400, L509.1000, L500.4050 #### [facility] [address] [place], [address] Hematocrit (Bld) [Volume fraction] 42.6 % Normal 37-47 [facility] Comment on above: Performed By: #### L 501.9520, L100.0100, L500.4100, L506.0400, L509.1000, L500.4050 #### [facility] [address] [place], [address] Hemoglobin (Bld) [Mass/Vol] 14.2 g/dL Normal 12.0-15.0 [facility] Comment on above: Performed By: #### L 501.9520, L100.0100, L500.4100, L506.0400, L509.1000, L500.4050 #### [facility] [address] [place], [address] IG% 0.500 Normal 0.0-0.9 [facility] Comment on above: Result Comment: IG% - Immature Granulocytes (promyelocytes, myelocytes and metamyelocytes) > 1% indicates that a LEFT SHIFT is Present. Performed By: #### L 501.9520, L100.0100, L500.4100, L506.0400, L509.1000, L500.4050 #### [facility] [address] [place], [address] Lymphocytes/100 WBC (Bld) 25.0 % Normal 19-41 [facility] Comment on above: Performed By: #### L 501.9520, L100.0100, L500.4100, L506.0400, L509.1000, L500.4050 #### [facility] [address] [place], [address] MCH (RBC) [Entitic mass] 29.6 pg Normal 27.0-32.0 [facility] Comment on above: Performed By: #### L 501.9520, L100.0100, L500.4100, L506.0400, L509.1000, L500.4050 #### [facility] [address] [place], [address] MCHC (RBC) [Mass/Vol] 33.3 g/dL Normal 32-36 [facility] Comment on above: Performed By: #### L 501.9520, L100.0100, L500.4100, L506.0400, L509.1000, L500.4050 #### [facility] [address] [place], [address] MCV (RBC) [Entitic vol] 88.9 fL Normal 81-99 [facility] Comment on above: Performed By: #### L 501.9520, L100.0100, L500.4100, L506.0400, L509.1000, L500.4050 #### [facility] [address] [place], [address] Monocytes/100 WBC (Bld) 7.7 % Normal 0-10 [facility] Comment on above: Performed By: #### L 501.9520, L100.0100, L500.4100, L506.0400, L509.1000, L500.4050 #### [facility] [address] [place], [address] Neutrophils/100 WBC (Bld) 64.2 % Normal 47-70 [facility] Comment on above: Performed By: #### L 501.9520, L100.0100, L500.4100, L506.0400, L509.1000, L500.4050 #### [facility] [address] [place], [address] Nucleated RBC (Bld) [#/Vol] 0 10*3/uL Normal 0-5 [facility] Comment on above: Performed By: #### L 501.9520, L100.0100, L500.4100, L506.0400, L509.1000, L500.4050 #### [facility] [address] [place], [address] Platelet mean volume (Bld) [Entitic vol] 9.6 fL Normal 6.2-12.0 [facility] Comment on above: Performed By: #### L 501.9520, L100.0100, L500.4100, L506.0400, L509.1000, L500.4050 #### [facility] [address] [place], [address] Platelets (Bld) [#/Vol] 269 10*3/uL Normal 150-450 [facility] Comment on above: Performed By: #### L 501.9520, L100.0100, L500.4100, L506.0400, L509.1000, L500.4050 #### [facility] [address] [place], [address] RBC (Bld) [#/Vol] 4.79 10*6/uL Normal 4.2-5.4 [facility] Comment on above: Performed By: #### L 501.9520, L100.0100, L500.4100, L506.0400, L509.1000, L500.4050 #### [facility] [address] [place], [address] RDW SD 41.0 fl Normal 35.1-43.9 [facility] Comment on above: Performed By: #### L 501.9520, L100.0100, L500.4100, L506.0400, L509.1000, L500.4050 #### [facility] [address] [place], [address] WBC (Bld) [#/Vol] 5.6 10*3/uL Normal 4.4-11.0 [facility] Comment on above: Performed By: #### L 501.9520, L100.0100, L500.4100, L506.0400, L509.1000, L500.4050 #### [facility] [address] [place], [address] Carbon dioxide measurementOr dered By: Miah Montemayor on 08-08-2024 CO2 [Moles/Vol] 28.0 mmol/L 21.0-32.0 [facility] Chloride measurementOrdered By: Miah Montemayor on 08-08-2024 Chloride [Moles/Vol] 104 mmol/L 98-107 [facility] Comprehensive Metabolic Prof ilon 08-08-2024 Albumin [Mass/Vol] 3.7 g/dL Normal 3.2-5.0 [facility] Comment on above: Performed By: #### L 501.9520, L100.0100, L500.4100, L506.0400, L509.1000, L500.4050 ####[facility] [address] [place], [address] Albumin/Globulin [Mass ratio] 1.0 {ratio} Normal 0.9-2.4 [facility] Comment on above: Performed By: #### L 501.9520, L100.0100, L500.4100, L506.0400, L509.1000, L500.4050 ####[facility] [address] [place], [address] ALK P 54 U/L Normal 45-117 [facility] Comment on above: Performed By: #### L 501.9520, L100.0100, L500.4100, L506.0400, L509.1000, L500.4050 ####[facility] [address] [place], [address] ALT [Catalytic activity/Vol] 28 U/L Normal 13-56 [facility] Comment on above: Performed By: #### L 501.9520, L100.0100, L500.4100, L506.0400, L509.1000, L500.4050 ####[facility] [address] [place], [address] AST [Catalytic activity/Vol] 18 U/L Normal 15-37 [facility] Comment on above: Performed By: #### L 501.9520, L100.0100, L500.4100, L506.0400, L509.1000, L500.4050 ####[facility] [address] [place], [address] Bilirubin [Mass/Vol] 0.60 mg/dL Normal 0.20-1.00 [facility] Comment on above: Result Comment: For patients on eltrombopag therapy, use of Dimension [place] TBIL is not recommended. Performed By: #### L 501.9520, L100.0100, L500.4100, L506.0400, L509.1000, L500.4050 ####[facility] [address] [place], [address] BUN/CRE 25.9 RATIO High 10-20 [facility] Comment on above: Performed By: #### L 501.9520, L100.0100, L500.4100, L506.0400, L509.1000, L500.4050 ####[facility] [address] [place], [address] CA,Total 8.6 mg/dL Normal 8.5-10.1 [facility] Comment on above: Performed By: #### L 501.9520, L100.0100, L500.4100, L506.0400, L509.1000, L500.4050 ####[facility] [address] [place], [address] Chloride [Moles/Vol] 104 mmol/L Normal 98-107 [facility] Comment on above: Performed By: #### L 501.9520, L100.0100, L500.4100, L506.0400, L509.1000, L500.4050 ####[facility] [address] [place], [address] CO2 [Moles/Vol] 28.0 mmol/L Normal 21.0-32.0 [facility] Comment on above: Performed By: #### L 501.9520, L100.0100, L500.4100, L506.0400, L509.1000, L500.4050 ####[facility] [address] [place], [address] Creatinine [Mass/Vol] 0.85 mg/dL Normal 0.55-1.02 [facility] Comment on above: Result Comment: The validity of the calculated GFR GFRAA in patients over 70 years has not been determined. Clinical correlation is essential. Performed By: #### L 501.9520, L100.0100, L500.4100, L506.0400, L509.1000, L500.4050 ####[facility] [address] [place], [address] EST GFR - AA 87 mL/min Normal >60 [facility] Comment on above: Result Comment: Afri can [place] GFR Calc Performed By: #### L 501.9520, L100.0100, L500.4100, L506.0400, L509.1000, L500.4050 ####[facility] [address] [place], [address] GAP 5 Normal 5-15 [facility] Comment on above: Performed By: #### L 501.9520, L100.0100, L500.4100, L506.0400, L509.1000, L500.4050 ####[facility] [address] [place], [address] GFR/1.73 sq M.predicted among non-blacks MDRD (S/P/Bld) [Vol rate/Area] 72 mL/min/{1.73_m2} Normal >60 [facility] Comment on above: Result Comment: Non- GFR Calc Performed By: #### L 501.9520, L100.0100, L500.4100, L506.0400, L509.1000, L500.4050 ####[facility] [address] [place], [address] Globulin (S) [Mass/Vol] 3.6 g/dL Normal 2.2-4.2 [facility] Comment on above: Performed By: #### L 501.9520, L100.0100, L500.4100, L506.0400, L509.1000, L500.4050 ####[facility] [address] [place], [address] Glucose [Mass/Vol] 134 mg/dL High 74-106 [facility] Comment on above: Result Comment: Fast ing Glucose result greater than or equal to 126 mg/dL suggests DIABETES MELLITUS per A.D.A. criteria. Performed By: #### L 501.9520, L100.0100, L500.4100, L506.0400, L509.1000, L500.4050 ####[facility] [address] [place], [address] Potassium [Moles/Vol] 3.7 mmol/L Normal 3.5-5.1 [facility] Comment on above: Performed By: #### L 501.9520, L100.0100, L500.4100, L506.0400, L509.1000, L500.4050 ####[facility] [address] [place], [address] Sodium [Moles/Vol] 137 mmol/L Normal 136-145 [facility] Comment on above: Performed By: #### L 501.9520, L100.0100, L500.4100, L506.0400, L509.1000, L500.4050 ####[facility] [address] [place], [address] T PROT 7.3 g/dL Normal 6.4-8.2 [facility] Comment on above: Performed By: #### L 501.9520, L100.0100, L500.4100, L506.0400, L509.1000, L500.4050 ####[facility] [address] [place], [address] Urea nitrogen [Mass/Vol] 22 mg/dL High 7-18 [facility] Comment on above: Performed By: #### L 501.9520, L100.0100, L500.4100, L506.0400, L509.1000, L500.4050 ####[facility] [address] [place], [address] Direct serum free thyroxine (FT4) measurementOrdered By: Miah Montemayor on 08-08-2024 Free T4 [Mass/Vol] 0.89 ng/dL 0.76-1.46 [facility] Eosinophil percentageOrdered By: Miah Montemayor on 08-08-2024 Eosinophils/100 WBC (Bld) 2.1 % 0-5 [facility] Erythrocyte distribution wid th ratioOrdered By: Miah Montemayor on 08-08-2024 Erythrocyte distribution width (RBC) [Ratio] 12.5 % 11.6-14.6 [facility] Erythrocyte distribution wid th standard deviationOrdered By: Miah Montemayor on 08-08-2024 Erythrocyte distribution width (RBC) [Ratio] 41.0 fl 35.1-43.9 [facility] Glomerular filtration rate ( GFR) estimationOrdered By: Miah Montemayor on 08-08-2024 GFR/1.73 sq M.predicted among non-blacks MDRD (S/P/Bld) [Vol rate/Area] 72 mL/min/{1.73_m2} >60 [facility] Comment on above: Non- GFR Calc Glucose measurementOrdered B y: Miah Montemayor on 08-08-2024 Glucose [Mass/Vol] 134 mg/dL High 74-106 [facility] Comment on above: Fasting Glucose resu lt greater than or equal to 126 mg/dL suggests DIABETES MELLITUS per A.D.A. criteria. Hematocrit Auto (Bld) [Volum e fraction]Ordered By: Miah Montemayor on 08-08-2024 Hematocrit (Bld) [Volume fraction] 42.6 % 37-47 [facility] Hemoglobin measurementOrdere d By: Miah Montemayor on 08-08-2024 Hemoglobin (Bld) [Mass/Vol] 14.2 g/dL 12.0-15.0 [facility] High density lipoprotein (HD L) measurementOrdered By: Miah Montemayor on 08-08-2024 Cholesterol in HDL [Mass/Vol] 77 mg/dL >40 [facility] Comment on above: The drugs N-Acetylcy steine and Metamizole may falsely depress this assay. Reference Range HDL <40 mg/dL Low HDL Cholesterol HDL >or= 60 mg/dL High HDL Cholesterol Immature granulocytes/100 WB C Auto (Bld)Ordered By: Miah Montemayor on 08-08-2024 Immature granulocytes/100 WBC (Bld) 0.500 % 0.0-0.9 [facility] Comment on above: IG% - Immature Granu locytes (promyelocytes, myelocytes and metamyelocytes) > 1% indicates that a LEFT SHIFT is Present. Laboratory - Chemistry and C hemistry - challengeOrdered By: Miah Montemayor on 08-08-2024 AST [Catalytic activity/Vol] 18 U/L 15-37 [facility] Lipid Profileon 08-08-2024 Cholesterol [Mass/Vol] 204 mg/dL High 200 [facility] Comment on above: Result Comment: <200 mg/dL Desirable 200-240 mg/dL Borderline >240 mg/dL High Risk Performed By: #### L 501.9520, L100.0100, L500.4100, L506.0400, L509.1000, L500.4050 ####[facility] [address] [place], [address] Cholesterol in HDL [Mass/Vol] 77 mg/dL Normal [facility] Comment on above: Result Comment: The drugs N-Acetylcysteine and Metamizole may falsely depress this assay. Reference Range HDL <40 mg/dL Low HDL Cholesterol HDL >or= 60 mg/dL High HDL Cholesterol Performed By: #### L 501.9520, L100.0100, L500.4100, L506.0400, L509.1000, L500.4050 ####[facility] [address] [place], [address] Cholesterol in LDL [Mass/Vol] 106 mg/dL Normal 0-130 [facility] Comment on above: Performed By: #### L 501.9520, L100.0100, L500.4100, L506.0400, L509.1000, L500.4050 ####[facility] [address] [place], [address] Cholesterol in VLDL [Mass/Vol] 21 mg/dL Normal 5-40 [facility] Comment on above: Performed By: #### L 501.9520, L100.0100, L500.4100, L506.0400, L509.1000, L500.4050 ####[facility] [address] [place], [place], [address] Triglyceride [Mass/Vol] 107 mg/dL Normal [facility] Comment on above: Result Comment: The drugs N-Acetylcysteine and Metamizole may falsely depress this assay. Serum Triglycerides Reference Interval Normal <150 mg/dL Borderline high 150 - 199 mg/dL High 200 - 499 mg/dL Very High > or = 500 mg/dL Performed By: #### L 501.9520, L100.0100, L500.4100, L506.0400, L509.1000, L500.4050 ####[facility] [address] [place], [place], [address] Low density lipoprotein (LDL ) cholesterol measurementOrdered By: Miah Montemayor on 08-08-2024 Cholesterol in LDL [Mass/Vol] 106 mg/dL 0-130 [facility] MCV (mean corpuscular volume ) determinationOrdered By: Miah Montemayor on 08-08-2024 MCV (RBC) [Entitic vol] 88.9 fL 81-99 [facility] Mean corpuscular hemoglobin (MCH) determinationOrdered By: Miah Montemayor on 08-08-2024 MCH (RBC) [Entitic mass] 29.6 pg 27.0-32.0 [facility] Mean corpuscular hemoglobin concentration (MCHC) determinationOrdered By: Miah Montemayor on 08-08-2024 MCHC (RBC) [Mass/Vol] 33.3 g/dL 32-36 [facility] Mean platelet volume determi nationOrdered By: Miah Montemayor on 08-08-2024 Platelet mean volume (Bld) [Entitic vol] 9.6 fL 6.2-12.0 [facility] Monocyte percentageOrdered B y: Miah Montemayor on 08-08-2024 Monocytes/100 WBC (Bld) 7.7 % 0-10 [facility] Neutrophil percentageOrdered By: Miah Montemayor on 08-08-2024 Neutrophils/100 WBC (Bld) 64.2 % 47-70 [facility] Nucleated red blood cell per centageOrdered By: Miah Montemayor on 08-08-2024 Nucleated RBC/100 WBC (Bld) [Ratio] 0 % 0-5 [facility] PTHINon 08-08-2024 PTH 87.2 pg/mL High 18.4-80.1 [facility] Comment on above: Performed By: #### L 501.9520, L100.0100, L500.4100, L506.0400, L509.1000, L500.4050 #### [facility] [address] [place], [address] Platelet countOrdered By: Nicole Montemayor on 08-08-2024 Platelets (Bld) [#/Vol] 269 10*3/uL 150-450 [facility] Potassium measurementOrdered By: Miah Montemayor on 08-08-2024 Potassium [Moles/Vol] 3.7 mmol/L 3.5-5.1 [facility] RBC Auto (Bld) [#/Vol]Ordere d By: Miah Montemayor on 08-08-2024 RBC (Bld) [#/Vol] 4.79 10*6/uL 4.2-5.4 [facility] Serum anion gap measurementO rdered By: Miah Montemayor on 08-08-2024 Anion gap [Moles/Vol] 5 mmol/L 5-15 [facility] Serum globulin measurementOr dered By: Miah Montemayor on 08-08-2024 Globulin (S) [Mass/Vol] 3.6 g/dL 2.2-4.2 [facility] Serum or plasma alanine street otransferase (ALT) measurementOrdered By: Miah Montemayor on 08-08-2024 ALT [Catalytic activity/Vol] 28 U/L 13-56 [facility] Serum or plasma albumin liu urement (mass/volume)Ordered By: Miah Montemayor on 08-08-2024 Albumin [Mass/Vol] 3.7 g/dL 3.2-5.0 [facility] Serum or plasma alkaline carlos sphatase measurementOrdered By: Miah Montemayor on 08-08-2024 ALP [Catalytic activity/Vol] 54 U/L 45-117 [facility] Serum or plasma calcium liu urement (mass/volume)Ordered By: Miah Montemayor on 08-08-2024 Calcium [Mass/Vol] 8.6 mg/dL 8.5-10.1 [facility] Serum or plasma cholesterol measurement (mass/volume)Ordered By: Miah Montemayor on 08-08-2024 Cholesterol [Mass/Vol] 204 mg/dL High <200 [facility] Comment on above: <200 mg/dL Desirable 200-240 mg/dL Borderline >240 mg/dL High Risk Serum or plasma creatinine m easurement (mass/volume)Ordered By: Miah Montemayor on 08-08-2024 Creatinine [Mass/Vol] 0.85 mg/dL 0.55-1.02 [facility] Comment on above: The validity of the calculated GFR & GFRAA in patients over 70 years has not been determined. Clinical correlation is essential. Serum or plasma thyroid stim ulating hormone (TSH) measurement (units/volume)Ordered By: chiqui Montemayor on 08-08-2024 TSH Qn 2.280 uIU/mL 0.358-3.74 0 [facility] Serum or plasma urea nitroge n measurement (mass/volume)Ordered By: Miah Montemayor on 08-08-2024 Urea nitrogen [Mass/Vol] 22 mg/dL High 7-18 [facility] Sodium levelOrdered By: Hannah rojasbismark Sim on 08-08-2024 Sodium [Moles/Vol] 137 mmol/L 136-145 [facility] T4 Free Directon 08-08-2024 T4 FREE DIRECT 0.89 ng/dL Normal 0.76-1.46 [facility] Comment on above: Performed By: #### L 501.9520, L100.0100, L500.4100, L506.0400, L509.1000, L500.4050 ####[facility] [address] [place], [place], [id number] Thyroid Stim Hormone (TSH)on 08-08-2024 TSH 2.280 uIU/mL Normal 0.358-3.74 0 [facility] Comment on above: Performed By: #### L 501.9520, L100.0100, L500.4100, L506.0400, L509.1000, L500.4050 ####[facility] [address] [place], [address] Total proteinOrdered By: Mario Montemayor on 08-08-2024 Protein [Mass/Vol] 7.3 g/dL 6.4-8.2 [facility] Triglycerides measurementOrd ered By: Miah Montemayor on 08-08-2024 Triglyceride [Mass/Vol] 107 mg/dL <199 [facility] Comment on above: The drugs N-Acetylcy steine and Metamizole may falsely depress this assay.Serum Triglycerides Reference Interval Normal <150 mg/dL Borderline high 150 - 199 mg/dL High 200 - 499 mg/dL Very High > or = 500 mg/dL Very low density lipoprotein (VLDL) cholesterol measurementOrdered By: Miah Montemayor on 08-08-2024 Very low density lipoprotein (VLDL) cholesterol measurement 21 mg/dL 5-40 [facility] White blood cell (WBC) count Ordered By: Miah Mnotemayor on 08-08-2024 WBC (Bld) [#/Vol] 5.6 10*3/uL 4.4-11.0 [facility] Internal Medicine Office Vis iton 07-30-2024 Internal Medicine Office Visit [facility] [address] [place] [address] [place] [address] OFFICE VISIT Date of Service: 07/30/24 MR#: [id number] Acct: [id number] Name: JANEE TOMPKINS VALENTE Rep #: [id number] 1 : 1960 Provider: Dr. Miah grove MD Age/Sex: 64/F Location: [facility] [email or web address] Status: Signed Intake Vital Signs 03/26/24 15:48 07/30/24 15:35 Height 5 ft 6 in 5 ft 6 in Weight: 227 lb BMI 36.6 BP 116/84 H Blood Pressure Location Rt brachial Position Sitting Respiration 18 Pulse 87 Pulse Source Monitor Temp 97.4 F L Temp Source Temporal Pulse Oximetry (%) 98 Oxygen Delivery Method room air Intake Visit Reasons: 4 M FU Chief Complaint: 4m FU Is patient in pain?: Yes (neck ) Pain scale (1-10): 4 Allergies NSAIDS (Non-Steroidal Anti-Inflamma Allergy (Mild, Verified 07/30/24 15:27) Nausea codeine Adverse Reaction (Verified 07/30/24 15:27) Upset Stomach Medications ???Medication ???Instructions ???Recorded ???Confirmed ???Type ferrous fumarate 89 mg (29 mg 60 mg PO .COMPLEX SUPPLEMENT 08/16/18 07/30/24 History iron) tablet acetaminophen 500 mg tablet 500 mg PO Q6H PRN pain 08/07/22 07/30/24 History cholecalciferol (vitamin D3) 125 125 mcg PO DAILY SUPPLEMENT 08/07/22 07/30/24 History mcg (5,000 unit) capsule christiane C 1,000 mg PO DAILY SUPPLEMENT 08/07/22 07/30/24 History multivitamin 1 tab PO DAILY SUPPLEMENT 08/07/22 07/30/24 History COLLAGEN COMPLEX 533 mg PO BID SUPPLEMENT 12/27/23 07/30/24 History VITAMIN MK 7 200 mcg PO DAILY SUPPLEMENT 12/27/23 07/30/24 History magnesium 200 mg tablet 75 mg PO DAILY SUPPLEMENT 12/27/23 07/30/24 History vitamin B12 1,000 mcg-folic acid 1 maximus sublingual .COMPLEX 12/27/23 07/30/24 History 400 mcg sublingual lozenge SUPPLEMENT FIBER WELL 2 tab PO DAILY PRN SUPPLEMENT 03/26/24 07/30/24 History calcium 500 mg (as citrate)-vit D3 tab PO 03/26/24 07/30/24 History 12.5 mcg (500 unit) chewable tablet levocetirizine 5 mg tablet (Xyzal) 2.5 mg PO DAILY PRN ALLERGY 03/26/24 07/30/24 History melatonin 5 mg tablet 5 mg PO HS PRN 03/26/24 07/30/24 History duloxetine 30 mg capsule,delayed 30 mg PO QHS FIBROMYALGIA #90 caps 04/17/24 07/30/24 Rx release levothyroxine 25 mcg tablet 25 mcg PO QDAY #90 tabs 04/17/24 07/30/24 Rx trazodone 50 mg tablet 50 mg PO QHS PRN PRN for sleep #90 06/26/24 07/30/24 Rx tabs metronidazole 0.75 % topical cream 1 applic topical BID 07/30/24 07/30/24 History PFSH Medical History Post-surgical hypothyroidism Cough Varicose veins without complication Retrolisthesis of vertebrae Obesity Prediabetes Preoperative evaluation to rule out surgical contraindication Wears glasses Post-menopausal Diabetes Bladder disease Fatty liver Migraine headache Vertigo Dietary restriction Difficulty swallowing Former smoker Leg cramps History of pain when walking History of edema History of stress test History of echocardiogram Cardiology follow-up encounter History of palpitations Hyperparathyroidism Osteopenia with high risk of fracture Insomnia Right shoulder pain Anxiety Chronic fatigue syndrome with fibromyalgia Screening for thyroid disorder Borderline type 2 diabetes mellitus Radiculopathy Encounter to establish care Postsurgical malabsorption Preventative health care High cholesterol Hypertension Tinnitus Arthritis Anemia GERD (gastroesophageal reflux disease) Back pain Osteoarthritis Surgical History S/P parathyroidectomy History of removal of skin mole History of removal of cyst History of gastric bypass History of laparoscopic cholecystectomy ( 08/2018) History of arthroscopic knee surgery History of nasal septoplasty History of hysterectomy History of appendectomy History of section History of colonoscopy ( 2015) History of esophagogastroduodenoscopy (EGD) ( 2015) Family History Mother Diabetes Hypertension Anesthesia complication High cholesterol TIA (transient ischemic attack) Father Hypertension Diabetes Alcoholism DVT (deep venous thrombosis) High cholesterol Kidney disease Sister Breast cancer Anxiety Asthma Depression Seizures Brother Cancer skin Anxiety Asthma Depression Other Arthritis Social History Smoking Status: Former smoker Tobacco: How many years used: 12 alcohol intake: never substance use type: does not use what type of physical activity do you participate in: walking frequency: 1-2 times per week HPI HPI Chief Complaint: 4m FU Details: JANEE TOMPKINS, is a 64 F who presents to the office today for follow-up of her chronic condit (more content not included)... Normal [facility] - Hematology and Cell countson 07-30-2024 HbA1c (Bld) [Mass fraction] 5.9 % 4.2-6.3 [facility] Basic Metabolic Profile (BMP )on 05-23-2024 BUN/CRE 22.6 RATIO High 10-20 [facility] Comment on above: Performed By: #### L 506.1000, L509.1000, L500.2500, L501.9520 #### [facility] [address] [place], [address] CA,Total 8.8 mg/dL Normal 8.5-10.1 [facility] Comment on above: Performed By: #### L 506.1000, L509.1000, L500.2500, L501.9520 #### [facility] [address] [place], [address] Chloride [Moles/Vol] 107 mmol/L Normal 98-107 [facility] Comment on above: Performed By: #### L 506.1000, L509.1000, L500.2500, L501.9520 #### [facility] [address] [place], [address] CO2 [Moles/Vol] 29.0 mmol/L Normal 21.0-32.0 [facility] Comment on above: Performed By: #### L 506.1000, L509.1000, L500.2500, L501.9520 #### [facility] [address] [place], [address] Creatinine [Mass/Vol] 0.80 mg/dL Normal 0.55-1.02 [facility] Comment on above: Result Comment: The validity of the calculated GFR GFRAA in patients over 70 years has not been determined. Clinical correlation is essential. Performed By: #### L 506.1000, L509.1000, L500.2500, L501.9520 #### [facility] [address] [place], [address] EST GFR - AA 94 mL/min Normal >60 [facility] Comment on above: Result Comment: Afri can [place] GFR Calc Performed By: #### L 506.1000, L509.1000, L500.2500, L501.9520 #### [facility] [address] [place], [address] GAP 3 Low 5-15 [facility] Comment on above: Performed By: #### L 506.1000, L509.1000, L500.2500, L501.9520 #### [facility] [address] [place], [address] GFR/1.73 sq M.predicted among non-blacks MDRD (S/P/Bld) [Vol rate/Area] 77 mL/min/{1.73_m2} Normal >60 [facility] Comment on above: Result Comment: Non- GFR Calc Performed By: #### L 506.1000, L509.1000, L500.2500, L501.9520 #### [facility] [address] [place], [address] Glucose [Mass/Vol] 125 mg/dL High 74-106 [facility] Comment on above: Result Comment: Fast ing Glucose result from 100 to 125 mg/dL suggests IMPAIRED HOMEOSTASIS per A.D.A. criteria. Performed By: #### L 506.1000, L509.1000, L500.2500, L501.9520 #### [facility] [address] [place], [address] Potassium [Moles/Vol] 4.0 mmol/L Normal 3.5-5.1 [facility] Comment on above: Performed By: #### L 506.1000, L509.1000, L500.2500, L501.9520 #### [facility] [address] [place], [address] Sodium [Moles/Vol] 140 mmol/L Normal 136-145 [facility] Comment on above: Performed By: #### L 506.1000, L509.1000, L500.2500, L501.9520 #### [facility] [address] [place], [address] Urea nitrogen [Mass/Vol] 18 mg/dL Normal 7-18 [facility] Comment on above: Performed By: #### L 506.1000, L509.1000, L500.2500, L501.9520 #### [facility] [address] [place], [address] PTHINon 05-23-2024 PTH 70.6 pg/mL Normal 18.4-80.1 [facility] Comment on above: Performed By: #### L 506.1000, L509.1000, L500.2500, L501.9520 #### [facility] [address] [place], [address] Thyroid Stim Hormone (TSH)on 05-23-2024 TSH 2.970 uIU/mL Normal 0.358-3.74 0 [facility] Comment on above: Performed By: #### L 506.1000, L509.1000, L500.2500, L501.9520 #### [facility] [address] [place], [address] Vitamin D,25 Hydroxyon 05-23 Vitamin D 25-OH 56.2 ng/mL Normal [facility] Comment on above: Result Comment: Rose Mary min D 25(OH) Status Range Deficiency <20 ng/mL (50nmol/L) Insufficiency 20 - 30 ng/mL (50 - 75 nmol/L) Sufficiency 30 - 100 ng/mL (75 - 250 nmol/L) Toxicity >100 ng/mL (>250 nmol/L) Performed By: #### L 506.1000, L509.1000, L500.2500, L501.9520 #### [facility] [address] [place], [address] SCRN MAMM (CAD)W/JACK BILATo n 05-06-2024 SCRN MAMM (CAD)W/JACK BILAT [facility] [address] [place] [address] SCRN MAMM (CAD)W/JACK BILAT MR#: [id number] Acct: [id number] Name: JANEE TOMPKINS Rep #: [id number] : 1960 F 64 From: Elliot goyal MD PCP: Dr. Miah Montemayor MD Status: REG CLI Study: SCRN MAMM (CAD)W/JACK BILAT Date of Exam: 04/16 09/08 Exam# [id number] Ordering Dr: Aniya Turner MD :[id number] MAMMOGRAPHY - BILATERAL SCREENING REASON FOR EXAM: Female, 64 years old. Routine annual screening examination. PERTINENT HISTORY: Sister with breast cancer. Aunt with breast cancer. TECHNIQUE: Digital bilateral breast jack (3D mammographic acquisition) in the CC and MLO projections. 2-D mediolateral oblique (MLO) and craniocaudad (CC) views of both breasts were obtained. CAD: Full Field Digital Mammography with Computer Added Detection was performed. COMPARISON: Comparison is made with prior study dated May 02, 2023 and May 01, 2022. FINDINGS: Breast Composition: There are scattered areas of fibroglandular density. There are no dominant masses or suspicious calcifications. No other significant abnormalities are identified. There has been no significant change since the prior study. BI/SCRN MAMM (CAD)W/JACK BILAT IMPRESSION: Stable bilateral screening mammogram. Yearly follow-up mammogram recommended. (A) ASSESSMENT CATEGORY: BIRADS Category 1: Negative. A letter regarding these results will be sent to the patient by the facility within 30 days. Approximately 10% of breast cancers are not detected by mammography. A normal mammogram should not delay biopsy of a clinically suspicious abnormality. [id number] Electronically Signed: Elliot Lopez MD at 8:50 EDT , CC: Dr. Miah Montemayor MD; Dr. Aniya Alvarenga MD Party Coordinator: Signed [facility] 11-15-2023 CNPN Telephone (FAMPWS) JANEE TOMPKINS ([id number]) 1960 F Date Time Provider Department 11/15/23 [facility] During your visit today, we recorded the following information about you: Juan Luis Holloway MD 11/15/2023 4:54 PM [facility]: 1. 2 [...] Montemayor is her PCP and she stated "Yes, she is my new PCP." MEME Newton Christopher B, MD 11/16/2023 10:09 AM Signed Reviewed. Removed myself as her PCP. Allergies As of Date: 11/15/2023 Noted Allergy Reaction CODEINE 05/20/2011 11 - Vomiting GLUCOPHAGE (METFORMIN HCL) 07/21/2005 8 - GI Upset NEXIUM (ESOMEPRAZOLE MAGNESIUM) 07/21/2005 8 - GI Upset NSAIDS (NON-STEROIDAL ANTI-INFLAM*12/23/2013 Comments: Gastric Bypass Date Reviewed: 11/05/2023 Reviewed by: Janee Sanz, RT(R) - Fully Assessed Reason for Visit: Results [95] Prescriptions as of 01/10/2024 - cyclobenzaprine (FLEXERIL) 10 mg tablet Take 1 tablet by mouth twice daily as needed for muscle spasm or pain. - lifitegrast (XIIDRA OPHTHALMIC) Use in eyes twice daily. Bilateral eyes - Ascorbate Calcium-Bioflavonoid (CHRISTIANE C WITH BIOFLAVONOIDS) 500-200 mg tab Take [...] OTC NUTRITIONAL SUPPLEMENT 1 tablet once daily. "Celebrate" ferrous fumarate 60 mg with vitamin C 60 mg, formulated for gastric bypass patients - Cyanocobalamin 1,000 mcg subl Dissolve under the tongue. 4x/week - fluticasone (FLONASE) 50 mcg/actuation nasal spray 1 [place] once daily. - multivitamin (MULTIPLE VITAMIN) ORAL [...] by JUAN LUIS HOLLOWAY on 01/10/24 Normal [facility] CREATININE BLDon 11-06-2023 Creatinine [Mass/Vol] 0.63 mg/dL Normal 0.58-0.96 [facility] Comment on above: Order Comment: Speci caitlyn Type: BLOOD SPECIMEN Ordering Facility: External Submitter Address: , , Performed By: #### C RET1 #### [facility] [id number] [address] [place] [address] [place] Creatinine and Glomerular filtration rate.predicted panel (S/P/Bld) 100 mL/min/1.73m??? Normal >=60 [facility] Comment on above: Order Comment: [...] GFR. Performed By: #### C RET1 #### [id number] [address] [place] [address] [place] CT NECK SOFT TISSUE W IVCONo n 11-06-2023 CT NECK SOFT TISSUE W IVCON * * *Final Report* * * DATE OF EXAM: Nov 06 2023 3:31PM [facility] 0013 - CT NECK SOFT TISSUE [...] amalgam. Parotid and submandibular spaces are normal. Assistant Hall Director spaces appear normal. Infrahyoid Neck: Hypopharynx, larynx, [...] described in the impression --END OF FINDING-- Party Coordinator: ALEN Transcribe Date/Time: Nov 06 2023 7:38P Dictated by : BHAVIK RAMOS MD This examination was interpreted and the report reviewed and electronically signed by: BHAVIK RAMOS MD on Nov 06 2023 7:42PM EST [id number] [id number] Invalid Interpretation Code [facility] CT Neck W contrast IVOrdered By: Ccf Provider on 11-06-2023 Interpretation and review of laboratory results Abnormal [facility] Radiology Result ACTIONABLE Abnormal [facility] Comment on above: This report contains [...] contact your provider for the next steps. [facility] CT Neck W contrast Christal 10-15 IMPRESSION: 1. 2 hypodense lesions noted within the thyroid gland. Recommend ultrasound to more completely evaluate. 2. No other focal neck lesion identified. Acuity: Actionable Findings: Endocrine (thyroid) Routing Code: EMI_1 Recommendation: US THYROID/PARATHYROID TimeFrame: Additional evaluation as described in the impression --END OF FINDING-- Party Coordinator: ALEN Transcribe Date/Time: Nov 06 2023 7:38P Dictated by : BHAVIK RAMOS MD This examination was interpreted and the report reviewed and electronically signed by: BHAVIK RAMOS MD on Nov 06 2023 7:42PM [facility] DIVISION OF RADIOLOGY * * *Final Report* * * DATE OF EXAM: Nov 06 2023 3:31PM [facility] 0013 - CT NECK SOFT TISSUE [...] amalgam. Parotid and submandibular spaces are normal. Assistant Hall Director spaces appear normal. Infrahyoid Neck: Hypopharynx, larynx, [...] Other: Not applicable. DIVISION OF RADIOLOGY Provider, [facility] - 11/06/2023 * * *Final Report* * * DATE OF EXAM: Nov 06 2023 3:31PM [facility] 0013 - CT NECK SOFT TISSUE [...] amalgam. Parotid and submandibular spaces are normal. Assistant Hall Director spaces appear normal. Infrahyoid Neck: Hypopharynx, larynx, [...] described in the impression --END OF FINDING-- Party Coordinator: ALEN Transcribe Date/Time: Nov 06 2023 7:38P Dictated by : BHAVIK RAMOS MD This examination was interpreted and the report reviewed and electronically signed by: BHAVIK RAMOS MD on Nov 06 2023 7:42PM EST [facility] Radiology Study observation (narrative) [facility] Culture, urineOrdered By: Andreea Eid on 10-31-2023 Bacteria identified Cx Nom (U) Culture exhibits no growth. [facility] - Chemistry and C hemistry - challengeon 10-31-2023 Bilirubin Ql (U) Negative [facility] Glucose Ql (U) Negative [facility] Ketones Ql (U) Small (15+) [facility] pH (U) 9 [pH] [facility] Specific gravity (U) [Rel density] 1.005 [facility] Urobilinogen (U) [Mass/Vol] Negative [facility] - Hematology and Cell countson 10-31-2023 Hemoglobin Ql (U) Negative [facility] - Specimen inform ationon 10-31-2023 Clarity (U) Clear [facility] Color (U) Colorless [facility] - Urinalysison Nitrite Ql (U) Negative [facility] Protein Ql (U) Negative [facility] No Panel Informationon 10-30 Urine Leukocytes Positive [facility] Urine Non-Hemolyzed Blood [facility] No Panel InformationOrdered By: Rg Lockwood on 10-02-2023 Free Triiodothyronine (T3) pg/dL 2.7 pg/mL 2.18-3.98 [facility] Parathyroid Hormone (Intact) 101.5 pg/mL 18.4-80.1 [facility] Vitamin D 25-Hydroxy 54.9 ng/mL [facility] Comment on above: Vitamin D 25(OH) Sta tus Range Deficiency <20 ng/mL (50nmol/L) Insufficiency 20 - 30 ng/mL (50 - 75 nmol/L) Sufficiency 30 - 100 ng/mL (75 - 250 nmol/L) Toxicity >100 ng/mL (>250 nmol/L) Serum or plasma calcium liu urement (mass/volume)Ordered By: Rg Lockwood on 10-02-2023 Calcium [Mass/Vol] 10.0 mg/dL 8.5-10.1 [facility] Serum or plasma thyroid stim ulating hormone (TSH) measurement (units/volume)Ordered By: Rg Lockwood on 10-02-2023 TSH Qn 0.69 uIU/mL 0.358-3.74 [facility] Thin prep Papanicolaou smear with manual screeningOrdered By: Rg Lockwood on 10-02-2023 Thin prep Papanicolaou smear with manual screening 1.04 ng/dL 0.76-1.46 [facility] 24 hour urine calcium measur ement (mass/time)Ordered By: Miah Montemayor on 09-21-2023 Calcium (24H U) [Mass/Time] 497.2 mg/24 HR 42.0-353.0 [facility] 24 hour urine specimen volum e measurementOrdered By: Miah Montemayor on 09-21-2023 Specimen volume (24H U) 4.25 L [facility] - Chemistry and C hemistry - challengeOrdered By: Miah Montemayor on 09-21-2023 pH (U) 2 [pH] [facility] - Specimen inform ationOrdered By: Miah Montemayor on 09-21-2023 Collection time (Felisa) [Date/time] 24.0 HR 24.0-24.0 [facility] Urine calcium measurement (m ass/volume)Ordered By: Miah Montemayor on 09-21-2023 Calcium (U) [Mass/Vol] 11.7 mg/dL Not Estab. [facility] No Panel InformationOrdered By: Miah Montemayor on 09-14-2023 Parathyroid Hormone (Intact) 92.0 pg/mL 18.4-80.1 [facility] Basophil percentageOrdered B y: Miah Montemayor on 08-22-2023 Chloride [Moles/Vol] 102 mmol/L 98-107 [facility] Glucose [Mass/Vol] 108 mg/dL 74-106 [facility] Comment on above: Fasting Glucose resu lt from 100 to 125 mg/dL suggests IMPAIRED HOMEOSTASIS per A.D.A. criteria. Potassium [Moles/Vol] 3.9 mmol/L 3.5-5.1 [facility] Sodium [Moles/Vol] 133 mmol/L 136-145 [facility] - Chemistry and C hemistry - challengeOrdered By: Miah Montemayor on 08-22-2023 CO2 [Moles/Vol] 29.0 mmol/L 21.0-32.0 [facility] Urea nitrogen/Creatinine [Mass ratio] 34.9 mg/mg 10-20 [facility] No Panel InformationOrdered By: Miah Montemayor on 08-22-2023 Estimated GFR (MDRD) Amer 111 mL/min >60 [facility] Comment on above: GFR Calc Estimated GFR (MDRD) Non-Af Amer 92 mL/min >60 [facility] Comment on above: Non- GFR Calc Vitamin D 25-Hydroxy 54.6 ng/mL [facility] Comment on above: Vitamin D 25(OH) Sta tus Range Deficiency <20 ng/mL (50nmol/L) Insufficiency 20 - 30 ng/mL (50 - 75 nmol/L) Sufficiency 30 - 100 ng/mL (75 - 250 nmol/L) Toxicity >100 ng/mL (>250 nmol/L) Serum or plasma calcium liu urement (mass/volume)Ordered By: Miah Montemayor on 08-22-2023 Calcium [Mass/Vol] 10.0 mg/dL 8.5-10.1 [facility] Serum or plasma creatinine m easurement (mass/volume)Ordered By: Miah Montemayor on 08-22-2023 Creatinine [Mass/Vol] 0.69 mg/dL 0.55-1.02 [facility] Comment on above: The validity of the calculated GFR & GFRAA in patients over 70 years has not been determined. Clinical correlation is essential. Serum or plasma urea nitroge n measurement (mass/volume)Ordered By: Miah Montemayor on 08-22-2023 Urea nitrogen [Mass/Vol] 24 mg/dL 7-18 [facility] Thin prep Papanicolaou smear with manual screeningOrdered By: Miah Montemayor on 08-22-2023 Thin prep Papanicolaou smear with manual screening 2 5-15 [facility] Absolute lymphocyte countOrd ered By: Miah Montemayor on 06-25-2023 Lymphocytes Auto (Unsp spec) [#/Vol] 1.76 10*3/uL 0.83-4.51 [facility] Basophil percentageOrdered B y: Miah Montemayor on 06-25-2023 Basophils/100 WBC (Bld) 0.4 % 0-1 [facility] Bilirubin [Mass/Vol] 0.40 mg/dL 0.20-1.00 [facility] Comment on above: For patients on eltr ombopag therapy, use of Dimension [place] TBIL is not recommended. Chloride [Moles/Vol] 105 mmol/L 98-107 [facility] Cholesterol [Mass/Vol] 187 mg/dL <200 [facility] Comment on above: <200 mg/dL Desirable 200-240 mg/dL Borderline >240 mg/dL High Risk Eosinophils/100 WBC (Bld) 2.1 % 0-5 [facility] Glucose [Mass/Vol] 114 mg/dL 74-106 [facility] Comment on above: Fasting Glucose resu lt from 100 to 125 mg/dL suggests IMPAIRED HOMEOSTASIS per A.D.A. criteria. Neutrophils (Bld) [#/Vol] 4.3 10*3/uL 2.0-7.7 [facility] Neutrophils/100 WBC (Bld) 63.5 % 47-70 [facility] Potassium [Moles/Vol] 3.9 mmol/L 3.5-5.1 [facility] Protein [Mass/Vol] 7.6 g/dL 6.4-8.2 [facility] Sodium [Moles/Vol] 138 mmol/L 136-145 [facility] Triglyceride [Mass/Vol] 77 mg/dL <199 [facility] Comment on above: The drugs N-Acetylcy steine and Metamizole may falsely depress this assay.Serum Triglycerides Reference Interval Normal <150 mg/dL Borderline high 150 - 199 mg/dL High 200 - 499 mg/dL Very High > or = 500 mg/dL WBC (Bld) [#/Vol] 6.8 10*3/uL 4.4-11.0 [facility] Blood erythrocytes count (nu mber/volume)Ordered By: Miah Montemayor on 06-25-2023 RBC (Bld) [#/Vol] 4.89 10*6/uL 4.2-5.4 [facility] Blood hemoglobin measurement (mass/volume)Ordered By: Miah Montemayor on 06-25-2023 Hemoglobin (Bld) [Mass/Vol] 14.3 g/dL 12.0-15.0 [facility] Blood lymphocytes/100 leukoc ytesOrdered By: Miah Montemayor on 06-25-2023 Lymphocytes/100 WBC (Bld) 26.0 % 19-41 [facility] Blood monocytes/100 leukocyt esOrdered By: Miah Montemayor on 06-25-2023 Monocytes/100 WBC (Bld) 7.7 % 0-10 [facility] Blood platelet mean volumeOr dered By: Miah Montemayor on 06-25-2023 Platelet mean volume (Bld) [Entitic vol] 9.5 fL 6.2-12.0 [facility] Determination of erythrocyte mean corpuscular volume (MCV)Ordered By: Miah Montemayor on 06-25-2023 MCV (RBC) [Entitic vol] 89.8 fL 81-99 [facility] Hematocrit Auto (Bld) [Volum e fraction]Ordered By: chinscrantonoralia Montemayor on 06-25-2023 Hematocrit (Bld) [Volume fraction] 43.9 % 37-47 [facility] - Chemistry and C hemistry - challengeOrdered By: [facility] on 06-25-2023 ALP [Catalytic activity/Vol] 70 U/L 45-117 [facility] ALT [Catalytic activity/Vol] 28 U/L 13-56 [facility] CO2 [Moles/Vol] 29.0 mmol/L 21.0-32.0 [facility] Globulin (S) [Mass/Vol] 3.8 g/dL 2.2-4.2 [facility] Urea nitrogen/Creatinine [Mass ratio] 22.1 mg/mg 10-20 [facility] - Hematology and Cell countsOrdered By: chinscrantonoralia Fregosofranca on 06-25-2023 Erythrocyte distribution width (RBC) [Entitic vol] 41.2 fL 35.1-43.9 [facility] Erythrocyte distribution width (RBC) [Ratio] 12.5 % 11.6-14.6 [facility] Immature granulocytes/100 WBC (Bld) 0.300 % 0.0-0.9 [facility] Comment on above: IG% - Immature Granu locytes (promyelocytes, myelocytes and metamyelocytes) > 1% indicates that a LEFT SHIFT is Present. MCH (RBC) [Entitic mass] 29.2 pg 27.0-32.0 [facility] Nucleated RBC/100 WBC (Bld) [Ratio] 0 % 0-5 [facility] - Hematology and Cell countson 06-25-2023 HbA1c (Bld) [Mass fraction] 5.7 % 4.2-6.3 [facility] MCHC Auto (RBC) [Mass/Vol]Or dered By: Miah Montemayor on 06-25-2023 MCHC (RBC) [Mass/Vol] 32.6 g/dL 32-36 [facility] No Panel InformationOrdered By: Miah Montemayor on 06-25-2023 Estimated GFR (MDRD) Amer 92 mL/min >60 [facility] Comment on above: GFR Calc Estimated GFR (MDRD) Non-Af Amer 76 mL/min >60 [facility] Comment on above: Non- GFR Calc Platelets bldOrdered By: Mario Montemayor on 06-25-2023 Platelets (Bld) [#/Vol] 264 10*3/uL 150-450 [facility] Serum or plasma albumin liu urement (mass/volume)Ordered By: Miah Montemayor on 06-25-2023 Albumin [Mass/Vol] 3.8 g/dL 3.2-5.0 [facility] Serum or plasma albumin/glob ulin mass ratioOrdered By: Miah Montemayor on 06-25-2023 Albumin/Globulin [Mass ratio] 1.0 {ratio} 0.9-2.4 [facility] Serum or plasma calcium liu urement (mass/volume)Ordered By: Miah Montemayor on 06-25-2023 Calcium [Mass/Vol] 10.2 mg/dL 8.5-10.1 [facility] Serum or plasma cholesterol in HDL measurement (mass/volume)Ordered By: Miah Montemayor on 06-25-2023 Cholesterol in HDL [Mass/Vol] 72 mg/dL >40 [facility] Comment on above: The drugs N-Acetylcy steine and Metamizole may falsely depress this assay. Reference Range HDL <40 mg/dL Low HDL Cholesterol HDL >or= 60 mg/dL High HDL Cholesterol Serum or plasma cholesterol in VLDL measurement (mass/volume)Ordered By: Miah Montemayor on 06-25-2023 Cholesterol in VLDL [Mass/Vol] 15 mg/dL 5-40 [facility] Serum or plasma creatinine m easurement (mass/volume)Ordered By: Miah Montemayor on 12-11-2023 Creatinine [Mass/Vol] 0.81 mg/dL 0.55-1.02 [facility] Comment on above: The validity of the calculated GFR & GFRAA in patients over 70 years has not been determined. Clinical correlation is essential. Serum or plasma low density lipoprotein (LDL) cholesterol measurement (mass/volume)Ordered By: Miah Montemayor on 06-25-2023 Cholesterol in LDL [Mass/Vol] 100 mg/dL 0-130 [facility] Serum or plasma urea nitroge n measurement (mass/volume)Ordered By: Miah Montemayor on 06-25-2023 Urea nitrogen [Mass/Vol] 18 mg/dL 7-18 [facility] Thin prep Papanicolaou smear with manual screeningOrdered By: chiqui Montemayor on 06-25-2023 Thin prep Papanicolaou smear with manual screening 19 U/L 15-37 [facility] Thin prep Papanicolaou smear with manual screening 4 5-15 [facility] Absolute lymphocyte countOrd ered By: Miah Montemayor on 01-19-2023 Lymphocytes Auto (Unsp spec) [#/Vol] 1.18 10*3/uL 0.83-4.51 [facility] Basophil percentageOrdered B y: Miah Montemayor on 01-19-2023 Basophils/100 WBC (Bld) 0.4 % 0-1 [facility] Bilirubin [Mass/Vol] 0.40 mg/dL 0.20-1.00 [facility] Comment on above: For patients on eltr ombopag therapy, use of Dimension [place] TBIL is not recommended. Chloride [Moles/Vol] 105 mmol/L 98-107 [facility] Eosinophils/100 WBC (Bld) 0.6 % 0-5 [facility] Glucose [Mass/Vol] 111 mg/dL 74-106 [facility] Comment on above: Fasting Glucose resu lt from 100 to 125 mg/dL suggests IMPAIRED HOMEOSTASIS per A.D.A. criteria. Neutrophils (Bld) [#/Vol] 5.3 10*3/uL 2.0-7.7 [facility] Neutrophils/100 WBC (Bld) 75.2 % 47-70 [facility] Potassium [Moles/Vol] 4.4 mmol/L 3.5-5.1 [facility] Protein [Mass/Vol] 7.7 g/dL 6.4-8.2 [facility] Sodium [Moles/Vol] 136 mmol/L 136-145 [facility] WBC (Bld) [#/Vol] 7.1 10*3/uL 4.4-11.0 [facility] Blood erythrocytes count (nu mber/volume)Ordered By: Miah Montemayor on 01-19-2023 RBC (Bld) [#/Vol] 5.03 10*6/uL 4.2-5.4 [facility] Blood hemoglobin measurement (mass/volume)Ordered By: Miah Montemayor on 01-19-2023 Hemoglobin (Bld) [Mass/Vol] 14.9 g/dL 12.0-15.0 [facility] Blood lymphocytes/100 leukoc ytesOrdered By: Miah Montemayor on 01-19-2023 Lymphocytes/100 WBC (Bld) 16.7 % 19-41 [facility] Blood monocytes/100 leukocyt esOrdered By: Miah Montemayor on 01-19-2023 Monocytes/100 WBC (Bld) 6.7 % 0-10 [facility] Blood platelet mean volumeOr dered By: Miah Montemayor on 01-19-2023 Platelet mean volume (Bld) [Entitic vol] 10.3 fL 6.2-12.0 [facility] Determination of erythrocyte mean corpuscular volume (MCV)Ordered By: Miah Montemayor on 01-19-2023 MCV (RBC) [Entitic vol] 90.5 fL 81-99 [facility] Hematocrit Auto (Bld) [Volum e fraction]Ordered By: Miah Montemayor on 01-19-2023 Hematocrit (Bld) [Volume fraction] 45.5 % 37-47 [facility] Laboratory - Chemistry and C hemistry - challengeOrdered By: Miah Montemayor on 01-19-2023 ALP [Catalytic activity/Vol] 67 U/L 45-117 [facility] ALT [Catalytic activity/Vol] 28 U/L 13-56 [facility] CO2 [Moles/Vol] 27.0 mmol/L 21.0-32.0 [facility] Free T4 [Mass/Vol] 1.06 ng/dL 0.76-1.46 [facility] Globulin (S) [Mass/Vol] 3.7 g/dL 2.2-4.2 [facility] Urea nitrogen/Creatinine [Mass ratio] 26.7 mg/mg 10-20 [facility] Laboratory - Hematology and Cell countsOrdered By: Miah Montemayor on 01-19-2023 Erythrocyte distribution width (RBC) [Entitic vol] 41.2 fL 35.1-43.9 [facility] Erythrocyte distribution width (RBC) [Ratio] 12.5 % 11.6-14.6 [facility] Immature granulocytes/100 WBC (Bld) 0.400 % 0.0-0.9 [facility] Comment on above: IG% - Immature Granu locytes (promyelocytes, myelocytes and metamyelocytes) > 1% indicates that a LEFT SHIFT is Present. MCH (RBC) [Entitic mass] 29.6 pg 27.0-32.0 [facility] Nucleated RBC/100 WBC (Bld) [Ratio] 0 % 0-5 [facility] Laboratory - Hematology and Cell countson 01-19-2023 HbA1c (Bld) [Mass fraction] 5.7 % 4.2-6.3 [facility] MCHC Auto (RBC) [Mass/Vol]Or dered By: Miah Montemayor on 01-19-2023 MCHC (RBC) [Mass/Vol] 32.7 g/dL 32-36 [facility] No Panel InformationOrdered By: Miah Montemayor on 01-19-2023 Estimated GFR (MDRD) Amer 101 mL/min >60 [facility] Comment on above: GFR Calc Estimated GFR (MDRD) Non-Af Amer 83 mL/min >60 [facility] Comment on above: Non- GFR Calc Thyroid Stimulating Hormone (TSH) 0.50 uIU/mL 0.358-3.74 [facility] Platelets bldOrdered By: Mario Montemayor on 01-19-2023 Platelets (Bld) [#/Vol] 268 10*3/uL 150-450 [facility] Serum or plasma albumin liu urement (mass/volume)Ordered By: Miah Montemayor on 01-19-2023 Albumin [Mass/Vol] 4.0 g/dL 3.2-5.0 [facility] Serum or plasma albumin/glob ulin mass ratioOrdered By: Miah Montemayor on 01-19-2023 Albumin/Globulin [Mass ratio] 1.1 {ratio} 0.9-2.4 [facility] Serum or plasma calcium liu urement (mass/volume)Ordered By: Miah Montemayor on 01-19-2023 Calcium [Mass/Vol] 9.8 mg/dL 8.5-10.1 [facility] Serum or plasma creatinine m easurement (mass/volume)Ordered By: Miah Montemayor on 01-19-2023 Creatinine [Mass/Vol] 0.75 mg/dL 0.55-1.02 [facility] Comment on above: The validity of the calculated GFR & GFRAA in patients over 70 years has not been determined. Clinical correlation is essential. Serum or plasma urea nitroge n measurement (mass/volume)Ordered By: Miah Montemayor on 01-19-2023 Urea nitrogen [Mass/Vol] 20 mg/dL 7-18 [facility] Thin prep Papanicolaou smear with manual screeningOrdered By: Miah Montemayor on 01-19-2023 Thin prep Papanicolaou smear with manual screening 17 U/L 15-37 [facility] Thin prep Papanicolaou smear with manual screening 4 5-15 [facility] Absolute lymphocyte countOrd ered By: Dr. Montemayor on 08-07-2022 Lymphocytes Auto (Unsp spec) [#/Vol] 1.27 10*3/uL 0.83-4.51 [facility] Basophil percentageOrdered B y: Dr. Montemayor on 08-07-2022 Basophils/100 WBC (Bld) 0.4 % 0-1 [facility] Bilirubin [Mass/Vol] 0.40 mg/dL 0.20-1.00 [facility] Comment on above: For patients on eltr ombopag therapy, use of Dimension [place] TBIL is not recommended. Chloride [Moles/Vol] 106 mmol/L 98-107 [facility] Cholesterol [Mass/Vol] 196 mg/dL <200 [facility] Comment on above: <200 mg/dL Desirable 200-240 mg/dL Borderline >240 mg/dL High Risk Eosinophils/100 WBC (Bld) 1.5 % 0-5 [facility] Glucose [Mass/Vol] 112 mg/dL 74-106 [facility] Comment on above: Fasting Glucose resu lt from 100 to 125 mg/dL suggests IMPAIRED HOMEOSTASIS per A.D.A. criteria. Neutrophils (Bld) [#/Vol] 3.0 10*3/uL 2.0-7.7 [facility] Neutrophils/100 WBC (Bld) 63.1 % 47-70 [facility] Potassium [Moles/Vol] 4.0 mmol/L 3.5-5.1 [facility] Protein [Mass/Vol] 7.7 g/dL 6.4-8.2 [facility] Sodium [Moles/Vol] 139 mmol/L 136-145 [facility] Triglyceride [Mass/Vol] 155 mg/dL <199 [facility] Comment on above: The drugs N-Acetylcy steine and Metamizole may falsely depress this assay.Serum Triglycerides Reference Interval Normal <150 mg/dL Borderline high 150 - 199 mg/dL High 200 - 499 mg/dL Very High > or = 500 mg/dL WBC (Bld) [#/Vol] 4.8 10*3/uL 4.4-11.0 [facility] Blood erythrocytes count (nu mber/volume)Ordered By: Dr. Montemayor on 08-07-2022 RBC (Bld) [#/Vol] 5.04 10*6/uL 4.2-5.4 [facility] Blood hemoglobin measurement (mass/volume)Ordered By: Dr. Montemayor on 08-07-2022 Hemoglobin (Bld) [Mass/Vol] 14.7 g/dL 12.0-15.0 [facility] Blood lymphocytes/100 leukoc ytesOrdered By: Dr. Monteamyor on 08-07-2022 Lymphocytes/100 WBC (Bld) 26.3 % 19-41 [facility] Blood monocytes/100 leukocyt esOrdered By: Dr. Montemayor on 08-07-2022 Monocytes/100 WBC (Bld) 8.3 % 0-10 [facility] Blood platelet mean volumeOr dered By: Dr. Montemayor on 08-07-2022 Platelet mean volume (Bld) [Entitic vol] 10.2 fL 6.2-12.0 [facility] Determination of erythrocyte mean corpuscular volume (MCV)Ordered By: Dr. Montemayor on 08-07-2022 MCV (RBC) [Entitic vol] 88.9 fL 81-99 [facility] Hematocrit Auto (Bld) [Volum e fraction]Ordered By: Dr. Montemayor on 08-07-2022 Hematocrit (Bld) [Volume fraction] 44.8 % 37-47 [facility] Laboratory - Chemistry and C hemistry - challengeOrdered By: Dr. Montemayor on 08-07-2022 ALP [Catalytic activity/Vol] 73 U/L 45-117 [facility] ALT [Catalytic activity/Vol] 40 U/L 13-56 [facility] CO2 [Moles/Vol] 27.0 mmol/L 21.0-32.0 [facility] Cobalamin (Vitamin B12) [Mass/Vol] 1087 pg/mL 211-911 [facility] Globulin (S) [Mass/Vol] 3.9 g/dL 2.2-4.2 [facility] Urea nitrogen/Creatinine [Mass ratio] 16.7 mg/mg 10-20 [facility] Laboratory - Hematology and Cell countsOrdered By: Dr. Montemayor on 08-07-2022 Erythrocyte distribution width (RBC) [Entitic vol] 40.6 fL 35.1-43.9 [facility] Erythrocyte distribution width (RBC) [Ratio] 12.4 % 11.6-14.6 [facility] Immature granulocytes/100 WBC (Bld) 0.400 % 0.0-0.9 [facility] Comment on above: IG% - Immature Granu locytes (promyelocytes, myelocytes and metamyelocytes) > 1% indicates that a LEFT SHIFT is Present. MCH (RBC) [Entitic mass] 29.2 pg 27.0-32.0 [facility] Nucleated RBC/100 WBC (Bld) [Ratio] 0 % 0-5 [facility] Auto (RBC) [Mass/Vol]Or dered By: Dr. Montemayor on 08-07-2022 MCHC (RBC) [Mass/Vol] 32.8 g/dL 32-36 [facility] No Panel InformationOrdered By: Dr. Montemayor on 08-07-2022 Estimated GFR (MDRD) Amer 89 mL/min >60 [facility] Comment on above: GFR Calc Estimated GFR (MDRD) Non-Af Amer 74 mL/min >60 [facility] Comment on above: Non- GFR Calc Vitamin D 25-Hydroxy 43.1 ng/mL [facility] Comment on above: Vitamin D 25(OH) Sta tus Range Deficiency <20 ng/mL (50nmol/L) Insufficiency 20 - 30 ng/mL (50 - 75 nmol/L) Sufficiency 30 - 100 ng/mL (75 - 250 nmol/L) Toxicity >100 ng/mL (>250 nmol/L) Platelets bldOrdered By: Dr. Montemayor on 08-07-2022 Platelets (Bld) [#/Vol] 249 10*3/uL 150-450 [facility] Serum or plasma albumin liu urement (mass/volume)Ordered By: Dr. Montemayor on 08-07-2022 Albumin [Mass/Vol] 3.8 g/dL 3.2-5.0 [facility] Serum or plasma albumin/glob ulin mass ratioOrdered By: Dr. Montemayor on 08-07-2022 Albumin/Globulin [Mass ratio] 1.0 {ratio} 0.9-2.4 [facility] Serum or plasma calcium liu urement (mass/volume)Ordered By: Dr. Montemayor on 08-07-2022 Calcium [Mass/Vol] 9.7 mg/dL 8.5-10.1 [facility] Serum or plasma cholesterol in HDL measurement (mass/volume)Ordered By: Dr. Montemayor on 08-07-2022 Cholesterol in HDL [Mass/Vol] 72 mg/dL >40 [facility] Comment on above: The drugs N-Acetylcy steine and Metamizole may falsely depress this assay. Reference Range HDL <40 mg/dL Low HDL Cholesterol HDL >or= 60 mg/dL High HDL Cholesterol Serum or plasma cholesterol in VLDL measurement (mass/volume)Ordered By: Dr. Montemayor on 08-07-2022 Cholesterol in VLDL [Mass/Vol] 31 mg/dL 5-40 [facility] Serum or plasma creatinine m easurement (mass/volume)Ordered By: Dr. Montemayor on 08-07-2022 Creatinine [Mass/Vol] 0.84 mg/dL 0.55-1.02 [facility] Comment on above: The validity of the calculated GFR & GFRAA in patients over 70 years has not been determined. Clinical correlation is essential. Serum or plasma low density lipoprotein (LDL) cholesterol measurement (mass/volume)Ordered By: Dr. Montemayor on 08-07-2022 Cholesterol in LDL [Mass/Vol] 93 mg/dL 0-130 [facility] Serum or plasma urea nitroge n measurement (mass/volume)Ordered By: Dr. Montemayor on 08-07-2022 Urea nitrogen [Mass/Vol] 14 mg/dL 7-18 [facility] Thin prep Papanicolaou smear with manual screeningOrdered By: Dr. Montemayor on 08-07-2022 Thin prep Papanicolaou smear with manual screening 24 U/L 15-37 [facility] Thin prep Papanicolaou smear with manual screening 6 5-15 [facility] Whole blood hemoglobin A1c/t otal hemoglobin ratio (mass fraction)Ordered By: Dr. Montemayor on 08-07-2022 HbA1c (Bld) [Mass fraction] 5.7 % 3.8-5.6 [facility] Comment on above: Normal < 5.7 % Predi abetic 5.7 - 6.4 % Diabetic >or= 6.5 % Please note range changes. CT UROGRAM WO/W IVCONon 07-16 [facility] US KIDNEY/BLADDERon 07-12-20 US KIDNEY/BLADDER * * [...] for a distal obstruction, consider CT urogram. Party Coordinator: ALEN Transcribe Date/Time: Jul 14 2022 11:07A Dictated by : DACIA WOOD MD This examination was interpreted and the report reviewed and electronically signed by: DACIA WOOD MD on Jul 14 2022 11:09AM EST [id number] Normal [facility] ANES Franchesca 09-05-2019 ANES POST HNO ID: [id number] Author: Oscar Dumont Service: Anesthesiology Author Type: [...] Remarks: SIGNATURE: Oscar Dumont MD PATIENT NAME: Janee Tompkins DATE: September 05, 2019 TIME: 11:55 AM PAGER/CONTACT #: [id number] [facility] ANES PREOPon 09-05-2019 ANES PREOP HNO ID: [id number] Author: Robyn Hope Service: Anesthesiology Author Type: Anesthesiologist Type: Anesthesia PreOp Filed: 09/05/2019 8:41 AM Note Text: ANESTHESIOLOGY DAY OF SURGERY NOTE SERVICE DATE: 09/05/2019 SERVICE TIME: 8:33 AM : 1960 Procedure(s) (LRB): EXCISION GANGLION FINGER (Right) Surgeon(s): Juan Jose Wright Estimated body mass index is 36.64 kg/m? as calculated from the following: Height as of 09/01/19: 167.6 cm (5' 6"). Weight as of 09/01/19: 103 kg (227 [...] low cervical - COLONOSCOP W/ OR W/O [facility] SPEC 08/22/07 - COLONOSCOP W/ OR W/O [facility] SPEC N/A 09/04/2016 [facility] 03/13/07 - EGD W/O OR W/BRUSH/WASH 11/25/2009 [facility] EGD H-pylori negative - EGD W/O [...] OTC NUTRITIONAL SUPPLEMENT 1 tablet once daily. "Celebrate" ferrous fumarate 60 mg with vitamin C 60 mg, formulated for gastric bypass patients - Cyanocobalamin (VITAMIN B-12) 1,000 mcg subl Dissolve under the tongue. 4x/week - fluticasone (FLONASE) 50 mcg/actuation nasal spray 1 [place] once daily. - multivitamin (MULTIPLE VITAMIN) ORAL [...] Surgery/Procedure. SIGNATURE: Robyn Hope MD PATIENT NAME: Janee Tompkins DATE: September 05, 2019 TIME: 8:33 AM CSN: [id number] [facility] NURSING PROGon 09-05-2019 NURSING PROG HNO ID: [id number] Author: Rowena (Rn) [place] RN Service: Nursing Author Type: Registered Nurse Type: Nursing Progress Note Filed: 09/05/2019 2:46 PM Note Text: 1305 Reglan 10mg IV given slowly IVP. New bag of LR up and infusing. Pt c/o nausea-no active vomiting. Spouse @ bedside 1330 Pt resting quietly. No c/o nausea 1400 Pt resting quietly 1430 Pt discharge home in satisfactory conditoin [facility] NURSING PROG HNO ID: [id number] Author: Marycarmen PulidoRn) SHAWANDA Quiros Service: Nursing Author Type: Registered Nurse Type: Nursing Progress Note Filed: 09/05/2019 12:33 PM Note Text: Nursing Progress Note Patient Name: Janee Tompkins Patient Location: [place] [facility] [facility] pt ready for OR, call light in reach, called to bedside, will take bag of valuables. This note was completed by: Marycarmen Quiros RN [phone] to bedside, pt c/o feeling nauseated after sitting up on the cart. IV Zofran given at 1208 for nausea. 1223 D/C instructions given to pt and , slight nausea still. Will continue to monitor. [facility] OPERATIVE NOon 09-05-2019 OPERATIVE NO HNO ID: [id number] Author: Juan Jose Wright Service: Orthopaedic Surgery Author Type: Physician Type: Operative Report Filed: 09/09/2019 7:29 AM Note Text: OPERATIVE/PROCEDURE REPORT LOG ID: [id number] SURGERY/PROCEDURE DATE: 09/05/2019 INCISION/PROCEDURE START TIME: 10:03 AM INCISION CLOSE/PROCEDURE END TIME: 10:19 AM SURGEON(S)/PROCEDURALIST(S) AND COMMISSIONER CONSERVATION OF RESOURCES(S): Surgeon(s) and Role: * Juan Jose Wright - Primary Physician Superintendent [employer]: Todd Diaz ([place]) SURGERY/PROCEDURE(S): Excision of a digital mucous cyst, [...] SIGNATURE: Juan Jose Wright MD PATIENT NAME: Janee Tompkins DATE: September 09, 2019 TIME: 7:24 AM PAGER/CONTACT #: [facility] PT EDon 09-05-2019 PT ED HNO ID: [id number] Author: Marycarmen PulidoRnMichael Quiros RN Service: Nursing Author Type: Registered Nurse [...] Signed By: Marycarmen Quiros RN In Department: [facility] SURGERY [facility] PT ED HNO ID: [id number] Author: Marycarmen Quiros RN Service: Nursing Author Type: Registered Nurse [...] Signed By: Marycarmen Quiros RN In Department: [facility] SURGERY [facility] NURSING PROGon 09-01-2019 NURSING PROG HNO ID: [id number] Author: Bronson PulidoRnMichael Wilkins RN Service: ? Author Type: Registered Nurse Type: [...] Wilkins RN September 01, 2019 12:21 PM [facility] HOSPon 08-25-2019 HOSP Patient:Noa Tompkins MRN: Height:5' 6"(1.676 m) Weight:227 lb (102.967 kg) Outpatient Medications [...] 4.1 mmol/L 08/25/2019 5.1 3.7 Progress Notes ([facility]): Maria Eugenia Arceo Ma 08/25/2019 4:49 PM Signed Patient scheduled for right small finger, excision of digital ganglion cyst on 09/05/2019. Surgical request completed. Surgery confirmation letter and post op appointments mailed to patient. Lizbet Feng [facility] [place] [place] 08/26/2019 8:21 AM Signed Noted in [place]. Joan Zimmerman Ma 08/27/2019 9:12 AM Signed Surgery has been scheduled as requested. Progress Notes ([facility]): Maria Eugenia Arceo Ma 08/25/2019 12:23 PM Signed Patient presents with: [...] dominant. 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 Patient has a picture on her phone when it was inflamed. Referred by Dr. Rohan North. Juan Jose Wright MD 08/25/2019 12:23 PM Signed Juan Jose Wright MD Department of Orthopaedics Orthopaedics [address] [place] [id number] Dept: [phone] Dept August 25, 2019 CHIEF COMPLAINT: Established Patient of the Right Little Finger and Ganglion Cyst (Last seen 08/10/16 S/p Left knee arthroscopic) Ms. Janee Tompkins is a 59 year old female [...] problem to persist Despite surgical attempts. Ms. Janee Tompkins was advised as to contrast therapies and/or to take analgesics/anti-inflammatori es as needed and all contraindications were reviewed. OBJECTIVE: Ms. Janee Tompkins is a pleasant 59 year old [...] low cervical - COLONOSCOP W/ OR W/O [facility] SPEC 08/22/07 - COLONOSCOP W/ OR W/O [facility] SPEC N/A 09/04/2016 - EGD W/O [facility] SPECIMEN W/BX 03/13/07 - EGD W/O OR W/BRUSH/WASH 11/25/2009 [facility] EGD H-pylori negative - EGD W/O [...] OTC NUTRITIONAL SUPPLEMENT 1 tablet once daily. "Celebrate" ferrous fumarate 60 mg with vitamin C 60 mg, formulated for gastric bypass patients - CALCIUM CARBONATE/VITAMIN D3 (VITAMIN D-3 ORAL) Take 1,000 Int'l Units by mouth once daily. - Cyanocobalamin (VITAMIN B-12) 1,000 mcg subl Dissolve under the tongue. 4x/week - fluticasone (FLONASE) 50 mcg/actuation nasal spray 1 [place] once daily. - multivitamin (MULTIPLE VITAMIN) ORAL [...] anxiety) This note was partially generated using [employer] voice recognition system, and there may be some incorrect words, spellings, and punctuation that were not noted in checking the note before saving. Juan Jose Wright MD [facility] Vital Signs Date Time Vital Sign Value Performing Clinician Facility 01-29-2025 15:35-0400 Body height 167.[address] Miah Montemayor MD Work Phone: [facility] 01-29-2025 15:35-0400 Body mass index (BMI) [Ratio] 35.9 kg/m2 Dr. Miah Montemayor MD Work Phone: [facility] 01-29-2025 15:35-0400 Body temperature 97.4 [degF] Dr. Miah Montemayor MD Work Phone: [facility] 01-29-2025 15:35-0400 Body weight 101.[address] Miah Montemayor MD Work Phone: [facility] 01-29-2025 15:35-0400 Diastolic blood pressure 80 mm[Hg] Dr. Miah Montemayor MD Work Phone: [facility] 01-29-2025 15:35-0400 Heart rate 74 /min Dr. Miah Montemayor MD Work Phone: [facility] 01-29-2025 15:35-0400 Respiratory rate 16 /min Dr. Miah Montemayor MD Work Phone: [facility] 01-29-2025 15:35-0400 SaO2% (BldA) [Mass fraction] 96 % Dr. Miah Montemayor MD Work Phone: [facility] 01-29-2025 15:35-0400 Systolic blood pressure 112 mm[Hg] Dr. Miah Montemayor MD Work Phone: [facility] 10-30-2024 14:57-0400 Body height 167.[address] Miah Montemayor MD Work Phone: [facility] 10-30-2024 14:57-0400 Body mass index (BMI) [Ratio] 35.4 kg/m2 Dr. Miah Montemayor MD Work Phone: [facility] 10-30-2024 14:57-0400 Body temperature 96.2 [degF] Dr. Miah Montemayor MD Work Phone: [facility] 10-30-2024 14:57-0400 Body weight 99.[address] Miah Montemayor MD Work Phone: [facility] 10-30-2024 14:57-0400 Diastolic blood pressure 76 mm[Hg] Dr. Miah Montemayor MD Work Phone: [facility] 10-30-2024 14:57-0400 Heart rate 78 /min Dr. Miah Montemayor MD Work Phone: [facility] 10-30-2024 14:57-0400 SaO2% (BldA) [Mass fraction] 99 % Dr. Miah Montemayor MD Work Phone: [facility] 10-30-2024 14:57-0400 Systolic blood pressure 116 mm[Hg] Dr. Miah Montemayor MD Work Phone: [facility] 08-26-2024 07:36-0500 Body mass index (BMI) [Ratio] 36.6 kg/m2 Dr. Miah Montemayor MD Work Phone: [facility] 08-26-2024 07:36-0500 Body weight 102.[address] Miah Montemayor MD Work Phone: [facility] 07-30-2024 15:35-0500 Body mass index (BMI) [Ratio] 36.6 kg/m2 Dr. Miah Montemayor MD Work Phone: [facility] 07-30-2024 15:35-0500 Body temperature 97.4 [degF] Dr. Miah Montemayor MD Work Phone: [facility] 07-30-2024 15:35-0500 Body weight 102.[address] Miah Montemayor MD Work Phone: [facility] 07-30-2024 15:35-0500 Diastolic blood pressure 84 mm[Hg] Dr. Miah Montemayor MD Work Phone: [facility] 07-30-2024 15:35-0500 Heart rate 87 /min Dr. Miah Montemayor MD Work Phone: [facility] 07-30-2024 15:35-0500 Respiratory rate 18 /min Dr. Miah Montemayor MD Work Phone: [facility] 07-30-2024 15:35-0500 SaO2% (BldA) [Mass fraction] 98 % Dr. Miah Montemayor MD Work Phone: [facility] 07-30-2024 15:35-0500 Systolic blood pressure 116 mm[Hg] Dr. Miah Montemayor MD Work Phone: [facility] 10-31-2023 11:10-0400 Body height 167.[address] Miah Montemayor Work Phone: [facility] 10-31-2023 11:10-0400 Body mass index (BMI) [Ratio] 35.1 kg/m2 Dr. Miah Montemayor Work Phone: [facility] 10-31-2023 11:10-0400 Body temperature 97.5 [degF] Dr. Miah Montemayor Work Phone: [facility] 10-31-2023 11:10-0400 Body weight 98.[address] Miah Montemayor Work Phone: [facility] 10-31-2023 11:10-0400 Diastolic blood pressure 62 mm[Hg] Dr. Miah Montemayor Work Phone: [facility] 10-31-2023 11:10-0400 Heart rate 85 /min Dr. Miah Montemayor Work Phone: [facility] 10-31-2023 11:10-0400 Respiratory rate 16 /min Dr. Miah Montemayor Work Phone: [facility] 10-31-2023 11:10-0400 SaO2% (BldA) [Mass fraction] 97 % Dr. Miah Montemayor Work Phone: [facility] 10-31-2023 11:10-0400 Systolic blood pressure 124 mm[Hg] Dr. Miah Montemayor Work Phone: [facility] 10-24-2023 14:03-0400 Diastolic blood pressure 78 mm[Hg] Dr. Miah Montemayor Work Phone: [facility] 10-24-2023 14:03-0400 Heart rate 77 /min Dr. Miah Montemayor Work Phone: [facility] 10-24-2023 14:03-0400 Respiratory rate 17 /min Dr. Miah Montemayor Work Phone: [facility] 10-24-2023 14:03-0400 Systolic blood pressure 116 mm[Hg] Dr. Miah Montemayor Work Phone: [facility] 10-02-2023 13:40-0400 Body height 167.[address] Miah Montemayor Work Phone: [facility] 10-02-2023 13:40-0400 Body mass index (BMI) [Ratio] 35.4 kg/m2 Dr. Miah Montemayor Work Phone: [facility] 10-02-2023 13:40-0400 Body temperature 97.6 [degF] Dr. Miah Montemayor Work Phone: [facility] 10-02-2023 13:40-0400 Body weight 99.[address] Miah Montemayor Work Phone: [facility] 10-02-2023 13:40-0400 Diastolic blood pressure 89 mm[Hg] Dr. Miah Montemayor Work Phone: [facility] 10-02-2023 13:40-0400 Heart rate 88 /min Dr. Miah Montemayor Work Phone: [facility] 10-02-2023 13:40-0400 Respiratory rate 18 /min Dr. Miah Montemayor Work Phone: [facility] 10-02-2023 13:40-0400 SaO2% (BldA) [Mass fraction] 98 % Dr. Miah Montemayor Work Phone: [facility] 10-02-2023 13:40-0400 Systolic blood pressure 148 mm[Hg] Dr. Miah Montemayor Work Phone: [facility] 08-22-2023 11:05-0500 Body height 167.[address] Miah Montemayor Work Phone: [facility] 08-22-2023 11:05-0500 Body mass index (BMI) [Ratio] 34.8 kg/m2 Dr. Miah Montemayor Work Phone: [facility] 08-22-2023 11:05-0500 Body temperature 97.4 [degF] Dr. Miah Montemayor Work Phone: [facility] 08-22-2023 11:05-0500 Body weight 97.[address] Miah Montemayor Work Phone: [facility] 08-22-2023 11:05-0500 Diastolic blood pressure 80 mm[Hg] Dr. Miah Montemayor Work Phone: [facility] 08-22-2023 11:05-0500 Heart rate 78 /min Dr. Miah Montemayor Work Phone: [facility] 08-22-2023 11:05-0500 Respiratory rate 16 /min Dr. Miah Montemayor Work Phone: [facility] 08-22-2023 11:05-0500 SaO2% (BldA) [Mass fraction] 96 % Dr. Miah Montemayor Work Phone: [facility] 08-22-2023 11:05-0500 Systolic blood pressure 126 mm[Hg] Dr. Miah Montemayor Work Phone: [facility] 06-25-2023 15:14-0500 Body height 167.[address] Miah Montemayor Work Phone: [facility] 06-25-2023 15:14-0500 Body mass index (BMI) [Ratio] 34.3 kg/m2 Dr. Miah Montemayor Work Phone: [facility] 06-25-2023 15:14-0500 Body temperature 98.5 [degF] Dr. Miah Montemayor Work Phone: [facility] 06-25-2023 15:14-0500 Body weight 96.[address] Miah Montemayor Work Phone: [facility] 06-25-2023 15:14-0500 Diastolic blood pressure 76 mm[Hg] Dr. Miah Montemayor Work Phone: [facility] 06-25-2023 15:14-0500 Heart rate 78 /min Dr. Miah Montemayor Work Phone: [facility] 06-25-2023 15:14-0500 Respiratory rate 18 /min Dr. Miah Montemayor Work Phone: [facility] 06-25-2023 15:14-0500 SaO2% (BldA) [Mass fraction] 99 % Dr. Miah Montemayor Work Phone: [facility] 06-25-2023 15:14-0500 Systolic blood pressure 120 mm[Hg] Dr. Miah Montemayor Work Phone: [facility] 03-29-2023 15:54-0400 Body height 167.[address] Miah Montemayor Work Phone: [facility] 03-29-2023 15:54-0400 Body mass index (BMI) [Ratio] 35.5 kg/m2 Dr. Miah Montemayor Work Phone: [facility] 03-29-2023 15:54-0400 Body temperature 96.4 [degF] Dr. Miah Montemayor Work Phone: [facility] 03-29-2023 15:54-0400 Body weight 99.[address] Miah Montemayor Work Phone: [facility] 03-29-2023 15:54-0400 Diastolic blood pressure 84 mm[Hg] Dr. Miah Montemayor Work Phone: [facility] 03-29-2023 15:54-0400 Heart rate 72 /min Dr. Miah Montemayor Work Phone: [facility] 03-29-2023 15:54-0400 Respiratory rate 18 /min Dr. Miah Montemayor Work Phone: [facility] 03-29-2023 15:54-0400 SaO2% (BldA) [Mass fraction] 98 % Dr. Miah Montemayor Work Phone: [facility] 03-29-2023 15:54-0400 Systolic blood pressure 122 mm[Hg] Dr. Miah Montemayor Work Phone: [facility] 01-19-2023 07:57-0400 Body height 167.[address] Miah Montemayor Work Phone: [facility] 01-19-2023 07:57-0400 Body mass index (BMI) [Ratio] 36.7 kg/m2 Dr. Miah Montemayor Work Phone: [facility] 01-19-2023 07:57-0400 Body temperature 95.6 [degF] Dr. Miah Montemayor Work Phone: [facility] 01-19-2023 07:57-0400 Body weight 103.[address] Miah Montemayor Work Phone: [facility] 01-19-2023 07:57-0400 Diastolic blood pressure 76 mm[Hg] Dr. Miah Montemayor Work Phone: [facility] 01-19-2023 07:57-0400 Heart rate 85 /min Dr. Miah Montemayor Work Phone: [facility] 01-19-2023 07:57-0400 Respiratory rate 18 /min Dr. Miah Montemayor Work Phone: [facility] 01-19-2023 07:57-0400 SaO2% (BldA) [Mass fraction] 97 % Dr. Miah Montemayor Work Phone: [facility] 01-19-2023 07:57-0400 Systolic blood pressure 118 mm[Hg] Dr. Miah Montemayor Work Phone: [facility] 08-07-2022 08:13-0500 Body height 167.[address] Miah Montemayor Work Phone: [facility] 08-07-2022 08:13-0500 Body mass index (BMI) [Ratio] 37.4 kg/m2 Dr. Miah Montemayor Work Phone: [facility] 08-07-2022 08:13-0500 Body temperature 98.8 [degF] Dr. Miah Montemayor Work Phone: [facility] 08-07-2022 08:13-0500 Body weight 105.[address] Miah Montemayor Work Phone: [facility] 08-07-2022 08:13-0500 Diastolic blood pressure 82 mm[Hg] Dr. Miah Montemayor Work Phone: [facility] 08-07-2022 08:13-0500 Heart rate 91 /min Dr. Miah Montemayor Work Phone: [facility] 08-07-2022 08:13-0500 Respiratory rate 14 /min Dr. Miah Montemayor Work Phone: [facility] 08-07-2022 08:13-0500 SaO2% (BldA) [Mass fraction] 97 % Dr. Miah Montemayor Work Phone: [facility] 08-07-2022 08:13-0500 Systolic blood pressure 124 mm[Hg] Dr. Miah Montemayor Work Phone: [facility] 10-17-2021 08:10-0400 Body temperature 97.81 [degF] Adilene Podlogar AUTOMOTIVE WHOLESALE PARTS ADVISOR.STENO POOL SUPERVISOR Work Phone: [facility] 10-17-2021 08:10-0400 Body weight 105.42 kg Adilene Podlogar AUTOMOTIVE WHOLESALE [employer]S ADVISOR.STENO POOL SUPERVISOR Work Phone: [facility] 10-17-2021 08:10-0400 Diastolic blood pressure 82 mm[Hg] Adilene Podlogar AUTOMOTIVE WHOLESALE PARTS ADVISOR.STENO POOL SUPERVISOR Work Phone: [facility] 10-17-2021 08:10-0400 Heart rate 91 /min Adilene Podlogar AUTOMOTIVE WHOLESALE [employer]S ADVISOR.STENO POOL SUPERVISOR Work Phone: [facility] 10-17-2021 08:10-0400 Respiratory rate 18 /min Adilene Podlogar AUTOMOTIVE WHOLESALE [employer]S ADVISOR.STENO POOL SUPERVISOR Work Phone: [facility] 10-17-2021 08:10-0400 SaO2% (BldA) [Mass fraction] 98 % Adilene Podlogar AUTOMOTIVE WHOLESALE [employer]S ADVISOR.STENO POOL SUPERVISOR Work Phone: [facility] 10-17-2021 08:10-0400 Systolic blood pressure 136 mm[Hg] Adilene Podlogar 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 Miah Montemayor MD Work Phone: -Radiology [facility] Start: 01-29-2025 End: 01-29-[address] Miah Montemayor MD -Radiology [facility] Work Phone: Start: 01-29-2025 End: 01-29-[address] Miah Montemayor MD -[place] [facility] Work Phone: Start: 01-29-2025 End: 01-29-[address] Miah Montemayor MD Work Phone: -[place] [facility] Start: 01-29-2025 End: 01-29-2025 ambulatory [facility] Facility:[facility] Start: 11-19-2024 End: 11-19-[address] Miah Montemayor MD Work Phone: [facility] Work Phone: Start: 11-19-2024 End: 11-19-[address] William Hunter MD -Physical Therapy Work Phone: Start: 11-14-2024 ambulatory [facility] Fac[facility] ty:[facility] Start: 11-14-2024 Non-patient / Non-visit Dr. Chet Krueger DO -[facility] Start: 11-14-2024 End: 11-14-[address] Miah Montemayor MD -Pulmonary Services/Neurology Work Phone: Start: 11-14-2024 End: 11-14-2024 ambulatory [facility] Facility:[facility] Start: 11-13-2024 End: 11-13-[address] Miah Montemayor MD -Radiology, [facility] Work Phone: Start: 11-13-2024 End: 11-13-2024 ambulatory [facility] Facility:[facility] Start: 10-30-2024 End: 10-30-[address] Miah Montemayor MD -[facility] Work Phone: Start: 10-30-2024 End: 10-30-2024 [facility] Start: 10-02-2024 End: 10-02-[address] Rg Lockwood MD -[facility] Work Phone: Start: 10-02-2024 End: 10-02-2024 [facility] Start: 09-01-2024 End: 09-01-[address] Rg Lockwood MD -Ultrasound, [facility] Work Phone: Start: 09-01-2024 End: 09-01-2024 ambulatory Rg Lockwood Facility:[facility] Start: 08-26-2024 End: 08-26-[address] William Hunter MD -[facility] Work Phone: Start: 08-26-2024 End: 08-26-2024 [facility] Start: 08-09-2024 End: 08-09-[address] Miah Montemayor MD -Laboratory Work Phone: Start: 08-09-2024 End: 08-09-2024 ambulatory [facility] Facility:[facility] Start: 08-08-2024 End: 08-08-[address] Miah Montemayor MD -Laboratory Work Phone: Start: 08-08-2024 End: 08-08-2024 ambulatory [facility] Facility:[facility] Start: 07-30-2024 End: 07-30-[address] Miah Montemayor MD -[facility] Work Phone: Start: 07-30-2024 End: 07-30-2024 [facility]ulatory [facility] Start: 05-23-2024 End: 05-23-2024 ambulatory [facility] Facility:[facility] Start: 05-06-2024 End: 05-06-2024 ambulatory Miah Montemayor Facility:[facility] Start: 12-27-[address] Miah Montemayor MD Work Phone: [facility] Start: 11-15-2023 Telephone encounter Anselmo Holloway MD Work Phone: [facility] Comment on above: Results Start: 11-06-2023 End: 11-06-2023 ambulatory JUAN LUIS HOLLOWAY Facility:[facility] Start: 11-06-2023 End: 11-06-2023 Subsequent hospital visit by physician [facility] (I-Stat) Work Phone: Cat Scan Start: 10-31-2023 End: 10-31-[address] Miah Montemayor Work Phone: [facility] Work Phone: Start: 10-31-2023 End: 10-31-[address] Miah Montemayor Work Phone: [facility] Internal Medicine Work Phone: Start: 10-24-2023 End: 10-24-[address] Miah Montemayor Work Phone: [facility] Work Phone: Start: 10-24-2023 End: 10-24-[address] Miah Montemayor Work Phone: [facility]-Laboratory, Specimen Work Phone: Start: 10-24-2023 End: 10-24-[address] Miah Montemayor Work Phone: [facility] Work Phone: Start: 10-23-2023 End: 10-23-[address] Miah Montemayor Work Phone: [facility] Work Phone: Start: 10-23-2023 End: 10-23-[address] Miah Montemayor Work Phone: [facility]-Nuclear Medicine, [facility] Work Phone: Start: 10-02-2023 End: 10-02-[address] Miah Montemayor Work Phone: [facility] Work Phone: Start: 10-02-2023 End: 10-02-[address] Miah Montemayor Work Phone: [facility]-Laboratory, OP Pav[facility] Start: 10-02-2023 End: 10-02-[address] Miah Montemayor Work Phone: [facility] Work Phone: Start: 09-24-2023 End: 09-24-[address] Miah Montemayor Work Phone: [facility] Work Phone: Start: 09-24-2023 End: 09-24-[address] Miah Montemayor Work Phone: [facility]-Ultrasound, [facility] Work Phone: Start: 09-21-2023 End: 09-21-[address] Miah Montemayor Work Phone: [facility] Work Phone: Start: 09-21-2023 End: 09-21-[address] Miah Montemayor Work Phone: [facility]-Laboratory, Specimen Work Phone: Start: 09-14-2023 End: 09-14-[address] Miah Montemayor Work Phone: [facility] Work Phone: Start: 09-14-2023 End: 09-14-[address] Miah Montemayor Work Phone: [facility]-Laboratory, [facility] Start: 08-22-2023 End: 08-22-[address] Miah Montemayor Work Phone: [facility] Work Phone: Start: 08-22-2023 End: 08-22-[address] Miah Montemayor Work Phone: [facility] Internal Medicine Work Phone: Start: 07-31-2023 End: 07-31-[address] Miah Montemayor Work Phone: [facility] Work Phone: Start: 07-31-2023 End: 07-31-[address] Miah Montemayor Work Phone: [facility]-Outpatient Bone Densitometry Work Phone: Start: 06-25-2023 End: 06-25-[address] Miah Montemayor Work Phone: [facility] Work Phone: Start: 06-25-2023 End: 06-25-2023 Encounter for general adult medical examination without abnormal findings Dr. Miah Montemayor Work Phone: [facility] Start: 06-25-2023 End: 06-25-[address] Miah Montemayor Work Phone: [facility] Internal Medicine Work Phone: Start: 06-20-2023 ambulatory Juan Luis Holloway MD Work Phone: Internal [facility] [place] Start: 05-04-2023 End: 05-04-[address] Miah Montemayor Work Phone: [facility] Work Phone: Start: 05-04-2023 End: 05-04-[address] Miah Montemayor Work Phone: [facility]-Physical Therapy Work Phone: Start: 05-02-2023 End: 05-02-[address] Miah Montemayor Work Phone: [facility] Work Phone: Start: 05-02-2023 End: 05-02-[address] iMah Montemayor Work Phone: [facility]-Outpatient Breast Imaging Work Phone: Start: 03-29-2023 End: 03-29-[address] Miah Montemayor Work Phone: [facility] Work Phone: Start: 03-29-2023 End: 03-29-[address] Miah Montemayor Work Phone: [facility]-Radiology, [facility] Work Phone: Start: 03-29-2023 End: 03-29-[address] Miah Montemayor Work Phone: [facility] Internal Medicine Work Phone: Start: 01-29-2023 Non-patient / Non-visit Dr. Miah Montemayor Work Phone: [facility] Internal Medicine Work Phone: Start: 01-19-2023 End: 01-19-[address] Miah Montemayor Work Phone: [facility] Work Phone: Start: 01-19-2023 End: 01-19-[address] Miah Montemayor Work Phone: [facility] Internal Medicine Work Phone: Start: 08-09-[address] Alexander Montemayor Work Phone: [facility]-Cardiovascular Services Start: 08-07-2022 End: 08-07-[address] Miah Montemayor Work Phone: [facility] Work Phone: Start: 08-07-[address] Miah Montemayor Work Phone: [facility] Start: 08-07-2022 End: 08-07-2022 Encounter for general adult medical examination without abnormal findings Dr. Miah Montemayor Work Phone: [facility] Start: 08-07-2022 End: 08-07-[address] Miah Montemayor Work Phone: [facility] Internal Medicine Start: 07-27-2022 Telephone encounter Anselmo Holloway MD Work Phone: [facility] Comment on above: Results Start: 07-27-2022 End: 07-27-2022 Subsequent hospital visit by physician [facility] (I-Stat) Work Phone: Cat Scan Comment on above: Abnormal ultrasound [R93.89] Start: 07-18-2022 Telephone encounter Adilene you APRN.STENO POOL SUPERVISOR Work Phone: [facility] [place] Comment on above: Results Start: 07-12-2022 Telephone encounter Adilene you APRN.STENO POOL SUPERVISOR Work Phone: [facility] [place] Comment on above: Results Start: 07-12-2022 ambulatory ADILENE PODLOGAR Facility :[facility] Start: 07-12-2022 End: 07-12-2022 Subsequent hospital visit by physician [facility] Comment on above: Right flank pain [R1 0.9] Start: 06-10-2022 ambulatory Adilene Podlogar STENO POOL SUPERVISOR Work Phone: [facility] Comment on above: update chart Start: 06-07-2022 ambulatory Juan Luis Holloway MD Work Phone: Internal Medicine [facility] Start: 05-01-2022 End: 05-01-2022 ambulatory [facility] Work Phone: Start: 05-01-2022 End: 05-01-2022 Patient encounter procedure [facility]-Outpatient Breast Imaging Start: 10-17-2021 End: 10-17-2021 Patient encounter procedure Adilene Main APRN.STENO POOL SUPERVISOR Work Phone: [facility] Comment on above: URI, acute (Primary Dx); Tenderness over frontal sinus Start: 05-13-2012 End: 05-13-[address] (I-Stat) Work Phone: [facility] Work Phone: Procedures Date Procedure Procedure Detail Performing Clinician Start: 01-29-2025 Plain X-ray of toe Dr. Miah Montemayor MD Work Phone: Start: 11-13-2024 X-ray of chest, PA a nd lateral views Dr. Miah Montemayor MD Work Phone: Start: 09-01-2024 US scan of thyroid Dr. Miah Montemayor MD Work Phone: Start: 08-26-2024 X-ray of cervical spine Dr. Miah Montemayor MD Work Phone: Start: 08-09-2024 Vitamin D, 25-hydrox y measurement Dr. Miah Montemayor MD Work Phone: Comment on above: Vitamin D 25(OH) Sta tus Range Deficiency <20 ng/mL (50nmol/L) Insufficiency 20 - 30 ng/mL (50 - 75 nmol/L) Sufficiency 30 - 100 ng/mL (75 - 250 nmol/L) Toxicity >100 ng/mL (>250 nmol/L) Start: 08-08-2024 Measurement of renal function Dr. Miah Montemayor MD Work Phone: Comment on above: GFR Calc Start: 08-08-[address] Miah Montemayor MD Work Phone: Start: 11-06-2023 Ct soft tissue neck w/contrast material [facility] Provider Start: 10-31-[address] Hugo Montemayor Work Phone: Start: 10-23-2023 Single photon emissi on computed tomography of parathyroid Dr. Miah Montemayor Work Phone: Start: 09-24-2023 US scan of thyroid Dr. Miah Montemayor Work Phone: Start: 07-31-2023 Dual energy X-ray absorptiometry Dr. Miah Montemayor Work Phone: Start: 05-02-2023 Screening mammography Blair Montemayor Work Phone: Start: 03-29-2023 Plain X-ray of shoulder Dr. Miah Montemayor Work Phone: Start: 01-19-2023 X-ray of cervical spine Dr. Miah Montemayor Work Phone: Start: 07-27-2022 Ct abdomen & pelvis w/o contrst 1/> body re Adilene Podlogar AUTOMOTIVE [employer] ADVISOR.JAY Work Phone: Start: 07-12-2022 Us retroperitoneal r eal time w/image complete Adilene Podlogar AUTOMOTIVE WHOLESALE PARTS ADVISOR.JAY Work Phone: Start: 05-01-2022 End: 05-01-2022 Screening mammography Start: 10-15-2021 Adult depression scr eening assessment Adilene Podlogar AUTOMOTIVE WHOLESALE PARTS ADVISOR.JAY Work Phone: Start: 05-20-2021 Lipid 1996 panel - S ashwin or Plasma Ct (I-Stat) Work Phone: Start: 04-29-2021 Mammography Adilene you AUTOMOTIVE WHOLESALE PARTS ADVISOR.JAY Work Phone: Start: 09-04-2016 Colonoscopy Adileneseema you APRN.CNP Work Phone: Plan of Treatment Date Care Activity Detail Author Start: 05-20-2029 Urine microalbumin profile [facility] Start: 09-04-2026 Colonoscopy COLONOSCOPY [facility] Start: 09-04-2026 COLORECTAL CANCER SCREENING COLORECTAL CANCER SCREENING [facility] Start: 09-04-2026 Screening for malign ant neoplasm of colon [facility] Start: 05-20-2026 Lipid 1996 panel - S ashwin or Plasma Lipid Screening [facility] Start: 05-20-2026 Lipid panel Lipid Screening [facility] Start: 05-20-2026 LIPID SCREEN LIPID SCREEN [facility] Start: 07-11-2025 DIABETES SCREEN DIABETES SCREEN [facility] Start: 07-11-2025 Diabetes Screening Diabetes Screenin g [facility] Start: 07-30-2024 Patient referral [facility] Work Phone: Start: 05-20-2024 DIABETES SCREEN DIABETES SCREEN [facility] Start: 10-31-2023 Bacteria identified in Urine by Culture [facility] Start: 10-31-2023 [facility] Start: 10-24-2023 Patient referral [facility] Work Phone: Start: 09-13-2023 Shingrix Vaccine (2 of 2) Shingrix Vaccine (2 of 2) [facility] Start: 07-31-2023 Dual energy X-ray absorptiometry Dexa Bone Density Study [facility] Start: 07-31-2023 DXA Bone [Mass/Area] Bone density [facility] Start: 07-16-2023 Behavioral Health Screening Behavioral Health Screening [facility] Start: 06-25-2023 Patient referral [facility] Work Phone: Start: 05-01-2023 Mammography [facility] Start: 05-01-2023 Screening for malign ant neoplasm of breast Mammogram Screening [facility] Start: 03-16-2023 Covid-19 Vaccine () Covid-19 Vaccine () [facility] Start: 03-16-2023 Influenza vaccination Influenza Vacc ine (#1) [facility] Start: 10-15-2022 Adult depression screening assessment DEPRESSION SCREENING [facility] Start: 07-16-2022 DEPRESSION ASSESSMENT DEPRESSION ASS [facility] Start: 04-29-2022 Mammography MAMMOGRAM [facility] Start: 07-16-2021 DEPRESSION ASSESSMENT DEPRESSION ASS [facility] Start: 2021 RSV Vaccine (1 - 1-d ose 60+ series) RSV Vaccine (1 - 1-dose 60+ series) [facility] Start: 06-20-2017 FECAL OCCULT BLOOD FECAL OCCULT BLOO D [facility] Start: 06-20-2017 Screening for malign ant neoplasm of colon Fecal Occult Blood [facility] Start: 2011 SHINGRIX VACCINE (1 of 2) SHINGRIX VACCINE (1 of 2) [facility] Start: 2006 COLOGUARD (FIT-DNA) COLOGUARD (FIT-D NA) [facility] Start: [address] COLONOGRAPHY [facility] Start: 2006 Screening for malign ant neoplasm of colon [facility] Start: 2006 SIGMOIDOSCOPY SIGMOIDOSCOPY [facility] Basic metabolic 2008 panel with ionized calcium - Serum or Plasma [facility] CBC W Auto Different ial panel - Blood [facility] Comprehensive metabo lic 2000 panel - Serum or Plasma [facility] End: 08-17-2023 Ct abdomen & pelvis w/o contrst 1/> body re CT UROGRAM WO/W IVCON Radiology Routine Abnormal ultrasound 1 Occurrences starting 07/18/2022 until 08/17/2023 [facility] Work Phone: Comment on above: 1 Occurrences starti ng 07/18/2022 until 08/17/2023 CT Neck W contrast IV [facility] DXA Bone [Mass/Area] Bone density [facility] Hemoglobin A1c/Hemoglobin.total in Blood [facility] Hemoglobin A1c/Hemoglobin.total in Blood [facility] End: 07-19-2024 RODRIGO SCREENING RODRIGO SCREENING Radiology Routine Encounter for screening mammogram for breast cancer 1 Occurrences starting 06/20/2023 until 07/19/2024 [facility] Work Phone: Comment on above: 1 Occurrences starti ng 06/20/2023 until 07/19/2024 MG Breast - bilatera l Screening [facility] Patient referral [facility] Work Phone: End: 07-07-2023 Screening mammography bi 2-view breast inc cad RODRIGO SCREENING Radiology Routine Encounter for screening mammogram for breast cancer 1 Occurrences starting 06/07/2022 until 07/07/2023 [facility] Work Phone: Comment on above: 1 Occurrences starti ng 06/07/2022 until 07/07/2023 SPECT Parathyroid gland [facility] Thyroid stimulating hormone measurement [facility] Thyroid stimulating hormone measurement [facility] Vitamin D, 25-hydrox y measurement [facility] XR Toes Views [facility] Immunizations Immunization Date Immunization Notes Care Provider Hugo marquez 05-13-2022 COVID-19 booster vaccine, age 12+ yr, bivalent (PFIZER-BIONTSharelook) Juan Luis Holloway MD Work Phone: [facility] 05-13-2022 influenza, injectabl e, quadrivalent, contains preservative Juan Luis Holloway MD Work Phone: [facility] 05-13-2022 influenza virus vaccine, unspecified formulation Ct (I-Stat) Work Phone: [facility] 06-03-2021 COVID-19 vaccine, fu ll dose (MODERNA) Adilene Podlogar AUTOMOTIVE WHOLESALE PARTS ADVISOR.STENO POOL SUPERVISOR Work Phone: [facility] 09-09-2020 COVID-19 vaccine, fu ll dose (MODERNA) Adilene Podlogar AUTOMOTIVE WHOLESALE PARTS ADVISOR.STENO POOL SUPERVISOR Work Phone: [facility] 08-12-2020 COVID-19 vaccine, fu ll dose (MODERNA) Adilene Podlogar AUTOMOTIVE WHOLESALE PARTS ADVISOR.STENO POOL SUPERVISOR Work Phone: [facility] 05-20-2019 influenza, seasonal, injectable Adilene Podlogar AUTOMOTIVE WHOLESALE PARTS ADVISOR.STENO POOL SUPERVISOR Work Phone: [facility] 05-20-2019 tetanus toxoid, reduced diphtheria toxoid, and acellular pertussis vaccine, adsorbed Adilene Podlogar AUTOMOTIVE WHOLESALE PARTS ADVISOR.STENO POOL SUPERVISOR Work Phone: [facility] 04-29-2017 influenza, seasonal, injectable Adilene Podlogar AUTOMOTIVE WHOLESALE PARTS ADVISOR.STENO POOL SUPERVISOR Work Phone: [facility] 04-25-2013 influenza virus vaccine, unspecified formulation Adilene Podlogar AUTOMOTIVE WHOLESALE PARTS ADVISOR.STENO POOL SUPERVISOR Work Phone: [facility] 04-25-2010 influenza virus vaccine, unspecified formulation Adilene Podlogar AUTOMOTIVE WHOLESALE PARTS ADVISOR.STENO POOL SUPERVISOR Work Phone: [facility] Work Phone: 07-11-1999 diphtheria and tetan us toxoids, adsorbed for pediatric use Adilene Podlogar AUTOMOTIVE WHOLESALE PARTS ADVISOR.STENO POOL SUPERVISOR Work Phone: [facility] Work Phone: Payers Date Payer Category Payer Unknown [id number] 2024 Unknown [id number] 2024 Self-pay [id number] 2019 Private Health Insurance [employer] A ETNA CHOICE POS II [id number] 2019-Present [phone] [address] [place] [address] POS [id number] 2019 Private Health Insurance [id number] 2019 Private Health Insurance [id number] Unknown [id number] 62 Unknown [id number] 62 Unknown [id number] 62 Unknown [id number] [id number] 62 Unknown [id number] [id number] 62 Unknown [id number] 2.16.840.1.029535.3.579.2.4 62 Unknown [id number] [id number] 62 Unknown [id number] 2.16.840.1.522110.3.579.2.4 62 Unknown [id number] 2.16.840.1.919387.3.579.2.4 62 Unknown [id number] 2.16.840.1.531198.3.579.2.4 62 Unknown [id number] 2.16.840.1.027282.3.579.2.4 62 Unknown [id number] 2.16.840.1.162106.3.579.2.4 62 Unknown [id number] 2.16.840.1.452571.3.579.2.4 62 Unknown [id number] 2.16.840.1.481701.3.579.2.4 62 Unknown [id number] 2.16.840.1.706532.3.579.2.4 62 Unknown [id number] 2.16.840.1.154230.3.579.2.4 62 Unknown [id number] 62 Social History Date Type Detail Facility Start: 06-16-2016 End: 09-03-2024 Tobacco smoking status NHIS Ex-smoker [facility] End: 07-16-1986 History of tobacco use Current smoker [facility] Work Phone: Start: 10-17-2021 End: 07-27-2022 Alcohol intake Current drinker of alcohol (finding) [facility] Start: 05-14-2020 End: 07-11-2022 History SDOH Alcohol Frequency 3 [facility] Start: 05-14-2020 End: 07-11-2022 History SDOH Alcohol Std Drinks 1 [facility] Start: 08-15-2019 End: 07-11-2022 History SDOH Social Connections Get Together 2 [facility] Start: 08-15-2019 End: 07-11-2022 History SDOH Financial 5 [facility] Start: 05-10-2020 Education 16 [facility] Start: 1960 Sex Assigned At Female [facility] Start: 10-14-2018 End: 06-25-2023 Tobacco smoking status NHIS Unknown if ever smoked [facility] Start: 08-16-2018 Non-smoker [facility] End: 07-16-1986 History of tobacco use Cigarette Smoker [facility] Work Phone: Start: 06-16-2016 End: 06-20-2020 Cigarettes smoked current (pack per day) - Reported 1 [facility] Start: 06-16-2016 End: 07-11-2022 Tobacco use and exposure Smokeless tobacco non-user [facility] Work Phone: Start: 05-14-2022 End: 07-11-2022 History SDOH Social Connections Mu-Ism 98 [facility] Start: 06-20-2020 End: 07-11-2022 Social connection and isolation panel [facility] How often do you att end yarsani or denominational services? Patient refused [facility] Do you belong to any clubs or organizations such as yarsani groups, unions, fraternal or athletic groups, or school groups? No [facility] Are you now , , , , never or living with a partner? [facility] How often to you hav e a drink containing alcohol? 2-4 times a month [facility] How many standard dr inks containing alcohol do you have on a typical day? 1 or 2 [facility] How often do you hav e 6 or more drinks on 1 occasion? Never [facility] Do you feel stress - tense, restless, nervous, or anxious, or unable to sleep at night because your mind is troubled all the time - these days [OSQ] Only a little [facility] (I/We) worried maricruz er (my/our) food would run out before (I/we) got money to buy more. Never true [facility] Start: 08-05-2019 Gender identity Identifies as female gender (finding) [facility] Start: 08-05-2019 Sexual orientation Heterosexual (finding) [facility] Medical Equipment Procedure Code Equipment Code Equipment Origin al Text Equipment Identifier Dates Thyroidectomy SUTURE,LIGA CLIP MED [id number] FDA Start: 02-01-2024 Thyroidectomy Plant polysaccha ride haemostatic agent, bioabsorbable [id number] FDA Start: 02-01-2024 Thyroidectomy Ligation clip, metallic [id number] FDA Start: 02-01-2024 Thyroidectomy SUTURE,LIGA CLIP MED [id number] FDA Start: 02-01-2024 Thyroidectomy SUTURE,LIGA CLIP MED [id number] FDA Start: 02-01-2024 Cholecystocolostomy CLIP,HEMOLOC K MED WECK FDA Start: 08-23-2018 Cholecystocolostomy CLIP,HEMOLOC K MED WECK FDA Start: 08-23-2018 Cholecystocolostomy CLIP,HEMOLOC K MED WECK FDA Start: 08-23-2018 Cholecystocolostomy CLIP,HEMOLOC K MED WECK FDA Start: 08-23-2018 Cholecystocolostomy CLIP,HEMOLOC K MED WECK FDA Start: 08-23-2018 Cholecystocolostomy CLIP,HEMOLOC K MED WECK FDA Start: 08-23-2018 Cholecystocolostomy CLIP,HEMOLOC K MED WECK FDA Start: 08-23-2018 Cholecystocolostomy CLIP,HEMOLOC K MED WECK FDA Start: 08-23-2018 Cholecystocolostomy CLIP,HEMOLOC K MED WECK FDA Start: 08-23-2018 Cholecystocolostomy CLIP,HEMOLOC K MED WECK FDA Start: 08-23-2018 Cholecystocolostomy CLIP,HEMOLOC K MED WECK FDA Start: 08-23-2018 Cholecystocolostomy CLIP,HEMOLOC K MED WECK FDA Start: 08-23-2018 Cholecystocolostomy CLIP,HEMOLOC K MED WECK FDA Start: 08-23-2018 Cholecystocolostomy CLIP,HEMOLOC K MED WECK FDA Start: 08-23-2018 Cholecystocolostomy CLIP,HEMOLOC K MED WECK FDA Start: 08-23-2018 Cholecystocolostomy CLIP,HEMOLOC K MED WECK FDA Start: 08-23-2018 Cholecystocolostomy CLIP,HEMOLOC K MED WECK FDA Start: 08-23-2018 Cholecystocolostomy CLIP,HEMOLOC K MED WECK FDA Start: 08-23-2018 Cholecystocolostomy CLIP,HEMOLOC K MED WECK FDA Start: 08-23-2018 Cholecystocolostomy CLIP,HEMOLOC K MED WECK FDA Start: 08-23-2018 Cholecystocolostomy CLIP,HEMOLOC K MED WECK FDA Start: 08-23-2018 Cholecystocolostomy CLIP,HEMOLOC K MED WECK FDA Start: 08-23-2018 Cholecystocolostomy CLIP,HEMOLOC K MED WECK FDA Start: 08-23-2018 Cholecystocolostomy CLIP,HEMOLOC K MED WECK FDA Start: 08-23-2018 Cholecystocolostomy CLIP,HEMOLOC K MED WECK FDA Start: 08-23-2018 Cholecystocolostomy CLIP,HEMOLOC K MED WECK FDA Start: 08-23-2018 Cholecystocolostomy CLIP,HEMOLOC K MED WECK FDA Start: 08-23-2018 Cholecystocolostomy CLIP,HEMOLOC K MED WECK FDA Start: 08-23-2018 Cholecystocolostomy CLIP,HEMOLOC K MED WECK FDA Start: 08-23-2018 Cholecystocolostomy CLIP,HEMOLOC K MED WECK FDA Start: 08-23-2018 Cholecystocolostomy CLIP,HEMOLOC K MED WECK FDA Start: 08-23-2018 Cholecystocolostomy CLIP,HEMOLOC K MED WECK FDA Start: 08-23-2018 Cholecystocolostomy CLIP,HEMOLOC K MED WECK FDA Start: 08-23-2018 Cholecystocolostomy CLIP,HEMOLOC K MED WECK FDA Start: 08-23-2018 Cholecystocolostomy CLIP,HEMOLOC K MED WECK FDA Start: 08-23-2018 Cholecystocolostomy CLIP,HEMOLOC K MED WECK FDA Start: 08-23-2018 Cholecystocolostomy CLIP,HEMOLOC K MED WECK FDA Start: 08-23-2018 Cholecystocolostomy CLIP,HEMOLOC K MED WECK FDA Start: 08-23-2018 Clinical Notes 06-21-2016 to 01-30-2025 Note Date & Type Note Facility 01-30-2025 Radiology Diagnostic study note [facility] Imaging Services [address] [place], [place] [address] Toe(s) Min 2 Views MR#: [id number] Acct: [id number] Name: JANEE TOMPKINS Rep #: [id number] : 1960 F 64 From: Chioma Euceda MD PCP: Dr. Miah Montemayor MD Status: R EG CLI Study:Toe(s) Min 2 Views Date of Exam: 0 01/29/25 Exam# [id number] Ordering Dr: Franca Montemayor MD EXAM: XR Left Toes, 2 or More Views CLINICAL INDICATION: LEFT 5TH TOE PAIN TECHNIQUE: Frontal, lateral and oblique views of the toes of the left foot. COMPARISON: No relevant prior studies available. FINDINGS: BONES/JOINTS: Mild degenerative changes of the proximal phalangeal joints. No acute fracture. No dislocation. SOFT TISSUES: Soft tissue swelling. No radiopaque foreign body. RAD/Toe(s) Min 2 Views IMPRESSION: Soft tissue swelling. Reading Location: [facility] CC: Dr. Miah Montemayor MD ~ Party Coordinator: Signed [facility] 11-19-2024 Discharge summary Note Date/Time November 19, 2024 7:00pm [facility] Physical Therapy [facility] [facility] [place] [address] / REHABILITATION SERVICES DISCHARGE SUMMARY MR#: [id number] Acct: [id number] Name: JANEE TOMPKINS Rep #: [id number] : 1960 64 From: Kishore Livingston Referring Dr.: Dr. William Hunter MD Status: REG RCR Insurance: [facility] SELF PAY INSURANCE Discharge Summary D/C summary: It has been my pleasure to treat JANEE TOMPKINS referred by Dr. William Hunter MD, with the diagnosis of CERVICAL DDD for a total of 6 visit(s). Discharge Date: 11/19/24 Please see the following information for a summary of their discharge status. Subjective Subjective: Pt. reports having good relief after being off work for a few days. Now that she has returned she is noticing increased symptoms again. Pt. reports having 2/10 pain today. Pt. reports being 70% better overall. Pain Cervical spine: Pain Intensity (Out of 10): 2 B shoulder blades: Pain Intensity (Out of 10): 2 Overall Improvement % Improvement: 70 Objective Objective/Function: ROM: Cervical spine: flexion nil loss Ne, ext min loss tightness, rotaiton min loss bilat NE, SB min loss tigthness noted. POSTURE: Pt. has slight FH posture. Pt. is able improve with VC/TCing. Pt. is able to sleep throughout the night without increase in symptoms. Pt. has good strength throughout BUEs. Pt. is to work on exercises on her own at this point in time. pt. will be DC from PT at this point in time. Goals Goal 1:: LTG: Pt. to be I with HEP. Goal Progress: Goal Met Goal 2:: STG: PT. to have full ROM without increase in symptoms. Goal Progress: Goal Met Goal 3:: LTG: Pt. to have normal posture throughout PT session. Goal Progress: Goal Met Goal 4:: STG: Pt. to sleep throughout the night without increase in symptoms. Goal Progress: Goal Met Plan Plan: Pt. to be DC from PT to work on her HEP progressing extension exercises astolerated. D/C Information d/c sentence: If there are questions or concerns regarding this patient's physical therapy, please feel free to call me at [phone]. Thank you for the referral of thispatient. Sincerely, Kishore Aldridge, DPT Balance/Gait/Functional tests Balance/Special Test Scores Oswestry Neck Score: 15 Improvement % Improvement: 70 <Electronically signed by Kishore Aldridge DPT> 11/19/24 1810 CC: Dr. William Hunter MD; Dr. Miah Montemayor MD ~ CLS Signed [facility] Work Phone: 1(680) 124-230005-07-2025 Discharge summary [facility] Physical Therapy [address] [place] [address] / REHABILITATION SERVICES DISCHARGE SUMMARY MR#: [id number] Acct: [id number] Name: JANEE TOMPKINS VALENTE Rep #: [id number] : 1960 64 From: Kishore Aldridge DP T Referring Dr.: Dr. William Hunter MD Status: REG RCR Insurance: [facility] SELF PAY INSURANCE Discharge Summary D/C summary: It has been my pleasure to treat JANEE TOMPKINS referred by Dr. William Hunter MD, with the diagnosis of CERVICAL DDD for a total of 6 visit(s). Discharge Date: 11/19/24 Please see the following information for a summary of their discharge status. Subjective Subjective: Pt. reports having good relief after being off work for a few days. Now that she has returned she is noticing increased symptoms again. Pt. reports having 2/10 pain today. Pt. reports being 70% better overall. Pain Cervical spine: Pain Intensity (Out of 10): 2 B shoulder blades: Pain Intensity (Out of 10): 2 Overall Improvement % Improvement: 70 Objective Objective/Function: ROM: Cervical spine: flexion nil loss Ne, ext min loss tightness, rotaiton min loss bilat NE, SB min loss tigthness noted. POSTURE: Pt. has slight FH posture. Pt. is able improve with VC/TCing. Pt. is able to sleep throughout the night without increase in symptoms. Pt. has good strength throughout BUEs. Pt. is to work on exercises on her own at this point in time. pt. will be DC from PT at this point in time. Goals Goal 1:: LTG: Pt. to be I with HEP. Goal Progress: Goal Met Goal 2:: STG: PT. to have full ROM without increase in symptoms. Goal Progress: Goal Met Goal 3:: LTG: Pt. to have normal posture throughout PT session. Goal Progress: Goal Met Goal 4:: STG: Pt. to sleep throughout the night without increase in symptoms. Goal Progress: Goal Met Plan Plan: Pt. to be DC from PT to work on her HEP progressing extension exercises astolerated. D/C Information d/c sentence: If there are questions or concerns regarding this patient's physical therapy, please feel free to call me at [phone]. Thank you for the referral of thispatient. Sincerely, Kishore Aldridge, DPT Balance/Gait/Functional tests Balance/Special Test Scores Oswestry Neck Score: 15 Improvement % Improvement: 70 11/19/24 1810 CC: Dr. William Hunter MD; Dr. Miah Montemayor MD ~ CLS Signed [facility]04-17-2025 Evaluation note* Diagnosis Onset Date Resolution Status Admit Date Borderline type 2 diabetes mellitus chronic October 30, 2024 2:48pm Chronic cough chronic October 30, 2024 2:48pm Insomnia chronic October 30 2:48pm Post-surgical hypothyroidism chronic October 30, 2024 2:48pm Toe pain, left acute January 29, 2025 2:44pm Anxiety chronic January 29 2:44pm Chronic cough chronic January 29, 2025 2:44pm Osteopenia with high risk of fracture chronic January 29, 2025 2:44pm Post-surgical hypothyroidism chronic January 29, 2025 2:44pm Prediabetes chronic January 29 2:44pm [facility] Work Phone: 1(746) 905-961003-20-2025 Evaluation note* Diagnosis Onset Date Resolution Status Admit Date Thyroid nodule chronic September 1:34pm Borderline type 2 diabetes mellitus chronic October 30, 2024 2:48pm Chronic cough chronic October 30, 2024 2:48pm Insomnia chronic October 30 2:48pm Post-surgical hypothyroidism chronic October 30, 2024 2:48pm [facility] Work Phone: 1(343) 537-472901-15-2025 Evaluation note* Diagnosis Onset Date Resolution Status Admit Date Retrolisthesis of vertebrae acute July 30, 2024 3:19pm Borderline type 2 diabetes mellitus chronic July 30 3:19pm Insomnia chronic July 30, 2024 3:19pm Obesity chronic July 30, 2024 3:19pm Post-surgical hypothyroidism chronic July 30, 2024 3:19pm Other cervical disc degeneration, mid-cervical region, unspecified level acute Februa 2024 7:25am Thyroid nodule chronic September 1:34pm Borderline type 2 diabetes mellitus chronic October 30, 2024 2:48pm Chronic cough chronic October 30, 2024 2:48pm Insomnia chronic October 30 2:48pm Post-surgical hypothyroidism chronic October 30, 2024 2:48pm [facility] Work Phone: 1(154) 619-792105-03-2024 Telephone encounter Note* Telephone Encounter - Juan Luis Holloway MD - 11/16/2023 10:09 AM EDT Reviewed. Removed myself as her PCP. [facility]05-03-2024 Miscellaneous Notes* Telephone Encounter - Juan Luis Holloway MD - 11/16/2023 10:09 AM EDT Reviewed. Removed myself as her PCP. * Telephone Encounter - Chelsey Winston LPN - 11/16/2023 9:52 AM EDT Phoned patient and reviewed message. She stated the US has been ordered and dr Lockwood and Sim arefollowing her. Asked patient if Dr Montemayor is her PCP and she stated "Yes, she is my new PCP." Chelsey Winston LPN * Telephone Encounter - Juan Luis Holloway MD - 11/15/2023 4:53 PM EDT Patient with recetn neck CT which showed: 1. 2 hypodense lesions noted within the thyroid gland. Recommend ultrasound to more completely evaluate. Looks like this was ordered by Dr. Lockwood. Have they ordered an ultrasound to follow up on this? Patient's last OV with us was more than 1 year ago. Recommend annual physical in the next couple ofmonths. [facility] Telephone encounter Note * Telephone Encounter - Chelsey Winston LPN - 11/16/2023 9:52 AM EDT Phoned patient and reviewed message. She stated the US has been ordered and dr Lockwood and Sim arefollowing her. Asked patient if Dr Montemayor is her PCP and she stated "Yes, she is my new PCP." Chelsey Winston LPN [facility]05-02-2024 Telephone encounter Note* Telephone Encounter - Juan Luis Holloway MD - 11/15/2023 4:53 PM EDT Patient with recetn neck CT which showed: 1. 2 hypodense lesions noted within the thyroid gland. Recommend ultrasound to more completely evaluate. Looks like this was ordered by Dr. Lockwood. Have they ordered an ultrasound to follow up on this? Patient's last OV with us was more than 1 year ago. Recommend annual physical in the next couple ofmonths. [facility]04-23-2024 History of Present illness Narrative* Reef Janee Cooper, RT(R) - 11/06/2023 2:20 PM EDT Radiology Service Progress Note DATE OF SERVICE: [...] PATIENT PRESENTS WITH AN IMPLANTABLE OR ATTACHED LABEL PRESS OPERATOR: No ALLERGIES: Reviewed and unchanged CONTRAST [...] creatinine assay has traceable calibration to isotope dilution- mass spectrometry. Refer to KDIGO guidelines for clinical interpretation. In patients with unstable renal function, e.g. those with acute kidney injury, the eGFRmay not accurately reflect actual GFR. eGFR- Date Value Ref Range Status 05/20/2021 >60 Final P.O.C.T. RESULTS: POC done: Yes, See Lab Tab November 06, 2023 TREATMENT: N/A PERIPHERAL IV DATA: Ambulatory: A peripheral IV was started in the Left antecubital site with a Angio cath: 22 gauge. RADIOLOGY DEPARTMENT: CT; Exam(s) Completed: Neck SIGNATURE: DAVID Raymundo) PATIENT NAME: Janee Tompkins DATE: November 06, 2023 TIME: 4:00 PM documented in this encounterThe [facility]04-23-2024 NoteHNO ID: [id number] Author: JANEE SANZ RT(R) Service: ? Author Type: Commutator Inspector Type: Progress Notes Filed: 11/06/2023 16:00 Note [...] PATIENT PRESENTS WITH AN IMPLANTABLE OR ATTACHED LABEL PRESS OPERATOR: No ALLERGIES: Reviewed and unchanged CONTRAST [...] Completed: Neck SIGNATURE: RT Breanne(R) PATIENT NAME: Janee Tompkins DATE: November 06, 2023 TIME: 4:00 [facility]12-06-2023 NotePatient Outreach (INTMMN) JANEE TOMPKINS ([id number]) 1960 F Date Time Provider Department 06/20/23 JUAN LUIS HOLLOWAY INTLES During your visit today, we recorded the following information about you: Allergies As of Date: 06/20/2023 Noted Allergy Reaction CODEINE 05/20/2011 11 - Vomiting GLUCOPHAGE (METFORMIN HCL) 07/21/2005 8 - GI Upset NEXIUM (ESOMEPRAZOLE MAGNESIUM) 07/21/2005 8 - GI Upset NSAIDS (NON-STEROIDAL ANTI-INFLAM*12/23/2013 Comments: Gastric Bypass Date Reviewed: 07/27/2022 Reviewed by: Janee Sanz, RT(R) - Fully Assessed Visit Diagnosis:Encounter for screening mammogram for breast cancer [Z12.31] Order(s):[facility] SCREENING [[id number]] Order #: [id number] FUTURE Prescriptions as of 06/25/2023 - cyclobenzaprine (FLEXERIL) 10 mg tablet Take 1 tablet by mouth twice daily as needed for muscle spasm or pain. - lifitegrast (XIIDRA OPHTHALMIC) Use in eyes twice daily. Bilateral eyes - Ascorbate Calcium-Bioflavonoid (CHRISTIANE C WITH BIOFLAVONOIDS) 500-200 mg tab Take [...] OTC NUTRITIONAL SUPPLEMENT 1 tablet once daily. "Celebrate" ferrous fumarate 60 mg with vitamin C 60 mg, formulated for gastric bypass patients - Cyanocobalamin 1,000 mcg subl Dissolve under the tongue. 4x/week - fluticasone (FLONASE) 50 mcg/actuation nasal spray 1 Goodridge once daily. - multivitamin (MULTIPLE VITAMIN) ORAL [...] Ganglion cyst [M67.40] 06/29/2017 Encounter Status:Closed by LILA ORTEGA on 06/25/23[facility] 05-04-2023 Discharge summary Author Mike Hassan [facility] May 04, 2023 12:33pm Note Date/Time May 04, 2023 1 2:33pm [facility] Physical Therapy [facility] [address] [place] [address] [address] [place] [address] / REHABILITATION SERVICES DISCHARGE SUMMARY MR#: [id number] Acct: [id number] Name: JANEE TOMPKINS Rep #: [id number] 13 : 1960 63 From: Mike Hassan PT, ATC Referring Dr.: Dr. Miah Montemayor MD Status : REG RCR Insurance: [employer] SELF [employer]Y INSURANCE Discharge Summary D/C summary: It has been my pleasure to treat JANEE TOMPKINS referred by Dr. Miah Montemayor MD, with the diagnosis of R shoulder pain for a total of 7 visit(s). Discharge Date: Please see the following information for a summary of their discharge status. Subjective Subjective: Pt. reports no pain and was able to sleep through the night for the first time in weeks! There is no pain currently in her shoulder or her neck. Completing all of her ADLs and iADLs are able to be completed without pain for over a week. The pt. states she is 90% improved at this time and the remainder 10% of the pts. improvement is so that she can sleep throughout night for a weekin a row. She is incredibly pleased with the progress she's made on this chronicpain issue she has had for over a year. Pain R shoulder: Pain Intensity (Out of 10): 0 Overall Improvement % Improvement: 90 Objective Objective/Function: Pts. new QuickDASH score = 2.2725 (Original 52.2725) Pts. R shoulder strength has improved x 5-10 #F which has met her goal. - R Shoulder Flexion: 26.2 #F (originally 4 #F) - R Shoulder Abd: 20.3 #F (originally 12 #F) - R Shoulder IR: 26.5 #F (originally 14 #F) - R Shoulder ER: 24.7 #F (originally 14#) Pts. R Shoulder flex and abd ROM has increased x 30 degrees which meets her current goal. - R Shoulder Abd: 180 Deg (originally 80 deg) Pts. reported pain is now reported as a 0/10 which meets her current goal. Pt. is I with HEP which meets her goal. Goals Goal 1:: Pt. to improve R shoulder strength x 5-10 #F to aid with house chores Goal Progress: Goal Met Goal 2:: Increase R shoulder flex and abd ROM x 30 degrees to aid with IADL's Goal Progress: Goal Met Goal 3:: Decrease R shoulder pain x 50% to aid with sleep Goal Progress: Goal Met Goal 4:: I with HEP Goal Progress: Goal Met Plan Plan: D/C pt. to HEP. D/C Information d/c sentence: If there are questions or concerns regarding this patient's physical therapy, please feel free to call me at [phone]. Thank you for the referral of thispatient. Sincerely, Mike Hassan, PT, ATC Balance/Gait/Functional tests Balance/Special Test Scores Quick DASH Score: 2.2725 Improvement % Improvement: 90 <Electronically signed by Mike Hassan PT, ATC> 05/04/23 1233 CC: Dr. Miah Montemayor MD ~ [facility] Signed [facility] Work Phone: [phone]) 604-445801-13-2023 Miscellaneous Notes* Telephone Encounter - Sheri Fam RN - 07/28/2022 8:56 AM EST Pt called and is notified of providers message and instructions. Pt voices understanding. Sheri Fam RN * Telephone Encounter - Juan Luis Holloway MD - 07/27/2022 5:18 PM EST She reported her urinary symptoms at her [...] accident or fall asleep at work. . * Telephone Encounter - Sheri Fam RN - 07/27/2022 4:53 PM EST Pt states she is only able to take Tylenol as she has gastric bypass. She said the Tens unit did not help with this pain, just the lower back pain. She reports now she has some distention an hour after eating that she didn't have before. She states she has some frequency/urgency with urination, Bmsgo between constipation to loose/crampy, and the fatigue is worse. Pt was scheduled to see provideron Sunday at 220. Offered her an appointment tomorrow, but she wasn't able to come in. * Telephone Encounter - Juan Luis Holloway MD - 07/27/2022 3:07 PM EST What has she tried OTC for pain thus far? Adilene reported a TENS unit helped with pain at her last OV, but I dont see any medications reported. * Telephone Encounter - Chelsey Winston LPN - 07/27/2022 12:37 PM EST Reviewed results and recommendations with patient. Patient voiced understanding but questioning theconstant pain she is experiencing in the rib [...] Advised her would let her PCP know. * Telephone Encounter - Chelsey Winston LPN - 07/27/2022 12:36 PM EST ----- Message from Juan Luis Holloway MD sent at 07/27/2022 11:46 AM EST ----- CT scan shows nothing abnormal with kidneys. Does note some fatty liver and liver cysts which appear benign. Recommend healthy diet and exercise to promote weight loss to help with fatty liver disease. Will monitor liver function at future OV. documented in this encounterThe [facility]01-12-2023 History of Present illness Narrative* Janee Sanz RT(R) - 07/27/2022 8:40 AM EST Radiology Service Progress Note DATE OF SERVICE: [...] creatinine assay has traceable calibration to isotope dilution- mass spectrometry. Refer to KDIGO guidelines for clinical interpretation. In patients with unstable renal function, e.g. those with acute kidney injury, the eGFRmay not accurately reflect actual GFR. eGFR- Date Value Ref Range Status 05/20/2021 >60 Final P.O.C.T. RESULTS: POC done: Yes, See Lab Tab July 27, 2022 TREATMENT: N/A PERIPHERAL IV DATA: Ambulatory: A peripheral IV was started in the Left antecubital site with a Angio cath: 20 gauge. RADIOLOGY DEPARTMENT: CT; Exam(s) Completed: split bolus urogram SIGNATURE: RT Breanne(R) PATIENT NAME: Janee Tompkins DATE: July 27, 2022 TIME: 8:59 AM documented in this encounterThe [facility] Center01-03-2023 Miscellaneous Notes* Telephone Encounter - Jasmyne Garcia RN - 07/18/2022 8:33 AM EST Phoned patient and given provider's message below with verbalized understanding. Transferred to [facility]. * Telephone Encounter - Adilene Main APRN.CNP - 07/18/2022 8:03 AM EST Please call patient and let her know her ultrasound showed slight pyelectasis- this is where urine gathers in the center of the kidney- no hydronephrosis which is swelling of the kidney. Recommend CTurogram. Orders in place, please assist in scheduling. Adilene Main APRN.CNP documented in this [facility]12-28-2022 Miscellaneous Notes* Telephone Encounter - Chelsey Roca LPN - 07/12/2022 3:02 PM EST Pt notified of lab results & voiced understanding. Chelsey Roca LPN * Telephone Encounter - Chelsey Roca LPN - 07/12/2022 12:46 PM EST Left message to call office. 07/12/2022 12:46 PM. Chelsey Roca LPN * Telephone Encounter - Adilene Main APRN.CNP - 07/12/2022 12:30 PM EST Please call patient and let her know her blood work is within normal ranges. Adilene Main APRN.CNP documented in this encounterThe [facility]12-28-2022 NoteHNO ID: [id number] Author: RT Ekta(R) Service: ? Author Type: Technologist Type: Progress Notes Filed: 07/12/2022 10:32 AM Note Text: Radiology Service Progress Note PATIENT NAME: Janee Tompkins DATE OF SERVICE: July 12, 2022 [...] BY: RT Ekta(R) July 12, 2022 [facility] History of Present illness Narrative* RT Ekta(R) - 07/12/2022 9:00 AM EST Radiology Service Progress Note PATIENT NAME: Janee Tompkins DATE OF SERVICE: July 12, 2022 TIME: 10:27 AM PATIENT IDENTITY VERIFICATION COMPLETED USING TWO (2) IDENTIFIERS: Name and Date of confirmedby patient verbally. FALL SCREENING: Has the patient [...] 12, 2022 10:27 AM documented in this encounterThe [facility]04-04-2022 History of Present illness Narrative* Adilene Main APRN.STENO POOL SUPERVISOR - 10/17/2021 8:16 AM EDT 10/17/2021 Patient presents with: Sinus Problem: congestion x4 days, fever x48 hours SUBJECTIVE: This is a 61 year old that is here today for Above Complaints. For the last four days has had fatigue, headaches, ear pressure, sinus pain/pressure, sore throat, dry cough and lost of taste/smell. Reports she had fever of up to 104 over the weekend. No fever thelast 24 hours. Admits to hx of sinus infections, sinus surgery, and seasonal allergies. She has been using her Flonase, Claritin, doing sinus rinses,tyleonl and sudafed. Reports she has copelted fourat home COVID-19 tests which were all negative. [...] eyes twice daily. Bilateral eyes Ascorbate Calcium-Bioflavonoid (CHRISTIANE C WITH BIOFLAVONOIDS) 500-200 mg tab Take [...] OTC NUTRITIONAL SUPPLEMENT 1 tablet once daily. "Celebrate" ferrous fumarate 60 mg with vitamin C 60 mg, formulated for gastric bypass patients Cyanocobalamin (VITAMIN B-12) 1,000 mcg subl Dissolve under the tongue. 4x/week fluticasone (FLONASE) 50 mcg/actuation nasal spray 1 [place]ridge once daily. multivitamin (MULTIPLE VITAMIN) ORAL Tab [...] - DOXYCYCLINE HYCLATE 100 MG TABLET Adilene Main, AUTOMOTIVE WHOLESALE PARTS ADVISOR.STENO POOL SUPERVISOR Prescription instructions reviewed with patient as applicable. Patient advised if symptoms do not improve or if symptoms worsen sooner, to contact their primary care physician. Potential red flag symptoms discussed with the patient. Reviewed appropriate action plan to take if red flag symptoms occur. Patient agreeable to treatment plan. documented in this encounterThe [facility]12-07-2016 History of Past illness Narrative* Problem Noted Date Resolved Date Iron deficiency anemia 06/21/2016 7 Fracture of distal fibula 06/15/20142015 Well adult exam 05/13/2012 05/13/2012 Calcaneal spur 05/18/2006 09/30/2015 Lumbago 07/24/2005 09/30/2015 Disorders of bursae and tend ons in shoulder region, unspecified 07/24/2005 09/30/2015 documented as of this encounter (statuses as of 10/17/2021) [facility]12[facility] History of Past illness Narrative* Problem Noted Date Resolved Date Iron deficiency anemia 06/21/2016 7 Fracture of distal fibula 06/15/20142015 Well adult exam 05/13/2012 05/13/2012 Calcaneal spur 05/18/2006 09/30/2015 Lumbago 07/24/2005 09/30/2015 Disorders of bursae and tend ons in shoulder region, unspecified 07/24/2005 09/30/2015 documented as of this encounter (statuses as of 06/12/2022) [facility] History of Past illness Narrative* Problem Noted Date Resolved Date Iron deficiency anemia 06/21/2016 7 Fracture of distal fibula 06/15/20142015 Well adult exam 05/13/2012 05/13/2012 Calcaneal spur 05/18/2006 09/30/2015 Lumbago 07/24/2005 09/30/2015 Disorders of bursae and tend ons in shoulder region, unspecified 07/24/2005 09/30/2015 documented as of this encounter (statuses as of 06/12/2022) [facility] of Past illness Narrative* Problem Noted Date Resolved Date Iron deficiency anemia 06/21/2016 7 Fracture of distal fibula 06/15/20142015 Well adult exam 05/13/2012 05/13/2012 Calcaneal spur 05/18/2006 09/30/2015 Lumbago 07/24/2005 09/30/2015 Disorders of bursae and tend ons in shoulder region, unspecified 07/24/2005 09/30/2015 documented as of this encounter (statuses as of 07/19/2022) [facility] of Past illness Narrative* Problem Noted Date Resolved Date Iron deficiency anemia 06/21/2016 7 Fracture of distal fibula 06/15/20142015 Well adult exam 05/13/2012 05/13/2012 Calcaneal spur 05/18/2006 09/30/2015 Lumbago 07/24/2005 09/30/2015 Disorders of bursae and tend ons in shoulder region, unspecified 07/24/2005 09/30/2015 documented as of this encounter (statuses as of 07/19/2022) [facility] of Past illness Narrative* Problem Noted Date Resolved Date Iron deficiency anemia 06/21/2016 7 Fracture of distal fibula 06/15/20142015 Well adult exam 05/13/2012 05/13/2012 Calcaneal spur 05/18/2006 09/30/2015 Lumbago 07/24/2005 09/30/2015 Disorders of bursae and tend ons in shoulder region, unspecified 07/24/2005 09/30/2015 documented as of this encounter (statuses as of 07/20/2022) [facility] of Past illness Narrative* Problem Noted Date Resolved Date Iron deficiency anemia 06/21/2016 7 Fracture of distal fibula 06/15/20142015 Well adult exam 05/13/2012 05/13/2012 Calcaneal spur 05/18/2006 09/30/2015 Lumbago 07/24/2005 09/30/2015 Disorders of bursae and tend ons in shoulder region, unspecified 07/24/2005 09/30/2015 documented as of this encounter (statuses as of 07/21/2022) [facility] of Past illness Narrative* Problem Noted Date Resolved Date Iron deficiency anemia 06/21/2016 7 Fracture of distal fibula 06/15/20142015 Well adult exam 05/13/2012 05/13/2012 Calcaneal spur 05/18/2006 09/30/2015 Lumbago 07/24/2005 09/30/2015 Disorders of bursae and tend ons in shoulder region, unspecified 07/24/2005 09/30/2015 documented as of this encounter (statuses as of 07/28/2022) [facility] of Past illness Narrative* Problem Noted Date Diagnosed Date Resolved Date Iron deficiency anemia 06/21/201602/22 Fracture of distal fibula 06/15/2014 Well adult exam 05/13/2012 05/13/2012 Calcaneal spur 05/18/2006 09/30/2015 Lumbago 07/24/2005 09/30/2015 Disorders of bursae and tend ons in shoulder region, unspecified 07/24/2005 09/30/2015 documented as of this encounter (statuses as of 05/20/2023) [facility] of Past illness Narrative* Problem Noted Date Diagnosed Date Resolved Date Iron deficiency anemia 06/21/201602/22 Fracture of distal fibula 06/15/2014 Well adult exam 05/13/2012 05/13/2012 Calcaneal spur 05/18/2006 09/30/2015 Lumbago 07/24/2005 09/30/2015 Disorders of bursae and tend ons in shoulder region, unspecified 07/24/2005 09/30/2015 documented as of this encounter (statuses as of 06/25/2023) [facility] CenterEvaludelaware hospital for [facility] ill note* Diagnosis URI, acute- Primary Acute upper respiratory infections of unspecified site Tenderness over frontal sinus documented in this encounter [facility] CenterEvaluation noteNo assessment information availableWSelect Medical [facility] Work Phone: Evaluation note* Diagnosis Encounter for screening mammogram for breast cancer documented in this encounter [facility]* Diagnosis Right flank pain Abdominal pain, unspecified site documented in this encounter [facility]* Diagnosis Abnormal ultrasound- Primary Other nonspecific (abnormal) findings on radiological and other examinations of body structure documented in this encounter [facility]* Diagnosis Onset Date Resolution Status Encounter to establish care acute Postsurgical malabsorption a [facility] Preventative health care acu [facility] Work Phone: Evaluation note* Diagnosis Onset Date Resolution Status Anxiety acute Radiculopathy acute Borderline type 2 diabetes mellitus chronic Chronic fatigue syndrome with fibromyalgia chronic [facility] Work Phone: Evaluation note* Diagnosis Onset Date Resolution Status Anxiety acute Radiculopathy acute Borderline type 2 diabetes mellitus chronic Chronic fatigue syndrome with fibromyalgia chronic Chronic fatigue syndrome with fibromyalgia chronic Insomnia chronic Right shoulder pain chronic [facility] Work Phone: Evaluation note* Diagnosis Abnormal ultrasound Other nonspecific (abnormal) findings on radiological and other examinations of body structure documented in this encounter [facility] note* Diagnosis Encounter for screening mammogram for breast cancer documented in this encounter [facility] note* Diagnosis Onset Date Resolution Status Anxiety acute Preventative health care acu te Borderline type 2 diabetes mellitus chronic Chronic fatigue syndrome with fibromyalgia chronic Insomnia chronic [facility] Work Phone: Evaluation note* Diagnosis Onset Date Resolution Status Anxiety acute Preventative health care acu te Borderline type 2 diabetes mellitus chronic Chronic fatigue syndrome with fibromyalgia chronic Insomnia chronic Osteopenia with high risk of fracture acute Postsurgical malabsorption a [facility] Work Phone: Evaluation note* Diagnosis Onset Date Resolution Status Anxiety acute Preventative health care acu te Borderline type 2 diabetes mellitus chronic Chronic fatigue syndrome with fibromyalgia chronic Insomnia chronic Osteopenia with high risk of fracture acute Postsurgical malabsorption a cute Hyperparathyroidism acute Multiple thyroid nodules acu [facility] Work Phone: Evaluation note* Diagnosis Onset Date Resolution Status Osteopenia with high risk of fracture acute Postsurgical malabsorption a cute Hyperparathyroidism acute Multiple thyroid nodules acu te Hyperparathyroidism acute Multiple thyroid nodules acu [facility] Work Phone: Evaluation note* Diagnosis Onset Date Resolution Status Osteopenia with high risk of fracture acute Postsurgical malabsorption a cute Hyperparathyroidism acute Multiple thyroid nodules acu te Hyperparathyroidism acute Multiple thyroid nodules acu te Flank pain acute Sacroiliac joint pain acute [facility] Work Phone: Evaluation note* Diagnosis Onset Date Resolution Status Chronic fatigue syndrome with fibromyalgia chronic Insomnia chronic Right shoulder pain chronic Anxiety acute Preventative health care acu te Borderline type 2 diabetes mellitus chronic Chronic fatigue syndrome with fibromyalgia chronic Insomnia [facility] Work Phone: Reason for referral (narrative)* Diagnostic Procedure Only (Routine) - Pending Review Specialty Diagnoses / Procedures Referred By Abel livingston Referred To Contact [facility] Diagnoses Encounter for screening mammogram for breast cancer Procedures RODRIGO SCREENING SCREENING MAMMOGRAPHY BI 2-VIEW BREAST INC Juan Luis Alberto MD [address] [phone] [facility] [address] [place] [address] Referral ID Status Reason Start Date Expiration Date Visits Requested Visits Authorized [id number] Pending Review Auto-Generat ed Referral 07/07/2023 1 1 [facility] for referral (narrative)* Diagnostic Procedure Only (Routine) - Closed Specialty Diagnoses / Procedures Referred By Abel t Referred To Contact [facility] IM[facility] Diagnoses Right flank pain Procedures US KIDNEY/BLADDER US RETROPERITONEAL REAL TIME W/IMAGE COMPLETE Adilene Main APRN.CNP [address] [id number] [facility] Referral ID Status Reason Start Date Expiration Date V isits Requested Visits Authorized [id number] Closed Auto-Generate d Referral 07/11/2022 08/10/2023 1 1 [facility] for referral (narrative)* Diagnostic Procedure Only (Routine) - Pending Review Specialty Diagnoses / Procedures Referred By Lisaac t Referred To Contact [facility] Diagnoses Encounter for screening mammogram for breast cancer Procedures RODRIGO SCREENING SCREENING MAMMOGRAPHY BI 2-VIEW BREAST INC Juan Luis Alberto MD [address] [place] [address] [facility] [address] [place] [address] Referral ID Status Reason Start Date Expiration Date Visits Requested Visits Authorized [id number] Pending Review Auto-Generat ed Referral 06/20/2023 07/19/2024 1 1 [facility] (narrative)No reason for referral information availableDetroit Living Proof Services Work Phone: Reason for visit Narrative* Diagnostic Procedure Only (Routine) - Closed Specialty Diagnoses / Procedures Referred By Contac t Referred To Contact US IMAGING Diagnoses Right flank pain Procedures US KIDNEY/BLADDER US RETROPERITONEAL REAL TIME W/IMAGE COMPLETE Podlogar, LARY HeadN.STENO POOL SUPERVISOR [address] [place] [address] [facility] Referral ID Status Reason Start Date Expiration Date V isits Requested Visits Authorized [id number] Closed Auto-Generate d Referral 07/11/2022 08/10/2023 1 1 [facility] Summary Purpose Family History No Family History Records Found Relationship Condition Age at Onset Recorded Date/T myra mother Diabetes mellitus Unknown Hypertension Unknown father Hypertension Unknown Diabetes mellitus Unknown sister Malignant neoplasm of breast Unknown brother Malignant neoplasm Unknown Relationship Condition Age at Onset Recorded Date/T myra Not Specified Arthritis Unknown mother Diabetes mellitus Unknown Hypertension Unknown Complication of anesthesia Unknown High blood cholesterol Unknown Transient ischemic attack Unknown father Hypertension Unknown Diabetes mellitus Unknown Alcoholism Unknown Deep vein thrombosis (DVT) Unknown Kidney disorder Unknown sister Malignant neoplasm of breast Unknown Anxiety Unknown Asthma Unknown Depression Unknown Seizures Unknown brother Malignant neoplasm Unknown Advance Directives No Advanced Directives Records FoundDocuments on File Type Date Recorded 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 Yes Jailene 13th, 2024 11:11am Chief Complaint and Reason for Visit Chief Complaint SCREENING Chief Complaint SCREENING Est. Care Blood Flow Screening - Sawyer Reason for Visit Encounter to [facility] Postsurgical malabsorption Preventative health care Chief Complaint 6 m f/u- recheck a1c Reason for Visit Anxiety Radiculopathy Borderline type 2 diabetes mellitus Chronic fatigue syndrome with fibromyalgia Chief Complaint 6 m f/u- recheck a1c Amb Documentation 2 M FU EORDERS Reason for Visit Anxiety Radiculopathy Borderline type 2 diabetes mellitus Chronic fatigue syndrome with fibromyalgia Chronic fatigue syndrome with fibromyalgia Insomnia Right shoulder pain Chief Complaint 6 m f/u- recheck a1c Amb Documentation 2 M FU EORDERS SCREENING R SHLD PN, OA/RX HERE Reason for Visit Anxiety Radiculopathy Borderline type 2 diabetes mellitus Chronic fatigue syndrome with fibromyalgia Chronic fatigue syndrome with fibromyalgia Insomnia Right shoulder pain Chief Complaint SCREENING R SHLD PN, OA/RX HERE 3 M FU POSTMENOPAUSAL Reason for Visit Anxiety Preventative health care Borderline type 2 diabetes mellitus Chronic fatigue syndrome with fibromyalgia Insomnia Chief Complaint SCREENING R SHLD PN, OA/RX HERE 3 M FU POSTMENOPAUSAL DISCUSS BONE DENSITY RESULTS Reason for Visit Anxiety Preventative health care Borderline type 2 diabetes mellitus Chronic fatigue syndrome with fibromyalgia Insomnia Osteopenia with high risk of fracture Postsurgical malabsorption Chief Complaint 3 M FU POSTMENOPAUSAL DISCUSS BONE DENSITY RESULTS Reason for Visit Anxiety Preventative health care Borderline type 2 diabetes mellitus Chronic fatigue syndrome with fibromyalgia Insomnia Osteopenia with high risk of fracture Postsurgical malabsorption Chief Complaint 3 M FU POSTMENOPAUSAL DISCUSS BONE DENSITY RESULTS Hyperparathyroidism, unspecified Reason for Visit Anxiety Preventative health care Borderline type 2 diabetes mellitus Chronic fatigue syndrome with fibromyalgia Insomnia Osteopenia with high risk of fracture Postsurgical malabsorption Chief Complaint 3 M FU POSTMENOPAUSAL DISCUSS BONE DENSITY RESULTS Hyperparathyroidism, unspecified PARATHYROID - U/S 3-11 Reason for Visit Anxiety Preventative health care Borderline type 2 diabetes mellitus Chronic fatigue syndrome with fibromyalgia Insomnia Osteopenia with high risk of fracture Postsurgical malabsorption Hyperparathyroidism Multiple thyroid nodules Chief Complaint POSTMENOPAUSAL DISCUSS BONE DENSITY RESULTS Hyperparathyroidism, unspecified PARATHYROID - U/S 3-11 Hyperparathyroidism, unspecified PARATHYROID BIOPSY Reason for Visit Osteopenia with high risk of fracture Postsurgical malabsorption Hyperparathyroidism Multiple thyroid nodules Hyperparathyroidism Multiple thyroid nodules Chief Complaint POSTMENOPAUSAL DISCUSS BONE DENSITY RESULTS Hyperparathyroidism, unspecified PARATHYROID - U/S 3-11 Hyperparathyroidism, unspecified PARATHYROID BIOPSY LEFT FLANK PAIN Reason for Visit Osteopenia with high risk of fracture Postsurgical malabsorption Hyperparathyroidism Multiple thyroid nodules Hyperparathyroidism Multiple thyroid nodules Chief Complaint POSTMENOPAUSAL DISCUSS BONE DENSITY RESULTS Hyperparathyroidism, unspecified PARATHYROID - U/S 3-11 Hyperparathyroidism, unspecified PARATHYROID BIOPSY LEFT FLANK PAIN Reason for Visit Osteopenia with high risk of fracture Postsurgical malabsorption Hyperparathyroidism Multiple thyroid nodules Hyperparathyroidism Multiple thyroid nodules Flank pain Sacroiliac joint pain Chief Complaint 2 M FU EORDERS SCREENING R SHLD PN, OA/RX HERE 3 M FU Reason for Visit Chronic fatigue synd sarah with fibromyalgia Insomnia Right shoulder pain Anxiety Preventative health care Borderline type 2 diabetes mellitus Chronic fatigue syndrome with fibromyalgia Insomnia Chief Complaint Admit Date 4 M FU July 30, 2024 3 :19pm E-ORDER August 08, 2024 6 :55am CERVICAL SPINE August 26, 2024 7:25am ROOM 1 August 26, 2024 7:48am 6 MO F/U S/P THYROIDECTOMY August 12:16pm EST THYROID US BX October 02, 2024 1:3 4pm 3 M FU October 30, 2024 2:4 8pm R05.3 - Chronic cough November 14, 2024 6:45 am DEGENERATION OF CERVIAL INTERVERT DISC. RX HERE November 19, 2024 4:00pm Reason for Visit Admit Date Retrolisthesis of vertebrae July 3:19pm Borderline type 2 diabetes mellitus Ricardo leoncio 2024 3:19pm Insomnia July 30, 2024 3 :19pm Obesity July 30, 2024 3 :19pm Post-surgical hypothyroidism July 3:19pm Other cervical disc degenera tion, mid-cervical region, unspecified level August 26, 2024 7:25am Thyroid nodule October 02, 2024 1:3 4pm Borderline type 2 diabetes mellitus Apri l 2024 2:48pm Chronic cough October 30, 2024 2:4 8pm Insomnia October 30, 2024 2:4 8pm Post-surgical hypothyroidism October 30, 2024 2:48pm Chief Complaint Admit Date EST THYROID US BX October 02, 2024 1:3 4pm 3 M FU October 30, 2024 2:4 8pm R05.3 - Chronic cough November 14, 2024 6:45 am R05.3 - Chronic cough November 14, 2024 6:54 am DEGENERATION OF CERVIAL INTERVERT DISC. RX HERE November 19, 2024 4:00pm 3 M FU January 29, 2025 2:44 pm Reason for Visit Admit Date Thyroid nodule October 02, 2024 1:3 4pm Borderline type 2 diabetes mellitus Apri l 2024 2:48pm Chronic cough October 30, 2024 2:4 8pm Insomnia October 30, 2024 2:4 8pm Post-surgical hypothyroidism October 30, 2024 2:48pm Chief Complaint Admit Date 3 M FU October 30, 2024 2:4 8pm R05.3 - Chronic cough November 14, 2024 6:45 am R05.3 - Chronic cough November 14, 2024 6:54 am DEGENERATION OF CERVIAL INTERVERT DISC. RX HERE November 19, 2024 4:00pm 3 M FU January 29, 2025 2:44 pm LEFT TOE PAIN January 29, 2025 4:46 pm Reason for Visit Admit Date Borderline type 2 diabetes mellitus Apri l 2024 2:48pm Chronic cough October 30, 2024 2:4 8pm Insomnia October 30, 2024 2:4 8pm Post-surgical hypothyroidism October 30, 2024 2:48pm Toe pain, left January 29, 2025 2:44 pm Anxiety January 29, 2025 2:44 pm Chronic cough January 29, 2025 2:44 pm Osteopenia with high risk of fracture Ju ly 2024 2:44pm Post-surgical hypothyroidism January 29, 2025 2:44pm Prediabetes January 29, 2025 2:44 pm Reason for Referral Specialty Diagnoses / Procedures Referred By Contac t Referred To Contact CT IMAGING Diagnoses Abnormal ultrasound Procedures CT UROGRAM WO/W IVCON CT ABD & PELVIS W/O CONTRST 1+ BODY REGNS Adilene Main, [employer]OTIVE [employer] ADVISOR.[employer] SUPERVISOR [address] [place] [address] Ct Imaging Referral ID Status Reason Start Date Expiration Date Visits Requested Visits Authorized [id number] Authorized Auto-Generat ed Referral 07/18/2022 08/17/2023 1 1 Specialty Diagnoses / Procedures Referred By Contac t Referred To Contact CT IMAGING Diagnoses Abnormal ultrasound Procedures CT UROGRAM WO/W IVCON CT ABD & PELVIS W/O CONTRST 1+ BODY REGNS PodlogAdilene galindo, AUTOMOTIVE [employer]ESALE PARTS ADVISOR.[employer]ENO PO[employer] SUPERVISOR [address] [place] [address] [id number] Referral ID Status Reason Start Date Expiration Date V isits Requested Visits Authorized [id number] Closed Auto-Generate d Referral 07/18/2022 08/17/2023 1 1 Additional Source Comments INFORMATION SOURCE (unrecogn ized section and content) DATE CREATED AUTHOR 09/09/2019 [facility] DATE CREATED AUTHOR AUTHOR'S ORGANIZ ATION 07/14/2022 [facility] DATE CREATED AUTHOR AUTHOR'S ORGANIZ ATION 01/11/2024 [facility] DATE CREATED AUTHOR AUTHOR'S ORGANIZ ATION 04/24/2025 [facility] Source Comments (unrecognize d section and content) In the event this informatio n is protected by the Federal Confidentiality of Alcohol and Drug Abuse Patient Records regulations: The Federal rules restrict any use of the information to criminally investigate or prosecute any alcohol or drug abuse patient.[facility] the event this information is protected by the Federal Confidentiality of Alcohol and Drug Abuse Patient Records regulations: The Federal rules restrict any use of the information to criminally investigate or prosecute any alcohol or drug abuse patient.[facility] the event this information is protected by the Federal Confidentiality of Alcohol and Drug Abuse Patient Records regulations: The Federal rules restrict any use of the information to criminally investigate or prosecute any alcohol or drug abuse patient.[facility] the event this information is protected by the Federal Confidentiality of Alcohol and Drug Abuse Patient Records regulations: The Federal rules restrict any use of the information to criminally investigate or prosecute any alcohol or drug abuse patient.[facility] the event this information is protected by the Federal Confidentiality of Alcohol and Drug Abuse Patient Records regulations: The Federal rules restrict any use of the information to criminally investigate or prosecute any alcohol or drug abuse patient.[facility] the event this information is protected by the Federal Confidentiality of Alcohol and Drug Abuse Patient Records regulations: The Federal rules restrict any use of the information to criminally investigate or prosecute any alcohol or drug abuse patient.[facility] the event this information is protected by the Federal Confidentiality of Alcohol and Drug Abuse Patient Records regulations: The Federal rules restrict any use of the information to criminally investigate or prosecute any alcohol or drug abuse patient.[facility] the event this information is protected by the Federal Confidentiality of Alcohol and Drug Abuse Patient Records regulations: The Federal rules restrict any use of the information to criminally investigate or prosecute any alcohol or drug abuse patient.[facility] the event this information is protected by the Federal Confidentiality of Alcohol and Drug Abuse Patient Records regulations: The Federal rules restrict any use of the information to criminally investigate or prosecute any alcohol or drug abuse patient.[facility] the event this information is protected by the Federal Confidentiality of Alcohol and Drug Abuse Patient Records regulations: The Federal rules restrict any use of the information to criminally investigate or prosecute any alcohol or drug abuse patient.[facility] the event this information is protected by the Federal Confidentiality of Alcohol and Drug Abuse Patient Records regulations: The Federal rules restrict any use of the information to criminally investigate or prosecute any alcohol or drug abuse patient.[facility] the event this information is protected by the Federal Confidentiality of Alcohol and Drug Abuse Patient Records regulations: The Federal rules restrict any use of the information to criminally investigate or prosecute any alcohol or drug abuse patient.[facility] Reason for Visit (unrecogniz ed section and content) Reason Comments Sinus Problem congestion x4 days, fever x48 hours Reason Comments Results Reason Comments Results Reason Comments Radiology CT Specialty Diagnoses / Procedures Referred By Contac t Referred To Contact CT IMAGING Diagnoses Abnormal ultrasound Procedures CT UROGRAM WO/W IVCON CT ABD & PELVIS W/O CONTRST 1+ BODY REGNS PodlogAdilene galindo APRN.[employer] SUPERVISOR [address] [place] [address] Ct Imaging [id number] Referral ID Status Reason Start Date Expiration Date V isits Requested Visits Authorized [id number] Closed Auto-Generate d Referral 07/18/2022 08/17/2023 [address] Care Teams (unrecognized sec tion and content) Lab Rep Relationship Specialty Start Date End Date Juan Luis Holloway MD [address] [place], [place] [id number] PCP - General Family Practice 05/18/21 Lab Rep Relationship Specialty Start Date End Date Juan Luis Holloway MD [address] [place], [place] [id number] PCP - General Family Medicine 05/18/21 Lab Rep Relationship Specialty Start Date End Date Juan Luis Holloway MD [address] [facility] [place] [address] PCP - General Family Medicine 05/18/21 Lab Rep Relationship Specialty Start Date End Date Juan Luis Holloway MD [address] [place] [place] [address] PCP - General Family Medicine 05/18/21 Lab Rep Relationship Specialty Start Date End Date Juan Luis Holloway MD [address] [place] [place] [address] PCP - General Family Medicine 05/18/21 Lab Rep Relationship Specialty Start Date End Date Juan Luis Holloway MD [address] [place] [address] PCP - General Family Medicine 05/18/21 Lab Rep Relationship Specialty Start Date End Date Juan Luis Holloway MD [address] [place] [address] PCP - General Family Medicine 05/18/21 Lab Rep Relationship Specialty Start Date End Date Juan Luis Holloway MD [address] [place] [address] PCP - General Family Medicine 05/18/21 Team Status: Active Member Role Status Dates Dr. Rohan North III, MD Family Provider Active Dr. Miah Montemayor MD Primary Care Provider Active Team Status: Inactive Member Role Status Dates Dr. Miah Montemayor MD Attending Provider Active Team Status: Inactive Member Role Status Dates Adilene Main EN[employer]GY EFFICI[employer]Y FINANCE MANAGER, ENERGY EFFICIENCY FINANCE MANAGER-C Primary Care Provider Active Dr. Cora Conteh DO Attending Provider Active Team Status: Active Member Role Status Dates Dr. Maurice Garza MD Attending Provider Active Dr. Miah Montemayor MD Primary Care Provider Active Self Referred Referring Provider Active Team Status: Inactive Member Role Status Dates Dr. Miah Montemayor MD Primary Care P rovider, Attending Provider, Referring Provider Active Team Status: Active Member Role Status Dates Dr. Miah Montemayor MD Primary Care Provider Active Kathrin Guillermo MA Attending Provider Acti ve Team Status: Active Member Role Status Dates Dr. Miah Montemayor MD Primary Care P rovider, Attending Provider, Referring Provider Active Lab Rep Relationship Specialty Start Date End Date Juan Luis Holloway MD [address] [place] [address] PCP - General Family Medicine 05/18/21 Lab Rep Relationship Specialty Start Date End Date Juan Luis Holloway MD [address] [place], [place] [address] PCP - General Family Medicine 05/18/21 Team Status: Inactive Member Role Status Dates Dr. Miah Montemayor MD Primary Care Provider, Atten ding Provider Active Team Status: Inactive Member Role Status Dates Dr. Miah Montemayor MD Primary Care Provider, Refer ring Provider Active Dr. Rg Lockwood MD Attending Provider Active Team Status: Inactive Member Role Status Dates Dr. Miah Montemayor MD Primary Care Provider Active Dr. Rg Lockwood MD Attending Provider, Referring P rovider Active Team Status: Active Member Role Status Dates Dr. Miah Montemayor MD Primary Care Provider Active Dr. Rg Lockwood MD Attending Provider, Referring P rovider Active Team Status: Inactive Member Role Status Dates Dr. Miah Montemayor MD Primary Care Provider, Refer ring Provider Active DURGA Mejia Attending Provider Active Team Status: Active Member Role Status Dates Dr. Miah Montemayor MD Primary Care Provider Active DURGA Mejia Attending Provider Active Lab Rep Relationship Specialty Start Date End Date Juan Luis Holloway MD [address] [place], [place] [id number] PCP - General Family Medicine 05/18/21 Team Status: Inactive Member Role Status Dates Dr. Miah Montemayor MD Primary Care Provider Active DURGA Mejia Attending Provider Active Lab Rep Relationship Specialty Start Date End Date Juan Luis Holloway MD [address] [place] [address] PCP - General Family Medicine 05/18/21 11/15/23 Team Status: Active Member Role Status Dates Dr. Miah Montemayor MD Primary Care Provider Active Team Status: Inactive Member Role Status Dates Dr. Miah Montemayor MD Primary Care Provider Active Start: July 30, 2024 End: July 30, 2024 Dr. Miah Montemayor MD Attending Provider Active Start: July 30, 2024 End: July 30, 2024 Dr. Miah Montemayor MD Referring Provider Active Start: July 30, 2024 End: July 30, 2024 Team Status: Inactive Member Role Status Dates Dr. Miah Montemayor MD Primary Care Provider Active Start: August 08, 2024 End: August 08, 2024 Dr. Miah Montemayor MD Attending Provider Active Start: August 08, 2024 End: August 08, 2024 Dr. Miah Montemayor MD Referring Provider Active Start: August 08, 2024 End: August 08, 2024 Team Status: Inactive Member Role Status Dates Dr. Miah Montemayor MD Primary Care Provider Active Start: August 09, 2024 End: August 09, 2024 Dr. Miah Montemayor MD Attending Provider Active Start: August 09, 2024 End: August 09, 2024 Dr. Miah Montemayor MD Referring Provider Active Start: August 09, 2024 End: August 09, 2024 Team Status: Inactive Member Role Status Dates Dr. Miah Montemayor MD Primary Care Provider Active Start: August 26, 2024 End: August 26, 2024 Dr. Miah Montemayor MD Referring Provider Active Start: August 26, 2024 End: August 26, 2024 Dr. William Hunter MD Attending Provider Active Start: August 26, 2024 End: August 26, 2024 Team Status: Inactive Member Role Status Dates Dr. Miah Montemayor MD Primary Care Provider Active Start: August 26, 2024 End: August 26, 2024 Dr. Raj Ang MD Attending Provider Active S tart: August 26, 2024 End: August 26, 2024 Team Status: Inactive Member Role Status Dates Dr. Miah Montemayor MD Primary Care Provider Active Start: September 01, 2024 End: September 01, 2024 Dr. Rg Lockwood MD Attending Provider Active Start: September 01, 2024 End: September 01, 2024 Dr. Rg Lockwood MD Referring Provider Active Start: September 01, 2024 End: September 01, 2024 Team Status: Inactive Member Role Status Dates Dr. Miah Montemayor MD Primary Care Provider Active Start: October 02, 2024 End: October 02, 2024 Dr. Miah Montemayor MD Referring Provider Active Start: October 02, 2024 End: October 02, 2024 Dr. Rg Lockwood MD Attending Provider Active Start: October 02, 2024 End: October 02, 2024 Team Status: Inactive Member Role Status Dates Dr. Miah Montemayor MD Primary Care Provider Active Start: October 30, 2024 End: October 30, 2024 Dr. Miah Montemayor MD Attending Provider Active Start: October 30, 2024 End: October 30, 2024 Dr. Miah Montemayor MD Referring Provider Active Start: October 30, 2024 End: October 30, 2024 Team Status: Inactive Member Role Status Dates Dr. Miah Montemayor MD Primary Care Provider Active Start: November 13, 2024 End: November 13, 2024 Dr. Miah Montemayor MD Attending Provider Active Start: November 13, 2024 End: November 13, 2024 Dr. Miah Montemayor MD Referring Provider Active Start: November 13, 2024 End: November 13, 2024 Team Status: Inactive Member Role Status Dates Dr. Miha Montemayor MD Primary Care Provider Active Start: November 14, 2024 End: November 14, 2024 Dr. Miah Montemayor MD Attending Provider Active Start: November 14, 2024 End: November 14, 2024 Dr. Miah Montemayor MD Referring Provider Active Start: November 14, 2024 End: November 14, 2024 Team Status: Inactive Member Role Status Dates Dr. Miah Montemayor MD Primary Care Provider Active Start: November 19, 2024 End: November 19, 2024 Dr. William Hunter MD Attending Provider Active Start: November 19, 2024 End: November 19, 2024 Dr. William Hunter MD Referring Provider Active Start: November 19, 2024 End: November 19, 2024 Team Status: Active Member Role/Relationship Status Dates Dr. Miah Montemayor MD Primary Care Provider Active Team Status: Inactive Member Role/Relationship Status Dates Dr. Miah Montemayor MD Primary Care Provider Active Start: October 02, 2024 End: October 02, 2024 Dr. Miah Montemayor MD Referring Provider Active Start: October 02, 2024 End: October 02, 2024 Dr. Rg Lockwood MD Attending Provider Active Start: October 02, 2024 End: October 02, 2024 Team Status: Inactive Member Role/Relationship Status Dates Dr. Miah Montemayor MD Primary Care Provider Active Start: October 30, 2024 End: October 30, 2024 Dr. Miah Montemayor MD Attending Provider Active Start: October 30, 2024 End: October 30, 2024 Dr. Miah Montemayor MD Referring Provider Active Start: October 30, 2024 End: October 30, 2024 Team Status: Inactive Member Role/Relationship Status Dates Dr. Miah Montemayor MD Primary Care Provider Active Start: November 13, 2024 End: November 13, 2024 Dr. Miah Montemayor MD Attending Provider Active Start: November 13, 2024 End: November 13, 2024 Dr. Miah Montemayor MD Referring Provider Active Start: November 13, 2024 End: November 13, 2024 Team Status: Inactive Member Role/Relationship Status Dates Dr. Miah Montemayor MD Primary Care Provider Active Start: November 14, 2024 End: November 14, 2024 Dr. Miah Montemayor MD Attending Provider Active Start: November 14, 2024 End: November 14, 2024 Dr. Miah Montemayor MD Referring Provider Active Start: November 14, 2024 End: November 14, 2024 Team Status: Active Member Role/Relationship Status Dates Dr. Miah Montemayor MD Primary Care Provider Active Start: November 14, 2024 Dr. Miah Montemayor MD Referring Provider Active Start: November 14, 2024 Dr. Chet Krueger DO Attending Provider Active S tart: November 14, 2024 Team Status: Inactive Member Role/Relationship Status Dates Dr. Miah Montemayor MD Primary Care Provider Active Start: November 19, 2024 End: November 19, 2024 Dr. William Hunter MD Attending Provider Active Start: November 19, 2024 End: November 19, 2024 Dr. William Hunter MD Referring Provider Active Start: November 19, 2024 End: November 19, 2024 Team Status: Inactive Member Role/Relationship Status Dates Dr. Miah Montemayor MD Primary Care Provider Active Start: January 29, 2025 End: January 29, 2025 Dr. Miah Montemayor MD Attending Provider Active Start: January 29, 2025 End: January 29, 2025 Dr. Miah Montemayor MD Referring Provider Active Start: January 29, 2025 End: January 29, 2025 Team Status: Inactive Member Role/Relationship Status Dates Dr. Miah Montemayor MD Primary Care Provider Active Start: October 30, 2024 End: October 30, 2024 Dr. Miah Montemayor MD Attending Provider Active Start: October 30, 2024 End: October 30, 2024 Dr. Miah Montemayor MD Referring Provider Active Start: October 30, 2024 End: October 30, 2024 Team Status: Inactive Member Role/Relationship Status Dates Dr. Miah Montemayor MD Primary Care Provider Active Start: November 13, 2024 End: November 13, 2024 Dr. Miah Montemayor MD Attending Provider Active Start: November 13, 2024 End: November 13, 2024 Dr. Miah Montemayor MD Referring Provider Active Start: November 13, 2024 End: November 13, 2024 Team Status: Inactive Member Role/Relationship Status Dates Dr. Miah Montemayor MD Primary Care Provider Active Start: November 14, 2024 End: November 14, 2024 Dr. Miah Montemayor MD Attending Provider Active Start: November 14, 2024 End: November 14, 2024 Dr. Miah Montemayor MD Referring Provider Active Start: November 14, 2024 End: November 14, 2024 Team Status: Active Member Role/Relationship Status Dates Dr. Miah Montemayor MD Primary Care Provider Active Start: November 14, 2024 Dr. Miah Montemayor MD Referring Provider Active Start: November 14, 2024 Dr. Chet Krueger DO Attending Provider Active S tart: November 14, 2024 Team Status: Inactive Member Role/Relationship Status Dates Dr. Miah Montemayor MD Primary Care Provider Active Start: November 19, 2024 End: November 19, 2024 Dr. William Hunter MD Attending Provider Active Start: November 19, 2024 End: November 19, 2024 Dr. William Hunter MD Referring Provider Active Start: November 19, 2024 End: November 19, 2024 Team Status: Inactive Member Role/Relationship Status Dates Dr. Miah Montemayor MD Primary Care Provider Active Start: January 29, 2025 End: January 29, 2025 Dr. Miah Montemayor MD Attending Provider Active Start: January 29, 2025 End: January 29, 2025 Dr. Miah Montemayor MD Referring Provider Active Start: January 29, 2025 End: January 29, 2025 Goals (unrecognized section and content) Goals may be documented in a n alternate sectionGoals may be documented in an alternate sectionGoals may be documented in an alternate sectionGoals may be documented in an alternate sectionGoals may be documented in an alternate sectionGoals may be documented in an alternate sectionGoals may be documented in an alternate sectionGoals may be documented in an alternate sectionGoals may be documented in an alternate sectionGoals may be documented in an alternate sectionGoals may be documented in an alternate sectionGoals may be documented in an alternate sectionGoals may be documented in an alternate sectionGoals may be documented in an alternate sectionGoals may be documented in an alternate sectionGoals may be documented in an alternate sectionGoals may be documented in an alternate sectionGoals may be documented in an alternate sectionGoals may be documented in an alternate section FOR RECORDS PERTAINING TO PATIENTS WHO ARE [...] BE BASED ON THE PRIMARY CLINICAL RECORDS. [facility] provides no warranty or guarantee of the accuracy or completeness of information in this document.
[2025-05-01 07:33] LABS: Hematocrit 43.8 % (37-47); Hemoglobin 14.3 g/dL (12.0-15.0); Immature Granulocytes Count 0.040 X10^3/uL (0.0-0.0); Mean Corp Hgb Conc 32.6 g/dL (32-36); Mean Corpuscular Volume 89.8 fL (81-99); Mean Platelet Vol. 9.7 fl (6.2-12.0); NRBC Flagged by Analyzer 0 % (0-5); Platelet Count 292 K/mm3 (150-450); RBC Distribution Width CV 12.8 % (11.6-14.6); RBC Distribution Width SD 42.0 fl (35.1-43.9); Red Blood Count 4.88 M/mm3 (4.2-5.4); White Blood Count 7.7 K/mm3 (4.4-11.0)
[2025-05-01 08:07] LABS: PTHIN 53 pg/mL (11-61)
[2025-05-01 08:24] LABS: AST(SGOT) 21 U/L (<=31); Alanine Aminotransfer ALT/SGPT 18 U/L (<=34); Albumin, Serum 4.3 g/dL (3.4-4.8); Alkaline Phosphatase 50 U/L (35-104); Anion Gap 10 (5-15); BUN 15 mg/dL (4-19); BUN/Creat Ratio 20.2 RATIO (10-20); Calcium,Total 8.9 mg/dL (7.6-11.0); Carbon Dioxide 26.7 mmol/L (21.0-32.0); Chloride 100 mmol/L (98-108); Globulin 2.9 g/dL (2.2-4.2); Glucose 127 mg/dL (70-99); Potassium 4.2 mmol/L (3.3-5.1); Vitamin D,25 Hydroxy 65.8 ng/mL (30-100)
== END | disposition home or self-care (01) ==
LOC: LAB 07:03
PROVIDERS: PCP Internal Medicine; Referring Provider Internal Medicine; Visit Provider Internal Medicine
DX: M85.80 Other specified disorders of bone density and structure, unspecified site (principal); R73.03 Prediabetes; E89.0 Postprocedural hypothyroidism; E21.3 Hyperparathyroidism, unspecified; R05.3 Chronic cough; Z90.49 Acquired absence of other specified parts of digestive tract; Z98.890 Other specified postprocedural states
CPT/HCPCS: 36415; 80053; 82306; 83036; 83970; 84443; 85025

== ENCOUNTER → 2025-05-07 | Outpatient (CLI) | payer OTHER, SELFPAY ==
--- OUTSIDE RECORDS SUMMARY | 2025-05-07 07:11 | XMS RPT_ITS | CCD ---
Author Organization [facility] ion Partnership [facility] Care Team Providers Care Epic Application Coordinator Name Role Phone Juan Luis Holloway MD Primary Care Provider PODLOGARADILENE Referring Unavailable JUAN LUIS HOLLOWAY Primary Care Unavailab Juan Luis Menon MD Primary Care Provider Dr. Miah Montemayor Attending Provider [phone] Dr. Miah Montemayor Primary Care Provider [phone] Sim, Dr. Dooley Attending Provider [phone] Dr. iMah Montemayor Referring Provider [phone] ANDREEA Guillermo Attending Provider Unavailable Dr. Miah Montemayor Primary Care Provider 1(33 [phone]) Sim, Dr. Dooley Attending Provider [phone] Dr. Miah Montemayor Referring Provider [phone])2 Dr. Miah Montemayor Primary Care Provider 1(33 0) Dr. Miah Montemayor Attending Provider [phone])2 Dr. Miah Montemayor Referring Provider [phone])2 Dr. Rg Lockwood Attending Provider [phone] Dr. Miah Montemayor Primary Care Provider [phone] [...] CEE, Dr. Dooley Referring Provider [phone] Rg Lockwood Attending Unavailable Miah Monetmayor Referring Unavailable Miah Montemayor Primary Care Unavailable Oleghe, Efewongbe Attending Unavailable Oleghe, Efewongbe Referring Unavailable Oleghe, Efewongbe Primary Care Unavailable Oleghe, Efewongbe Attending Unavailable Oleghe, Efewongbe Referring Unavailable Oleghe, Efewongbe Primary Care Unavailable Oleghe, Efewongbe Referring Unavailable Chet Krueger [...] Unavailable Rg Lockwood Attending Unavailable Oleghe, Efewongbe Primary Care Unavailable Rg Lockwood Referring Unavailable Hunter, Wililam Referring Unavailable Oleghe, Efewongbe Primary Care Unavailable Hunter William Attending Unavailable Oleghe, Efewongbe Referring Unavailable Oleghe, Efewongbe Primary Care Unavailable Hunter William Attending Unavailable Oleghe, Efewongbe Primary Care Unavailable Raj Ang Attending Unavailable Oleghe, Efewongbe Primary Care Unavailable Oleghe, Efewongbe Referring Unavailable Oleghe, Efewongbe Attending Unavailable Oleghe, Efewongbe Attending Unavailable Oleghe, Efewongbe Referring Unavailable Oleghe, Efewongbe Primary Care Unavailable Oleghe, Efewongbe Referring Unavailable Oleghe, Efewongbe Attending Unavailable Oleghe, Efewongbe Primary Care Unavailable Oleghe, Efewongbe Attending Unavailable Oleghe, Efewongbe Primary Care Unavailable Medel Lyle, Summer Referring Unavailable Medel Lyle, Summer Attending Unavailable Oleghe, Efewongbe Primary Care Unavailable Oleghe, Efewongbe Primary Care Unavailable Oleghe, Efewongbe Referring Unavailable Oleghe, Efewongbe Attending Unavailable Allergies Allergy Classification Reported Allergen(s) Allergy Type Date of Onset Reaction(s) Facility (20 sources) Codeine; Translations: [CODEINE] Drug Allergy 11-05-201 1 Vomiting [facility] (14 sources) Esomeprazole; Translations: [ESOMEPRAZOLE MAGNESIUM] Drug Allergy 6 GI Upset [facility] Work Phone: (14 sources) metFORMIN; Translations: [METFORMIN HCL] Drug Allergy 6 GI Upset [facility] Work Phone: (3 sources) Non-steroidal anti-inflammatory agent; Translations: [NSAIDS (NON-STEROIDAL ANTI-INFLAMMATORY DRUG)] Propensity to adverse reactions to drug 4 [facility] (11 sources) Non-steroidal anti-inflammatory agent Propensity to adverse reactions to drug 4 [facility] (18 sources) Nonsteroidal Anti-inflammatory Compounds Allergy to substance 3 Nausea [facility] (1 source) Codeine Drug Allergy 5 [facility] (1 source) NSAIDs Drug allergy (disorder) 5 [facility] Medications Current Medications Medication Drug [...] (500 unit) tablet,chewable (3 sources) Start: 03-26-20 24 Calcium Citrate-Vitamin D3 500 mg-12.5 mcg (500 [...] Comment on above: Take 1 tablet by [facility] twice daily for 10 days. DULoxetine 30 [...] (3 sources) Vitamin B12 Start: 12-27-2023 Vitamin Q13-Mtiuh Acid 1,000-400 mcg lozenge Active 1 NMA [...] 12:00am metroNIDAZOLE (3 sources) Nitroimidazole Antimicrobial Start: 025 Metronidazole 0.75 % cream Active 1 NMA TOPICAL TWICE A DAY July 30, 2024 1:00am multivitamin (MULTIPLE VITAMIN) ORAL Tab (12 sources) Start: 09-27-2 007 take 1 tablet by mouth once daily multivitamin (MULTIPLE VITAMIN) ORAL Tab Take one(1) tablet two(2) times daily. 0 04/11/2007 Active Comment on above: Take one(1) tablet t wo(2) times daily. Multivitamin preparation (20 sources) Start: 023 take 1 tablet by mouth once daily Multivitamin Active 1 TABLET PO DAILY August 07, 2022 1:00am Start: 08-07-2022 take 1 tablet by rina once daily Multivitamin Active 1 TABLET PO [...] 60 mg, formulated for gastric bypass patients Rneyvvj-Yvko-Qyhuz-Oreg- Capryl (6 sources) Start: 08-07-2022 Djmbrll-Zepf-Oniay-Oreg -Capryl Active CAP PO August 07, 2022 1:00am Start: 08-07-2022 Qwdnemf-Fdcr-P semd-Yczm-Nahiav Active CAP PO August 07, 2022 12:00am Ikstwepn-Sehw-Deqom-Oreg-Cap ry (9 sources) Start: 08-07-2022 Bovipmju-Uedx-Vigtk-Oreg-Cap ry Active CAP PO August 07, 2022 1:00am Start: 08-07-2022 Turmeric-Ging- Bvdlc-Ijic-Ngowa Active CAP PO August 07, 2022 12:00am [...] 4 HOURS NEEDED as needed for Pain 20 May 28, 2014 1:00am August 13, 2018 [...] Start: 08-13-2018 take 1 capsule by mo [facility] once daily B-Complex With Vitamin C Active [...] 13, 2018 7:31am Comment on above: 1 Kennan once daily. iv contrast (will be provided [...] 250 mg by mouth as needed (pain). Oxford-3 Fatty Acids (19 sources) Start: 08-13-2018 End: 08-07-2022 take 1 capsule by mouth once daily as needed Oxford-3 Fatty Acids 1,250 mg capsule Discontinued 1250 mg PO DAILY as needed for Supplement Radio Mechanic August 13, 2018 1:00am August 07, 2022 [...] 8:10am Start: 08-13-2018 take 1 capsule by mo [facility] once daily omega-3 fatty acids 1,250 mg [...] chronic cholecystitis without obstruction polyethylene glycol 3350 51270 mg powder for oral solution (19 sources) [...] Active Comment on above: Take by mouth. Zebsijgb-Onkf-Whoze-Oreg -Capry 100 mg-150 mg- 50 mg-150 mg capsule (3 sources) Start: 08-07-2022 End: 12-27-2023 Tagpibhj-Tciz-Fprig-Oreg-Cap ry 100 mg-150 mg- 50 mg-150 mg [...] 30, 2024 4:33pm SUPPLEMENT Start: 12-27-2023 End: 07-30-2024 WOLFBERRY Discontinued 1 [...] a repeat thyroid ultrasound. Appears now resolved Esophageal disorders (12 sources) Gastroesophageal reflux disease; [...] and structure, unspecified site] 08-22-2023 Episodic Other connective tissue disease (3 sources) Pain in toe; Translations: [Pain in left toe(s)] 01-29-2025 Episodic Other connective tissue disease (1 source) Pain in left toe(s); Translations: [Pain in left toe(s)] Onset: Episodic Other endocrine disorders (10 sources) Hyperparathyroidism; [...] sources) Cough; Translations: [Cough] 03-26-2024 Episodic Other non-traumatic joint disorders (20 sources) [...] mammogram for malignant neoplasm of breast] Onset: 4 Episodic Other upper respiratory disease (18 [...] 02-22-2017 02-22-2017 Episodic Diabetes mellitus without complication (20 sources) Impaired [...] , site unspecified] Onset: 08-15-2024 Episodic Other bone disease and musculoskeletal deformities (9 sources) Other specified disorders of bone density and structure, unspecified site; Translations: [Disorder of bone and cartilage, unspecified] Onset: 01-29-2025 08-22-2023 Episodic Other connective tissue disease (12 sources) [...] [Bariatric surgery status] Onset: 08-10-2014 08-10-2014 Episodic Other lower respiratory disease (8 sources) Chronic cough; Translations: [Chronic cough] Onset: 01-29-2025 10-30-2024 Episodic Residual codes; unclassified (12 sources) Insomnia, unspecified; Translations: [Insomnia, unspecified] Onset: 08-15-2024 03-29-2023 Episodic Spondylosis; intervertebral disc disorders; other back problems (20 sources) Nerve root disorder; Translations: [Radiculopathy, site unspecified] Onset: 07-24-2005 Resolved: 09-30-2015 01-19-2023 Episodic Results Test Name Value Interpretation Reference Range Facility CBC W/Diff, Automatedon 10- Absolute Lymph 1.37 X10 3/uL Normal 0.83-4.51 [facility] Comment on above: Performed By: #### L 506.1001, L500.4050, L509.1000, L501.9985, L501.9520, L100.0100 ####[facility] [address] [place], [address] Absolute Neut 5.6 X10 3/uL Normal 2.0-7.7 [facility] Comment on above: Performed By: #### L 506.1001, L500.4050, L509.1000, L501.9985, L501.9520, L100.0100 ####[facility] [address] [place], [address] Basophils/100 WBC (Bld) 0.4 % Normal 0-1 [facility] Comment on above: Performed By: #### L 506.1001, L500.4050, L509.1000, L501.9985, L501.9520, L100.0100 ####[facility] [address] [place], [address] Eosinophils/100 WBC (Bld) 1.4 % Normal 0-5 [facility] Comment on above: Performed By: #### L 506.1001, L500.4050, L509.1000, L501.9985, L501.9520, L100.0100 ####[facility] [address] [place], [address] Erythrocyte distribution width (RBC) [Ratio] 12.8 % Normal 11.6-14.6 [facility] Comment on above: Performed By: #### L 506.1001, L500.4050, L509.1000, L501.9985, L501.9520, L100.0100 ####[facility] [address] [place], [address] Hematocrit (Bld) [Volume fraction] 43.8 % Normal 37-47 [facility] Comment on above: Performed By: #### L 506.1001, L500.4050, L509.1000, L501.9985, L501.9520, L100.0100 ####[facility] [address] [place], [address] Hemoglobin (Bld) [Mass/Vol] 14.3 g/dL Normal 12.0-15.0 [facility] Comment on above: Performed By: #### L 506.1001, L500.4050, L509.1000, L501.9985, L501.9520, L100.0100 ####[facility] [address] [place], [address] IG% 0.500 Normal 0.0-0.9 [facility] Comment on above: Result Comment: IG% - Immature Granulocytes (promyelocytes, myelocytes and metamyelocytes) > 1% indicates that a LEFT SHIFT is Present. Performed By: #### L 506.1001, L500.4050, L509.1000, L501.9985, L501.9520, L100.0100 ####[facility] [address] [place], [address] Lymphocytes/100 WBC (Bld) 17.7 % Low 19-41 [facility] Comment on above: Performed By: #### L 506.1001, L500.4050, L509.1000, L501.9985, L501.9520, L100.0100 ####[facility] [address] [place], [address] MCH (RBC) [Entitic mass] 29.3 pg Normal 27.0-32.0 [facility] Comment on above: Performed By: #### L 506.1001, L500.4050, L509.1000, L501.9985, L501.9520, L100.0100 ####[facility] [address] [place], [address] MCHC (RBC) [Mass/Vol] 32.6 g/dL Normal 32-36 [facility] Comment on above: Performed By: #### L 506.1001, L500.4050, L509.1000, L501.9985, L501.9520, L100.0100 ####[facility] [address] [place], [address] MCV (RBC) [Entitic vol] 89.8 fL Normal 81-99 [facility] Comment on above: Performed By: #### L 506.1001, L500.4050, L509.1000, L501.9985, L501.9520, L100.0100 ####[facility] [address] [place], [address] Monocytes/100 WBC (Bld) 7.5 % Normal 0-10 [facility] Comment on above: Performed By: #### L 506.1001, L500.4050, L509.1000, L501.9985, L501.9520, L100.0100 ####[facility] [address] [place], [address] Neutrophils/100 WBC (Bld) 72.5 % High 47-70 [facility] Comment on above: Performed By: #### L 506.1001, L500.4050, L509.1000, L501.9985, L501.9520, L100.0100 ####[facility] [address] [place], [address] Nucleated RBC (Bld) [#/Vol] 0 10*3/uL Normal 0-5 [facility] Comment on above: Performed By: #### L 506.1001, L500.4050, L509.1000, L501.9985, L501.9520, L100.0100 ####[facility] [address] [place], [address] Platelet mean volume (Bld) [Entitic vol] 9.7 fL Normal 6.2-12.0 [facility] Comment on above: Performed By: #### L 506.1001, L500.4050, L509.1000, L501.9985, L501.9520, L100.0100 ####[facility] [address] [place], [address] Platelets (Bld) [#/Vol] 292 10*3/uL Normal 150-450 [facility] Comment on above: Performed By: #### L 506.1001, L500.4050, L509.1000, L501.9985, L501.9520, L100.0100 ####[facility] [address] [place], [address] RBC (Bld) [#/Vol] 4.88 10*6/uL Normal 4.2-5.[address] [facility] Comment on above: Performed By: #### L 506.1001, L500.4050, L509.1000, L501.9985, L501.9520, L100.0100 ####[facility] [address] [place], [address] RDW SD 42.0 fl Normal 35.1-43.9 [facility] Comment on above: Performed By: #### L 506.1001, L500.4050, L509.1000, L501.9985, L501.9520, L100.0100 ####[facility] [address] [place], [address] WBC (Bld) [#/Vol] 7.7 10*3/uL Normal 4.4-11.[address] [facility] Comment on above: Performed By: #### L 506.1001, L500.4050, L509.1000, L501.9985, L501.9520, L100.0100 ####[facility] [address] [place], [address] Comprehensive Metabolic Prof ilon 05-01-2025 Albumin [Mass/Vol] 4.3 g/dL Normal 3.4-4.[address] [facility] Comment on above: Performed By: #### L 506.1001, L500.4050, L509.1000, L501.9985, L501.9520, L100.0100 ####[facility] [address] [place], [address] Albumin/Globulin [Mass ratio] 1.5 {ratio} Normal 0.9-2.4 [facility] Comment on above: Performed By: #### L 506.1001, L500.4050, L509.1000, L501.9985, L501.9520, L100.0100 ####[facility] [address] [place], [address] ALK PHOS 50 U/L Normal 35-104 [facility] Comment on above: Performed By: #### L 506.1001, L500.4050, L509.1000, L501.9985, L501.9520, L100.0100 ####[facility] [address] [place], [address] ALT [Catalytic activity/Vol] 18 U/L Normal <=34 [facility] Comment on above: Performed By: #### L 506.1001, L500.4050, L509.1000, L501.9985, L501.9520, L100.0100 ####[facility] [address] [place], [address] AST [Catalytic activity/Vol] 21 U/L Normal <=31 [facility] Comment on above: Performed By: #### L 506.1001, L500.4050, L509.1000, L501.9985, L501.9520, L100.0100 ####[facility] [address] [place], [address] Bilirubin [Mass/Vol] 0.50 mg/dL Normal 0.00-1.30 [facility] Comment on above: Performed By: #### L 506.1001, L500.4050, L509.1000, L501.9985, L501.9520, L100.0100 ####[facility] [address] [place], [address] BUN/CRE 20.2 RATIO High 10-20 [facility] Comment on above: Performed By: #### L 506.1001, L500.4050, L509.1000, L501.9985, L501.9520, L100.0100 ####[facility] [address] [place], [address] Calcium [Mass/Vol] 8.9 mg/dL Normal 7.6-11.[address] [facility] Comment on above: Performed By: #### L 506.1001, L500.4050, L509.1000, L501.9985, L501.9520, L100.0100 ####[facility] [address] [place], [address] Chloride [Moles/Vol] 100 mmol/L Normal 98-108 [facility] Comment on above: Performed By: #### L 506.1001, L500.4050, L509.1000, L501.9985, L501.9520, L100.0100 ####[facility] [address] [place], [address] CO2 [Moles/Vol] 26.7 mmol/L Normal 21.0-32.0 [facility] Comment on above: Performed By: #### L 506.1001, L500.4050, L509.1000, L501.9985, L501.9520, L100.0100 ####[facility] [address] [place], [address] Creatinine [Mass/Vol] 0.73 mg/dL Normal 0.70-1.20 [facility] Comment on above: Performed By: #### L 506.1001, L500.4050, L509.1000, L501.9985, L501.9520, L100.0100 ####[facility] [address] [place], [address] GAP 10 Normal 5-15 [facility] Comment on above: Performed By: #### L 506.1001, L500.4050, L509.1000, L501.9985, L501.9520, L100.0100 ####[facility] [address] [place], [address] GFR/1.73 sq M.predicted among non-blacks MDRD (S/P/Bld) [Vol rate/Area] 91 mL/min/{1.73_m2} Normal >60 [facility] Comment on above: Result Comment: mL/m in/1.73m2 CKD-EPI Creatinine Equation (2020) Performed By: #### L 506.1001, L500.4050, L509.1000, L501.9985, L501.9520, L100.0100 ####[facility] [address] [place], [address] Globulin (S) [Mass/Vol] 2.9 g/dL Normal 2.2-4.2 [facility] Comment on above: Performed By: #### L 506.1001, L500.4050, L509.1000, L501.9985, L501.9520, L100.0100 ####[facility] [address] [place], [address] Glucose [Mass/Vol] 127 mg/dL High 70-[address] [facility] Comment on above: Performed By: #### L 506.1001, L500.4050, L509.1000, L501.9985, L501.9520, L100.0100 ####[facility] [address] [place], [address] Potassium [Moles/Vol] 4.2 mmol/L Normal 3.3-5.1 [facility] Comment on above: Performed By: #### L 506.1001, L500.4050, L509.1000, L501.9985, L501.9520, L100.0100 ####[facility] [address] [place], [address] Sodium [Moles/Vol] 136 mmol/L Normal 133-[address] [facility] Comment on above: Performed By: #### L 506.1001, L500.4050, L509.1000, L501.9985, L501.9520, L100.0100 ####[facility] [address] [place], [address] T PROT 7.2 g/dL Normal 5.9-8.4 [facility] Comment on above: Performed By: #### L 506.1001, L500.4050, L509.1000, L501.9985, L501.9520, L100.0100 ####[facility] [address] [place], [address] Urea nitrogen [Mass/Vol] 15 mg/dL Normal 4-19 [facility] Comment on above: Performed By: #### L 506.1001, L500.4050, L509.1000, L501.9985, L501.9520, L100.0100 ####[facility] [address] [place], [address] Hemoglobin A1con 05-01-2025 HbA1c (Bld) [Mass fraction] 5.9 % High <=5.6 [facility] Comment on above: Result Comment: Norm al < 5.7 % Prediabetic 5.7 - 6.4 % Diabetic >or= 6.5 % Please note range changes. Performed By: #### L 506.1001, L500.4050, L509.1000, L501.9985, L501.9520, L100.0100 ####[facility] [address] [place], [address] PTHINon 05-01-2025 PTH 53 pg/mL Normal 11-61 [facility] Comment on above: Performed By: #### L 506.1001, L500.4050, L509.1000, L501.9985, L501.9520, L100.0100 ####[facility] [address] [place], [address] Thyroid Stim Hormone (TSH)on 05-01-2025 TSH 3.490 uIU/mL Normal 0.300-4.20 0 [facility] Comment on above: Performed By: #### L 506.1001, L500.4050, L509.1000, L501.9985, L501.9520, L100.0100 ####[facility] [address] [place], [address] Vitamin D,25 Hydroxyon 05-01 Vitamin D 25-OH 65.8 ng/mL Normal 30-100 [facility] Comment on above: Result Comment: Rose Mary min D Status Deficiency: <20 ng/mL (50nmol/L) Insufficiency: 20-30 ng/mL (50-75 nmol/L) Sufficiency: 30-100 ng/mL (75-250 nmol/L) Toxicity: >100 ng/mL (>250 nmol/L) Performed By: #### L 506.1001, L500.4050, L509.1000, L501.9985, L501.9520, L100.0100 ####[facility] [address] [place], [address] Internal Medicine Office Vis iton 01-29-2025 Internal Medicine Office Visit [facility] [address] [place] [address] [place] [address] OFFICE VISIT Date of Service: 01/29/25 MR#: [id number] Acct: [id number] Name: JANEE TOMPKINS Rep #: [id number] : 1960 Provider: Dr. 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 Normal [facility] Toe(s) Min 2 Viewson 025 Toe(s) Min 2 Views [facility] Imaging Services [address] [place] [address] Toe(s) Min 2 Views MR#: [id number] Acct: [id number] Name: JANEE TOMPKINS VALENTE Rep #: [id number] : 1960 F 64 From: Abner Euceda MD PCP: Dr. Miah Montemayor MD Status: REG CLI Study: Toe(s) Min 2 Views Date of Exam: 01/29/25 Exam# [id number] Ordering Dr: Miah Montemayor MD EXAM: XR [...] Views IMPRESSION: Soft tissue swelling. [facility] CC: Dr. 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 [place] [address] / REHABILITATION SERVICES DISCHARGE SUMMARY MR#: [id number] Acct: [id number] Name: JANEE TOMPKINS Rep #: [id number] : 1960 64 From: Kishore Aldridge DPT Referring Dr.: Dr. William Hunter MD Status: REG RCR Insurance: [facility] SELF PAY INSURANCE Discharge Summary D/C summary: [...] please feel free to call me at [phone]. Thank you for the referral of this patient. Sincerely, Kishore Aldridge, DPT Balance/Gait/Functional tests Balance/Special Test Scores Oswestry Neck Score: 15 Improvement % Improvement: 70 11/19/24 1810 CC: Dr. William Hunter MD; Dr. Miah Montemayor MD CLS Signed Normal [facility] Chest PA and Lateralon 11-13 Chest PA and Lateral [facility] Imaging Services [address] [place] [address] [id number] Chest PA and Lateral MR#: [id number] Acct: [id number] Name: JANEE TOMPKINS Rep #: [id number] : 1960 F 64 From: Conor Krause MD PCP: Dr. Miah Montemayor MD Status: REG CLI Study: Chest PA and Lateral Date of Exam: 11/13/24 Exam# [id number] Ordering Dr: Miah Montemayor MD PROCEDURE: CHEST [...] Location: [facility] CC: Dr. 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 Miah grove MD Age/Sex: 64/F Location: [facility] [place] Status: Signed Intake Vital Signs 07/30/24 15:35 [...] Chief Complaint: Follow-up chronic conditions. Chronic cough Swimming Pool Servicer Required: No Accompanied by: Self Is patient [...] you participat (more content not included)... Normal [facility] Laboratory - Hematology and Cell countsOrdered By: Miah Montemayor on 10-30-2024 HbA1c (Bld) [Mass fraction] 5.8 % 4.2-6.3 [facility] Surgery Visit Reporton 10-02 Surgery Visit Report [facility] [address] [place] [address] OFFICE VISIT Date of Service: 10/02/24 MR#: [id number] Acct: [id number] Name: JANEE TOMPKINS Rep #: [id number] : 1960 Provider: Dr. Rg briggs MD Age/Sex: 64/F Location: [facility] Status: Signed Intake Vital Signs 08/26/24 07:36 [...] discuss those (more content not included)... Normal [facility] Inital Evaluation (1) - PTon 09-25-2024 Inital Evaluation (1) - PT [facility] Physical Therapy [facility] [place] [address] / REHABILITATION SERVICES INITIAL EVALUATION MR#: [id number] Acct: [id number] Name: JANEE TOMPKINS VALENTE Rep #: [id number] : 1960 64 From: Kishore Aldridge DPT Referring Dr.: Dr. William Hunter MD Status: REG RCR Insurance: [facility] SELF PAY INSURANCE Patient's Visit Information Visit Information Visit Information: JANEE TOMPKINS is a 64 year old F referred to Physical Therapy by Dr. William Hunter MD with a diagnosis of CERVICAL DDD. Date of Evaluation: 09/02/24 Physical Therapist: Kishore Aldridge DPT Visit Plan Frequency: 2x /Week Duration: [...] to be FAXED BACK to us at [phone] for Medicare purposes. For Medicare only, by signing this I certify the plan of care. Please let me know if there are questions or concerns regarding this pl (more content not included)... Normal [facility] Thyroidon 09-01-2024 Thyroid [facility] Imaging Services [address] [place] [address] Thyroid MR#: [id number] Acct: [id number] Name: JANEE TOMPKINS Rep #: [id number] : 1960 F 64 From: David Mclaughlin MD PCP: Dr. Miah Montemayor MD Status: REG CLI Study: Thyroid Date of Exam: 09/01/24 Exam# [id number] Ordering Dr: Rg Lockwood MD PROCEDURE: THYROID [...] bed status post right thyroidectomy. Reading [facility] CC: Dr. Miah Montemayor MD; Dr. 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 Imaging Services [address] [place] [address] Cerv Spine 4 or 5 Views MR#: [id number] Acct: [id number] Name: JANEE TOMPKINS Rep #: [id number] : 1960 F 64 From: Grant Pinto PCP: Dr. Miah Montemayor MD Status: DEP AMB Study: Cerv Spine 4 or 5 Views Date of Exam: 08/26/24 Exam# [id number] Ordering Dr: Dorita Sanabria PROCEDURE: CERV SPINE 4 OR 5 VIEWS REASON FOR EXAM: Pain. TECHNIQUE: Four view cervical spine series including lateral flexion and extension views. COMPARISON: Cervical spine study of 01/19/2023. RAD/Cerv Spine 4 or 5 Views IMPRESSION: Left lower neck surgical clips are seen Lhdh-df-icrfnigv degenerative changes of the mid to lower cervical spine are seen, with moderate disc space narrowing from C4 through C7, perhaps greatest at C5-C6 and C6-C7 levels. No fracture, subluxation, or prevertebral soft tissue swelling is noted. No dynamic instability is seen on lateral flexion and extension views. Reading Location: [address] CC: DURGA Acuna; Dr. 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 William Hunter MD Age/Sex: 64/F Location: [facility] [place] Status: Signed Intake Vital Signs 07/30/24 15:35 [...] the servi (more content not included)... Normal [facility] Vitamin D,25 Hydroxyon 08-11 Vitamin D 25-OH 62.4 ng/mL Normal [facility] Comment on above: Result Comment: Rose Mary min D 25(OH) Status Range Deficiency <20 ng/mL (50nmol/L) Insufficiency 20 - 30 ng/mL (50 - 75 nmol/L) Sufficiency 30 - 100 ng/mL (75 - 250 nmol/L) Toxicity >100 ng/mL (>250 nmol/L) Performed By: #### L 506.1000 ####[facility] [address] [place], [address] Absolute lymphocyte countOrd ered By: Miah Montemayor on 08-08-2024 Lymphocytes Auto (Unsp spec) [#/Vol] 1.40 10*3/uL 0.83-4.51 [facility] Absolute neutrophil countOrd ered By: Miah Montemayor on 08-08-2024 Neutrophils (Bld) [#/Vol] 3.6 10*3/uL 2.0-7.7 [facility] Albumin to globulin ratioOrd ered By: chiqui Montemayor on 08-08-2024 Albumin/Globulin [Mass ratio] 1.0 {ratio} 0.9-2.4 [facility] Automated lymphocyte count a s percentage of total leukocytesOrdered By: Miah Montemayor on 08-08-2024 Lymphocytes/100 WBC Auto (Unsp spec) 25.0 % [facility] Basophil percentageOrdered B y: Miah Montemayor on 08-08-2024 Basophils/100 WBC (Bld) 0.5 % 0-1 [facility] Bilirubin, totalOrdered By: Miah Montemayor on 08-08-2024 Bilirubin [Mass/Vol] 0.60 mg/dL 0.20-1.00 [facility] Comment on above: For patients on eltr ombopag therapy, use of Dimension [place] TBIL is not recommended. Blood urea nitrogen (BUN)/cr eatinine ratioOrdered By: Tabithaoralia Fregosoryan on 08-08-2024 Urea nitrogen/Creatinine [Mass ratio] 25.9 mg/mg High 10- [facility] CBC W/Diff, Automatedon 07-17 Absolute Lymph 1.40 X10 3/uL Normal 0.83-4.51 [facility] Comment on above: Performed By: #### L 506.0400, L509.1000, L500.4050, L501.9520, L100.0100, L500.4100 #### [facility] [address] [place], [address] Absolute Neut 3.6 X10 3/uL Normal 2.0-7.7 [facility] Comment on above: Performed By: #### L 506.0400, L509.1000, L500.4050, L501.9520, L100.0100, L500.4100 #### [facility] [address] [place], [address] Basophils/100 WBC (Bld) 0.5 % Normal 0-1 [facility] Comment on above: Performed By: #### L 506.0400, L509.1000, L500.4050, L501.9520, L100.0100, L500.4100 #### [facility] [address] [place], [address] Eosinophils/100 WBC (Bld) 2.1 % Normal 0-5 [facility] Comment on above: Performed By: #### L 506.0400, L509.1000, L500.4050, L501.9520, L100.0100, L500.4100 #### [facility] [address] [place], [address] Erythrocyte distribution width (RBC) [Ratio] 12.5 % Normal 11.6-14.6 [facility] Comment on above: Performed By: #### L 506.0400, L509.1000, L500.4050, L501.9520, L100.0100, L500.4100 #### [facility] [address] [place], [address] Hematocrit (Bld) [Volume fraction] 42.6 % Normal 37-47 [facility] Comment on above: Performed By: #### L 506.0400, L509.1000, L500.4050, L501.9520, L100.0100, L500.4100 #### [facility] [address] [place], [address] Hemoglobin (Bld) [Mass/Vol] 14.2 g/dL Normal 12.0-15.0 [facility] Comment on above: Performed By: #### L 506.0400, L509.1000, L500.4050, L501.9520, L100.0100, L500.4100 #### [facility] [address] [place], [address] IG% 0.500 Normal 0.0-0.9 [facility] Comment on above: Result Comment: IG% - Immature Granulocytes (promyelocytes, myelocytes and metamyelocytes) > 1% indicates that a LEFT SHIFT is Present. Performed By: #### L 506.0400, L509.1000, L500.4050, L501.9520, L100.0100, L500.4100 #### [facility] [address] [place], [address] Lymphocytes/100 WBC (Bld) 25.0 % Normal 19-41 [facility] Comment on above: Performed By: #### L 506.0400, L509.1000, L500.4050, L501.9520, L100.0100, L500.4100 #### [facility] [address] [place], [address] MCH (RBC) [Entitic mass] 29.6 pg Normal 27.0-32.0 [facility] Comment on above: Performed By: #### L 506.0400, L509.1000, L500.4050, L501.9520, L100.0100, L500.4100 #### [facility] [address] [place], [address] MCHC (RBC) [Mass/Vol] 33.3 g/dL Normal 32-36 [facility] Comment on above: Performed By: #### L 506.0400, L509.1000, L500.4050, L501.9520, L100.0100, L500.4100 #### [facility] [address] [place], [address] MCV (RBC) [Entitic vol] 88.9 fL Normal 81-99 [facility] Comment on above: Performed By: #### L 506.0400, L509.1000, L500.4050, L501.9520, L100.0100, L500.4100 #### [facility] [address] [place], [address] Monocytes/100 WBC (Bld) 7.7 % Normal 0-10 [facility] Comment on above: Performed By: #### L 506.0400, L509.1000, L500.4050, L501.9520, L100.0100, L500.4100 #### [facility] [address] [place], [address] Neutrophils/100 WBC (Bld) 64.2 % Normal 47-70 [facility] Comment on above: Performed By: #### L 506.0400, L509.1000, L500.4050, L501.9520, L100.0100, L500.4100 #### [facility] [address] [place], [address] Nucleated RBC (Bld) [#/Vol] 0 10*3/uL Normal 0-5 [facility] Comment on above: Performed By: #### L 506.0400, L509.1000, L500.4050, L501.9520, L100.0100, L500.4100 #### [facility] [address] [place], [address] Platelet mean volume (Bld) [Entitic vol] 9.6 fL Normal 6.2-12.0 [facility] Comment on above: Performed By: #### L 506.0400, L509.1000, L500.4050, L501.9520, L100.0100, L500.4100 #### [facility] [address] [place], [address] Platelets (Bld) [#/Vol] 269 10*3/uL Normal 150-450 [facility] Comment on above: Performed By: #### L 506.0400, L509.1000, L500.4050, L501.9520, L100.0100, L500.4100 #### [facility] [address] [place], [address] RBC (Bld) [#/Vol] 4.79 10*6/uL Normal 4.2-5.[address] [facility] Comment on above: Performed By: #### L 506.0400, L509.1000, L500.4050, L501.9520, L100.0100, L500.4100 #### [facility] [address] [place], [address] RDW SD 41.0 fl Normal 35.1-43.9 [facility] Comment on above: Performed By: #### L 506.0400, L509.1000, L500.4050, L501.9520, L100.0100, L500.4100 #### [facility] [address] [place], [address] WBC (Bld) [#/Vol] 5.6 10*3/uL Normal 4.4-11.[address] [facility] Comment on above: Performed By: #### L 506.0400, L509.1000, L500.4050, L501.9520, L100.0100, L500.4100 #### [facility] [address] [place], [address] Carbon dioxide measurementOr dered By: Miah Montemayor on 08-08-2024 CO2 [Moles/Vol] 28.0 mmol/L 21.0-32.0 [facility] Chloride measurementOrdered By: Miah Montemayor on 08-08-2024 Chloride [Moles/Vol] 104 mmol/L 98-107 [facility] Comprehensive Metabolic Prof ilon 08-08-2024 Albumin [Mass/Vol] 3.7 g/dL Normal 3.2-5.[address] [facility] Comment on above: Performed By: #### L 506.0400, L509.1000, L500.4050, L501.9520, L100.0100, L500.4100 #### [facility] [address] [place], [address] Albumin/Globulin [Mass ratio] 1.0 {ratio} Normal 0.9-2.4 [facility] Comment on above: Performed By: #### L 506.0400, L509.1000, L500.4050, L501.9520, L100.0100, L500.4100 #### [facility] [address] [place], [address] ALK P 54 U/L Normal 45-117 [facility] Comment on above: Performed By: #### L 506.0400, L509.1000, L500.4050, L501.9520, L100.0100, L500.4100 #### [facility] [address] [place], [address] ALT [Catalytic activity/Vol] 28 U/L Normal 13-56 [facility] Comment on above: Performed By: #### L 506.0400, L509.1000, L500.4050, L501.9520, L100.0100, L500.4100 #### [facility] [address] [place], [address] AST [Catalytic activity/Vol] 18 U/L Normal 15-37 [facility] Comment on above: Performed By: #### L 506.0400, L509.1000, L500.4050, L501.9520, L100.0100, L500.4100 #### [facility] [address] [place], [address] Bilirubin [Mass/Vol] 0.60 mg/dL Normal 0.20-1.00 [facility] Comment on above: Result Comment: For patients on eltrombopag therapy, use of Dimension [place] TBIL is not recommended. Performed By: #### L 506.0400, L509.1000, L500.4050, L501.9520, L100.0100, L500.4100 #### [facility] [address] [place], [address] BUN/CRE 25.9 RATIO High 10-20 [facility] Comment on above: Performed By: #### L 506.0400, L509.1000, L500.4050, L501.9520, L100.0100, L500.4100 #### [facility] [address] [place], [address] CA,Total 8.6 mg/dL Normal 8.5-10.1 [facility] Comment on above: Performed By: #### L 506.0400, L509.1000, L500.4050, L501.9520, L100.0100, L500.4100 #### [facility] [address] [place], [address] Chloride [Moles/Vol] 104 mmol/L Normal 98-107 [facility] Comment on above: Performed By: #### L 506.0400, L509.1000, L500.4050, L501.9520, L100.0100, L500.4100 #### [facility] [address] [place], [address] CO2 [Moles/Vol] 28.0 mmol/L Normal 21.0-32.0 [facility] Comment on above: Performed By: #### L 506.0400, L509.1000, L500.4050, L501.9520, L100.0100, L500.4100 #### [facility] [address] [place], [address] Creatinine [Mass/Vol] 0.85 mg/dL Normal 0.55-1.02 [facility] Comment on above: Result Comment: The validity of the calculated GFR GFRAA in patients over 70 years has not been determined. Clinical correlation is essential. Performed By: #### L 506.0400, L509.1000, L500.4050, L501.9520, L100.0100, L500.4100 #### [facility] [address] [place], [address] EST GFR - AA 87 mL/min Normal >60 [facility] Comment on above: Result Comment: Afri can Icelandic GFR Calc Performed By: #### L 506.0400, L509.1000, L500.4050, L501.9520, L100.0100, L500.4100 #### [facility] [address] [place], [address] GAP 5 Normal 5-15 [facility] Comment on above: Performed By: #### L 506.0400, L509.1000, L500.4050, L501.9520, L100.0100, L500.4100 #### [facility] [address] [place], [address] GFR/1.73 sq M.predicted among non-blacks MDRD (S/P/Bld) [Vol rate/Area] 72 mL/min/{1.73_m2} Normal >60 [facility] Comment on above: Result Comment: Non- GFR Calc Performed By: #### L 506.0400, L509.1000, L500.4050, L501.9520, L100.0100, L500.4100 #### [facility] [address] [place], [address] Globulin (S) [Mass/Vol] 3.6 g/dL Normal 2.2-4.2 [facility] Comment on above: Performed By: #### L 506.0400, L509.1000, L500.4050, L501.9520, L100.0100, L500.4100 #### [facility] [address] [place], [address] Glucose [Mass/Vol] 134 mg/dL High 74-[address] [facility] Comment on above: Result Comment: Fast ing Glucose result greater than or equal to 126 mg/dL suggests DIABETES MELLITUS per A.D.A. criteria. Performed By: #### L 506.0400, L509.1000, L500.4050, L501.9520, L100.0100, L500.4100 #### [facility] [address] [place], [address] Potassium [Moles/Vol] 3.7 mmol/L Normal 3.5-5.1 [facility] Comment on above: Performed By: #### L 506.0400, L509.1000, L500.4050, L501.9520, L100.0100, L500.4100 #### [facility] [address] [place], [address] Sodium [Moles/Vol] 137 mmol/L Normal 136-[address] [facility] Comment on above: Performed By: #### L 506.0400, L509.1000, L500.4050, L501.9520, L100.0100, L500.4100 #### [facility] [address] [place], [address] T PROT 7.3 g/dL Normal 6.4-8.2 [facility] Comment on above: Performed By: #### L 506.0400, L509.1000, L500.4050, L501.9520, L100.0100, L500.4100 #### [facility] [address] [place], [address] Urea nitrogen [Mass/Vol] 22 mg/dL High 7-18 [facility] Comment on above: Performed By: #### L 506.0400, L509.1000, L500.4050, L501.9520, L100.0100, L500.4100 #### [facility] [address] [place], [address] Direct serum free thyroxine (FT4) measurementOrdered By: Miah Montemayor on 08-08-2024 Free T4 [Mass/Vol] 0.89 ng/dL 0.76-1.[address] [facility] Eosinophil percentageOrdered By: Miah Montemayor on 08-08-2024 Eosinophils/100 WBC (Bld) 2.1 % 0-5 [facility] Erythrocyte distribution wid th ratioOrdered By: Miah Montemayor on 08-08-2024 Erythrocyte distribution width (RBC) [Ratio] 12.5 % 11.6-14.6 [facility] Erythrocyte distribution wid th standard deviationOrdered By: Miah Montemayor on 08-08-2024 Erythrocyte distribution width (RBC) [Ratio] 41.0 fl 35.1-43.9 [facility] Glomerular filtration rate ( GFR) estimationOrdered By: Miah Montemayor on 08-08-2024 GFR/1.73 sq M.predicted among non-blacks MDRD (S/P/Bld) [Vol rate/Area] 72 mL/min/{1.73_m2} >60 [facility] Comment on above: Non- GFR Calc Glucose measurementOrdered B y: Miah Montemayor on 08-08-2024 Glucose [Mass/Vol] 134 mg/dL High 74-[address] [facility] Comment on above: Fasting Glucose resu lt greater than or equal to 126 mg/dL suggests DIABETES MELLITUS per A.D.A. criteria. Hematocrit Auto (Bld) [Volum e fraction]Ordered By: Miah Montemayor on 08-08-2024 Hematocrit (Bld) [Volume fraction] 42.6 % 37-47 [facility] Hemoglobin measurementOrdere d By: Miah Montemayor on 08-08-2024 Hemoglobin (Bld) [Mass/Vol] 14.2 g/dL 12.0-15.0 [facility] High density lipoprotein (HD L) measurementOrdered By: Miah Montemayor on 08-08-2024 Cholesterol in HDL [Mass/Vol] 77 mg/dL >40 [facility] Comment on above: The drugs N-Acetylcy steine and Metamizole may falsely depress this assay. Reference Range HDL <40 mg/dL Low HDL Cholesterol HDL >or= 60 mg/dL High HDL Cholesterol Immature granulocytes/100 WB C Auto (Bld)Ordered By: Miah Montemayor on 08-08-2024 Immature granulocytes/100 WBC (Bld) 0.500 % 0.0-0.9 [facility] Comment on above: IG% - Immature Granu locytes (promyelocytes, myelocytes and metamyelocytes) > 1% indicates that a LEFT SHIFT is Present. Laboratory - Chemistry and C hemistry - challengeOrdered By: Miah Montemayor on 08-08-2024 AST [Catalytic activity/Vol] 18 U/L 15-37 [facility] Lipid Profileon 08-08-2024 Cholesterol [Mass/Vol] 204 mg/dL High 200 [facility] Comment on above: Result Comment: <200 mg/dL Desirable 200-240 mg/dL Borderline >240 mg/dL High Risk Performed By: #### L 506.0400, L509.1000, L500.4050, L501.9520, L100.0100, L500.4100 ####[facility] [address] [place], [address] Cholesterol in HDL [Mass/Vol] 77 mg/dL Normal [facility] Comment on above: Result Comment: The drugs N-Acetylcysteine and Metamizole may falsely depress this assay. Reference Range HDL <40 mg/dL Low HDL Cholesterol HDL >or= 60 mg/dL High HDL Cholesterol Performed By: #### L 506.0400, L509.1000, L500.4050, L501.9520, L100.0100, L500.4100 ####[facility] [address] [place], [address] Cholesterol in LDL [Mass/Vol] 106 mg/dL Normal 0-130 [facility] Comment on above: Performed By: #### L 506.0400, L509.1000, L500.4050, L501.9520, L100.0100, L500.4100 ####[facility] [address] [place], [address] Cholesterol in VLDL [Mass/Vol] 21 mg/dL Normal 5-40 [facility] Comment on above: Performed By: #### L 506.0400, L509.1000, L500.4050, L501.9520, L100.0100, L500.4100 ####[facility] [address] [place], [place], [address] Triglyceride [Mass/Vol] 107 mg/dL Normal [facility] Comment on above: Result Comment: The drugs N-Acetylcysteine and Metamizole may falsely depress this assay. Serum Triglycerides Reference Interval Normal <150 mg/dL Borderline high 150 - 199 mg/dL High 200 - 499 mg/dL Very High > or = 500 mg/dL Performed By: #### L 506.0400, L509.1000, L500.4050, L501.9520, L100.0100, L500.4100 ####[facility] [address] [place], [place], [address] Low density lipoprotein (LDL ) cholesterol measurementOrdered By: Miah Montemayor on 08-08-2024 Cholesterol in LDL [Mass/Vol] 106 mg/dL 0-130 [facility] MCV (mean corpuscular volume ) determinationOrdered By: Miah Montemayor on 08-08-2024 MCV (RBC) [Entitic vol] 88.9 fL 81-99 [facility] Mean corpuscular hemoglobin (MCH) determinationOrdered By: Miah Montemayor on 08-08-2024 MCH (RBC) [Entitic mass] 29.6 pg 27.0-32.0 [facility] Mean corpuscular hemoglobin concentration (MCHC) determinationOrdered By: Miah Montemayor on 08-08-2024 MCHC (RBC) [Mass/Vol] 33.3 g/dL 32-36 [facility] Mean platelet volume determi nationOrdered By: Miah Montemayor on 08-08-2024 Platelet mean volume (Bld) [Entitic vol] 9.6 fL 6.2-12.0 [facility] Monocyte percentageOrdered B y: Miah Montemayor on 08-08-2024 Monocytes/100 WBC (Bld) 7.7 % 0-10 [facility] Neutrophil percentageOrdered By: iMah Montemayor on 08-08-2024 Neutrophils/100 WBC (Bld) 64.2 % 47-70 [facility] Nucleated red blood cell per centageOrdered By: Miah Montemayor on 08-08-2024 Nucleated RBC/100 WBC (Bld) [Ratio] 0 % 0-5 [facility] PTHINon 08-08-2024 PTH 87.2 pg/mL High 18.4-80.1 [facility] Comment on above: Performed By: #### L 506.0400, L509.1000, L500.4050, L501.9520, L100.0100, L500.4100 #### [facility] [address] [place], [address] Platelet countOrdered By: Nicole Montemayor on 08-08-2024 Platelets (Bld) [#/Vol] 269 10*3/uL 150-450 [facility] Potassium measurementOrdered By: Miah Montemayor on 08-08-2024 Potassium [Moles/Vol] 3.7 mmol/L 3.5-5.1 [facility] RBC Auto (Bld) [#/Vol]Ordere d By: Miah Montemayor on 08-08-2024 RBC (Bld) [#/Vol] 4.79 10*6/uL 4.2-5.[address] [facility] Serum anion gap measurementO rdered By: Miah Montemayor on 08-08-2024 Anion gap [Moles/Vol] 5 mmol/L 5-15 [facility] Serum globulin measurementOr dered By: Miah Montemayor on 08-08-2024 Globulin (S) [Mass/Vol] 3.6 g/dL 2.2-4.2 [facility] Serum or plasma alanine street otransferase (ALT) measurementOrdered By: Miah Montemayor on 08-08-2024 ALT [Catalytic activity/Vol] 28 U/L 13-56 [facility] Serum or plasma albumin liu urement (mass/volume)Ordered By: Miah Montemayor on 08-08-2024 Albumin [Mass/Vol] 3.7 g/dL 3.2-5.[address] [facility] Serum or plasma alkaline carlos sphatase measurementOrdered By: Miah Montemayor on 08-08-2024 ALP [Catalytic activity/Vol] 54 U/L 45-117 [facility] Serum or plasma calcium liu urement (mass/volume)Ordered By: Miah Montemayor on 08-08-2024 Calcium [Mass/Vol] 8.6 mg/dL 8.5-10.[address] [facility] Serum or plasma cholesterol measurement (mass/volume)Ordered By: Miah Montemayor on 08-08-2024 Cholesterol [Mass/Vol] 204 mg/dL High <200 [facility] Comment on above: <200 mg/dL Desirable 200-240 mg/dL Borderline >240 mg/dL High Risk Serum or plasma creatinine m easurement (mass/volume)Ordered By: Miah Montemayor on 08-08-2024 Creatinine [Mass/Vol] 0.85 mg/dL 0.55-1.02 [facility] Comment on above: The validity of the calculated GFR & GFRAA in patients over 70 years has not been determined. Clinical correlation is essential. Serum or plasma thyroid stim ulating hormone (TSH) measurement (units/volume)Ordered By: Miah Montemayor on 08-08-2024 TSH Qn 2.280 uIU/mL 0.358-3.74 0 [facility] Serum or plasma urea nitroge n measurement (mass/volume)Ordered By: Miah Montemayor on 08-08-2024 Urea nitrogen [Mass/Vol] 22 mg/dL High 7-18 [facility] Sodium levelOrdered By: Hannah rojasbismark Sim on 08-08-2024 Sodium [Moles/Vol] 137 mmol/L 136-[address] [facility] T4 Free Directon 08-08-2024 T4 FREE DIRECT 0.89 ng/dL Normal 0.76-1.46 [facility] Comment on above: Performed By: #### L 506.0400, L509.1000, L500.4050, L501.9520, L100.0100, L500.4100 ####[facility] [address] [place], [address] Thyroid Stim Hormone (TSH)on 08-08-2024 TSH 2.280 uIU/mL Normal 0.358-3.74 0 [facility] Comment on above: Performed By: #### L 506.0400, L509.1000, L500.4050, L501.9520, L100.0100, L500.4100 ####[facility] [address] [place], [address] Total proteinOrdered By: Mario Montemayor on 08-08-2024 Protein [Mass/Vol] 7.3 g/dL 6.4-8.[address] [facility] Triglycerides measurementOrd ered By: Miah Montemayor on 08-08-2024 Triglyceride [Mass/Vol] 107 mg/dL <199 [facility] Comment on above: The drugs N-Acetylcy steine and Metamizole may falsely depress this assay.Serum Triglycerides Reference Interval Normal <150 mg/dL Borderline high 150 - 199 mg/dL High 200 - 499 mg/dL Very High > or = 500 mg/dL Very low density lipoprotein (VLDL) cholesterol measurementOrdered By: Miah Montemayor on 08-08-2024 Very low density lipoprotein (VLDL) cholesterol measurement 21 mg/dL 5-40 [facility] White blood cell (WBC) count Ordered By: Miah Montemayor on 08-08-2024 WBC (Bld) [#/Vol] 5.6 10*3/uL 4.4-11.[address] [facility] Internal Medicine Office Vis iton 07-30-2024 Internal Medicine Office Visit [facility] [address] [place] [address] [place] [address] OFFICE VISIT Date of Service: 07/30/24 MR#: [id number] Acct: [id number] Name: JANEE TOMPKINS VALENTE Rep #: [id number] 1 : 1960 Provider: Dr. Miah grove MD Age/Sex: 64/F Location: [facility] [place] Status: Signed Intake Vital Signs 03/26/24 15:48 [...] chronic condit (more content not included)... Normal [facility] - Hematology and Cell countson 07-30-2024 HbA1c (Bld) [Mass fraction] 5.9 % 4.2-6.3 [facility] Basic Metabolic Profile (BMP )on 05-23-2024 BUN/CRE 22.6 RATIO High 10-20 [facility] Comment on above: Performed By: #### L 501.9520, L506.1000, L509.1000, L500.2500 #### [facility] [address] [place], [address] CA,Total 8.8 mg/dL Normal 8.5-10.1 [facility] Comment on above: Performed By: #### L 501.9520, L506.1000, L509.1000, L500.2500 #### [facility] [address] [place], [address] Chloride [Moles/Vol] 107 mmol/L Normal 98-107 [facility] Comment on above: Performed By: #### L 501.9520, L506.1000, L509.1000, L500.2500 #### [facility] [address] [place], [address] CO2 [Moles/Vol] 29.0 mmol/L Normal 21.0-32.0 [facility] Comment on above: Performed By: #### L 501.9520, L506.1000, L509.1000, L500.2500 #### [facility] [address] [place], [address] Creatinine [Mass/Vol] 0.80 mg/dL Normal 0.55-1.02 [facility] Comment on above: Result Comment: The validity of the calculated GFR GFRAA in patients over 70 years has not been determined. Clinical correlation is essential. Performed By: #### L 501.9520, L506.1000, L509.1000, L500.2500 #### [facility] [address] [place], [address] EST GFR - AA 94 mL/min Normal >60 [facility] Comment on above: Result Comment: Afri can Icelandic GFR Calc Performed By: #### L 501.9520, L506.1000, L509.1000, L500.2500 #### [facility] [address] [place], [address] GAP 3 Low 5-15 [facility] Comment on above: Performed By: #### L 501.9520, L506.1000, L509.1000, L500.2500 #### [facility] [address] [place], [address] GFR/1.73 sq M.predicted among non-blacks MDRD (S/P/Bld) [Vol rate/Area] 77 mL/min/{1.73_m2} Normal >60 [facility] Comment on above: Result Comment: Non- GFR Calc Performed By: #### L 501.9520, L506.1000, L509.1000, L500.2500 #### [facility] [address] [place], [address] Glucose [Mass/Vol] 125 mg/dL High 74-[address] [facility] Comment on above: Result Comment: Fast ing Glucose result from 100 to 125 mg/dL suggests IMPAIRED HOMEOSTASIS per A.D.A. criteria. Performed By: #### L 501.9520, L506.1000, L509.1000, L500.2500 #### [facility] [address] [place], [address] Potassium [Moles/Vol] 4.0 mmol/L Normal 3.5-5.1 [facility] Comment on above: Performed By: #### L 501.9520, L506.1000, L509.1000, L500.2500 #### [facility] [address] [place], [address] Sodium [Moles/Vol] 140 mmol/L Normal 136-[address] [facility] Comment on above: Performed By: #### L 501.9520, L506.1000, L509.1000, L500.2500 #### [facility] [address] [place], [address] Urea nitrogen [Mass/Vol] 18 mg/dL Normal 7-18 [facility] Comment on above: Performed By: #### L 501.9520, L506.1000, L509.1000, L500.2500 #### [facility] [address] [place], [address] PTHINon 05-23-2024 PTH 70.6 pg/mL Normal 18.4-80.1 [facility] Comment on above: Performed By: #### L 501.9520, L506.1000, L509.1000, L500.2500 #### [facility] [address] [place], [address] Thyroid Stim Hormone (TSH)on 05-23-2024 TSH 2.970 uIU/mL Normal 0.358-3.74 0 [facility] Comment on above: Performed By: #### L 501.9520, L506.1000, L509.1000, L500.2500 #### [facility] [address] [place], [address] Vitamin D,25 Hydroxyon 05-23 Vitamin D 25-OH 56.2 ng/mL Normal [facility] Comment on above: Result Comment: Rose Mary min D 25(OH) Status Range Deficiency <20 ng/mL (50nmol/L) Insufficiency 20 - 30 ng/mL (50 - 75 nmol/L) Sufficiency 30 - 100 ng/mL (75 - 250 nmol/L) Toxicity >100 ng/mL (>250 nmol/L) Performed By: #### L 501.9520, L506.1000, L509.1000, L500.2500 #### [facility] [address] [place], [address] SCRN MAMM (CAD)W/JACK BILATo n 05-06-2024 SCRN MAMM (CAD)W/JACK BILAT [facility] [address] [place] [address] SCRN MAMM (CAD)W/JACK BILAT MR#: [id number] Acct: [id number] Name: JANEE TOMPKINS Rep #: [id number] : 1960 F 64 From: Elliot goyal MD PCP: Dr. Miah Montemayor MD Status: [facility] Study: SCRN MAMM (CAD)W/JACK BILAT Date of Exam: 04/16 09/08 Exam# [id number] Ordering Dr: Aniya Turner MD :[id number] MAMMOGRAPHY - BILATERAL SCREENING REASON FOR EXAM: [...] delay biopsy of a clinically suspicious abnormality. [id number] Electronically Signed: Elliot Lopez MD at 8:50 EDT , CC: Dr. Miah Montemayor MD; Dr. 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 11-15-2023 CNPN Telephone (FAMPWS) JANEE TOMPKINS ([id number]) 1960 F Date Time Provider Department 11/15/23 JUAN LUIS HOLLOWAY FAMWS During your visit today, we recorded the following information about you: Juan Luis Holloway MD 11/15/2023 4:54 PM Signed Patient with recetn neck CT which showed: [...] fluticasone (FLONASE) 50 mcg/actuation nasal spray 1 Kennan once daily. - multivitamin (MULTIPLE VITAMIN) ORAL [...] by JUAN LUIS HOLLOWAY on 01/10/24 Normal [facility] CREATININE BLDon 11-06-2023 Creatinine [Mass/Vol] 0.63 mg/dL Normal 0.58-0.96 [facility] Comment on above: Order Comment: Speci caitlyn Type: BLOOD SPECIMEN Ordering Facility: External Submitter Address: , , Performed By: #### C RET1 #### [facility] [id number] [address] [place] [address] [place] OF [facility] Creatinine and Glomerular filtration rate.predicted panel (S/P/Bld) 100 mL/min/1.73m??? Normal >=60 [facility] Comment on above: Order Comment: Charbel brady [...] GFR. Performed By: #### C RET1 #### [facility] [id number] [address] [place] [address] [place] CT NECK SOFT TISSUE W IVCONo n 11-06-2023 CT NECK SOFT TISSUE W IVCON * * *Final Report* * * DATE OF EXAM: Nov 06 2023 3:31PM [facility] 0013 - CT NECK SOFT TISSUE [...] amalgam. Parotid and submandibular spaces are normal. 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 [facility] CT Neck W contrast Christal 10-15 IMPRESSION: 1. 2 hypodense lesions noted within the thyroid gland. Recommend ultrasound to more completely evaluate. 2. No other focal neck lesion identified. 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 Parotid and submandibular spaces are normal. 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 Infrahyoid Neck: Hypopharynx, larynx, [...] DATE OF EXAM: Nov 06 2023 3:31PM [facility] 0013 - CT NECK SOFT TISSUE [...] amalgam. Parotid and submandibular spaces are normal. 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 Infrahyoid Neck: Hypopharynx, larynx, [...] described in the impression --END OF FINDING-- Welding Machine Operator Helper Gas: ALEN Transcribe Date/Time: Nov 06 2023 7:38P Dictated by : BHAVIK RAMOS MD This examination was interpreted and the report reviewed and electronically signed by: BHAVIK RAMOS MD on Nov 06 2023 7:42PM EST [facility] Radiology Study observation (narrative) [facility] Culture, urineOrdered By: Andreea Eid on 10-31-2023 Bacteria identified Cx Nom (U) Culture exhibits no growth. [facility] - Chemistry and C hemistry - challengeon 10-31-2023 Bilirubin Ql (U) Negative [facility] Glucose Ql (U) Negative [facility] Ketones Ql (U) Small (15+) [facility] pH (U) 9 [pH] [facility] Specific gravity (U) [Rel density] 1.005 [facility] Urobilinogen (U) [Mass/Vol] Negative [facility] - Hematology and Cell countson 10-31-2023 Hemoglobin Ql (U) Negative [facility] - Specimen inform ationon 10-31-2023 Clarity (U) Clear [facility] Color (U) Colorless [facility] - Urinalysison Nitrite Ql (U) Negative [facility] Protein Ql (U) Negative [facility] No Panel Informationon 10-30 Urine Leukocytes Positive [facility] Urine Non-Hemolyzed Blood [facility] No Panel InformationOrdered By: Rg Lockwood on 10-02-2023 Free Triiodothyronine (T3) pg/dL 2.7 pg/mL 2.18-3.98 [facility] Parathyroid Hormone (Intact) 101.5 pg/mL 18.4-80.1 [facility] Vitamin D 25-Hydroxy 54.9 ng/mL [facility] Comment on above: Vitamin D 25(OH) Sta tus Range Deficiency <20 ng/mL (50nmol/L) Insufficiency 20 - 30 ng/mL (50 - 75 nmol/L) Sufficiency 30 - 100 ng/mL (75 - 250 nmol/L) Toxicity >100 ng/mL (>250 nmol/L) Serum or plasma calcium liu urement (mass/volume)Ordered By: Rg Lockwood on 10-02-2023 Calcium [Mass/Vol] 10.0 mg/dL 8.5-10.[address] [facility] Serum or plasma thyroid stim ulating hormone (TSH) measurement (units/volume)Ordered By: Rg Lockwood on 10-02-2023 TSH Qn 0.69 uIU/mL 0.358-3.74 [facility] Thin prep Papanicolaou smear with manual screeningOrdered By: Rg Lockwood on 10-02-2023 Thin prep Papanicolaou smear with manual screening 1.04 ng/dL 0.76-1.46 [facility] 24 hour urine calcium measur ement (mass/time)Ordered By: Miah Montemayor on 09-21-2023 Calcium (24H U) [Mass/Time] 497.2 mg/24 HR 42.0-353.0 [facility] 24 hour urine specimen volum e measurementOrdered By: Miah Montemayor on 09-21-2023 Specimen volume (24H U) 4.25 L [facility] - Chemistry and C hemistry - challengeOrdered By: Miah Montemayor on 09-21-2023 pH (U) 2 [pH] [facility] - Specimen inform ationOrdered By: Miah Montemayor on 09-21-2023 Collection time (Felisa) [Date/time] 24.0 HR 24.0-24.0 [facility] Urine calcium measurement (m ass/volume)Ordered By: Miah Montemayor on 09-21-2023 Calcium (U) [Mass/Vol] 11.7 mg/dL Not Estab. Wo [facility] No Panel InformationOrdered By: Miah Montemayor on 09-14-2023 Parathyroid Hormone (Intact) 92.0 pg/mL 18.4-80.1 [facility] Basophil percentageOrdered B y: Miah Montemayor on 08-22-2023 Chloride [Moles/Vol] 102 mmol/L 98-107 [facility] Glucose [Mass/Vol] 108 mg/dL 74-[address] [facility] Comment on above: Fasting Glucose resu lt from 100 to 125 mg/dL suggests IMPAIRED HOMEOSTASIS per A.D.A. criteria. Potassium [Moles/Vol] 3.9 mmol/L 3.5-5.1 [facility] Sodium [Moles/Vol] 133 mmol/L 136-[address] [facility] - Chemistry and C hemistry - challengeOrdered By: Miah Montemayor on 08-22-2023 CO2 [Moles/Vol] 29.0 mmol/L 21.0-32.0 [facility] Urea nitrogen/Creatinine [Mass ratio] 34.9 mg/mg 10-20 [facility] No Panel InformationOrdered By: Miah Montemayor on 08-22-2023 Estimated GFR (MDRD) Amer 111 mL/min >60 [facility] Comment on above: GFR Calc Estimated GFR (MDRD) Non-Af Amer 92 mL/min >60 [facility] Comment on above: Non- GFR Calc Vitamin D 25-Hydroxy 54.6 ng/mL [facility] Comment on above: Vitamin D 25(OH) Sta tus Range Deficiency <20 ng/mL (50nmol/L) Insufficiency 20 - 30 ng/mL (50 - 75 nmol/L) Sufficiency 30 - 100 ng/mL (75 - 250 nmol/L) Toxicity >100 ng/mL (>250 nmol/L) Serum or plasma calcium liu urement (mass/volume)Ordered By: Miah Montemayor on 08-22-2023 Calcium [Mass/Vol] 10.0 mg/dL 8.5-10.[address] [facility] Serum or plasma creatinine m easurement (mass/volume)Ordered By: Miah Montemayor on 08-22-2023 Creatinine [Mass/Vol] 0.69 mg/dL 0.55-1.02 [facility] Comment on above: The validity of the calculated GFR & GFRAA in patients over 70 years has not been determined. Clinical correlation is essential. Serum or plasma urea nitroge n measurement (mass/volume)Ordered By: Miah Montemayor on 08-22-2023 Urea nitrogen [Mass/Vol] 24 mg/dL 7-18 [facility] Thin prep Papanicolaou smear with manual screeningOrdered By: chinashevilleorlaia Montemayor on 08-22-2023 Thin prep Papanicolaou smear with manual screening 2 5-15 [facility] Absolute lymphocyte countOrd ered By: Miah Montemayor on 06-25-2023 Lymphocytes Auto (Unsp spec) [#/Vol] 1.76 10*3/uL 0.83-4.51 [facility] Basophil percentageOrdered B y: Miah Montemayor on 06-25-2023 Basophils/100 WBC (Bld) 0.4 % 0-1 [facility] Bilirubin [Mass/Vol] 0.40 mg/dL 0.20-1.00 [facility] Comment on above: For patients on eltr ombopag therapy, use of Dimension [place] TBIL is not recommended. Chloride [Moles/Vol] 105 mmol/L 98-107 [facility] Cholesterol [Mass/Vol] 187 mg/dL <200 [facility] Comment on above: <200 mg/dL Desirable 200-240 mg/dL Borderline >240 mg/dL High Risk Eosinophils/100 WBC (Bld) 2.1 % 0-5 [facility] Glucose [Mass/Vol] 114 mg/dL 74-[address] [facility] Comment on above: Fasting Glucose resu lt from 100 to 125 mg/dL suggests IMPAIRED HOMEOSTASIS per A.D.A. criteria. Neutrophils (Bld) [#/Vol] 4.3 10*3/uL 2.0-7.7 [facility] Neutrophils/100 WBC (Bld) 63.5 % 47-70 [facility] Potassium [Moles/Vol] 3.9 mmol/L 3.5-5.1 [facility] Protein [Mass/Vol] 7.6 g/dL 6.4-8.[address] [facility] Sodium [Moles/Vol] 138 mmol/L 136-[address] [facility] Triglyceride [Mass/Vol] 77 mg/dL <199 [facility] Comment on above: The drugs N-Acetylcy steine and Metamizole may falsely depress this assay.Serum Triglycerides Reference Interval Normal <150 mg/dL Borderline high 150 - 199 mg/dL High 200 - 499 mg/dL Very High > or = 500 mg/dL WBC (Bld) [#/Vol] 6.8 10*3/uL 4.4-11.[address] [facility] Blood erythrocytes count (nu mber/volume)Ordered By: Miah Montemayor on 06-25-2023 RBC (Bld) [#/Vol] 4.89 10*6/uL 4.2-5.[address] [facility] Blood hemoglobin measurement (mass/volume)Ordered By: Miah Montemayor on 06-25-2023 Hemoglobin (Bld) [Mass/Vol] 14.3 g/dL 12.0-15.0 [facility] Blood lymphocytes/100 leukoc ytesOrdered By: Miah Montemayor on 06-25-2023 Lymphocytes/100 WBC (Bld) 26.0 % 19-41 [facility] Blood monocytes/100 leukocyt esOrdered By: Miah Montemayor on 06-25-2023 Monocytes/100 WBC (Bld) 7.7 % 0-10 [facility] Blood platelet mean volumeOr dered By: Miah Montemayor on 06-25-2023 Platelet mean volume (Bld) [Entitic vol] 9.5 fL 6.2-12.0 [facility] Determination of erythrocyte mean corpuscular volume (MCV)Ordered By: Miah Montemayor on 06-25-2023 MCV (RBC) [Entitic vol] 89.8 fL 81-99 [facility] Hematocrit Auto (Bld) [Volum e fraction]Ordered By: Miah Montemayor on 06-25-2023 Hematocrit (Bld) [Volume fraction] 43.9 % 37-47 [facility] - Chemistry and C hemistry - challengeOrdered By: chinashevilleoralia Montemayor on 06-25-2023 ALP [Catalytic activity/Vol] 70 U/L 45-117 [facility] ALT [Catalytic activity/Vol] 28 U/L 13-56 [facility] CO2 [Moles/Vol] 29.0 mmol/L 21.0-32.0 [facility] Globulin (S) [Mass/Vol] 3.8 g/dL 2.2-4.2 [facility] Urea nitrogen/Creatinine [Mass ratio] 22.1 mg/mg 10-20 [facility] - Hematology and Cell countsOrdered By: chinashevilleoralia Montemayor on 06-25-2023 Erythrocyte distribution width (RBC) [Entitic vol] 41.2 fL 35.1-43.9 [facility] Erythrocyte distribution width (RBC) [Ratio] 12.5 % 11.6-14.6 [facility] Immature granulocytes/100 WBC (Bld) 0.300 % 0.0-0.9 [facility] Comment on above: IG% - Immature Granu locytes (promyelocytes, myelocytes and metamyelocytes) > 1% indicates that a LEFT SHIFT is Present. MCH (RBC) [Entitic mass] 29.2 pg 27.0-32.0 [facility] Nucleated RBC/100 WBC (Bld) [Ratio] 0 % 0-5 [facility] - Hematology and Cell countson 06-25-2023 HbA1c (Bld) [Mass fraction] 5.7 % 4.2-6.3 [facility] MCHC Auto (RBC) [Mass/Vol]Or dered By: Miah Montemayor on 06-25-2023 MCHC (RBC) [Mass/Vol] 32.6 g/dL 32-36 [facility] No Panel InformationOrdered By: Miah Montemayor on 06-25-2023 Estimated GFR (MDRD) Amer 92 mL/min >60 [facility] Comment on above: GFR Calc Estimated GFR (MDRD) Non-Af Amer 76 mL/min >60 [facility] Comment on above: Non- GFR Calc Platelets bldOrdered By: Mario Montemayor on 06-25-2023 Platelets (Bld) [#/Vol] 264 10*3/uL 150-450 [facility] Serum or plasma albumin liu urement (mass/volume)Ordered By: Miah Montemayor on 06-25-2023 Albumin [Mass/Vol] 3.8 g/dL 3.2-5.[address] [facility] Serum or plasma albumin/glob ulin mass ratioOrdered By: Miah Montemayor on 06-25-2023 Albumin/Globulin [Mass ratio] 1.0 {ratio} 0.9-2.4 [facility] Serum or plasma calcium liu urement (mass/volume)Ordered By: Miah Montemayor on 06-25-2023 Calcium [Mass/Vol] 10.2 mg/dL 8.5-10.[address] [facility] Serum or plasma cholesterol in HDL measurement (mass/volume)Ordered By: Miah Montemayor on 06-25-2023 Cholesterol in HDL [Mass/Vol] 72 mg/dL >40 [facility] Comment on above: The drugs N-Acetylcy steine and Metamizole may falsely depress this assay. Reference Range HDL <40 mg/dL Low HDL Cholesterol HDL >or= 60 mg/dL High HDL Cholesterol Serum or plasma cholesterol in VLDL measurement (mass/volume)Ordered By: Miah Montemayor on 06-25-2023 Cholesterol in VLDL [Mass/Vol] 15 mg/dL 5-40 [facility] Serum or plasma creatinine m easurement (mass/volume)Ordered By: Miah Montemayor on 06-25-2023 Creatinine [Mass/Vol] 0.81 mg/dL 0.55-1.02 [facility] Comment on above: The validity of the calculated GFR & GFRAA in patients over 70 years has not been determined. Clinical correlation is essential. Serum or plasma low density lipoprotein (LDL) cholesterol measurement (mass/volume)Ordered By: Miah Montemayor on 06-25-2023 Cholesterol in LDL [Mass/Vol] 100 mg/dL 0-130 [facility] Serum or plasma urea nitroge n measurement (mass/volume)Ordered By: Miah Montemayor on 06-25-2023 Urea nitrogen [Mass/Vol] 18 mg/dL 7-18 [facility] Thin prep Papanicolaou smear with manual screeningOrdered By: chinashevilleoralia Montemayor on 06-25-2023 Thin prep Papanicolaou smear with manual screening 19 U/L 15-37 [facility] Thin prep Papanicolaou smear with manual screening 4 5-15 [facility] Absolute lymphocyte countOrd ered By: Miah Montemayor on 01-19-2023 Lymphocytes Auto (Unsp spec) [#/Vol] 1.18 10*3/uL 0.83-4.51 [facility] Basophil percentageOrdered B y: Miah Montemayor on 01-19-2023 Basophils/100 WBC (Bld) 0.4 % 0-1 [facility] Bilirubin [Mass/Vol] 0.40 mg/dL 0.20-1.00 [facility] Comment on above: For patients on eltr ombopag therapy, use of Dimension [place] TBIL is not recommended. Chloride [Moles/Vol] 105 mmol/L 98-107 [facility] Eosinophils/100 WBC (Bld) 0.6 % 0-5 [facility] Glucose [Mass/Vol] 111 mg/dL 74-[address] [facility] Comment on above: Fasting Glucose resu lt from 100 to 125 mg/dL suggests IMPAIRED HOMEOSTASIS per A.D.A. criteria. Neutrophils (Bld) [#/Vol] 5.3 10*3/uL 2.0-7.7 [facility] Neutrophils/100 WBC (Bld) 75.2 % 47-70 [facility] Potassium [Moles/Vol] 4.4 mmol/L 3.5-5.1 [facility] Protein [Mass/Vol] 7.7 g/dL 6.4-8.[address] [facility] Sodium [Moles/Vol] 136 mmol/L 136-[address] [facility] WBC (Bld) [#/Vol] 7.1 10*3/uL 4.4-11.[address] [facility] Blood erythrocytes count (nu mber/volume)Ordered By: Miah Montemayor on 01-19-2023 RBC (Bld) [#/Vol] 5.03 10*6/uL 4.2-5.[address] [facility] Blood hemoglobin measurement (mass/volume)Ordered By: Miah Montemayor on 01-19-2023 Hemoglobin (Bld) [Mass/Vol] 14.9 g/dL 12.0-15.0 [facility] Blood lymphocytes/100 leukoc ytesOrdered By: Hannahashevilleoralia Montemayor on 01-19-2023 Lymphocytes/100 WBC (Bld) 16.7 % 19-41 [facility] Blood monocytes/100 leukocyt esOrdered By: chinashevilleoralia Montemayor on 01-19-2023 Monocytes/100 WBC (Bld) 6.7 % 0-10 [facility] Blood platelet mean volumeOr dered By: Miah Montemayor on 01-19-2023 Platelet mean volume (Bld) [Entitic vol] 10.3 fL 6.2-12.0 [facility] Determination of erythrocyte mean corpuscular volume (MCV)Ordered By: Miah Montemayor on 01-19-2023 MCV (RBC) [Entitic vol] 90.5 fL 81-99 [facility] Hematocrit Auto (Bld) [Volum e fraction]Ordered By: Miah Montemayor on 01-19-2023 Hematocrit (Bld) [Volume fraction] 45.5 % 37-47 [facility] - Chemistry and C hemistry - challengeOrdered By: Miah Montemayor on 01-19-2023 ALP [Catalytic activity/Vol] 67 U/L 45-117 [facility] ALT [Catalytic activity/Vol] 28 U/L 13-56 [facility] CO2 [Moles/Vol] 27.0 mmol/L 21.0-32.0 [facility] Free T4 [Mass/Vol] 1.06 ng/dL 0.76-1.[address] [facility] Globulin (S) [Mass/Vol] 3.7 g/dL 2.2-4.2 [facility] Urea nitrogen/Creatinine [Mass ratio] 26.7 mg/mg 10-20 [facility] - Hematology and Cell countsOrdered By: Miah Montemayor on 01-19-2023 Erythrocyte distribution width (RBC) [Entitic vol] 41.2 fL 35.1-43.9 [facility] Erythrocyte distribution width (RBC) [Ratio] 12.5 % 11.6-14.6 [facility] Immature granulocytes/100 WBC (Bld) 0.400 % 0.0-0.9 [facility] Comment on above: IG% - Immature Granu locytes (promyelocytes, myelocytes and metamyelocytes) > 1% indicates that a LEFT SHIFT is Present. MCH (RBC) [Entitic mass] 29.6 pg 27.0-32.0 [facility] Nucleated RBC/100 WBC (Bld) [Ratio] 0 % 0-5 [facility] - Hematology and Cell countson 01-19-2023 HbA1c (Bld) [Mass fraction] 5.7 % 4.2-6.3 [facility] MCHC Auto (RBC) [Mass/Vol]Or dered By: Miah Montemayor on 01-19-2023 MCHC (RBC) [Mass/Vol] 32.7 g/dL 32-36 [facility] No Panel InformationOrdered By: Miah Montemayor on 01-19-2023 Estimated GFR (MDRD) Amer 101 mL/min >60 [facility] Comment on above: GFR Calc Estimated GFR (MDRD) Non-Af Amer 83 mL/min >60 [facility] Comment on above: Non- GFR Calc Thyroid Stimulating Hormone (TSH) 0.50 uIU/mL 0.358-3.74 [facility] Platelets bldOrdered By: Mario Montemayor on 01-19-2023 Platelets (Bld) [#/Vol] 268 10*3/uL 150-450 [facility] Serum or plasma albumin liu urement (mass/volume)Ordered By: Miah Montemayor on 01-19-2023 Albumin [Mass/Vol] 4.0 g/dL 3.2-5.[address] [facility] Serum or plasma albumin/glob ulin mass ratioOrdered By: Miah Montemayor on 01-19-2023 Albumin/Globulin [Mass ratio] 1.1 {ratio} 0.9-2.4 [facility] Serum or plasma calcium liu urement (mass/volume)Ordered By: Miah Montemayor on 01-19-2023 Calcium [Mass/Vol] 9.8 mg/dL 8.5-10.[address] [facility] Serum or plasma creatinine m easurement (mass/volume)Ordered By: Miah Montemayor on 01-19-2023 Creatinine [Mass/Vol] 0.75 mg/dL 0.55-1.02 [facility] [facility] Comment on above: The validity of the calculated GFR & GFRAA in patients over 70 years has not been determined. Clinical correlation is essential. Serum or plasma urea nitroge n measurement (mass/volume)Ordered By: Miah Montemayor on 01-19-2023 Urea nitrogen [Mass/Vol] 20 mg/dL 7-18 [facility] Thin prep Papanicolaou smear with manual screeningOrdered By: Miah Montemayor on 01-19-2023 Thin prep Papanicolaou smear with manual screening 17 U/L 15-37 [facility] Thin prep Papanicolaou smear with manual screening 4 5-15 [facility] Absolute lymphocyte countOrd ered By: Dr. Montemayor on 08-07-2022 Lymphocytes Auto (Unsp spec) [#/Vol] 1.27 10*3/uL 0.83-4.51 [facility] Basophil percentageOrdered B y: Dr. Montemayor on 08-07-2022 Basophils/100 WBC (Bld) 0.4 % 0-1 [facility] Bilirubin [Mass/Vol] 0.40 mg/dL 0.20-1.00 [facility] Comment on above: For patients on eltr ombopag therapy, use of Dimension [place] TBIL is not recommended. Chloride [Moles/Vol] 106 mmol/L 98-107 [facility] Cholesterol [Mass/Vol] 196 mg/dL <200 [facility] Comment on above: <200 mg/dL Desirable 200-240 mg/dL Borderline >240 mg/dL High Risk Eosinophils/100 WBC (Bld) 1.5 % 0-5 [facility] Glucose [Mass/Vol] 112 mg/dL 74-[address] [facility] Comment on above: Fasting Glucose resu lt from 100 to 125 mg/dL suggests IMPAIRED HOMEOSTASIS per A.D.A. criteria. Neutrophils (Bld) [#/Vol] 3.0 10*3/uL 2.0-7.7 [facility] Neutrophils/100 WBC (Bld) 63.1 % 47-70 [facility] Potassium [Moles/Vol] 4.0 mmol/L 3.5-5.1 [facility] Protein [Mass/Vol] 7.7 g/dL 6.4-8.[address] [facility] Sodium [Moles/Vol] 139 mmol/L 136-[address] [facility] Triglyceride [Mass/Vol] 155 mg/dL <199 [facility] Comment on above: The drugs N-Acetylcy steine and Metamizole may falsely depress this assay.Serum Triglycerides Reference Interval Normal <150 mg/dL Borderline high 150 - 199 mg/dL High 200 - 499 mg/dL Very High > or = 500 mg/dL WBC (Bld) [#/Vol] 4.8 10*3/uL 4.4-11.[address] [facility] Blood erythrocytes count (nu mber/volume)Ordered By: Dr. Montemayor on 08-07-2022 RBC (Bld) [#/Vol] 5.04 10*6/uL 4.2-5.[address] [facility] Blood hemoglobin measurement (mass/volume)Ordered By: Dr. Montemayor on 08-07-2022 Hemoglobin (Bld) [Mass/Vol] 14.7 g/dL 12.0-15.0 [facility] Blood lymphocytes/100 leukoc ytesOrdered By: Dr. Montemayor on 08-07-2022 Lymphocytes/100 WBC (Bld) 26.3 % 19-41 [facility] Blood monocytes/100 leukocyt esOrdered By: Dr. Montemayor on 08-07-2022 Monocytes/100 WBC (Bld) 8.3 % 0-10 [facility] Blood platelet mean volumeOr dered By: Dr. Montemayor on 08-07-2022 Platelet mean volume (Bld) [Entitic vol] 10.2 fL 6.2-12.0 [facility] Determination of erythrocyte mean corpuscular volume (MCV)Ordered By: Dr. Montemayor on 08-07-2022 MCV (RBC) [Entitic vol] 88.9 fL 81-99 [facility] Hematocrit Auto (Bld) [Volum e fraction]Ordered By: Dr. Montemayor on 08-07-2022 Hematocrit (Bld) [Volume fraction] 44.8 % 37-47 [facility] - Chemistry and C hemistry - challengeOrdered By: Dr. Montemayor on 08-07-2022 ALP [Catalytic activity/Vol] 73 U/L 45-117 [facility] ALT [Catalytic activity/Vol] 40 U/L 13-56 [facility] CO2 [Moles/Vol] 27.0 mmol/L 21.0-32.0 [facility] Cobalamin (Vitamin B12) [Mass/Vol] 1087 pg/mL 211-911 [facility] Globulin (S) [Mass/Vol] 3.9 g/dL 2.2-4.2 [facility] Urea nitrogen/Creatinine [Mass ratio] 16.7 mg/mg 10-20 [facility] - Hematology and Cell countsOrdered By: Dr. Montemayor on 08-07-2022 Erythrocyte distribution width (RBC) [Entitic vol] 40.6 fL 35.1-43.9 [facility] Erythrocyte distribution width (RBC) [Ratio] 12.4 % 11.6-14.6 [facility] Immature granulocytes/100 WBC (Bld) 0.400 % 0.0-0.9 [facility] Comment on above: IG% - Immature Granu locytes (promyelocytes, myelocytes and metamyelocytes) > 1% indicates that a LEFT SHIFT is Present. MCH (RBC) [Entitic mass] 29.2 pg 27.0-32.0 [facility] Nucleated RBC/100 WBC (Bld) [Ratio] 0 % 0-5 [facility] MCHC Auto (RBC) [Mass/Vol]Or dered By: Dr. Montemayor on 08-07-2022 MCHC (RBC) [Mass/Vol] 32.8 g/dL 32-36 [facility] No Panel InformationOrdered By: Dr. Montemayor on 08-07-2022 Estimated GFR (MDRD) Amer 89 mL/min >60 [facility] Comment on above: GFR Calc Estimated GFR (MDRD) Non-Af Amer 74 mL/min >60 [facility] Comment on above: Non- GFR Calc Vitamin D 25-Hydroxy 43.1 ng/mL [facility] Comment on above: Vitamin D 25(OH) Sta tus Range Deficiency <20 ng/mL (50nmol/L) Insufficiency 20 - 30 ng/mL (50 - 75 nmol/L) Sufficiency 30 - 100 ng/mL (75 - 250 nmol/L) Toxicity >100 ng/mL (>250 nmol/L) Platelets bldOrdered By: Dr. Monetmayor on 08-07-2022 Platelets (Bld) [#/Vol] 249 10*3/uL 150-450 [facility] Serum or plasma albumin liu urement (mass/volume)Ordered By: Dr. Montemayor on 08-07-2022 Albumin [Mass/Vol] 3.8 g/dL 3.2-5.[address] [facility] Serum or plasma albumin/glob ulin mass ratioOrdered By: Dr. Montemayor on 08-07-2022 Albumin/Globulin [Mass ratio] 1.0 {ratio} 0.9-2.4 [facility] Serum or plasma calcium liu urement (mass/volume)Ordered By: Dr. Montemayor on 08-07-2022 Calcium [Mass/Vol] 9.7 mg/dL 8.5-10.[address] [facility] Serum or plasma cholesterol in HDL measurement (mass/volume)Ordered By: Dr. Montemayor on 08-07-2022 Cholesterol in HDL [Mass/Vol] 72 mg/dL >40 [facility] Comment on above: The drugs N-Acetylcy steine and Metamizole may falsely depress this assay. Reference Range HDL <40 mg/dL Low HDL Cholesterol HDL >or= 60 mg/dL High HDL Cholesterol Serum or plasma cholesterol in VLDL measurement (mass/volume)Ordered By: Dr. Montemayor on 08-07-2022 Cholesterol in VLDL [Mass/Vol] 31 mg/dL 5-40 [facility] Serum or plasma creatinine m easurement (mass/volume)Ordered By: Dr. Montemayor on 08-07-2022 Creatinine [Mass/Vol] 0.84 mg/dL 0.55-1.02 [facility] Comment on above: The validity of the calculated GFR & GFRAA in patients over 70 years has not been determined. Clinical correlation is essential. Serum or plasma low density lipoprotein (LDL) cholesterol measurement (mass/volume)Ordered By: Dr. Montemayor on 08-07-2022 Cholesterol in LDL [Mass/Vol] 93 mg/dL 0-130 [facility] Serum or plasma urea nitroge n measurement (mass/volume)Ordered By: Dr. Montemayor on 08-07-2022 Urea nitrogen [Mass/Vol] 14 mg/dL 7-18 [facility] Thin prep Papanicolaou smear with manual screeningOrdered By: Dr. Montemayor on 08-07-2022 Thin prep Papanicolaou smear with manual screening 24 U/L 15-37 [facility] Thin prep Papanicolaou smear with manual screening 6 5-15 [facility] Whole blood hemoglobin A1c/t otal hemoglobin ratio (mass fraction)Ordered By: Dr. Montemayor on 08-07-2022 HbA1c (Bld) [Mass fraction] 5.7 % 3.8-5.6 [facility] Comment on above: Normal < 5.7 % Predi abetic 5.7 - 6.4 % Diabetic >or= 6.5 % Please note range changes. CT UROGRAM WO/W IVCONon 07-16 [facility] US KIDNEY/BLADDERon 07-12-20 US KIDNEY/BLADDER * [...] for a distal obstruction, consider CT urogram. 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[employer] Transcribe Date/Time: Jul 14 2022 11:07A Dictated by : DACIA WOOD MD This examination was interpreted and the report reviewed and electronically signed by: DACIA WOOD MD on Jul 14 2022 11:09AM EST [id number] Normal [facility] ANES Franchesca 09-05-2019 ANES POST HNO ID: [id number] Author: Oscar Dumont Service: Anesthesiology Author Type: [...] 05, 2019 TIME: 11:55 AM PAGER/CONTACT #: [phone] [facility] ANES PREOPon 09-05-2019 ANES PREOP HNO ID: [id number] Author: Robyn Hope Service: Anesthesiology Author Type: [...] low cervical - COLONOSCOP W/ OR W/O [facility] SPEC 08/22/07 - COLONOSCOP W/ OR W/O [facility] SPEC N/A 09/04/2016 - EGD W/O [facility] SPECIMEN W/BX 03/13/07 - EGD W/O OR W/BRUSH/WASH 11/25/2009 [facility] EGD H-pylori negative - EGD W/O [...] fluticasone (FLONASE) 50 mcg/actuation nasal spray 1 Kennan once daily. - multivitamin (MULTIPLE VITAMIN) ORAL [...] September 05, 2019 TIME: 8:33 AM CSN: [id number] [facility] NURSING PROGon 09-05-2019 NURSING PROG HNO ID: [id number] Author: Rowena PulidoRnMichael Goff RN Service: Nursing Author Type: Registered Nurse Type: Nursing Progress Note Filed: 09/05/2019 2:46 PM Note Text: 1305 Reglan 10mg IV given slowly IVP. New bag of LR up and infusing. Pt c/o nausea-no active vomiting. Spouse @ bedside 1330 Pt resting quietly. No c/o nausea 1400 Pt resting quietly 1430 Pt discharge home in satisfactory conditoin [facility] NURSING PROG HNO ID: [id number] Author: Marycarmen PulidoRn) SHAWANDA Quiros Service: Nursing Author Type: Registered Nurse Type: Nursing Progress Note Filed: 09/05/2019 12:33 PM Note Text: Nursing Progress Note Patient Name: Janee Tompkins Patient Location: [facility] pt ready for OR, call light in reach, called to bedside, will take bag of valuables. This note was completed by: Marycarmen Quiros RN [phone] to bedside, pt c/o feeling nauseated after sitting up on the cart. IV Zofran given at 1208 for nausea. 1223 D/C instructions given to pt and , slight nausea still. Will continue to monitor. [facility] OPERATIVE NOon 09-05-2019 OPERATIVE NO HNO ID: [id number] Author: Juan Jose Wright Service: Orthopaedic Surgery Author Type: Physician Type: Operative Report Filed: 09/09/2019 7:29 AM Note Text: OPERATIVE/PROCEDURE REPORT LOG ID: [id number] SURGERY/PROCEDURE DATE: 09/05/2019 INCISION/PROCEDURE START TIME: 10:03 AM INCISION CLOSE/PROCEDURE END TIME: 10:19 AM SURGEON(S)/PROCEDURALIST(S) AND SUPERVISOR CELL OPERATION(S): Surgeon(s) and Role: * Juan Jose Wright - Primary Physician Acetone Recovery Worker: Todd (Deepthi Diaz (Pa) SURGERY/PROCEDURE(S): Excision of a digital mucous cyst, [...] 09, 2019 TIME: 7:24 AM PAGER/CONTACT #: [facility] PT EDon 09-05-2019 PT ED HNO ID: [id number] Author: Marycarmen PulidoRn) SHAWANDA Quiros Service: Nursing [...] Signed By: Marycarmen Quiros RN In Department: [facility] SURGERY [facility] PT ED HNO ID: [id number] Author: Marycarmen PulidoRn) SHAWANDA Quiros Service: Nursing [...] Signed By: Marycarmen Quiros RN In Department: [facility] SURGERY [facility] NURSING PROGon 09-01-2019 NURSING PROG HNO ID: [id number] Author: Bronson PulidoRnMichael Wilkins RN Service: ? [...] Wilkins RN September 01, 2019 12:21 PM [facility] HOSPon 08-25-2019 HOSP Patient:Noa Tompkins MRN: [...] 4.1 mmol/L 08/25/2019 5.1 3.7 Progress Notes ([facility]): Maria Eugenia Adis Mcknight 08/25/2019 4:49 PM Signed Patient scheduled for right small finger, excision of digital ganglion cyst on 09/05/2019. Surgical request completed. Surgery confirmation letter and post op appointments mailed to patient. Lizbet Feng [facility] 08/26/2019 8:21 AM Signed Noted in [place]. Joan Zimmerman Ma 08/27/2019 9:12 AM Signed Surgery has been scheduled as requested. Progress Notes ([facility]): Maria Eugeniamerrill Arceo Ma 08/25/2019 12:23 PM Signed Patient [...] dominant. 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 Patient has a picture on her phone when it was inflamed. Referred by Dr. Rohan North. 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 ASSESSMENT: M67.441 Ganglion, finger joint of [...] low cervical - COLONOSCOP W/ OR W/O [facility] SPEC 08/22/07 - COLONOSCOP W/ OR W/O [facility] SPEC N/A 09/04/2016 - [facility] 03/13/07 - EGD W/O OR W/BRUSH/WASH 11/25/2009 [facility] EGD H-pylori negative - EGD W/O [...] fluticasone (FLONASE) 50 mcg/actuation nasal spray 1 Kennan once daily. - multivitamin (MULTIPLE VITAMIN) ORAL [...] anxiety) This note was partially generated using [employer] voice recognition system, and there may be some incorrect words, spellings, and punctuation that were not noted in checking the note before saving. Juan Jose Wright MD [facility] Vital Signs Date Time Vital Sign Value Performing Clinician Facility 01-29-2025 15:35-0400 Body height 167.[address] Miah Montemayor MD Work Phone: [facility] 01-29-2025 15:35-0400 Body mass index (BMI) [Ratio] 35.9 kg/m2 Dr. Miah Montemayor MD Work Phone: [facility] 01-29-2025 15:35-0400 Body temperature 97.4 [degF] Dr. Miah Montemayor MD Work Phone: [facility] 01-29-2025 15:35-0400 Body weight 101.[address] Miah Montemayor MD Work Phone: [facility] 01-29-2025 15:35-0400 Diastolic blood pressure 80 mm[Hg] Dr. Miah Montemayor MD Work Phone: [facility] 01-29-2025 15:35-0400 Heart rate 74 /min Dr. Miah Montemayor MD Work Phone: [facility] 01-29-2025 15:35-0400 Respiratory rate 16 /min Dr. Miah Montemayor MD Work Phone: [facility] 01-29-2025 15:35-0400 SaO2% (BldA) [Mass fraction] 96 % Dr. Miah Montemayor MD Work Phone: [facility] 01-29-2025 15:35-0400 Systolic blood pressure 112 mm[Hg] Dr. Miah Montemayor MD Work Phone: [facility] 10-30-2024 14:57-0400 Body height 167.[address] Miah Montemayor MD Work Phone: [facility] 10-30-2024 14:57-0400 Body mass index (BMI) [Ratio] 35.4 kg/m2 Dr. Miah Montemayor MD Work Phone: [facility] 10-30-2024 14:57-0400 Body temperature 96.2 [degF] Dr. Miah Montemayor MD Work Phone: [facility] 10-30-2024 14:57-0400 Body weight 99.[address] Miah Montemayor MD Work Phone: [facility] 10-30-2024 14:57-0400 Diastolic blood pressure 76 mm[Hg] Dr. Miah Montemayor MD Work Phone: [facility] 10-30-2024 14:57-0400 Heart rate 78 /min Dr. Miah Montemayor MD Work Phone: [facility] 10-30-2024 14:57-0400 SaO2% (BldA) [Mass fraction] 99 % Dr. Miah Montemayor MD Work Phone: [facility] 10-30-2024 14:57-0400 Systolic blood pressure 116 mm[Hg] Dr. Miah Montemayor MD Work Phone: [facility] 08-26-2024 07:36-0500 Body mass index (BMI) [Ratio] 36.6 kg/m2 Dr. Miah Montemayor MD Work Phone: [facility] 08-26-2024 07:36-0500 Body weight 102.[address] Miah Montemayor MD Work Phone: [facility] 07-30-2024 15:35-0500 Body mass index (BMI) [Ratio] 36.6 kg/m2 Dr. Miah Montemayor MD Work Phone: [facility] 07-30-2024 15:35-0500 Body temperature 97.4 [degF] Dr. Miah Montemayor MD Work Phone: [facility] 07-30-2024 15:35-0500 Body weight 102.[address] Miah Montemayor MD Work Phone: [facility] 07-30-2024 15:35-0500 Diastolic blood pressure 84 mm[Hg] Dr. Miah Montemayor MD Work Phone: [facility] 07-30-2024 15:35-0500 Heart rate 87 /min Dr. Miah Montemayor MD Work Phone: [facility] 07-30-2024 15:35-0500 Respiratory rate 18 /min Dr. Miah Montemayor MD Work Phone: [facility] 07-30-2024 15:35-0500 SaO2% (BldA) [Mass fraction] 98 % Dr. Miah Montemayor MD Work Phone: [facility] 07-30-2024 15:35-0500 Systolic blood pressure 116 mm[Hg] Dr. Miah Montemayor MD Work Phone: [facility] 10-31-2023 11:10-0400 Body height 167.[address] Miah Montemayor Work Phone: [facility] 10-31-2023 11:10-0400 Body mass index (BMI) [Ratio] 35.1 kg/m2 Dr. Miah Montemayor Work Phone: [facility] 10-31-2023 11:10-0400 Body temperature 97.5 [degF] Dr. Miah Montemayor Work Phone: [facility] 10-31-2023 11:10-0400 Body weight 98.[address] Miah Montemayor Work Phone: [facility] 10-31-2023 11:10-0400 Diastolic blood pressure 62 mm[Hg] Dr. Miah Montemayor Work Phone: [facility] 10-31-2023 11:10-0400 Heart rate 85 /min Dr. Miah Montemayor Work Phone: [facility] 10-31-2023 11:10-0400 Respiratory rate 16 /min Dr. Miah Montemayor Work Phone: [facility] 10-31-2023 11:10-0400 SaO2% (BldA) [Mass fraction] 97 % Dr. Miah Montemayor Work Phone: [facility] 10-31-2023 11:10-0400 Systolic blood pressure 124 mm[Hg] Dr. Miah Montemayor Work Phone: [facility] 10-24-2023 14:03-0400 Diastolic blood pressure 78 mm[Hg] Dr. Miah Montemayor Work Phone: [facility] 10-24-2023 14:03-0400 Heart rate 77 /min Dr. Miah Montemayor Work Phone: [facility] 10-24-2023 14:03-0400 Respiratory rate 17 /min Dr. Miah Montemayor Work Phone: [facility] 10-24-2023 14:03-0400 Systolic blood pressure 116 mm[Hg] Dr. Miah Montemayor Work Phone: [facility] 10-02-2023 13:40-0400 Body height 167.[address] Miah Montemayor Work Phone: [facility] 10-02-2023 13:40-0400 Body mass index (BMI) [Ratio] 35.4 kg/m2 Dr. Miah Montemayor Work Phone: [facility] 10-02-2023 13:40-0400 Body temperature 97.6 [degF] Dr. Miah Montemayor Work Phone: [facility] 10-02-2023 13:40-0400 Body weight 99.[address] Miah Montemayor Work Phone: [facility] 10-02-2023 13:40-0400 Diastolic blood pressure 89 mm[Hg] Dr. Miah Montemayor Work Phone: [facility] 10-02-2023 13:40-0400 Heart rate 88 /min Dr. Miah Montemayor Work Phone: [facility] 10-02-2023 13:40-0400 Respiratory rate 18 /min Dr. Miah Montemayor Work Phone: [facility] 10-02-2023 13:40-0400 SaO2% (BldA) [Mass fraction] 98 % Dr. Miah Montemayor Work Phone: [facility] 10-02-2023 13:40-0400 Systolic blood pressure 148 mm[Hg] Dr. Miah Montemayor Work Phone: [facility] 08-22-2023 11:05-0500 Body height 167.[address] Miah Montemayor Work Phone: [facility] 08-22-2023 11:05-0500 Body mass index (BMI) [Ratio] 34.8 kg/m2 Dr. Miah Montemayor Work Phone: [facility] 08-22-2023 11:05-0500 Body temperature 97.4 [degF] Dr. Miah Montemayor Work Phone: [facility] 08-22-2023 11:05-0500 Body weight 97.[address] Miah Montemayor Work Phone: [facility] 08-22-2023 11:05-0500 Diastolic blood pressure 80 mm[Hg] Dr. Miah Montemayor Work Phone: [facility] 08-22-2023 11:05-0500 Heart rate 78 /min Dr. Miah Montemayor Work Phone: [facility] 08-22-2023 11:05-0500 Respiratory rate 16 /min Dr. Miah Montemayor Work Phone: [facility] 08-22-2023 11:05-0500 SaO2% (BldA) [Mass fraction] 96 % Dr. Miah Montemayor Work Phone: [facility] 08-22-2023 11:05-0500 Systolic blood pressure 126 mm[Hg] Dr. Miah Montemayor Work Phone: [facility] 06-25-2023 15:14-0500 Body height 167.[address] Miah Montemayor Work Phone: [facility] 06-25-2023 15:14-0500 Body mass index (BMI) [Ratio] 34.3 kg/m2 Dr. Miah Montemayor Work Phone: [facility] 06-25-2023 15:14-0500 Body temperature 98.5 [degF] Dr. Miah Montemayor Work Phone: [facility] 06-25-2023 15:14-0500 Body weight 96.[address] Miah Montemayor Work Phone: [facility] 06-25-2023 15:14-0500 Diastolic blood pressure 76 mm[Hg] Dr. Miah Montemayor Work Phone: [facility] 06-25-2023 15:14-0500 Heart rate 78 /min Dr. Miah Montemayor Work Phone: [facility] 06-25-2023 15:14-0500 Respiratory rate 18 /min Dr. Miah Montemayor Work Phone: [facility] 06-25-2023 15:14-0500 SaO2% (BldA) [Mass fraction] 99 % Dr. Miah Montemayor Work Phone: [facility] 06-25-2023 15:14-0500 Systolic blood pressure 120 mm[Hg] Dr. Miah Montemayor Work Phone: [facility] 03-29-2023 15:54-0400 Body height 167.[address] Miah Montemayor Work Phone: [facility] 03-29-2023 15:54-0400 Body mass index (BMI) [Ratio] 35.5 kg/m2 Dr. Miah Montemayor Work Phone: [facility] 03-29-2023 15:54-0400 Body temperature 96.4 [degF] Dr. Miah Montemayor Work Phone: [facility] 03-29-2023 15:54-0400 Body weight 99.[address] Miah Montemayor Work Phone: [facility] 03-29-2023 15:54-0400 Diastolic blood pressure 84 mm[Hg] Dr. Miah Montemayor Work Phone: [facility] 03-29-2023 15:54-0400 Heart rate 72 /min Dr. Miah Montemayor Work Phone: [facility] 03-29-2023 15:54-0400 Respiratory rate 18 /min Dr. Miah Montemayor Work Phone: [facility] 03-29-2023 15:54-0400 SaO2% (BldA) [Mass fraction] 98 % Dr. Miah Montemayor Work Phone: [facility] 03-29-2023 15:54-0400 Systolic blood pressure 122 mm[Hg] Dr. Miah Montemayor Work Phone: [facility] 01-19-2023 07:57-0400 Body height 167.[address] Miah Montemayor Work Phone: [facility] 01-19-2023 07:57-0400 Body mass index (BMI) [Ratio] 36.7 kg/m2 Dr. Miah Montemayor Work Phone: [facility] 01-19-2023 07:57-0400 Body temperature 95.6 [degF] Dr. Miah Montemayor Work Phone: [facility] 01-19-2023 07:57-0400 Body weight 103.[address] Miah Montemayor Work Phone: [facility] 01-19-2023 07:57-0400 Diastolic blood pressure 76 mm[Hg] Dr. Miah Montemayor Work Phone: [facility] 01-19-2023 07:57-0400 Heart rate 85 /min Dr. Miah Montemayor Work Phone: [facility] 01-19-2023 07:57-0400 Respiratory rate 18 /min Dr. Miah Montemayor Work Phone: [facility] 01-19-2023 07:57-0400 SaO2% (BldA) [Mass fraction] 97 % Dr. Miah Montemayor Work Phone: [facility] 01-19-2023 07:57-0400 Systolic blood pressure 118 mm[Hg] Dr. Miah Montemayor Work Phone: [facility] 08-07-2022 08:13-0500 Body height 167.[address] Miah Montemayor Work Phone: [facility] 08-07-2022 08:13-0500 Body mass index (BMI) [Ratio] 37.4 kg/m2 Dr. Miah Montemayor Work Phone: [facility] 08-07-2022 08:13-0500 Body temperature 98.8 [degF] Dr. Miah Montemayor Work Phone: [facility] 08-07-2022 08:13-0500 Body weight 105.[address] Miah Montemayor Work Phone: [facility] 08-07-2022 08:13-0500 Diastolic blood pressure 82 mm[Hg] Dr. Miah Montemayor Work Phone: [facility] 08-07-2022 08:13-0500 Heart rate 91 /min Dr. Miah Montemayor Work Phone: [facility] 08-07-2022 08:13-0500 Respiratory rate 14 /min Dr. Miah Montemayor Work Phone: [facility] 08-07-2022 08:13-0500 SaO2% (BldA) [Mass fraction] 97 % Dr. Miah Montemayor Work Phone: [facility] 08-07-2022 08:13-0500 Systolic blood pressure 124 mm[Hg] Dr. Miah Montemayor Work Phone: [facility] 10-17-2021 08:10-0400 Body temperature 97.81 [degF] Adilene Podlogar [employer] PRINTER.CLEARANCE DIVER Work Phone: [facility] 10-17-2021 08:10-0400 Body weight 105.42 kg Adilene Podlogar [employer] PRINTER.CLEARANCE DIVER Work Phone: [facility] 10-17-2021 08:10-0400 Diastolic blood pressure 82 mm[Hg] Adilene Podlogar [employer]EL [employer] PRINTER.CLEARANCE DIVER Work Phone: [facility] 10-17-2021 08:10-0400 Heart rate 91 /min Adilene Podlogar [employer] PRINTER.CLEARANCE DIVER Work Phone: [facility] 10-17-2021 08:10-0400 Respiratory rate 18 /min Adilene Podlogar [employer] PRINTER.CLEARANCE DIVER Work Phone: [facility] 10-17-2021 08:10-0400 SaO2% (BldA) [Mass fraction] 98 % Adilene Podlogar [employer] PRINTER.CLEARANCE DIVER Work Phone: [facility] 10-17-2021 08:10-0400 Systolic blood pressure 136 mm[Hg] Adilene Podlogar [employer] PR[employer].CLEARANCE DIVER Work Phone: [facility] Encounters Encounter Date Encounter Type Care Provider Facility Start: 05-07-2025 ambulatory Efewariellebe Oleghe Facili ty:[facility] Start: 05-01-2025 ambulatory Efewongbe Oleghe Facili ty:[facility] Start: 01-29-2025 End: 01-29-[address] Miah Montemayor MD Work Phone: -Radiology [facility] Start: 01-29-2025 End: 01-29-[address] Miah Montemayor MD -Radiology [facility] Work Phone: Start: 01-29-2025 End: 01-29-[address] Miah Montemayor MD -[facility] [facility] Work Phone: Start: 01-29-2025 End: 01-29-[address] Miah Montemayor MD Work Phone: -[facility] Start: 01-29-2025 End: 01-29-2025 ambulatory [facility] Facility:[facility] Start: 11-19-2024 End: 11-19-[address] Miah Montemayor MD Work Phone: [facility] Work Phone: Start: 11-19-2024 End: 11-19-[address] William Hunter MD -Physical Therapy Work Phone: Start: 11-14-2024 [facility] Start: 11-14-2024 Non-patient / Non-visit Dr. Chet Krueger DO -[facility] Start: 11-14-2024 End: 11-14-[address] Miah Montemayor MD -Pulmonary Services/Neurology Work Phone: Start: 11-14-2024 End: 11-14-2024 [facility] Start: 11-13-2024 End: 11-13-[address] Miah Montemayor MD -Radiology, [facility] Work Phone: Start: 11-13-2024 End: 11-13-2024 [facility] Start: 10-30-2024 End: 10-30-[address] Miah Montemayor MD -[facility] Work Phone: Start: 10-30-2024 End: 10-30-2024 [facility] Start: 10-02-2024 End: 10-02-[address] Rg Lockwood MD -[facility] Work Phone: Start: 10-02-2024 End: 10-02-2024 ambulatory Rg Deborahjohanny Facility:[facility] Start: 09-01-2024 End: 09-01-[address] Rg Lockwood MD -Ultrasound, [facility] Work Phone: Start: 09-01-2024 End: 09-01-2024 ambulatory Rg Lockwood Facility:[facility] Start: 08-26-2024 End: 08-26-[address] William Hunter MD -[facility] Work Phone: Start: 08-26-2024 End: 08-26-2024 [facility] Start: 08-09-2024 End: 08-09-[address] Miah Montemayor MD -Laboratory Work Phone: Start: 08-09-2024 End: 08-09-2024 ambulatory [facility] Facility:[facility] Start: 08-08-2024 End: 08-08-[address] Miah Montemayor MD -Laboratory Work Phone: Start: 08-08-2024 End: 08-08-2024 ambulatory [facility] Facility:[facility] Start: 07-30-2024 End: 07-30-[address] Miah Montemayor MD -[facility] Work Phone: Start: 07-30-2024 End: 07-30-2024 [facility] Start: 05-23-2024 End: 05-23-2024 ambulatory [facility] Facility:[facility] Start: 05-06-2024 End: 05-06-2024 ambulatory Aniya Alvarenga Facility:[facility] Start: 12-27-[address] Miah Montemayor MD Work Phone: [facility] Start: 11-15-2023 Telephone encounter Anselmo Holloway MD Work Phone: [facility] [place] Comment on above: Results Start: 11-06-2023 End: 11-06-2023 ambulatory JUAN LUIS HOLLOWAY Facility:[facility] Start: 11-06-2023 End: 11-06-2023 Subsequent hospital visit by physician [facility] (I-Stat) Work Phone: Cat Scan Start: 10-31-2023 End: 10-31-[address] Miah Montemayor Work Phone: [facility] Work Phone: Start: 10-31-2023 End: 10-31-[address] Miah Montemayor Work Phone: [facility] Internal Medicine Work Phone: Start: 10-24-2023 End: 10-24-[address] Miah Montemayor Work Phone: [facility] Work Phone: Start: 10-24-2023 End: 10-24-[address] Miah Montemayor Work Phone: [facility]-Laboratory, Specimen Work Phone: Start: 10-24-2023 End: 10-24-[address] Miah Montemayor Work Phone: [facility] Work Phone: Start: 10-23-2023 End: 10-23-[address] Miah Montemayor Work Phone: [facility] Work Phone: Start: 10-23-2023 End: 10-23-[address] Miah Montemayor Work Phone: [facility]-Nuclear Medicine, [facility] Work Phone: Start: 10-02-2023 End: 10-02-[address] Miah Montemayor Work Phone: [facility] Work Phone: Start: 10-02-2023 End: 10-02-[address] Miah Montemayor Work Phone: [facility]-Laboratory, OP Pavilion Start: 10-02-2023 End: 10-02-[address] Miah Montemayor Work Phone: [facility] Work Phone: Start: 09-24-2023 End: 09-24-[address] Miah Montemayor Work Phone: [facility] Work Phone: Start: 09-24-2023 End: 09-24-[address] Miah Montemayor Work Phone: [facility]-Ultrasound, [facility] Work Phone: Start: 09-21-2023 End: 09-21-[address] Miah Montemayor Work Phone: [facility] Work Phone: Start: 09-21-2023 End: 09-21-[address] Miah Montemayor Work Phone: [facility]-Laboratory, Specimen Work Phone: Start: 09-14-2023 End: 09-14-[address] Miah Montemayor Work Phone: [facility] Work Phone: Start: 09-14-2023 End: 09-14-[address] Miah Montemayor Work Phone: [facility]-Laboratory, B[facility] Start: 08-22-2023 End: 08-22-[address] Miah Montemayor Work Phone: [facility] Work Phone: Start: 08-22-2023 End: 08-22-[address] Miah Montemayor Work Phone: [facility] Internal Medicine Work Phone: Start: 07-31-2023 End: 07-31-[address] Miah Montemayor Work Phone: [facility] Work Phone: Start: 07-31-2023 End: 07-31-[address] Miah Montemayor Work Phone: [facility]-Outpatient Bone Densitometry Work Phone: Start: 06-25-2023 End: 06-25-[address] Miah Montemayor Work Phone: [facility] Work Phone: Start: 06-25-2023 End: 06-25-2023 Encounter for general adult medical examination without abnormal findings Dr. Miah Montemayor Work Phone: [facility] Start: 06-25-2023 End: 06-25-[address] Miah Montemayor Work Phone: [facility] Internal Medicine Work Phone: Start: 06-20-2023 ambulatory Juan Luis Holloway MD Work Phone: Internal Medicine [facility] [place] Start: 05-04-2023 End: 05-04-[address] Miah Montemayor Work Phone: [facility] Work Phone: Start: 05-04-2023 End: 05-04-[address] Miah Montemayor Work Phone: [facility]-Physical Therapy Work Phone: Start: 05-02-2023 End: 05-02-[address] Miah Montemayor Work Phone: [facility] Work Phone: Start: 05-02-2023 End: 05-02-[address] Miah Montemayor Work Phone: [facility]-Outpatient Breast Imaging Work Phone: Start: 03-29-2023 End: 03-29-[address] Miah Montemayor Work Phone: [facility] Work Phone: Start: 03-29-2023 End: 03-29-[address] Miah Montemayor Work Phone: [facility]-Radiology, [facility] Work Phone: Start: 03-29-2023 End: 03-29-[address] Miah Montemayor Work Phone: [facility] Internal Medicine Work Phone: Start: 01-29-2023 Non-patient / Non-visit Dr. Miah Montemayor Work Phone: [facility] Internal Medicine Work Phone: Start: 01-19-2023 End: 01-19-[address] Miah Montemayor Work Phone: [facility] Work Phone: Start: 01-19-2023 End: 01-19-[address] Miah Montemayor Work Phone: [facility] Internal Medicine Work Phone: Start: 08-09-[address] [facility] Start: 08-07-2022 End: 08-07-[address] Miah Montemayor Work Phone: [facility] Work Phone: Start: 08-07-[address] Miah Montemayor Work Phone: [facility] Start: 08-07-2022 End: 08-07-2022 Encounter for general adult medical examination without abnormal findings Dr. Miah Montemayor Work Phone: [facility] Start: 08-07-2022 End: 08-07-[address] Miah Montemayor Work Phone: [facility] Internal Medicine Start: 07-27-2022 Telephone encounter Anselmo Holloway MD Work Phone: [facility] Comment on above: Results Start: 07-27-2022 End: 07-27-2022 Subsequent hospital visit by physician [facility] (I-Stat) Work Phone: Cat Scan Comment on above: Abnormal ultrasound [R93.89] Start: 07-18-2022 Telephone encounter Adilene you APRN.CLEARANCE DIVER Work Phone: [facility] [place] Comment on above: Results Start: 07-12-2022 Telephone encounter Adilene you APRN.CLEARANCE DIVER Work Phone: [facility] [place] Comment on above: Results Start: 07-12-2022 ambulatory ADILENE PODLOGAR Facility :[facility] Start: 07-12-2022 End: 07-12-2022 Subsequent hospital visit by physician [facility] Comment on above: Right flank pain [R1 0.9] Start: 06-10-2022 ambulatory Adilene Podlogar CLEARANCE DIVER Work Phone: [facility] Comment on above: update chart Start: 06-07-2022 ambulatory Juan Luis Holloway MD Work Phone: Internal Medicine [facility] Start: 05-01-2022 End: 05-01-2022 ambulatory [facility] Work Phone: Start: 05-01-2022 End: 05-01-2022 Patient encounter procedure [facility]-Outpatient Breast Imaging Start: 10-17-2021 End: 10-17-2021 Patient encounter procedure Adilene Main APRN.CLEARANCE DIVER Work Phone: [facility] Comment on above: URI, acute (Primary Dx); Tenderness over frontal sinus Start: 05-13-2012 End: 05-13-[address] (I-Stat) Work Phone: [facility] Work Phone: Procedures Date Procedure Procedure [...] Montemayor Work Phone: Start: 05-02-2023 Screening mammography D mali Montemayor Work Phone: Start: 03-29-2023 Plain X-ray of shoulder Dr. Miah Montemayor Work Phone: Start: 01-19-2023 X-ray of cervical spine Dr. Miah Montemayor Work Phone: Start: 07-27-2022 Ct abdomen & pelvis w/o contrst 1/> body re Adilene Main REEL FED PRINTER.JAY Work Phone: Start: 07-12-2022 Us retroperitoneal r eal time w/image complete Adilene Podlogar REEL FED PRINTER.JAY Work Phone: Start: 05-01-2022 End: 05-01-2022 Screening mammography Start: 10-15-2021 Adult depression scr eening assessment Adilene Podlogar REEL FED PRINTER.JAY Work Phone: Start: 05-20-2021 Lipid 1996 panel - S ashwin or Plasma Ct (I-Stat) Work Phone: Start: 04-29-2021 Mammography Adilene you REEL FED PRINTER.JAY Work Phone: Start: 09-04-2016 Colonoscopy Adilene you APRN.CNP Work Phone: Plan of Treatment Date Care Activity Detail Author Start: 05-20-2029 Urine microalbumin profile [facility] Start: 09-04-2026 Colonoscopy COLONOSCOPY [facility] Start: 09-04-2026 COLORECTAL CANCER SCREENING COLORECTAL CANCER SCREENING [facility] Start: 09-04-2026 Screening for malign ant neoplasm of colon [facility] Start: 05-20-2026 Lipid 1996 panel - S ashwin or Plasma Lipid Screening [facility] Start: 05-20-2026 Lipid panel Lipid Screening [facility] Start: 05-20-2026 LIPID SCREEN LIPID SCREEN [facility] Start: 07-11-2025 DIABETES SCREEN DIABETES SCREEN [facility] Start: 07-11-2025 Diabetes Screening Diabetes Screenin g [facility] Start: 07-30-2024 Patient referral [facility] Work Phone: Start: 05-20-2024 DIABETES SCREEN DIABETES SCREEN [facility] Start: 10-31-2023 Bacteria identified in Urine by Culture [facility] Start: 10-31-2023 [facility] Start: 10-24-2023 Patient referral [facility] Work Phone: Start: 09-13-2023 Shingrix Vaccine (2 of 2) Shingrix Vaccine (2 of 2) [facility] Start: 07-31-2023 Dual energy X-ray absorptiometry Dexa Bone Density Study [facility] Start: 07-31-2023 DXA Bone [Mass/Area] Bone density [facility] Start: 07-16-2023 Behavioral Health Screening Behavioral Health Screening [facility] Start: 06-25-2023 Patient referral [facility] Work Phone: Start: 05-01-2023 Mammography [facility] Start: 05-01-2023 Screening for malign ant neoplasm of breast Mammogram Screening [facility] Start: 03-16-2023 Covid-19 Vaccine ( season) Covid-19 Vaccine () [facility] Start: 03-16-2023 Influenza vaccination Influenza Vacc ine (#1) [facility] Start: 10-15-2022 Adult depression screening assessment DEPRESSION SCREENING [facility] Start: 07-16-2022 [facility]PRESSION [facility]ESSMENT [facility] Start: 04-29-2022 Mammography MAMMOGRAM [facility] Start: 07-16-2021 DEPRESSION ASSESSMENT [facility] Start: 2021 RSV Vaccine (1 - 1-d ose 60+ series) RSV Vaccine (1 - 1-dose 60+ series) [facility] Start: 06-20-2017 FECAL OCCULT BLOOD FECAL OCCULT BLOO D [facility] Start: 06-20-2017 Screening for malign ant neoplasm of colon Fecal Occult Blood [facility] Start: 2011 SHINGRIX VACCINE (1 of 2) SHINGRIX VACCINE (1 of 2) [facility] Start: 2006 COLOGUARD (FIT-DNA) COLOGUARD (FIT-D NA) [facility] Start: [address] COLONOGRAPHY [facility] Start: 2006 Screening for malign ant neoplasm of colon [facility] Start: 2006 SIGMOIDOSCOPY SIGMOIDOSCOPY [facility] Basic metabolic 2008 panel with ionized calcium - Serum or Plasma [facility] CBC W Auto Different ial panel - Blood [facility] Comprehensive metabo lic 2000 panel - Serum or Plasma [facility] End: 08-17-2023 Ct abdomen & pelvis w/o contrst 1/> body re CT UROGRAM WO/W IVCON Radiology Routine Abnormal ultrasound 1 Occurrences starting 07/18/2022 until 08/17/2023 [facility] Work Phone: Comment on above: 1 Occurrences starti ng 07/18/2022 until 08/17/2023 CT Neck W contrast IV [facility] DXA Bone [Mass/Area] Bone density [facility] Hemoglobin A1c/Hemoglobin.total in Blood [facility] Hemoglobin A1c/Hemoglobin.total in Blood [facility] End: 07-19-2024 RODRIGO SCREENING RODRIGO SCREENING Radiology Routine Encounter for screening mammogram for breast cancer 1 Occurrences starting 06/20/2023 until 07/19/2024 [facility] Work Phone: Comment on above: 1 Occurrences starti ng 06/20/2023 until 07/19/2024 MG Breast - bilatera l Screening [facility] Patient referral [facility] Work Phone: End: 07-07-2023 Screening mammography bi 2-view breast inc cad RODRIGO SCREENING Radiology Routine Encounter for screening mammogram for breast cancer 1 Occurrences starting 06/07/2022 until 07/07/2023 [facility] Work Phone: Comment on above: 1 Occurrences starti ng 06/07/2022 until 07/07/2023 SPECT Parathyroid gland [facility] Thyroid stimulating hormone measurement [facility] Thyroid stimulating hormone measurement [facility] Vitamin D, 25-hydrox y measurement [facility] XR Toes Views [facility] Immunizations Immunization Date Immunization Notes Care Provider Fa [facility] 05-13-2022 COVID-19 booster vaccine, age 12+ yr, bivalent ([employer]) Juan Luis Holloway MD Work Phone: [facility] 05-13-2022 influenza, injectabl e, quadrivalent, contains preservative Juan Luis Holloway MD Work Phone: [facility] 05-13-2022 influenza virus vaccine, unspecified formulation Ct (I-Stat) Work Phone: [facility] 06-03-2021 COVID-19 vaccine, fu ll dose (MODERNA) Adilene Podlogar REEL FED PRINTER.CLEARANCE DIVER Work Phone: [facility] 09-09-2020 COVID-19 vaccine, fu ll dose (MODERNA) Adilene Podlogar REEL FED PRINTER.CLEARANCE DIVER Work Phone: [facility] 08-12-2020 COVID-19 vaccine, fu ll dose (MODERNA) Adilene Podlogar REEL FED PRINTER.CLEARANCE DIVER Work Phone: [facility] 05-20-2019 influenza, seasonal, injectable Adilene Podlogar REEL FED PRINTER.CLEARANCE DIVER Work Phone: [facility] 05-20-2019 tetanus toxoid, reduced diphtheria toxoid, and acellular pertussis vaccine, adsorbed Adilene Podlogar REEL FED PRINTER.CLEARANCE DIVER Work Phone: [facility] 04-29-2017 influenza, seasonal, injectable Adilene Podlogar REEL FED PRINTER.CLEARANCE DIVER Work Phone: [facility] 04-25-2013 influenza virus vaccine, unspecified formulation Adilene Podlogar REEL FED PRINTER.CLEARANCE DIVER Work Phone: [facility] 04-25-2010 influenza virus vaccine, unspecified formulation Adilene Podlogar REEL FED PRINTER.CLEARANCE DIVER Work Phone: [facility] Work Phone: 07-11-1999 diphtheria and tetan us toxoids, adsorbed for pediatric use Adilene Podlogar REEL FED PRINTER.CLEARANCE DIVER Work Phone: [facility] Work Phone: Payers Date Payer Category Payer Unknown [id number] 2024 Unknown [id number] 2024 Self-pay [id number] 2019 Private Health Insurance [employer] A ETNA CHOICE POS II [id number] 2019-Present [phone] [address] [place] [address] POS [id number] 2019 Private Health Insurance [id number] 2019 Private Health Insurance [id number] Unknown [id number] 62 Unknown [id number] [id number] 62 Unknown [id number] 2.16.840.1.868927.3.579.2.4 62 Unknown [id number] 2.16.840.1.729053.3.579.2.4 62 Unknown [id number] 2.16.840.1.630763.3.579.2.4 62 Unknown [id number] 2.16.840.1.977184.3.579.2.4 62 Unknown [id number] 2.16.840.1.585792.3.579.2.4 62 Unknown [id number] 2.16.840.1.773291.3.579.2.4 62 Unknown [id number] 2.16.840.1.076232.3.579.2.4 62 Unknown [id number] 2.16.840.1.478133.3.579.2.4 62 Unknown [id number] 2.16.840.1.227260.3.579.2.4 62 Unknown [id number] 2.16.840.1.933579.3.579.2.4 62 Unknown [id number] 2.16.840.1.735859.3.579.2.4 62 Unknown [id number] 2.16.840.1.276453.3.579.2.4 62 Unknown [id number] 2.16.840.1.765052.3.579.2.4 62 Unknown [id number] 2.16.840.1.549195.3.579.2.4 62 Unknown [id number] 2.16.840.1.831364.3.579.2.4 62 Unknown [id number] 2.16.840.1.297733.3.579.2.4 62 Social History Date Type Detail Facility Start: 06-16-2016 End: 09-03-2024 Tobacco smoking status NHIS Ex-smoker [facility] End: 07-16-1986 History of tobacco use Current smoker [facility] Work Phone: Start: 10-17-2021 End: 07-27-2022 Alcohol intake Current drinker of alcohol (finding) [facility] Start: 05-14-2020 End: 07-11-2022 History SDOH Alcohol Frequency 3 [facility] Start: 05-14-2020 End: 07-11-2022 History SDOH Alcohol Std Drinks 1 [facility] Start: 08-15-2019 End: 07-11-2022 History SDOH Social Connections Get Together 2 [facility] Start: 08-15-2019 End: 07-11-2022 History SDOH Financial 5 [facility] Start: 05-10-2020 Education 16 [facility] Start: 1960 Sex Assigned At Female [facility] Start: 10-14-2018 End: 06-25-2023 Tobacco smoking status NHIS Unknown if ever smoked [facility] Start: 08-16-2018 Non-smoker [facility] End: 07-16-1986 History of tobacco use Cigarette Smoker [facility] Work Phone: Start: 06-16-2016 End: 06-20-2020 Cigarettes smoked current (pack per day) - Reported 1 [facility] Start: 06-16-2016 End: 07-11-2022 Tobacco use and exposure Smokeless tobacco non-user [facility] Work Phone: Start: 05-14-2022 End: 07-11-2022 History SDOH Social Connections Yazidi 98 [facility] Start: 06-20-2020 End: 07-11-2022 Social connection and isolation panel [facility] How often do you att end holiness or christianity services? Patient refused [facility] Do you belong to any clubs or organizations such as holiness groups, unions, fraternal or athletic groups, or school groups? No [facility] Are you now , , , , never or living with a partner? [facility] How often to you hav e a drink containing alcohol? 2-4 times a month [facility] How many standard dr inks containing alcohol do you have on a typical day? 1 or 2 [facility] How often do you hav e 6 or more drinks on 1 occasion? Never [facility] Do you feel stress - tense, restless, nervous, or anxious, or unable to sleep at night because your mind is troubled all the time - these days [OSQ] Only a little [facility] (I/We) worried maricruz er (my/our) food would run out before (I/we) got money to buy more. Never true [facility] Start: 08-05-2019 Gender identity Identifies as female gender (finding) [facility] Start: 08-05-2019 Sexual orientation Heterosexual (finding) [facility] Medical Equipment Procedure Code Equipment Code Equipment Origin al Text Equipment Identifier Dates Thyroidectomy SUTURE,LIGA CLIP MED [id number] FDA Start: 02-01-2024 Thyroidectomy Plant polysaccha ride haemostatic agent, bioabsorbable ()[id number] FDA Start: 02-01-2024 Thyroidectomy Ligation clip, metallic ()[id number] FDA Start: 02-01-2024 Thyroidectomy SUTURE,LIGA CLIP [...] Note Facility 01-30-2025 Radiology Diagnostic study note [facility] Imaging Services [address] [address] Toe(s) Min 2 Views MR#: [id number] Acct: [id number] Name: JANEE TOMPKINS Rep #: [id number] : 1960 F 64 From: Chioma Euceda MD PCP: Dr. Miah Montemayor MD Status: R EG CLI Study:Toe(s) Min 2 Views Date of Exam: 0 01/29/25 Exam# [id number] Ordering Dr: Franca Montemayor MD EXAM: XR [...] Views IMPRESSION: Soft tissue swelling. [facility] CC: Dr. 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 William Hunter MD Status: REG RCR Insurance: [facility] SELF PAY INSURANCE Discharge Summary D/C summary: [...] please feel free to call me at [phone]. Thank you for the referral of thispatient. Sincerely, Kishore Aldridge, DPT Balance/Gait/Functional tests Balance/Special Test Scores Oswestry Neck Score: 15 Improvement % Improvement: 70 <Electronically signed by Kishore Aldridge DPT> 11/19/24 1810 CC: Dr. William Hunter MD; Dr. Miah Montemayor MD ~ CLS Signed [facility] Work Phone: 1(142) 177-222205-07-2025 Discharge summary [facility] Physical Therapy [facility] [address] [place] [address] [address] [place] [address] / REHABILITATION SERVICES DISCHARGE SUMMARY MR#: [id number] Acct: [id number] Name: JANEE TOMPKINS Rep #: [id number] : 1960 64 From: Kishore TORRES T Referring Dr.: Dr. William Hunter MD Status: REG RCR Insurance: [facility] SELF PAY INSURANCE Discharge Summary D/C summary: [...] please feel free to call me at [phone]. Thank you for the referral of thispatient. Sincerely, Kishore Aldridge DPT Balance/Gait/Functional tests Balance/Special Test Scores Oswestry Neck Score: 15 Improvement % Improvement: 70 11/19/24 1810 CC: Dr. William Hunter MD; Dr. Miah Montemayor MD ~ CLS Signed [facility]04-17-2025 Evaluation note* Diagnosis Onset Date Resolution [...] 2025 2:44pm Prediabetes chronic January 29 2:44pm [facility] Work Phone: 1(420) 820-904903-20-2025 Evaluation note* Diagnosis Onset Date Resolution Status Admit Date Thyroid nodule chronic September 1:34pm Borderline type 2 diabetes mellitus chronic October 30, 2024 2:48pm Chronic cough chronic October 30, 2024 2:48pm Insomnia chronic October 30 2:48pm Post-surgical hypothyroidism chronic October 30, 2024 2:48pm [facility] Work Phone: 1(709) 497-537001-15-2025 Evaluation note* Diagnosis Onset Date Resolution Status Admit Date Retrolisthesis of vertebrae acute July 30, 2024 3:19pm Borderline type 2 diabetes mellitus chronic July 30 3:19pm Insomnia chronic July 30, 2024 3:19pm Obesity chronic July 30, 2024 3:19pm Post-surgical hypothyroidism chronic July 30, 2024 3:19pm Other cervical disc degeneration, mid-cervical region, unspecified level acute 2024 7:25am Thyroid nodule chronic September 1:34pm Borderline type 2 diabetes mellitus chronic October 30, 2024 2:48pm Chronic cough chronic October 30, 2024 2:48pm Insomnia chronic October 30 2:48pm Post-surgical hypothyroidism chronic October 30, 2024 2:48pm [facility] Work Phone: 1(663) 200-359305-03-2024 Telephone encounter Note* Telephone Encounter - Juan Luis Holloway MD - 11/16/2023 10:09 AM EDT Reviewed. Removed myself as her PCP. [facility]05-03-2024 Miscellaneous Notes* Telephone Encounter - Juan Luis [...] the next couple ofmonths. [facility] Telephone encounter Note * Telephone Encounter - Chelsey Winston LPN - 11/16/2023 9:52 AM EDT Phoned patient and reviewed message. She stated the US has been ordered and dr Lockwood and Sim arefollowing her. Asked patient if Dr Montemayor is her PCP and she stated "Yes, she is my new PCP." Chelsey Winston LPN [facility]05-02-2024 Telephone encounter Note* Telephone Encounter - Juan [...] annual physical in the next couple ofmonths. [facility]04-23-2024 History of Present illness Narrative* Reef Janee [...] PATIENT PRESENTS WITH AN IMPLANTABLE OR ATTACHED WOOL WASHING MACHINE OPERATOR: No ALLERGIES: Reviewed and unchanged CONTRAST [...] 2023 TIME: 4:00 PM documented in [facility]Del[facility]24 NoteHNO ID: [id number] Author: JANEE SANZ RT (R) Service: ? Author Type: Medical Support Assistant Type: Progress Notes Filed: 11/06/2023 16:00 Note [...] PATIENT PRESENTS WITH AN IMPLANTABLE OR ATTACHED WOOL WASHING MACHINE OPERATOR: No ALLERGIES: Reviewed and unchanged CONTRAST [...] [place] DATE: November 06, 2023 TIME: 4:00 [facility]12-06-2023 NotePatient Outreach (INTMMN) JANEE TOMPKINS ([id number]) 1960 F Date Time Provider Department 06/20/23 JUAN LUIS HOLLOWAY INTMMN During your visit today, we recorded the [...] for screening mammogram for breast cancer [Z12.31] Order(s):[facility] SCREENING [[id number]] Order #: [id number] FUTURE Prescriptions as of 06/25/2023 - cyclobenzaprine [...] fluticasone (FLONASE) 50 mcg/actuation nasal spray 1 Kennan once daily. - multivitamin (MULTIPLE VITAMIN) ORAL [...] 06/29/2017 Encounter Status:Closed by LILA ORTEGA on 06/25/23[facility] 05-04-2023 Discharge summary Author Mike Hassan [facility] May 04, 2023 12:33pm Note Date/Time May 04, 2023 1 2:33pm [facility] Physical Therapy [facility] [place] [address] / REHABILITATION SERVICES DISCHARGE SUMMARY MR#: [id number] Acct: [id number] Name: JANEE TOMPKINS Rep #: [id number] [...] please feel free to call me at [phone]. Thank you for the referral of thispatient. Sincerely, Mike Hassan, PT, ATC Balance/Gait/Functional tests Balance/Special Test Scores Quick DASH Score: 2.2725 Improvement % Improvement: 90 <Electronically signed by Mike Hassan PT, ATC> 05/04/23 1233 CC: Dr. Miah Montemayor MD ~ [facility] Signed [facility] Work Phone: 1(825) 111-205301-13-2023 Miscellaneous Notes* Telephone Encounter - Sheri Fam [...] function at future OV. [facility] History of Present illness Narrative* Janee Sanz, RT(R) - 07/27/2022 8:40 AM EST Radiology [...] 2022 TIME: 8:59 AM documented in this encounterDel[facility]01-03-2023 Miscellaneous Notes* Telephone Encounter - Jasmyne Garcia RN - 07/18/2022 8:33 AM EST Phoned patient and given provider's message below with verbalized understanding. Transferred to [facility]. * Telephone Encounter - Adilene Main APRN.JAY - 07/18/2022 8:03 AM EST Please call patient and let her know her ultrasound showed slight pyelectasis- this is where urine gathers in the center of the kidney- no hydronephrosis which is swelling of the kidney. Recommend CTurogram. Orders in place, please assist in scheduling. Adilene Main APRN.CNP documented in this encounterDel[facility]12-28-2022 Miscellaneous Notes* Telephone Encounter - Chelsey Roca [...] ranges. Adilene Main APRN.CNP documented in this encounterDel[facility]12-28-2022 NoteHNO ID: [id number] Author: RT Ekta(R) Service: ? Author Type: [...] BY: RT Ekta(R) July 12, 2022 10:27 [facility] History of Present illness Narrative* DAVID Dash) - 07/12/2022 9:00 AM EST Radiology Service [...] IV DATA: Not applicable SIGNED BY: RT Ekta(Nhan) July 12, 2022 10:27 AM documented in this encounterDel[facility]04-04-2022 History of Present illness Narrative* Adilene Main APRN.CLEARANCE DIVER - 10/17/2021 8:16 AM EDT 10/17/2021 Patient [...] fluticasone (FLONASE) 50 mcg/actuation nasal spray 1 Kennan once daily. multivitamin (MULTIPLE VITAMIN) ORAL Tab [...] DOXYCYCLINE HYCLATE 100 MG TABLET Adilene Main APRN.CNP Prescription instructions reviewed with patient as applicable. Patient advised if symptoms do not improve or if symptoms worsen sooner, to contact their primary care physician. Potential red flag symptoms discussed with the patient. Reviewed appropriate action plan to take if red flag symptoms occur. Patient agreeable to treatment plan. documented in [facility]Del[facility]12-[facility]-2016 History of Past illness Narrative* Problem Noted Date Resolved Date Iron deficiency anemia 06/21/2016 7 Fracture of distal fibula 06/15/20142015 Well adult exam 05/13/2012 05/13/2012 Calcaneal spur 05/18/2006 09/30/2015 Lumbago 07/24/2005 09/30/2015 Disorders of bursae and tend ons in shoulder region, unspecified 07/24/2005 09/30/2015 documented as of this encounter (statuses as of 10/17/2021) [facility] History of Past illness Narrative* Problem Noted Date Resolved Date Iron deficiency anemia 06/21/2016 7 Fracture of distal fibula 06/15/20142015 Well adult exam 05/13/2012 05/13/2012 Calcaneal spur 05/18/2006 09/30/2015 Lumbago 07/24/2005 09/30/2015 Disorders of bursae and tend ons in shoulder region, unspecified 07/24/2005 09/30/2015 documented as of this encounter (statuses as of 06/12/2022) [facility] History of Past illness Narrative* Problem Noted Date Resolved Date Iron deficiency anemia 06/21/2016 7 Fracture of distal fibula 06/15/20142015 Well adult exam 05/13/2012 05/13/2012 Calcaneal spur 05/18/2006 09/30/2015 Lumbago 07/24/2005 09/30/2015 Disorders of bursae and tend ons in shoulder region, unspecified 07/24/2005 09/30/2015 documented as of this encounter (statuses as of 06/12/2022) [place] [address]-07-2016 History of Past illness Narrative* Problem Noted Date Resolved Date Iron deficiency anemia 06/21/2016 7 Fracture of distal fibula 06/15/20142015 Well adult exam 05/13/2012 05/13/2012 Calcaneal spur 05/18/2006 09/30/2015 Lumbago 07/24/2005 09/30/2015 Disorders of bursae and tend ons in shoulder region, unspecified 07/24/2005 09/30/2015 documented as of this encounter (statuses as of 07/19/2022) [facility] History of Past illness Narrative* Problem Noted Date Resolved Date Iron deficiency anemia 06/21/2016 7 Fracture of distal fibula 06/15/20142015 Well adult exam 05/13/2012 05/13/2012 Calcaneal spur 05/18/2006 09/30/2015 Lumbago 07/24/2005 09/30/2015 Disorders of bursae and tend ons in shoulder region, unspecified 07/24/2005 09/30/2015 documented as of this encounter (statuses as of 07/19/2022) [facility] History of Past illness Narrative* Problem Noted Date Resolved Date Iron deficiency anemia 06/21/2016 7 Fracture of distal fibula 06/15/20142015 Well adult exam 05/13/2012 05/13/2012 Calcaneal spur 05/18/2006 09/30/2015 Lumbago 07/24/2005 09/30/2015 Disorders of bursae and tend ons in shoulder region, unspecified 07/24/2005 09/30/2015 documented as of this encounter (statuses as of 07/20/2022) [facility] History of Past illness Narrative* Problem Noted Date Resolved Date Iron deficiency anemia 06/21/2016 7 Fracture of distal fibula 06/15/20142015 Well adult exam 05/13/2012 05/13/2012 Calcaneal spur 05/18/2006 09/30/2015 Lumbago 07/24/2005 09/30/2015 Disorders of bursae and tend ons in shoulder region, unspecified 07/24/2005 09/30/2015 documented as of this encounter (statuses as of 07/21/2022) [facility] History of Past illness Narrative* Problem Noted Date Resolved Date Iron deficiency anemia 06/21/2016 7 Fracture of distal fibula 06/15/20142015 Well adult exam 05/13/2012 05/13/2012 Calcaneal spur 05/18/2006 09/30/2015 Lumbago 07/24/2005 09/30/2015 Disorders of bursae and tend ons in shoulder region, unspecified 07/24/2005 09/30/2015 documented as of this encounter (statuses as of 07/28/2022) [facility] History of Past illness Narrative* Problem Noted Date Diagnosed Date Resolved Date Iron deficiency anemia 06/21/201602/22 Fracture of distal fibula 06/15/2014 Well adult exam 05/13/2012 05/13/2012 Calcaneal spur 05/18/2006 09/30/2015 Lumbago 07/24/2005 09/30/2015 Disorders of bursae and tend ons in shoulder region, unspecified 07/24/2005 09/30/2015 documented as of this encounter (statuses as of 05/20/2023) [facility] History of Past illness Narrative* Problem Noted Date Diagnosed Date Resolved Date Iron deficiency anemia 06/21/201602/22 Fracture of distal fibula 06/15/2014 Well adult exam 05/13/2012 05/13/2012 Calcaneal spur 05/18/2006 09/30/2015 Lumbago 07/24/2005 09/30/2015 Disorders of bursae and tend ons in shoulder region, unspecified 07/24/2005 09/30/2015 documented as of this encounter (statuses as of 06/25/2023) [facility]* Diagnosis URI, acute- Primary Acute upper respiratory infections of unspecified site Tenderness over frontal sinus documented in this encounter [facility]Eval[facility] noteNo assessment information availableWSelect [facility] Work Phone: Evaluation note* Diagnosis Encounter for screening mammogram for breast cancer documented [facility] this encounter [facility]* Diagnosis Right flank pain Abdominal pain, unspecified site documented in this encounter [facility] note* Diagnosis Abnormal ultrasound- Primary Other nonspecific (abnormal) findings on radiological and other examinations of body structure documented in this encounter [facility] note* Diagnosis Onset Date Resolution Status Encounter to establish care acute Postsurgical malabsorption [facility] Preventative health care acu [facility] Work Phone: Evaluation note* Diagnosis Onset Date Resolution Status Anxiety acute Radiculopathy acute Borderline type 2 diabetes mellitus chronic Chronic fatigue syndrome with fibromyalgia [facility] Work Phone: Evaluation note* Diagnosis Onset Date Resolution Status Anxiety acute Radiculopathy acute Borderline type 2 diabetes mellitus chronic Chronic fatigue syndrome with fibromyalgia chronic Chronic fatigue syndrome with fibromyalgia chronic Insomnia chronic Right shoulder pain [facility] Work Phone: Evaluation note* Diagnosis Abnormal ultrasound Other nonspecific (abnormal) findings on radiological and other examinations of body structure documented in this encounter [facility] note* Diagnosis Encounter for screening mammogram for breast cancer documented in this encounter [facility] note* Diagnosis Onset Date Resolution Status Anxiety acute Preventative health care acu te Borderline type 2 diabetes mellitus chronic Chronic fatigue syndrome with fibromyalgia chronic Insomnia [facility] Work Phone: Evaluation note* Diagnosis Onset Date Resolution Status Anxiety acute Preventative health care acu te Borderline type 2 diabetes mellitus chronic Chronic fatigue syndrome with fibromyalgia chronic Insomnia chronic Osteopenia with high risk of fracture acute Postsurgical malabsorption a [facility] Work Phone: Evaluation note* Diagnosis Onset Date Resolution Status Anxiety acute Preventative health care acu te Borderline type 2 diabetes mellitus chronic Chronic fatigue syndrome with fibromyalgia chronic Insomnia chronic Osteopenia with high risk of fracture acute Postsurgical malabsorption a cute Hyperparathyroidism acute Multiple thyroid nodules acu [facility] Work Phone: Evaluation note* Diagnosis Onset Date Resolution Status Osteopenia with high risk of fracture acute Postsurgical malabsorption a cute Hyperparathyroidism acute Multiple thyroid nodules acu te Hyperparathyroidism acute Multiple thyroid nodules acu [facility] Work Phone: Evaluation note* Diagnosis Onset Date Resolution Status Osteopenia with high risk of fracture acute Postsurgical malabsorption a cute Hyperparathyroidism acute Multiple thyroid nodules acu te Hyperparathyroidism acute Multiple thyroid nodules acu te Flank pain acute Sacroiliac joint pain acute [facility] Work Phone: Evaluation note* Diagnosis Onset Date Resolution Status Chronic fatigue syndrome with fibromyalgia chronic Insomnia chronic Right shoulder pain chronic Anxiety acute Preventative health care acu te Borderline type 2 diabetes mellitus chronic Chronic fatigue syndrome with fibromyalgia chronic Insomnia chronic [facility] Work Phone: Reason for referral (narrative)* Diagnostic Procedure Only (Routine) - Pending Review Specialty Diagnoses / Procedures Referred By Abel livingston Referred To Contact BR IMAGING Diagnoses Encounter for screening mammogram for breast cancer Procedures RODRIGO SCREENING SCREENING MAMMOGRAPHY BI 2-VIEW BREAST INC Juan Luis Alberto MD [address] [place] [address] [facility] [address] [place] [address] Referral ID Status Reason Start Date Expiration Date Visits Requested Visits Authorized [id number] Pending Review Auto-Generat ed Referral 2 07/07/2023 1 1 [facility] for referral (narrative)* Diagnostic Procedure Only (Routine) - Closed Specialty Diagnoses / Procedures Referred By Abel livingston Referred To Contact US IMAGING Diagnoses Right flank pain Procedures US KIDNEY/BLADDER US RETROPERITONEAL REAL TIME W/IMAGE COMPLETE Adilene Main APRN.CNP [address] [place] [address] Us Imaging Referral ID Status Reason Start Date Expiration Date V isits Requested Visits Authorized [id number] Closed Auto-Generate d Referral 07/11/2022 08/10/2023 1 1 [facility] for referral (narrative)* Diagnostic Procedure Only (Routine) - Pending Review Specialty Diagnoses / Procedures Referred By Abel livingston Referred To Contact BR IMAGING Diagnoses Encounter for screening mammogram for breast cancer Procedures RODRIGO SCREENING SCREENING MAMMOGRAPHY BI 2-VIEW BREAST INC Juan Luis Alberto MD [address] [place] [address] [facility] [address] [place] [address] Referral ID Status Reason Start Date Expiration Date Visits Requested Visits Authorized [id number] Pending Review Auto-Generat ed Referral 06/20/2023 07/19/2024 1 1 [facility] (narrative)No reason for referral information availableEvansville Psychiatric [facility] Work Phone: Reason for visit Narrative* Diagnostic Procedure Only (Routine) - Closed Specialty Diagnoses / Procedures Referred By Contac t Referred To Contact US IMAGING Diagnoses Right flank pain Procedures US KIDNEY/BLADDER US RETROPERITONEAL REAL TIME W/IMAGE COMPLETE Podlogar, LARY HeadN.CLEARANCE DIVER [address] [place] [address] Us Imaging Referral ID Status Reason Start Date Expiration Date V isits Requested Visits Authorized [id number] Closed Auto-Generate d Referral 07/11/2022 08/10/2023 1 1 [facility] Summary Purpose Family History No Family [...] FoundDocuments on File Type Date Recorded 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 Yes December 27, 2023 11:11am Chief Complaint and Reason for Visit Chief Complaint SCREENING Chief Complaint SCREENING Est. Care Blood Flow Screening - [place] Reason for Visit Encounter to [facility] Postsurgical malabsorption Preventative health care Chief [...] & PELVIS W/O CONTRST 1+ BODY REGNS PodAdilene topete REEL FED PRINTER.CLEARANCE DIVER [address] [place] [address] Ct Imaging Referral ID Status Reason Start Date Expiration Date Visits Requested Visits Authorized [id number] Authorized Auto-Generat ed Referral 07/18/2022 08/17/2023 1 1 Specialty Diagnoses / Procedures Referred By Contac t Referred To Contact CT IMAGING Diagnoses Abnormal ultrasound Procedures CT UROGRAM WO/W IVCON CT ABD & PELVIS W/O CONTRST 1+ BODY REGNS Podlogar, Adilene, REEL FED PRINTER.CLEARANCE DIVER [address] [place] [address] [place] [address] Referral ID Status Reason Start Date Expiration Date V isits Requested Visits Authorized [id number] Closed Auto-Generate d Referral 07/18/2022 08/17/2023 1 1 Additional Source Comments INFORMATION SOURCE (unrecogn ized section and content) DATE CREATED AUTHOR 09/09/2019 [facility] DATE CREATED AUTHOR AUTHOR'S ORGANIZ ATION 07/14/2022 [facility] DATE CREATED AUTHOR AUTHOR'S ORGANIZ ATION 01/11/2024 [facility] DATE CREATED AUTHOR AUTHOR'S ORGANIZ ATION 05/02/2025 [facility] Source Comments (unrecognize d section and content) In the event this informatio n is protected by the Federal Confidentiality of Alcohol and Drug Abuse Patient Records regulations: The Federal rules restrict any use of the information to criminally investigate or prosecute any alcohol or drug abuse patient.[facility] HospitalIn the event this information is protected by the Federal Confidentiality of Alcohol and Drug Abuse Patient Records regulations: The Federal rules restrict any use of the information to criminally investigate or prosecute any alcohol or drug abuse patient.[facility] HospitalIn the event this information is protected by the Federal Confidentiality of Alcohol and Drug Abuse Patient Records regulations: The Federal rules restrict any use of the information to criminally investigate or prosecute any alcohol or drug abuse patient.[facility] HospitalIn the event this information is protected by the Federal Confidentiality of Alcohol and Drug Abuse Patient Records regulations: The Federal rules restrict any use of the information to criminally investigate or prosecute any alcohol or drug abuse patient.[facility] HospitalIn the event this information is protected by the Federal Confidentiality of Alcohol and Drug Abuse Patient Records regulations: The Federal rules restrict any use of the information to criminally investigate or prosecute any alcohol or drug abuse patient.[facility] HospitalIn the event this information is protected by the Federal Confidentiality of Alcohol and Drug Abuse Patient Records regulations: The Federal rules restrict any use of the information to criminally investigate or prosecute any alcohol or drug abuse patient.[facility] HospitalIn the event this information is protected by the Federal Confidentiality of Alcohol and Drug Abuse Patient Records regulations: The Federal rules restrict any use of the information to criminally investigate or prosecute any alcohol or drug abuse patient.[facility] HospitalIn the event this information is protected by the Federal Confidentiality of Alcohol and Drug Abuse Patient Records regulations: The Federal rules restrict any use of the information to criminally investigate or prosecute any alcohol or drug abuse patient.[facility] HospitalIn the event this information is protected by the Federal Confidentiality of Alcohol and Drug Abuse Patient Records regulations: The Federal rules restrict any use of the information to criminally investigate or prosecute any alcohol or drug abuse patient.[facility] HospitalIn the event this information is protected by the Federal Confidentiality of Alcohol and Drug Abuse Patient Records regulations: The Federal rules restrict any use of the information to criminally investigate or prosecute any alcohol or drug abuse patient.[facility] HospitalIn the event this information is protected by the Federal Confidentiality of Alcohol and Drug Abuse Patient Records regulations: The Federal rules restrict any use of the information to criminally investigate or prosecute any alcohol or drug abuse patient.[facility] HospitalIn the event this information is protected by the Federal Confidentiality of Alcohol and Drug Abuse Patient Records regulations: The Federal rules restrict any use of the information to criminally investigate or prosecute any alcohol or drug abuse patient.[facility] Reason for Visit (unrecogniz ed section and content) Reason Comments Sinus Problem congestion x4 days, fever x48 hours Reason Comments Results Reason Comments Results Reason Comments Radiology CT Specialty Diagnoses / Procedures Referred By Abel livingston Referred To Contact CT IMAGING Diagnoses Abnormal ultrasound Procedures CT UROGRAM WO/W IVCON CT ABD & PELVIS W/O CONTRST 1+ BODY REGNS PodlogAdilene galindo APRN.CLEARANCE DIVER [address] [place] [address] Ct Imaging [place] [address] Referral ID Status Reason Start Date Expiration Date V isits Requested Visits Authorized [id number] Closed Auto-Generate d Referral 07/18/2022 08/17/2023 [address] Care Teams (unrecognized sec tion and content) Epic Application Coordinator Relationship Specialty Start Date End Date Juan Luis Holloway MD [address] [place], [place] [address] PCP - General Family Practice 05/18/21 Epic Application Coordinator Relationship Specialty Start Date End Date Juan Luis Holloway MD [address] [place] [address] PCP - General Family Medicine 05/18/21 Epic Application Coordinator Relationship Specialty Start Date End Date Juan Luis Holloway MD [address] [place] [address] PCP - General Family Medicine 05/18/21 Epic Application Coordinator Relationship Specialty Start Date End Date Juan Luis Holloway MD [address] [place] [address] PCP - General Family Medicine 05/18/21 Epic Application Coordinator Relationship Specialty Start Date End Date Juan Luis Holloway MD [address] [place] [address] PCP - General Family Medicine 05/18/21 Epic Application Coordinator Relationship Specialty Start Date End Date Juan Luis Holloway MD [address] [place] [address] PCP - General Family Medicine 05/18/21 Epic Application Coordinator Relationship Specialty Start Date End Date Juan Luis Holloway MD [address] [place] [address] PCP - General Family Medicine 05/18/21 Epic Application Coordinator Relationship Specialty Start Date End Date Juan Luis Holloway MD [address] [facility] [address] PCP - General Family Medicine 05/18/21 Team Status: Active Member Role Status Dates Dr. Rohan North III, MD Family Provider Active Dr. Miah Montemayor MD Primary Care Provider Active Team Status: Inactive Member Role Status Dates Dr. Miah Montemayor MD Attending Provider Active Team Status: Inactive Member Role Status Dates Adilene Main [employer], RE[employer]-C Primary Care Provider Active Dr. Cora Conteh [...] P rovider, Attending Provider, Referring Provider Active Epic Application Coordinator Relationship Specialty Start Date End Date Juan Luis Holloway MD [address] [facility], [place] [id number] PCP - General Family Medicine 05/18/21 Epic Application Coordinator Relationship Specialty Start Date End Date Juan Luis Holloway MD [address] [place], [place] [id number] PCP - General Family Medicine 05/18/21 Team [...] Provider Active DURGA Mejia Attending Provider Active Epic Application Coordinator Relationship Specialty Start Date End Date Juan Luis Holloway MD [address] [place] [address] PCP - General Family Medicine 05/18/21 Team Status: Inactive Member Role Status Dates Dr. Miha Montemayor MD Primary Care Provider Active Bran CALIXTO PA Attending Provider Active Epic Application Coordinator Relationship Specialty Start Date End Date Juan Luis Holloway MD [address] [place] [address] PCP - General Family Medicine 05/18/21 11/15/23 Team Status: Active Member Role Status Dates Dr. Miah Montemayor MD Primary Care Provider Active Team Status: Inactive Member Role Status Dates Dr. Miah Montemayor MD Primary Care Provider Active Start: July 30, 2024 End: July 30, 2024 Dr. Miah Montemayor MD Attending Provider Active Start: July 30, 2024 End: July 30, 2024 Dr. Miha Montemayor MD Referring Provider Active Start: July [...] 2024 End: November 14, 2024 Dr. Miah oMntemayor MD Referring Provider Active Start: November 14, [...] BE BASED ON THE PRIMARY CLINICAL RECORDS. [facility] [employer] [facility]. provides no warranty or guarantee of the accuracy or completeness of information in this document.
--- NOTE | 2025-05-07 07:15 | BI_ITS ---
EXAM: SCRN MAMM (CAD)W/JACK BILAT DATE: 05/07/2025 CLINICAL HISTORY: F, Age 65 y/o , BREAST CANCER SCREENING Sister with breast cancer. Aunt with breast cancer. TECHNIQUE: Procedure Code: [id number] Modality: MG Procedure: SCRN MAMM (CAD)W/JACK BILAT COMPARISON: Prior exam(s) dated May 06, 2024.. FINDINGS: TISSUE DENSITY: There are scattered areas of fibroglandular density. Bilateral Breast Mammographic Findings: No significant masses, calcifications or other abnormalities are identified. No suspicious masses, areas of developing architectural distortion, or suspicious calcifications. There has been no significant interval change. BI/SCRN MAMM (CAD)W/JACK BILAT IMPRESSION: Stable bilateral screening mammogram. OVERALL FINAL ASSESSMENT BI-RADS 1: NEGATIVE. RECOMMENDATION: Routine annual follow-up in 1 Year Additional Recommendation none A letter with findings and recommendations will be mailed to the patient. Reading Location: [place] [id number]
== END | disposition home or self-care (01) ==
LOC: OPBI 07:08
PROVIDERS: PCP Internal Medicine; Referring Provider Internal Medicine; Visit Provider Internal Medicine
DX: Z12.31 Encounter for screening mammogram for malignant neoplasm of breast (principal)
CPT/HCPCS: 77063; 77067